=== PATIENT | female | born 1955 | race Caucasian/White ===

== ENCOUNTER 2020-04-04 22:13 | Inpatient (IN) | payer SELFPAY ==
[~2020-04-04] VITALS: Ht 167.6 cm; Wt 123.4 kg
[2020-04-04 23:45] VITALS: BP 155/82
[2020-04-05] MEDS ORDERED: ONDANSETRON PF 4 MG/2 ML VIAL. IVP PRN
[2020-04-05] MEDS ORDERED: fentaNYL PF VIAL 100 MCG/2 ML VIAL IVP PRN
[2020-04-05] MEDS ORDERED: DEXTROSE 50% 25 GM / 50ML DISP.SYRIN. IV PRN
[2020-04-05] MEDS: IV DEXTROSE 5 %-0.45 % NACL 1,000 ML IV SCH ×2 (00:34→12:57)
[2020-04-05 03:57] VITALS: BP 146/80
[2020-04-05 05:20] LABS: HEMATOCRIT 28.3 % (36.0-47.0); HEMOGLOBIN 8.6 g/dL (12.0-15.5); RED BLOOD COUNT 4.5 x10^6/uL (3.50-5.40); RED CELL DISTRIBUTION WIDTH 19.6 % (11.5-14.5); WHITE BLOOD COUNT 9.5 x10^3/uL (4.0-11.0)
[2020-04-05 05:54] LABS: ALBUMIN 2.8 g/dL (3.4-5.0); ALBUMIN/GLOBULIN RATIO 0.7 (1.0-1.7); CALCIUM 8.7 mg/dL (8.5-10.1); GFR 56.2; POTASSIUM 3.8 mmol/L (3.5-5.1); TOTAL BILIRUBIN 0.5 mg/dL (0.2-1.0); TOTAL PROTEIN 6.9 g/dL (6.4-8.2)
[2020-04-05 07:36] VITALS: BP 153/74
[2020-04-05] MEDS: INSULIN LISPRO 300 UNITS/3 ML VIAL. SQ SCH ×3 (09:18→17:49)
[2020-04-05 10:50] VITALS: BP 137/76
--- NOTE | 2020-04-05 11:27 | PN ---
DATE: 04/05/2020 SUBJECTIVE: The patient was transferred yesterday from [facility] where she was evaluated in the Emergency Room, was found to have dilated small bowel and with a stricture at the hepatic flexure suggestive of either malignant stricture or inflammatory stricture. When I kept her n.p.o., continued her on IV fluid and when I saw her this morning, she continued to complain of pain in the epigastric area, but denied any nausea or vomiting. She did pass gas, has no bowel movement. PHYSICAL EXAMINATION: GENERAL: When I examined her, she looked pale, no jaundice, cyanosis or thyromegaly. No jugular venous distention. No limb edema. VITAL SIGNS: Her heart rate was 75, blood pressure was 153/74, temperature was 98.3, respiratory rate was 16, and oxygen saturation was 96% on room air. HEAD, EYES, EARS, NOSE AND THROAT: Showed she is normocephalic, atraumatic. NECK: Supple. CARDIAC: Normal first and second heart sounds with no gallop or murmur. CHEST: Clear to auscultation. No crepitation or rhonchi. ABDOMEN: Distended, soft with tenderness mostly in the epigastric area. There is no guarding or rigidity. No organomegaly. All hernial orifice intact. Bowel sounds normal. NEUROLOGIC: She is grossly intact. Her intake and output are incompletely recorded. LABORATORY DATA: Her lab work this morning showed a white cell count 9500, hemoglobin 8.6, hematocrit 28.3, MCV 63 and platelet count 280,000. Her chemistry showed a serum sodium 136, potassium 3.8, chloride 103, bicarbonate 22, anion gap of 11, BUN 9, creatinine 1, estimated GFR was 56 mL per minute. Her glucose was 288, calcium was 8.7. Total bilirubin, AST, ALT, alkaline phosphatase were normal. Total protein was 6.9, albumin 2.8. ASSESSMENT: This is a 64-year-old female patient who presented with abdominal pain that has been going on for months now, progressively worsening. She also lost about 30 pounds since [place]. Her lab work showed that she has microcytic hypochromic anemia and a CT scan of the abdomen showed dilated fluid-filled loops of distal small bowel and colon with focal area of transition near the hepatic flexure. 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 I did consult the Gastroenterology team as well as the surgical team. She is now n.p.o., on IV fluids and insulin sliding scale. I will add Rocephin. I will send urine for culture and start her on Rocephin 1 gram IV daily. I also ordered CA 19-9 as well as serum iron, TIBC, and serum ferritin. ANNA CARNES MD DR: MIRI/chris JOB#: [id number] / [id number]
--- NOTE | 2020-04-05 11:40 | HP ---
ADMIT DATE: 04/04/2020 HISTORY OF PRESENT ILLNESS: The patient is a 64-year-old female patient, who presented to the Emergency Room of [facility] with a report of upper abdominal pain primarily in the epigastric region that has been ongoing for 3 days. She did report some nausea and vomiting. According to her, this pain has been progressively there since 4 months now, it is on and off, the pain comes once in a few weeks and then once a week and now twice a week associated with severe constipation. Once she was treated, she developed diarrhea. She also complained of weight loss; according to her, she lost about 30 pounds since [place]. She denied any hematemesis, melena, or hematochezia. She was extensively investigated in the Emergency Room of [facility]. Her lab work showed that she has microcytic hypochromic anemia. Her hemoglobin was 10, hematocrit 34, and MCV of 64 with normal white cell count and platelets. Her chemistry was generally unrevealing. She did have a CT scan of the abdomen and pelvis, which basically showed that the patient has dilated fluid filled loops of distal small bowel and colon with focal area of transition near the hepatic flexure, finding suspicious for colonic neoplasm inflammatory stricture, recommend colonoscopy for better evaluation. There are mildly enlarged lymph nodes near the area of transition, which could be related to localized metastatic lymph node spread or inflammatory process. She is status post cholecystectomy and appendectomy. There is a small nodular focus of increased density near the cecal tip, which could be postsurgical scarring. She has small amount of free pelvic fluid and therefore the patient was transferred to [facility] to consult the Gastroenterology team as well as the surgical team. PAST MEDICAL HISTORY: Significant for type 2 diabetes mellitus, hypertension, and osteoarthritis. PAST SURGICAL HISTORY: Significant for 2 , cholecystectomy, and appendectomy. ALLERGIES: She has no known drug allergies. MEDICATIONS: She is currently on following medications: She said she is on metformin. She gets her medication from [facility], we will contact that pharmacy to find out exactly what she is on. FAMILY HISTORY: She has 3 brothers and 1 sister, all younger, one of her brothers had heart attack. Her father is still alive at age of 85 and healthy. Mother is alive at age of 82 and has a cerebrovascular accident, currently in a fci. SOCIAL HISTORY: She is , has 2 sons and 2 daughters. She never smoked, does not drink alcohol or use recreational drugs. 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 Three of her granddaughters live with her as one of her daughters because of lung cancer or metastases. REVIEW OF SYSTEMS: The patient denied any blurring of vision, cataract, glaucoma, or macular degeneration. Denied any earache, tinnitus, or sensorineural deafness. Denied any nosebleeds, stuffy nose, or postnasal drip. Denied any sore throat, sore tongue, toothache, hoarseness of voice, or difficulty swallowing but did complain of nausea or vomiting. Denied any hematemesis, melena, or hematochezia. Denied any dysuria, frequency, or hematuria. Denied any chest pain, shortness of breath, orthopnea, or paroxysmal nocturnal dyspnea. Denied any cough, phlegm, or hemoptysis. Denied any dizziness, lightheadedness, or vertigo. PHYSICAL EXAMINATION: GENERAL: On arrival to the Emergency Room, she looked well and was clearly in no apparent distress, slightly pale, but no jaundice, cyanosis or thyromegaly. No jugular venous distention. No limb edema. VITAL SIGNS: Her heart rate was 95, blood pressure was 129/71, temperature was 98, respiratory rate was 20, and oxygen saturation was 98%. HEAD, EYES, EARS, NOSE AND THROAT: Normocephalic, atraumatic. NECK: Supple. HEART: Showed normal first and second sounds with no gallop or murmur. CHEST: Showed a central trachea, equal bilateral expansion, air entry, expiratory crepitation or rhonchi. ABDOMEN: Distended. Tenderness mostly in the epigastric area. There is no guarding or rigidity. No organomegaly. All hernial orifices intact. Bowel sounds are normal. NEUROLOGIC: She was grossly intact. LABORATORY DATA: Showed a white cell count 9600, hemoglobin 10, hematocrit 34, MCV 64, and platelet count 307,000. Her prothrombin time, INR, and aPTT were all normal. Her chemistry showed a serum sodium 135, potassium 4.7, chloride 98, bicarbonate 23, anion gap of 14, BUN 10, creatinine 1.1, estimated GFR was 50 mL per minute. Her glucose was 368, lactic acid was 1.8, calcium was 9.7, and magnesium was 1.7. Total bilirubin and ALT were normal. AST and alkaline phosphatase were slightly elevated. CK was normal. Total protein was 8.2, albumin 3.3, and lipase was 100. Her urinalysis showed the urine was yellow, turbid with a pH of 5.5, specific gravity of 1.020. There was small amount of protein, large amount of glucose, small amount of ketones, trace of blood, negative for nitrite and bilirubin. There was trace of leukocyte esterase, 1-2 rbc's, more than 40 wbc's, and many bacteria. Her CT scan of the abdomen and pelvis basically showed that she has dilated fluid filled loops of distal small bowel and colon with focal area of transition near the hepatic flexure. Findings are suspicious for colonic neoplasm, inflammatory stricture, recommend colonoscopy for better evaluation. There are mildly enlarged lymph nodes near the area of transition, which could be related to localized metastatic lymph nodes spread or inflammatory process. She is status post cholecystectomy and appendectomy; however, there is a small nodular focus of increased density near the cecal tip, which could be postsurgical scarring. She has also a small amount of free pelvic fluid. ASSESSMENT AND PLAN: The patient was basically admitted to [facility]. We will keep her n.p.o., continue with IV fluid, and consult the Gastroenterology as well as the surgical team. Also given her urinalysis, we will send urine for culture and start her on IV antibiotic. We will monitor her blood sugar and use insulin as insulin sliding scale. ANNA CARNES MD DR: MIRI/chris JOB#: [id number] / [id number]
--- NOTE | 2020-04-05 11:49 | PDOC2 ---
CONSULT Date of Consult Date of Consult DATE: 04/05/20 TIME: 11:43 Reason for Consult Reason for Consult: right colon obstruction Referring Physician Referring Physician: Dr Nicolas Identification/Chief Complaint Chief Complaint constipation, nausea, right sided pain Source Source: Chart review, Patient History of Present Illness Reason for Visit: Ms Parr is a 64 yo obese lady who has never had a colonoscopy and for the last few months has had issues with right sided pain, some nausea and constipation. No family hx of colon issues that she is aware of Past Surgical History Past Surgical History: Cholecystectomy (open), , Hysterectomy Current Medications Current Medications Current Medications Ondansetron HCl (Zofran) 4 mg PRN Q4HRS PRN IVP NAUSEA/VOMITING 1ST CHOICE; Start 04/05/20 at 00:00 Fentanyl Citrate (Fentanyl 2ml Vial) 50 mcg PRN Q3HRS PRN IVP SEVERE PAIN 7-10; Start 04/05/20 at 00:00 Insulin Human Lispro (HumaLOG) 0-9 UNITS TIDWMEALS SQ Last administered on 04/05/20at 09:18; Start 04/05/20 at 08:00 Dextrose (Dextrose 50%-Water Syringe) 12.5 gm PRN Q15MIN PRN IV SEE COMMENTS; Start 04/05/20 at 00:00 Dextrose/Sodium Chloride 1,000 ml @ 75 mls/hr [id number] IV Last administered on 04/05/20at 00:34; Start 04/05/20 at 00:00 Active Scripts Active Allergies Allergies: Coded Allergies: No Known Drug Allergies (Unverified , 10/26/13) ROS Gastrointestinal: Yes Nausea, Yes Abdominal Pain Physical Exam General: Alert, Oriented X3 HEENT: Atraumatic Lungs: Normal air movement Heart: Regular rate Abdomen: Soft, Other (mildly TTP on the right side) Vitals VITALS Vital Signs Date Time Temp Pulse Resp B/P (MAP) Pulse Ox O2 Delivery O2 Flow Rate FiO2 04/05/20 08:00 Room Air 04/05/20 07:36 98.3 75 16 153/74 (100) 96 98.3 Labs Labs Laboratory Tests Test 04/04/20 22:30 04/05/20 04:06 04/05/20 07:41 04/05/20 11:30 Glucose (Fingerstick) 256 mg/dL (70-99) 273 mg/dL (70-99) 277 mg/dL (70-99) White Blood Count 9.5 x10^3/uL (4.0-11.0) Red Blood Count 4.50 x10^6/uL (3.50-5.40) Hemoglobin 8.6 g/dL (12.0-15.5) Hematocrit 28.3 % (36.0-47.0) Mean Corpuscular Volume 63 fL (79-100) Mean Corpuscular Hemoglobin 19 pg (25-35) Mean Corpuscular Hemoglobin Concent 30 g/dL (31-37) Red Cell Distribution Width 19.6 % (11.5-14.5) Platelet Count 280 x10^3/uL (140-400) Sodium Level 136 mmol/L (136-145) Potassium Level 3.8 mmol/L (3.5-5.1) Chloride Level 103 mmol/L (98-107) Carbon Dioxide Level 22 mmol/L (21-32) Anion Gap 11 (6-14) Blood Urea Nitrogen 9 mg/dL (7-20) Creatinine 1.0 mg/dL (0.6-1.0) Estimated GFR (Cockcroft-Gault) 56.2 BUN/Creatinine Ratio 9 (6-20) Glucose Level 288 mg/dL (70-99) Calcium Level 8.7 mg/dL (8.5-10.1) Total Bilirubin 0.5 mg/dL (0.2-1.0) Aspartate Amino Transf (AST/SGOT) 32 U/L (15-37) Alanine Aminotransferase (ALT/SGPT) 40 U/L (14-59) Alkaline Phosphatase 110 U/L (46-116) Total Protein 6.9 g/dL (6.4-8.2) Albumin 2.8 g/dL (3.4-5.0) Albumin/Globulin Ratio 0.7 (1.0-1.7) Laboratory Tests Test 04/04/20 22:30 04/05/20 04:06 04/05/20 07:41 04/05/20 11:30 Glucose (Fingerstick) 256 mg/dL (70-99) 273 mg/dL (70-99) 277 mg/dL (70-99) White Blood Count 9.5 x10^3/uL (4.0-11.0) Red Blood Count 4.50 x10^6/uL (3.50-5.40) Hemoglobin 8.6 g/dL (12.0-15.5) Hematocrit 28.3 % (36.0-47.0) Mean Corpuscular Volume 63 fL (79-100) Mean Corpuscular Hemoglobin 19 pg (25-35) Mean Corpuscular Hemoglobin Concent 30 g/dL (31-37) Red Cell Distribution Width 19.6 % (11.5-14.5) Platelet Count 280 x10^3/uL (140-400) Sodium Level 136 mmol/L (136-145) Potassium Level 3.8 mmol/L (3.5-5.1) Chloride Level 103 mmol/L (98-107) Carbon Dioxide Level 22 mmol/L (21-32) Anion Gap 11 (6-14) Blood Urea Nitrogen 9 mg/dL (7-20) Creatinine 1.0 mg/dL (0.6-1.0) Estimated GFR (Cockcroft-Gault) 56.2 BUN/Creatinine Ratio 9 (6-20) Glucose Level 288 mg/dL (70-99) Calcium Level 8.7 mg/dL (8.5-10.1) Total Bilirubin 0.5 mg/dL (0.2-1.0) Aspartate Amino Transf (AST/SGOT) 32 U/L (15-37) Alanine Aminotransferase (ALT/SGPT) 40 U/L (14-59) Alkaline Phosphatase 110 U/L (46-116) Total Protein 6.9 g/dL (6.4-8.2) Albumin 2.8 g/dL (3.4-5.0) Albumin/Globulin Ratio 0.7 (1.0-1.7) Images Images CT done at [facility] ED is reviewed Assessment/Plan Assessment/Plan proximal colon obstruction obesity GI has been consulted will follow with you for surgical needs Thanks for consult I am out for the next week Ms Parr will be followed by Mustapha Severino and JOJO Cabrera MD April 05, 2020 11:49
[2020-04-05] MEDS ORDERED: POLYETHYLENE GLYCOL 3350 BTL 238 GM POWDER PO ONE (12:00)
--- NOTE | 2020-04-05 12:14 | PDOC2 ---
CONSULT Date of Consult Date of Consult DATE: 04/05/20 TIME: 12:08 History of Present Illness Reason for Visit: This is a 64-year-old female who presents with a several month history of intermittent abdominal pain associated with irregular bowel pattern and on some occasions nausea and dry heaves. Those symptoms recurred this weekend and she presented for evaluation. Over the last 3 months she apparently has lost about 30 pounds and has adjusted her diet to avoid meats or other foods which might precipitate the symptoms. She denies any rectal bleeding. She has had no prior colonoscopy. Initial imaging revealed a partial bowel obstruction with what appears to be a stricture or mass in the right colon associated with some localized adenopathy and then an incomplete small bowel obstruction proximal. She had some dry heaves yesterday but no vomiting since then. She has had several loose bowel movements over the weekend including this morning suggesting a partial bowel obstruction. She is not required an NG tube and has had no vomiting today. No one else is ill at home. There is no fever or chills or other symptoms. Past Medical History Cardiovascular: HTN Endocrine: Diabetes Past Surgical History Past Surgical History: Cholecystectomy (open), , Hysterectomy Family History Family History: Other (Negative for colon cancer but her mother had colon polyps) Current Medications Current Medications Current Medications Ondansetron HCl (Zofran) 4 mg PRN Q4HRS PRN IVP NAUSEA/VOMITING 1ST CHOICE; Start 04/05/20 at 00:00 Fentanyl Citrate (Fentanyl 2ml Vial) 50 mcg PRN Q3HRS PRN IVP SEVERE PAIN 7-10; Start 04/05/20 at 00:00 Insulin Human Lispro (HumaLOG) 0-9 UNITS TIDWMEALS SQ Last administered on 04/05/20at 09:18; Start 04/05/20 at 08:00 Dextrose (Dextrose 50%-Water Syringe) 12.5 gm PRN Q15MIN PRN IV SEE COMMENTS; Start 04/05/20 at 00:00 Dextrose/Sodium Chloride 1,000 ml @ 75 mls/hr [id number] IV Last administered on 04/05/20at 00:34; Start 04/05/20 at 00:00 Polyethylene Glycol (miraLAX Powder BULK BOTTLE) 238 gm 1X ONCE PO ; Start 04/05/20 at 12:00; Stop 04/05/20 at 12:01; Status DC Ondansetron HCl (Zofran) 4 mg PRN Q6HRS PRN IV NAUSEA/VOMITING; Start 04/06/20 at 07:00; Stop 04/07/20 at 06:59; Status UNV Fentanyl Citrate (Fentanyl 2ml Vial) 25 mcg PRN Q5MIN PRN IV MILD PAIN 1-3; Start 04/06/20 at 07:00; Stop 04/07/20 at 06:59; Status UNV Fentanyl Citrate (Fentanyl 2ml Vial) 50 mcg PRN Q5MIN PRN IV MODERATE TO SEVERE PAIN; Start 04/06/20 at 07:00; Stop 04/07/20 at 06:59; Status UNV Morphine Sulfate (Morphine Sulfate) 1 mg PRN Q10MIN PRN IV SEVERE PAIN 7-10; Start 04/06/20 at 07:00; Stop 04/07/20 at 06:59; Status UNV Ringer's Solution 1,000 ml @ 30 mls/hr Q24H IV ; Start 04/06/20 at 07:00; Stop 04/06/20 at 18:59; Status UNV Lidocaine HCl (Xylocaine-Mpf 1% 2ml Vial) 2 ml PRN 1X PRN ID PRIOR TO IV START; Start 04/06/20 at 07:00; Stop 04/07/20 at 06:59; Status UNV Hydromorphone HCl (Dilaudid) 0.5 mg PRN Q10MIN PRN IV SEV PAIN, Second choice; Start 04/06/20 at 07:00; Stop 04/07/20 at 06:59; Status UNV Prochlorperazine Edisylate (Compazine) 5 mg PACU PRN PRN IV NAUSEA, MRX1; Start 04/06/20 at 07:00; Stop 04/07/20 at 06:59; Status UNV Active Scripts Active Allergies Allergies: Coded Allergies: No Known Drug Allergies (Unverified , 10/26/13) Physical Exam General: Alert, Oriented X3 HEENT: PERRLA Lungs: Clear to auscultation Heart: Regular rate, Normal S1, Normal S2 Abdomen: Normal bowel sounds, Soft, No tenderness, No hepatosplenomegaly (Nearl y normal bowel sounds.) Extremities: No clubbing, No edema Psych/Mental Status: Mental status NL Vitals VITALS Vital Signs Date Time Temp Pulse Resp B/P (MAP) Pulse Ox O2 Delivery O2 Flow Rate FiO2 04/05/20 10:50 98.5 71 16 137/76 (96) 93 Room Air 98.5 Labs Labs Laboratory Tests Test 04/04/20 22:30 04/05/20 04:06 04/05/20 07:41 04/05/20 11:30 Glucose (Fingerstick) 256 mg/dL (70-99) 273 mg/dL (70-99) 277 mg/dL (70-99) White Blood Count 9.5 x10^3/uL (4.0-11.0) Red Blood Count 4.50 x10^6/uL (3.50-5.40) Hemoglobin 8.6 g/dL (12.0-15.5) Hematocrit 28.3 % (36.0-47.0) Mean Corpuscular Volume 63 fL (79-100) Mean Corpuscular Hemoglobin 19 pg (25-35) Mean Corpuscular Hemoglobin Concent 30 g/dL (31-37) Red Cell Distribution Width 19.6 % (11.5-14.5) Platelet Count 280 x10^3/uL (140-400) Sodium Level 136 mmol/L (136-145) Potassium Level 3.8 mmol/L (3.5-5.1) Chloride Level 103 mmol/L (98-107) Carbon Dioxide Level 22 mmol/L (21-32) Anion Gap 11 (6-14) Blood Urea Nitrogen 9 mg/dL (7-20) Creatinine 1.0 mg/dL (0.6-1.0) Estimated GFR (Cockcroft-Gault) 56.2 BUN/Creatinine Ratio 9 (6-20) Glucose Level 288 mg/dL (70-99) Calcium Level 8.7 mg/dL (8.5-10.1) Total Bilirubin 0.5 mg/dL (0.2-1.0) Aspartate Amino Transf (AST/SGOT) 32 U/L (15-37) Alanine Aminotransferase (ALT/SGPT) 40 U/L (14-59) Alkaline Phosphatase 110 U/L (46-116) Total Protein 6.9 g/dL (6.4-8.2) Albumin 2.8 g/dL (3.4-5.0) Albumin/Globulin Ratio 0.7 (1.0-1.7) Laboratory Tests Test 04/04/20 22:30 04/05/20 04:06 04/05/20 07:41 04/05/20 11:30 Glucose (Fingerstick) 256 mg/dL (70-99) 273 mg/dL (70-99) 277 mg/dL (70-99) White Blood Count 9.5 x10^3/uL (4.0-11.0) Red Blood Count 4.50 x10^6/uL (3.50-5.40) Hemoglobin 8.6 g/dL (12.0-15.5) Hematocrit 28.3 % (36.0-47.0) Mean Corpuscular Volume 63 fL (79-100) Mean Corpuscular Hemoglobin 19 pg (25-35) Mean Corpuscular Hemoglobin Concent 30 g/dL (31-37) Red Cell Distribution Width 19.6 % (11.5-14.5) Platelet Count 280 x10^3/uL (140-400) Sodium Level 136 mmol/L (136-145) Potassium Level 3.8 mmol/L (3.5-5.1) Chloride Level 103 mmol/L (98-107) Carbon Dioxide Level 22 mmol/L (21-32) Anion Gap 11 (6-14) Blood Urea Nitrogen 9 mg/dL (7-20) Creatinine 1.0 mg/dL (0.6-1.0) Estimated GFR (Cockcroft-Gault) 56.2 BUN/Creatinine Ratio 9 (6-20) Glucose Level 288 mg/dL (70-99) Calcium Level 8.7 mg/dL (8.5-10.1) Total Bilirubin 0.5 mg/dL (0.2-1.0) Aspartate Amino Transf (AST/SGOT) 32 U/L (15-37) Alanine Aminotransferase (ALT/SGPT) 40 U/L (14-59) Alkaline Phosphatase 110 U/L (46-116) Total Protein 6.9 g/dL (6.4-8.2) Albumin 2.8 g/dL (3.4-5.0) Albumin/Globulin Ratio 0.7 (1.0-1.7) Images Images CT scan from [facility] reveals a partial obstruction in the right colon suggestive of a stricture or mass with some associated adenopathy. There is some dilated small bowel behind it suggestive of a partial bowel obstruction. Assessment/Plan Assessment/Plan Chronic history of intermittent partial bowel obstructive symptoms with abdominal pain, irregular constipated bowel history followed by diarrhea and some dry heaves and nausea. The x-rays suggest a likely partial colonic obstruction in the right colon probably neoplastic. No prior colonoscopy has been performed. She is still having bowel movements even today although most of it was liquid. This supports a partial bowel obstruction. Plan: Since she is not vomiting and has no nausea today we will attempt some clear liquids and a modified slow bowel prep as tolerated. If she develops distention or pain we will stop the bowel prep but our goal is to provide as much bowel prep as feasible so that we can have a complete colonoscopy and even subsequent surgery. Add CEA to the labs in the morning CATERINA AHMADI MD April 05, 2020 12:14
--- NOTE | 2020-04-05 13:56 | NUR ---
SS following for discharge planning. SS reviewed pt chart and discussed with pt RN. Pt is from home and is currently on room air. Per RN, pt scheduled for colonoscopy on 04/06/2020. SS will continue to follow for discharge planning.
--- NOTE | 2020-04-05 14:26 | RAD ---
KUB History: Partial small bowel obstruction. Technique: Supine view the abdomen. Comparison: CT April 04, 2020 Findings: Decreased right colonic distention compared to prior. Suggestion of right colonic wall thickening. Mild prominent air-filled loops of small bowel within the left lower abdomen. Surgical clips right upper quadrant. Multilevel lumbar spondylosis. Bilateral hip DJD. Impression: 1. Decreased right colonic distention compared to prior. 2. Suggestion of colonic wall thickening. Electronically signed by: Herbert Kern DO (04/05/2020 2:23 PM) [id number]
[2020-04-05 15:00] VITALS: BP 134/65
--- NOTE | 2020-04-05 16:47 | NUR ---
Informed by outpatient services that COVID test result needed prior to colonoscopy, order placed per protocol. Notified Dr. Zapata and this nurse was told that colonoscopy will be moved on , bowel prep to begin tomorrow morning. Patient will be maintained on clear liquids. Fidencio Peterson notified of changes as well.
[2020-04-05 19:00] VITALS: BP 137/74
[2020-04-05 23:00] VITALS: BP 138/54
[2020-04-06] MEDS: IV DEXTROSE 5 %-0.45 % NACL 1,000 ML IV SCH ×2 (02:50→16:37)
[2020-04-06 03:00] VITALS: BP 125/64
[2020-04-06 03:46] LABS: HEMATOCRIT 26.6 % (36.0-47.0); RED BLOOD COUNT 4.16 x10^6/uL (3.50-5.40); RED CELL DISTRIBUTION WIDTH 19.4 % (11.5-14.5); WHITE BLOOD COUNT 6.5 x10^3/uL (4.0-11.0)
[2020-04-06 04:19] LABS: CALCIUM 8.2 mg/dL (8.5-10.1); CREATININE 0.9 mg/dL (0.6-1.0); GFR 63.4; POTASSIUM 3.5 mmol/L (3.5-5.1)
[2020-04-06] MEDS ORDERED: ONDANSETRON PF 4 MG/2 ML VIAL. IV PRN (07:00)
[2020-04-06] MEDS ORDERED: HYDROmorphone 2 MG/ML VIAL IV PRN (07:00)
[2020-04-06] MEDS ORDERED: LIDOCAINE 1% PF 2 ML VIAL. ID PRN (07:00)
[2020-04-06] MEDS ORDERED: PROCHLORPERAZINE 10 MG/2 ML VIAL. IV PRN (07:00)
[2020-04-06] MEDS ORDERED: MORPHINE SULFATE 2 MG/ML VIAL. IV PRN (07:00)
[2020-04-06] MEDS ORDERED: IV RINGERS,LACTATED 1000ML 1,000 ML IV SCH (07:00)
[2020-04-06] MEDS ORDERED: fentaNYL PF VIAL 100 MCG/2 ML VIAL IV PRN ×2 (07:00)
[2020-04-06 07:38] VITALS: BP 140/65
[2020-04-06] MEDS: INSULIN LISPRO 300 UNITS/3 ML VIAL. SQ SCH ×3 (08:00→17:38)
[2020-04-06] MEDS ORDERED: IRON SUCROSE COMPLEX 200 MG in IV NORMAL SALINE 100ML 100 ML IV ONE (08:30)
--- NOTE | 2020-04-06 09:09 | PDOC ---
GI PROGRESS NOTES Date Date/Time DATE: 04/06/20 TIME: 09:07 Subjective Subjective Several loose bowel movements overnight after half of the MiraLAX prep. Tolerated liquids without nausea or vomiting. Objective Vitals Vital Signs Date Time Temp Pulse Resp B/P (MAP) Pulse Ox O2 Delivery O2 Flow Rate FiO2 04/06/20 07:38 98.3 70 18 140/65 (90) 99 Room Air 98.3 04/06/20 03:00 98.6 66 18 125/64 (84) 90 Room Air 98.6 04/05/20 23:00 98.6 71 18 138/54 (82) 97 Room Air 98.6 04/05/20 20:05 Room Air 04/05/20 19:00 98.7 79 18 137/74 (95) 97 Room Air 98.7 04/05/20 15:00 98.1 77 16 134/65 (88) 94 Room Air 98.1 04/05/20 10:50 98.5 71 16 137/76 (96) 93 Room Air 98.5 Labs Labs Laboratory Tests Test 04/05/20 11:30 04/05/20 12:48 04/05/20 16:16 04/06/20 03:20 Glucose (Fingerstick) 277 mg/dL (70-99) 274 mg/dL (70-99) Iron Level 17 ug/dL (50-170) Total Iron Binding Capacity 374 ug/dL (250-450) Iron Saturation 5 % (15-34) Ferritin 10 ng/mL (8-252) White Blood Count 6.5 x10^3/uL (4.0-11.0) Red Blood Count 4.16 x10^6/uL (3.50-5.40) Hemoglobin 8.0 g/dL (12.0-15.5) Hematocrit 26.6 % (36.0-47.0) Mean Corpuscular Volume 64 fL (79-100) Mean Corpuscular Hemoglobin 19 pg (25-35) Mean Corpuscular Hemoglobin Concent 30 g/dL (31-37) Red Cell Distribution Width 19.4 % (11.5-14.5) Platelet Count 232 x10^3/uL (140-400) Sodium Level 140 mmol/L (136-145) Potassium Level 3.5 mmol/L (3.5-5.1) Chloride Level 108 mmol/L (98-107) Carbon Dioxide Level 24 mmol/L (21-32) Anion Gap 8 (6-14) Blood Urea Nitrogen 9 mg/dL (7-20) Creatinine 0.9 mg/dL (0.6-1.0) Estimated GFR (Cockcroft-Gault) 63.4 Glucose Level 222 mg/dL (70-99) Calcium Level 8.2 mg/dL (8.5-10.1) Test 04/06/20 06:32 Glucose (Fingerstick) 181 mg/dL (70-99) Physical Exam Physical Exam Chest clear Heart regular rate and rhythm Abdomen soft, bowel sounds are appreciated and normal, no masses Assessment Assessment Partial bowel obstruction (right colon) now clinically improved. Tolerating liquids and numerous bowel movements with half of her bowel prep yesterday. Abnormal CT suggesting mass or stricture in the right colon with adenopathy : Suspicious for malignancy Plan Plan Clear liquids today and then n.p.o. after midnight Continue bowel prep today Awaiting COVID testing Planning colonoscopy tomorrow afternoon CATERINA AHMADI MD April 06, 2020 09:09
--- NOTE | 2020-04-06 10:03 | PDOC ---
SURGICAL PROGRESS NOTE Subjective Pt feels better, having stools Vital Signs Vital Signs Date Time Temp Pulse Resp B/P (MAP) Pulse Ox O2 Delivery O2 Flow Rate FiO2 04/06/20 07:38 98.3 70 18 140/65 (90) 99 Room Air 98.3 I&O Intake and Output 04/06/20 07:00 Intake Total 360 ml Balance 360 ml Intake Oral 360 ml # Voids 1 General: Alert, Oriented X3, Cooperative, No acute distress Abdomen: Soft, Other (obese, min TTP) Labs Laboratory Tests Test 04/04/20 22:30 04/05/20 04:06 04/05/20 07:41 04/05/20 11:30 Glucose (Fingerstick) 256 mg/dL (70-99) 273 mg/dL (70-99) 277 mg/dL (70-99) White Blood Count 9.5 x10^3/uL (4.0-11.0) Red Blood Count 4.50 x10^6/uL (3.50-5.40) Hemoglobin 8.6 g/dL (12.0-15.5) Hematocrit 28.3 % (36.0-47.0) Mean Corpuscular Volume 63 fL (79-100) Mean Corpuscular Hemoglobin 19 pg (25-35) Mean Corpuscular Hemoglobin Concent 30 g/dL (31-37) Red Cell Distribution Width 19.6 % (11.5-14.5) Platelet Count 280 x10^3/uL (140-400) Sodium Level 136 mmol/L (136-145) Potassium Level 3.8 mmol/L (3.5-5.1) Chloride Level 103 mmol/L (98-107) Carbon Dioxide Level 22 mmol/L (21-32) Anion Gap 11 (6-14) Blood Urea Nitrogen 9 mg/dL (7-20) Creatinine 1.0 mg/dL (0.6-1.0) Estimated GFR (Cockcroft-Gault) 56.2 BUN/Creatinine Ratio 9 (6-20) Glucose Level 288 mg/dL (70-99) Calcium Level 8.7 mg/dL (8.5-10.1) Total Bilirubin 0.5 mg/dL (0.2-1.0) Aspartate Amino Transf (AST/SGOT) 32 U/L (15-37) Alanine Aminotransferase (ALT/SGPT) 40 U/L (14-59) Alkaline Phosphatase 110 U/L (46-116) Total Protein 6.9 g/dL (6.4-8.2) Albumin 2.8 g/dL (3.4-5.0) Albumin/Globulin Ratio 0.7 (1.0-1.7) Test 04/05/20 12:48 04/05/20 16:16 04/06/20 03:20 04/06/20 06:32 Iron Level 17 ug/dL (50-170) Total Iron Binding Capacity 374 ug/dL (250-450) Iron Saturation 5 % (15-34) Ferritin 10 ng/mL (8-252) Glucose (Fingerstick) 274 mg/dL (70-99) 181 mg/dL (70-99) White Blood Count 6.5 x10^3/uL (4.0-11.0) Red Blood Count 4.16 x10^6/uL (3.50-5.40) Hemoglobin 8.0 g/dL (12.0-15.5) Hematocrit 26.6 % (36.0-47.0) Mean Corpuscular Volume 64 fL (79-100) Mean Corpuscular Hemoglobin 19 pg (25-35) Mean Corpuscular Hemoglobin Concent 30 g/dL (31-37) Red Cell Distribution Width 19.4 % (11.5-14.5) Platelet Count 232 x10^3/uL (140-400) Sodium Level 140 mmol/L (136-145) Potassium Level 3.5 mmol/L (3.5-5.1) Chloride Level 108 mmol/L (98-107) Carbon Dioxide Level 24 mmol/L (21-32) Anion Gap 8 (6-14) Blood Urea Nitrogen 9 mg/dL (7-20) Creatinine 0.9 mg/dL (0.6-1.0) Estimated GFR (Cockcroft-Gault) 63.4 Glucose Level 222 mg/dL (70-99) Calcium Level 8.2 mg/dL (8.5-10.1) Laboratory Tests Test 04/05/20 11:30 04/05/20 12:48 04/05/20 16:16 04/06/20 03:20 Glucose (Fingerstick) 277 mg/dL (70-99) 274 mg/dL (70-99) Iron Level 17 ug/dL (50-170) Total Iron Binding Capacity 374 ug/dL (250-450) Iron Saturation 5 % (15-34) Ferritin 10 ng/mL (8-252) White Blood Count 6.5 x10^3/uL (4.0-11.0) Red Blood Count 4.16 x10^6/uL (3.50-5.40) Hemoglobin 8.0 g/dL (12.0-15.5) Hematocrit 26.6 % (36.0-47.0) Mean Corpuscular Volume 64 fL (79-100) Mean Corpuscular Hemoglobin 19 pg (25-35) Mean Corpuscular Hemoglobin Concent 30 g/dL (31-37) Red Cell Distribution Width 19.4 % (11.5-14.5) Platelet Count 232 x10^3/uL (140-400) Sodium Level 140 mmol/L (136-145) Potassium Level 3.5 mmol/L (3.5-5.1) Chloride Level 108 mmol/L (98-107) Carbon Dioxide Level 24 mmol/L (21-32) Anion Gap 8 (6-14) Blood Urea Nitrogen 9 mg/dL (7-20) Creatinine 0.9 mg/dL (0.6-1.0) Estimated GFR (Cockcroft-Gault) 63.4 Glucose Level 222 mg/dL (70-99) Calcium Level 8.2 mg/dL (8.5-10.1) Test 04/06/20 06:32 Glucose (Fingerstick) 181 mg/dL (70-99) Problem List colon mass agree with colonoscopy tomorrow afternoon. Tentatively consider surgery on 04/08 will obtain CEA and CT chest per protocol TOÑA THOMAS MD April 06, 2020 10:03
[2020-04-06 11:06] VITALS: BP 136/65
[2020-04-06] MEDS ORDERED: POLYETHYLENE GLYCOL 3350 BTL 238 GM POWDER PO ONE (12:00)
--- NOTE | 2020-04-06 12:02 | NUR ---
SS following up with discharge planning. SS reviewed pt chart and discussed with RN. Pt is currently on room air. Pt is COVID19 pending. Pt now scheduled for colonoscopy on 04/07/2020. SS will continue to follow for discharge planning.
[2020-04-06] MEDS ORDERED: IOHEXOL 300 MG/ML 100ML VIAL. IV ONE (12:15)
[2020-04-06] MEDS ORDERED: CONTRAST GIVEN. MC PRN (12:15)
--- NOTE | 2020-04-06 12:18 | PN ---
DATE: 04/06/2020 SUBJECTIVE: The patient is resting slightly propped up in bed, in no apparent distress. She is awake, alert. On questioning her, she states that she has multiple bowel movements. She apparently now is on a clear liquid diet and bowel preparation and states that she has had multiple loose bowel movements. Denies any nausea or vomiting. Denies any abdominal pain. Apparently, she is scheduled for colonoscopy tomorrow. PHYSICAL EXAMINATION: GENERAL: When I saw her today, she was pale. No jaundice, cyanosis or thyromegaly. No jugular venous distention. No limb edema. VITAL SIGNS: Her heart rate was 70, blood pressure was 140/65, temperature was 98.3, respiratory rate was 18, and oxygen saturation was 99% on room air. HEAD, EYES, EARS, NOSE AND THROAT: Showed normocephalic, atraumatic. NECK: Supple. HEART: Showed normal first and second heart sounds. No gallop or murmur. CHEST: Clear to auscultation. No crepitation or rhonchi. ABDOMEN: Distended, soft, nontender. NEUROLOGIC: She is awake, alert, responding appropriately. All cranial nerves intact. She moves extremities without difficulty. She ambulates without assistance or assistive devices. Intake and output are incompletely recorded. LABORATORY DATA: Her lab work this morning showed a serum sodium 136, potassium 3.8, chloride 103, bicarbonate 22, anion gap of 11, BUN 9, creatinine 1. Estimated GFR was 56 mL per minute. Her glucose was 288. Calcium was 8.7. Total bilirubin, AST, ALT, alkaline phosphatase were normal. Her total protein was 6.9, albumin 2.8. Her white cell count was 6500, hemoglobin 8, hematocrit 27, MCV was 64 and platelet count 232,000. ASSESSMENT: In summary, this is a 64-year-old female patient who presented with: 1. Abdominal pain that has been going on for months now, progressively worsening. 2. She has had weight loss about 30 pounds since [place]. Her lab work showed she has microcytic hypochromic anemia. 3. Her CT scan of the abdomen showed dilated fluid-filled loops of distal small bowel and colon with focal area of transition near the hepatic flexure. Findings are suspicious for colonic neoplasm or inflammatory stricture. 4. She has multiple other medical problems including hypertension, type 2 diabetes and generalized osteoarthritis. PLAN: The patient is scheduled for colonoscopy tomorrow. I have also consulted the surgical team, and obviously, after colonoscopy and the biopsy, a decision was made regarding further surgical intervention. ANNA CARNES MD DR: MIRI/chris JOB#: [id number] / [id number]
--- NOTE | 2020-04-06 13:32 | RAD ---
Examination: CT CHEST W/CONTRAST History: Reason: colon mass. TO DO AT 1:00PM PER RN ERIS, IRON INFUSION. / Spl. Instructions: IV OMNI 300 75 MLS. / History: Comparison/Correlation: None Findings: Axial images of chest were obtained following IV contrast. Sagittal and coronal reformatted images were provided. Lung mcdonald are clear with no infiltrate. No suspicious pulmonary nodule or mass. No enlarged thoracic lymph nodes. Main pulmonary artery diameter of 3.5 cm transverse is seen. Minimal basilar discoid atelectasis is seen. Subtle centrilobular emphysematous lung mcdonald suggested. Cholecystectomy noted. Small sliding hiatal hernia is present. Bony structures are grossly unremarkable for the patient's age. Impression: No infiltrate. No suspicious pulmonary nodule. Small hiatal hernia. Main pulmonary artery diameter is slightly above normal limits for diameter. Correlate for possibility of underlying pulmonary artery hypertension. PQRS Compliance Statement: One or more of the following individualized dose reduction techniques were utilized for this examination: 1. Automated exposure control 2. Adjustment of the mA and/or kV according to patient size 3. Use of iterative reconstruction technique Electronically signed by: Cesar العراقي MD (04/06/2020 1:29 PM) [id number]
[2020-04-06 15:06] VITALS: BP 152/65
[2020-04-06 19:00] VITALS: BP 137/72
[2020-04-06 23:00] VITALS: BP 136/65
[2020-04-07 03:00] VITALS: BP 135/51
[2020-04-07 03:45] LABS: HEMATOCRIT 26.8 % (36.0-47.0); HEMOGLOBIN 7.9 g/dL (12.0-15.5)
[2020-04-07 04:05] LABS: CREATININE 0.9 mg/dL (0.6-1.0); GFR 63.4; POTASSIUM 3.1 mmol/L (3.5-5.1)
[2020-04-07] MEDS: IV DEXTROSE 5 %-0.45 % NACL 1,000 ML IV SCH (05:20)
--- NOTE | 2020-04-07 06:56 | NUR ---
IP: Pt is COVID negative.
[2020-04-07 07:00] VITALS: BP 136/60
[2020-04-07] MEDS ORDERED: IV RINGERS,LACTATED 1000ML 1,000 ML IV SCH (07:00)
[2020-04-07] MEDS: INSULIN LISPRO 300 UNITS/3 ML VIAL. SQ SCH ×3 (07:46→17:00)
[2020-04-07] MEDS: POTASSIUM CL 40MEQ D5-0.45NACL 1,000 ML IV SCH ×2 (09:57→21:26)
--- NOTE | 2020-04-07 10:04 | PN ---
DATE: 04/07/2020 SUBJECTIVE: The patient is sitting comfortably in her recliner, in no apparent distress. Denied any pain. She is n.p.o., scheduled for colonoscopy today. PHYSICAL EXAMINATION: GENERAL: When I saw her this morning, she looked pale, no jaundice, cyanosis or thyromegaly. No jugular venous distention or limb edema. VITAL SIGNS: Her heart rate was 68, blood pressure was 136/60, temperature 98.3, respiratory rate was 17 and oxygen saturation was 96% on room air. The rest of the clinical exam is stable, has not changed. Her intake and output were incompletely recorded. LABORATORY DATA: Her lab work this morning showed a serum sodium 142, potassium 3.1, chloride 108, bicarbonate 25, anion gap of 9, BUN 5, creatinine 0.9, estimated GFR was 63 mL per minute. Her glucose was 193 and calcium was 8. Her hemoglobin was 8, hematocrit 26.8 with normal white cell count and platelets. ASSESSMENT: 1. Abdominal pain has been going on for months now, progressively worsening. 2. She has had weight loss of about 30 pounds since . 3. Her lab work showed severe microcytic hypochromic anemia and iron studies showed she has severe iron deficiency anemia. 4. CT scan of the abdomen showed dilated fluid-filled loops with dilated distal small bowel and colon with focal area of transition near the hepatic flexure. Findings are suspicious for colonic neoplasm or inflammatory stricture. 5. The patient has multiple other medical problems including: A. Hypertension. B. Type 2 diabetes mellitus disease. C. Generalized osteoarthritis. D. She has also hypokalemia. PLAN: To replenish her potassium. I changed IV fluid to D5 half normal with 40 mEq of potassium chloride. She is obviously scheduled for colonoscopy today and biopsy and the surgical team considered surgery tentatively on 04/08. ANNA CARNES MD DR: MIRI/chris JOB#: [id number] / [id number]
--- NOTE | 2020-04-07 10:35 | PDOC ---
SURGICAL PROGRESS NOTE Subjective Pt feels well, sánchez prep Vital Signs Vital Signs Date Time Temp Pulse Resp B/P (MAP) Pulse Ox O2 Delivery O2 Flow Rate FiO2 04/07/20 08:00 Room Air 04/07/20 07:00 98.3 68 17 136/60 (85) 96 98.3 I&O Intake and Output 04/07/20 07:00 Intake Total 920 ml Balance 920 ml Intake Oral 920 ml General: Alert, Oriented X3, Cooperative, No acute distress Abdomen: Soft, No tenderness Labs Laboratory Tests Test 04/05/20 11:30 04/05/20 12:48 04/05/20 15:50 04/05/20 16:16 Glucose (Fingerstick) 277 mg/dL (70-99) 274 mg/dL (70-99) Iron Level 17 ug/dL (50-170) Total Iron Binding Capacity 374 ug/dL (250-450) Iron Saturation 5 % (15-34) Ferritin 10 ng/mL (8-252) Coronavirus (COVID-19)(PCR) See separate report Test 04/06/20 03:20 04/06/20 06:32 04/06/20 11:49 04/06/20 16:38 White Blood Count 6.5 x10^3/uL (4.0-11.0) Red Blood Count 4.16 x10^6/uL (3.50-5.40) Hemoglobin 8.0 g/dL (12.0-15.5) Hematocrit 26.6 % (36.0-47.0) Mean Corpuscular Volume 64 fL (79-100) Mean Corpuscular Hemoglobin 19 pg (25-35) Mean Corpuscular Hemoglobin Concent 30 g/dL (31-37) Red Cell Distribution Width 19.4 % (11.5-14.5) Platelet Count 232 x10^3/uL (140-400) Sodium Level 140 mmol/L (136-145) Potassium Level 3.5 mmol/L (3.5-5.1) Chloride Level 108 mmol/L (98-107) Carbon Dioxide Level 24 mmol/L (21-32) Anion Gap 8 (6-14) Blood Urea Nitrogen 9 mg/dL (7-20) Creatinine 0.9 mg/dL (0.6-1.0) Estimated GFR (Cockcroft-Gault) 63.4 Glucose Level 222 mg/dL (70-99) Calcium Level 8.2 mg/dL (8.5-10.1) Glucose (Fingerstick) 181 mg/dL (70-99) 266 mg/dL (70-99) 245 mg/dL (70-99) Test 04/06/20 20:33 04/07/20 03:05 04/07/20 07:25 Glucose (Fingerstick) 207 mg/dL (70-99) 174 mg/dL (70-99) Hemoglobin 7.9 g/dL (12.0-15.5) Hematocrit 26.8 % (36.0-47.0) Sodium Level 142 mmol/L (136-145) Potassium Level 3.1 mmol/L (3.5-5.1) Chloride Level 108 mmol/L (98-107) Carbon Dioxide Level 25 mmol/L (21-32) Anion Gap 9 (6-14) Blood Urea Nitrogen 5 mg/dL (7-20) Creatinine 0.9 mg/dL (0.6-1.0) Estimated GFR (Cockcroft-Gault) 63.4 Glucose Level 193 mg/dL (70-99) Calcium Level 8.0 mg/dL (8.5-10.1) Laboratory Tests Test 04/06/20 11:49 04/06/20 16:38 04/06/20 20:33 04/07/20 03:05 Glucose (Fingerstick) 266 mg/dL (70-99) 245 mg/dL (70-99) 207 mg/dL (70-99) Hemoglobin 7.9 g/dL (12.0-15.5) Hematocrit 26.8 % (36.0-47.0) Sodium Level 142 mmol/L (136-145) Potassium Level 3.1 mmol/L (3.5-5.1) Chloride Level 108 mmol/L (98-107) Carbon Dioxide Level 25 mmol/L (21-32) Anion Gap 9 (6-14) Blood Urea Nitrogen 5 mg/dL (7-20) Creatinine 0.9 mg/dL (0.6-1.0) Estimated GFR (Cockcroft-Gault) 63.4 Glucose Level 193 mg/dL (70-99) Calcium Level 8.0 mg/dL (8.5-10.1) Test 04/07/20 07:25 Glucose (Fingerstick) 174 mg/dL (70-99) Problem List colon mass, partially obstructing Assessment/Plan agree with colonoscopy today. CT chest wnl CEA ordered tentatively plan colectomy tomorrow. R/R/B/A d/w pt. Risks, including, but not limited to: bleeding, infection, damage to surrounding structures, risk of anesthesia, risk of open. She appears to understand, her questions are answered and she elects to proceed. TOÑA THOMAS MD April 07, 2020 10:35
[2020-04-07 11:43] VITALS: BP 135/68
[2020-04-07] MEDS ORDERED: PROPOFOL 10 MG/ML (20ML) VIAL. IV ONE (12:40)
[2020-04-07] MEDS ORDERED: LIDOCAINE 2% PF 5 ML VIAL. ONE (12:40)
--- NOTE | 2020-04-07 13:45 | NUR ---
PT TAKEN TO OUTPATIENT FOR COLONOSCOPY.
--- NOTE | 2020-04-07 13:49 | NUR ---
SS following up with discharge planning. SS reviewed pt chart and discussed with pt RN. Pt is COVID19 negative. Tentative colectomy scheduled for tomorrow. SS will continue to follow for discharge planning.
[2020-04-07] MEDS ORDERED: IV NORMAL SALINE 1000ML BAG 1,000 ML IV SCH (14:15)
--- NOTE | 2020-04-07 15:39 | PDOC4 ---
PROCEDURE Procedure Colonoscopy bowel mass anesthesia- propofol Findings 2 sessile polyps in rectum- 4-5 mm- snare removed 1 pedunculated polyp in sigmoid 12 mm- snare removed obstructing mass near hepatic flexure- bx and tattooed- unable to transverse with scope Plan- check biopsies surgery plans CATERINA AHMADI MD April 07, 2020 15:39
--- NOTE | 2020-04-07 18:40 | NUR ---
PT TRANSFERRED TO ROOM 434 PER WHEELCHAIR. REPORT CALLED TO TORIBIO SMITH.
--- NOTE | 2020-04-07 18:40 | NUR ---
Pt arrived to unit by w/c from [address]. Oriented to room and controls. Side rails up x's 2 with call light in reach. No c/o at this time.
[2020-04-07 19:25] VITALS: BP 171/75
[2020-04-07 23:56] VITALS: BP 147/68
[2020-04-08 03:26] VITALS: BP 120/50
[2020-04-08 04:32] LABS: HEMATOCRIT 26.6 % (36.0-47.0); RED BLOOD COUNT 4.17 x10^6/uL (3.50-5.40); RED CELL DISTRIBUTION WIDTH 19.6 % (11.5-14.5); WHITE BLOOD COUNT 8.2 x10^3/uL (4.0-11.0)
[2020-04-08 04:48] LABS: PROTHROMBIN TIME PATIENT 14.2 SEC (11.7-14.0)
[2020-04-08 05:04] LABS: CREATININE 0.9 mg/dL (0.6-1.0); GFR 63.4; POTASSIUM 3.8 mmol/L (3.5-5.1)
[2020-04-08] MEDS: POTASSIUM CL 40MEQ D5-0.45NACL 1,000 ML IV SCH ×2 (05:45→15:45)
[2020-04-08] MEDS ORDERED: cefOXitin SODIUM IV Push 2 GM VIAL. IVP ONE (06:00)
[2020-04-08 07:00] VITALS: BP 119/62
[2020-04-08] MEDS ORDERED: PROCHLORPERAZINE 10 MG/2 ML VIAL. IV PRN (07:00)
[2020-04-08] MEDS ORDERED: IV RINGERS,LACTATED 1000ML 1,000 ML IV SCH (07:00)
[2020-04-08] MEDS ORDERED: fentaNYL PF VIAL 100 MCG/2 ML VIAL IV PRN (07:00)
[2020-04-08] MEDS ORDERED: ONDANSETRON PF 4 MG/2 ML VIAL. IV PRN (07:00)
[2020-04-08] MEDS ORDERED: HYDROmorphone 2 MG/ML VIAL IV PRN (07:00)
[2020-04-08] MEDS ORDERED: MORPHINE SULFATE 2 MG/ML VIAL. IV PRN (07:00)
[2020-04-08] MEDS: INSULIN LISPRO 300 UNITS/3 ML VIAL. SQ SCH ×3 (08:10→18:28)
[2020-04-08] MEDS ORDERED: SUCCINYLCHOLINE 200 MG/10 ML VIAL. ONE (08:20)
[2020-04-08] MEDS ORDERED: ROCURONIUM 50 MG/5 ML VIAL. ONE ×2 (08:20→11:08)
[2020-04-08] MEDS ORDERED: LIDOCAINE 2% PF 5 ML VIAL. ONE (08:21)
[2020-04-08] MEDS ORDERED: ONDANSETRON PF 4 MG/2 ML VIAL. ONE (08:21)
[2020-04-08] MEDS ORDERED: DEXAMETHASONE SOD PHOS 4 MG/ML VIAL ONE (08:21)
[2020-04-08] MEDS ORDERED: PROPOFOL 10 MG/ML (20ML) VIAL. IV ONE (08:21)
[2020-04-08] MEDS ORDERED: BUPIVACAINE-EPI 0.5%-1:200000 MPF 30 ML VIAL. ONE (08:45)
[2020-04-08] MEDS ORDERED: fentaNYL PF VIAL 100 MCG/2 ML VIAL ONE ×2 (09:30→11:11)
[2020-04-08] MEDS ORDERED: MIDAZOLAM HCL/PF 2 MG/2 ML VIAL. ONE (09:30)
--- NOTE | 2020-04-08 09:30 | NUR ---
Pt had shower prior to transferred to surgery by bed.
--- NOTE | 2020-04-08 09:48 | PDOC ---
Objective: Objective: D/w nurse - to OR later this morning. Vital Signs: Vital Signs Date Time Temp Pulse Resp B/P (MAP) Pulse Ox O2 Delivery O2 Flow Rate FiO2 04/08/20 07:00 97.8 73 18 119/62 (81) 95 Room Air 97.8 04/07/20 15:42 2 Labs: Laboratory Tests Test 04/07/20 11:18 04/07/20 16:31 04/08/20 03:50 04/08/20 07:53 Glucose (Fingerstick) 218 mg/dL 182 mg/dL 239 mg/dL White Blood Count 8.2 x10^3/uL Red Blood Count 4.17 x10^6/uL Hemoglobin 8.0 g/dL Hematocrit 26.6 % Mean Corpuscular Volume 64 fL Mean Corpuscular Hemoglobin 19 pg Mean Corpuscular Hemoglobin Concent 30 g/dL Red Cell Distribution Width 19.6 % Platelet Count 234 x10^3/uL Prothrombin Time 14.2 SEC Prothromb Time International Ratio 1.1 Sodium Level 143 mmol/L Potassium Level 3.8 mmol/L Chloride Level 109 mmol/L Carbon Dioxide Level 24 mmol/L Anion Gap 10 Blood Urea Nitrogen 4 mg/dL Creatinine 0.9 mg/dL Estimated GFR (Cockcroft-Gault) 63.4 Glucose Level 239 mg/dL Calcium Level 8.0 mg/dL Test 04/08/20 09:41 Glucose (Fingerstick) 232 mg/dL Imaging: Colonoscopy 04/07 Findings 2 sessile polyps in rectum- 4-5 mm- snare removed 1 pedunculated polyp in sigmoid 12 mm- snare removed obstructing mass near hepatic flexure- bx and tattooed- unable to transverse with scope Plan- check biopsies surgery plans PE: GEN: in the shower when I stopped by A/P: Obstructing colon mass - colonoscopy as above -- Plans for surgery today, will follow. Is NPO status required?: Yes SHANTHI FULTON April 08, 2020 09:48
--- NOTE | 2020-04-08 10:35 | PDOC ---
SURGICAL PROGRESS NOTE Subjective Pre-Op Note 64 yo F with obstructing right transverse colon mass. TO OR for laparoscopic versus open right colon resection. R/R/B/A d/w pt. Risks, including, but not limited to: bleeding, infection, damage to surrounding structures, risk of anesthesia, risk of open, risk of , risk of anastomotic leak, risk of need for additional surgery for polyps (removed by GI, if cancerous). Given obstructing nature, favor proceeding with right colon. She appears to understand, her questions are answered and she elects to proceed. Vital Signs Vital Signs Date Time Temp Pulse Resp B/P (MAP) Pulse Ox O2 Delivery O2 Flow Rate FiO2 04/08/20 10:03 97.2 72 15 140/68 95 Room Air 97.2 04/07/20 15:42 2 I&O Intake and Output 04/08/20 07:00 Intake Total 2040 ml Output Total 1500 ml Balance 540 ml Intake Oral 340 ml IV Total 1700 ml Output Urine Total 1500 ml # Voids 1 Labs Laboratory Tests Test 04/06/20 11:49 04/06/20 16:38 04/06/20 20:33 04/07/20 03:05 Glucose (Fingerstick) 266 mg/dL (70-99) 245 mg/dL (70-99) 207 mg/dL (70-99) Hemoglobin 7.9 g/dL (12.0-15.5) Hematocrit 26.8 % (36.0-47.0) Sodium Level 142 mmol/L (136-145) Potassium Level 3.1 mmol/L (3.5-5.1) Chloride Level 108 mmol/L (98-107) Carbon Dioxide Level 25 mmol/L (21-32) Anion Gap 9 (6-14) Blood Urea Nitrogen 5 mg/dL (7-20) Creatinine 0.9 mg/dL (0.6-1.0) Estimated GFR (Cockcroft-Gault) 63.4 Glucose Level 193 mg/dL (70-99) Calcium Level 8.0 mg/dL (8.5-10.1) Test 04/07/20 07:25 04/07/20 11:18 04/07/20 16:31 04/08/20 03:50 Glucose (Fingerstick) 174 mg/dL (70-99) 218 mg/dL (70-99) 182 mg/dL (70-99) White Blood Count 8.2 x10^3/uL (4.0-11.0) Red Blood Count 4.17 x10^6/uL (3.50-5.40) Hemoglobin 8.0 g/dL (12.0-15.5) Hematocrit 26.6 % (36.0-47.0) Mean Corpuscular Volume 64 fL (79-100) Mean Corpuscular Hemoglobin 19 pg (25-35) Mean Corpuscular Hemoglobin Concent 30 g/dL (31-37) Red Cell Distribution Width 19.6 % (11.5-14.5) Platelet Count 234 x10^3/uL (140-400) Prothrombin Time 14.2 SEC (11.7-14.0) Prothromb Time International Ratio 1.1 (0.8-1.1) Sodium Level 143 mmol/L (136-145) Potassium Level 3.8 mmol/L (3.5-5.1) Chloride Level 109 mmol/L (98-107) Carbon Dioxide Level 24 mmol/L (21-32) Anion Gap 10 (6-14) Blood Urea Nitrogen 4 mg/dL (7-20) Creatinine 0.9 mg/dL (0.6-1.0) Estimated GFR (Cockcroft-Gault) 63.4 Glucose Level 239 mg/dL (-99) Calcium Level 8.0 mg/dL (8.5-10.1) Test 04/08/20 07:53 04/08/20 09:41 Glucose (Fingerstick) 239 mg/dL (70-99) 232 mg/dL (70-99) Laboratory Tests Test 04/07/20 11:18 04/07/20 16:31 04/08/20 03:50 04/08/20 07:53 Glucose (Fingerstick) 218 mg/dL (70-99) 182 mg/dL (70-99) 239 mg/dL (70-99) White Blood Count 8.2 x10^3/uL (4.0-11.0) Red Blood Count 4.17 x10^6/uL (3.50-5.40) Hemoglobin 8.0 g/dL (12.0-15.5) Hematocrit 26.6 % (36.0-47.0) Mean Corpuscular Volume 64 fL (79-100) Mean Corpuscular Hemoglobin 19 pg (25-35) Mean Corpuscular Hemoglobin Concent 30 g/dL (31-37) Red Cell Distribution Width 19.6 % (11.5-14.5) Platelet Count 234 x10^3/uL (140-400) Prothrombin Time 14.2 SEC (11.7-14.0) Prothromb Time International Ratio 1.1 (0.8-1.1) Sodium Level 143 mmol/L (136-145) Potassium Level 3.8 mmol/L (3.5-5.1) Chloride Level 109 mmol/L (98-107) Carbon Dioxide Level 24 mmol/L (21-32) Anion Gap 10 (6-14) Blood Urea Nitrogen 4 mg/dL (7-20) Creatinine 0.9 mg/dL (0.6-1.0) Estimated GFR (Cockcroft-Gault) 63.4 Glucose Level 239 mg/dL (70-99) Calcium Level 8.0 mg/dL (8.5-10.1) Test 04/08/20 09:41 Glucose (Fingerstick) 232 mg/dL (70-99) TOÑA THOMAS MD April 08, 2020 10:35
--- NOTE | 2020-04-08 10:52 | PN ---
DATE: 04/08/2020 SUBJECTIVE: The patient is sitting propped up in her recliner, in no apparent distress. On questioning her, denied any complaint. She apparently has had her colonoscopy done yesterday which showed the patient was found to have 2 sessile polyps in the rectum, about 4-5 mm, snare removed. She has also 1 pedunculated polyp in the sigmoid, 12 mm, snare removed. She was found to have an obstructing mass near the hepatic flexure, which was biopsied and tattooed. Apparently, Dr. Zapata was unable to transverse with scope. She was seen by the surgical team and she is scheduled for surgery today. PHYSICAL EXAMINATION: GENERAL: When I examined her this morning, she looked well and was clearly in no apparent distress, pale, no jaundice, cyanosis or thyromegaly. No jugular venous distention. No limb edema. VITAL SIGNS: Her heart rate was 73, blood pressure was 119/62, temperature 97.8, respiratory rate was 18 and oxygen saturation was 95%. HEAD, EYES, EARS, NOSE AND THROAT: Normocephalic, atraumatic. NECK: Supple. HEART: Showed normal first and second heart sounds. No gallop, rub or murmur. CHEST: Clear to auscultation. No crepitation or rhonchi. ABDOMEN: Distended, soft, nontender. No guarding or rigidity. No organomegaly. All hernial orifice intact. Bowel sounds normal. NEUROLOGIC: She is awake, alert, responding appropriately. She moves all extremities without difficulty. She ambulates without assistance or assistive devices. Her intake was 900, no output was recorded. LABORATORY DATA: As of this morning, her white cell count was 8200, hemoglobin 8, hematocrit 27, MCV 64 and platelet count 234,000. Her prothrombin time was 14.2, INR 1.1. Her chemistry showed a serum sodium 143, potassium 3.8, chloride 109, bicarbonate 24, anion gap of 10, BUN 4, creatinine 0.9, estimated GFR was 63 mL per minute. Her glucose was 139 and calcium was 8. ASSESSMENT: 1. The patient presented with abdominal pain and weight loss of about 30 pounds. Her colonoscopy showed an obstructing mass at the hepatic flexure which could not be traversed by the colonoscope. She is scheduled for surgery today. 2. She has microcytic hypochromic anemia and iron studies showed severe iron deficiency for which she has received Venofer. 3. Other medical problems include: A. Hypertension. B. Type 2 diabetes mellitus. C. Generalized osteoarthritis. D. Hypokalemia that has resolved. PLAN: To continue with IV fluid, continue to monitor her blood sugar and adjust insulin as needed. Continue with pain management and antiemetics. I will repeat her lab work tomorrow. ANNA CARNES MD DR: MIRI/chris JOB#: [id number] / [id number]
[2020-04-08] MEDS ORDERED: SEVOFLURANE > 120 MINUTES. IH ONE (11:10)
[2020-04-08] MEDS ORDERED: GLYCOPYRROLATE 1 MG/5 ML VIAL. ONE (11:12)
[2020-04-08] MEDS ORDERED: METHYLENE BLUE 0.5% 10ml AMPULE. ONE (11:44)
--- NOTE | 2020-04-08 11:53 | NUR ---
SS following up with discharge planning. SS reviewed pt chart and discussed with pt RN. Pt having surgery for bowel resection today. Pt is currently on room air and COVID19 negative. SS will continue to follow for discharge planning.
[2020-04-08] MEDS ORDERED: MORPHINE SULFATE 10 MG/ML VIAL. ONE (11:55)
[2020-04-08] MEDS ORDERED: NEOSTIGMINE METHYLSULFATE 5 MG/5 ML SYRINGE. ONE (13:00)
[2020-04-08] MEDS ORDERED: ALBUMIN HUMAN 5% 0 ML IV ONE (13:02)
[2020-04-08] MEDS ORDERED: ONDANSETRON PF 4 MG/2 ML VIAL. IVP PRN (13:15)
[2020-04-08] MEDS ORDERED: MORPHINE SULFATE 30 ML IV PRN (13:15)
[2020-04-08] MEDS ORDERED: NALOXONE 0.4 MG/ML VIAL. IV PRN (13:15)
[2020-04-08] MEDS: IV NORMAL SALINE 1000ML BAG 1,000 ML IV SCH (13:15)
[2020-04-08] MEDS ORDERED: 0.9 % SODIUM CHLORIDE 10 ML DISP.SYRIN. IV PRN (13:15)
[2020-04-08] MEDS ORDERED: INSULIN LISPRO 100 UNIT/ML 3ML VIAL for OP,RR ONLY. SQ PRN (13:30)
[2020-04-08] MEDS ORDERED: ALBUMIN HUMAN 5% 500 ML IV ONE (13:35)
--- NOTE | 2020-04-08 14:10 | PDOC4 ---
OPERATIVE NOTE Date: Date: April 08, 2020 Pre-Op Diagnosis: Obstructing colon cancer Post-Op Diagnosis: same, left portion of transverse colon Procedure Performed: laparoscopic converted to open right colon resection Surgeon: Jabier Thomas Anesthesia Type: GETA Blood Loss: 100 Specimans Obtained: right colon Findings: morbid obesity; extensive adhesions from previous surgery; inflammation of right colon secondary to obstruction; obstructing, tight mass left portion of transverse colon; no obvious metastatic spread; normal right ovary Complications: none Operative Note: After obtaining informed consent, patient was taken to OR, induced under GETA and prepped in the usual fashion. 5 mm port placed RUQ and LUQ and RLQ, under laparoscopic guidance. Abdominal cavity was explored and noted as above. Adhesions to anterior abdominal wall taken down using ligasure. Secondary to extensive adhesions and difficulty visualizing structures secondary to obesity, open procedure indicated. Midline incision was made with cautery. Right colon fully mobilized using cautery and dividing white line of toldt. Right ovary visualized and normal. Right ureter visualized in retroperitoneum and maintained without injury. Duodenum maintained without injury. Appendix surgically absent. Gallbladder surgically absent and colon adherent to gallbladder fossa and carefully dissected out. Terminal ileum divided with BEAU 75. Transverse colon was divided distal to palpable mass and area of tattoo. Mesentery taken with ligasure. Right colon vessels taken at origin with 0 vicryl ties and ligasure. Specimen sent to pathology, which demonstrated good margins. Small bowel was normal throughout and remaining colon normal. Liver without obvious metastasis. No other pathology noted. Side to side stapled anastomosis created with terminal ileum to transverse colon. Sealed with TA 60. Mesentery defect was repaired with 2 0 chromic. Anastomosis noted to be patent, under no tension and completely viable and without evidence of leakage. Copious irrigation. No evidence of bleeding or other pathology. Fascia repaired with 0 looped PDS. Skin repaired with 0 vicryl and 4 0 monocryl. Brandenburg left in wound and secured with 3 0 nylon. Dressing placed. Patient tolerated procedure well and sent to PACU in stable condition. All counts correct. Wound class is 3. TOÑA THOMAS MD April 08, 2020 14:10
[2020-04-08] MEDS: fentaNYL PF VIAL 100 MCG/2 ML VIAL IV PRN ×2 (14:28→15:06)
--- NOTE | 2020-04-08 15:03 | RAD ---
EXAM: Supine AP view of the abdomen DATE: 04/08/2020 12:00 AM INDICATION: Reason: POST OP KUB IN OR, POST BOWEL RESECTION. COUNTS CORRECT. / Spl. Instructions: 1 DRAIN LEFT IN POST OP / History: COMPARISON: No Prior FINDINGS/ IMPRESSION: Note, this single submitted radiographic includes portions of the left hemiabdomen. The entire abdominal and pelvic cavity is not included in the [id number]. Single drain is seen along the left hemiabdomen. NG tube is partially profiled. Otherwise no unexpected retained radiopaque foreign body. Nonspecific bowel gas pattern. Electronically signed by: Yifan Pedroza MD (04/08/2020 2:59 PM) [id number]
[2020-04-08 16:30] VITALS: BP 141/63
--- NOTE | 2020-04-08 16:30 | NUR ---
Arrived to unit from PACU by bed. Drowsy but awakens. Abdomen dressing d/i. NG in right nare intact and low continuous suction. Santana intact, IVF's intact and infusing with Morphine HOTEL OPERATION MANAGER, O2 at 4l per n/c. SCD's on bilaterally. Side rails up x's 2 with call light in reach and HOTEL OPERATION MANAGER button. VS stable. Cont. monitor.
[2020-04-08 17:30] VITALS: BP 163/75
[2020-04-08] MEDS: IV RINGERS,LACTATED 1000ML 1,000 ML IV SCH ×2 (18:24→23:06)
[2020-04-08 19:25] VITALS: BP 151/73
[2020-04-08 23:27] VITALS: BP 143/69
[2020-04-09] MEDS: POTASSIUM CL 40MEQ D5-0.45NACL 1,000 ML IV SCH ×2 (01:45→11:45)
[2020-04-09 03:38] VITALS: BP 107/63
[2020-04-09 04:36] LABS: BASO % 0 % (0-3); EOS % 0 % (0-3); HEMATOCRIT 27.2 % (36.0-47.0); LYMPH # 1.8 x10^3/uL (1.0-4.8); LYMPH % 15 % (24-48); MEAN CORPUSCULAR HEMOGLOBIN 19 pg (25-35); MEAN CORPUSCULAR HGB CONC 29 g/dL (31-37); MEAN CORPUSCULAR VOLUME 65 fL (79-100); MONO # 0.8 x10^3/uL (0.0-1.1); MONO % 7 % (0-9); NEUT # 9.2 x10^3/uL (1.8-7.7); NEUT % 78 % (31-73); PLATELET COUNT 229 x10^3/uL (140-400); RED CELL DISTRIBUTION WIDTH 19.7 % (11.5-14.5); WHITE BLOOD COUNT 11.8 x10^3/uL (4.0-11.0)
[2020-04-09 05:01] LABS: ALBUMIN 2.7 g/dL (3.4-5.0); ALBUMIN/GLOBULIN RATIO 0.8 (1.0-1.7); CALCIUM 8.4 mg/dL (8.5-10.1); GFR 56.2; POTASSIUM 3.6 mmol/L (3.5-5.1); TOTAL BILIRUBIN 0.4 mg/dL (0.2-1.0); TOTAL PROTEIN 6.1 g/dL (6.4-8.2)
[2020-04-09 07:47] VITALS: BP 164/73
[2020-04-09] MEDS: INSULIN LISPRO 300 UNITS/3 ML VIAL. SQ SCH ×3 (08:00→17:00)
[2020-04-09] MEDS: IV RINGERS,LACTATED 1000ML 1,000 ML IV SCH ×2 (10:11→12:11)
[2020-04-09] MEDS: ENOXAPARIN 40 MG/0.4 ML SYRINGE. SQ SCH ×2 (10:11→21:34)
--- NOTE | 2020-04-09 11:20 | PN ---
DATE: 04/09/2020 SUBJECTIVE: The patient is resting, slightly propped up in bed, in no apparent distress, awake, alert. On questioning her, she does have some mild abdominal pain; however, she denied any nausea or vomiting. She has not had any bowel movement or passed any gas yet. Apparently, she underwent laparoscopic converted to open right colon resection. She was found to have extensive adhesions from previous surgery, inflammation of the right colon secondary to obstruction with tight mass in the left portion of the transverse colon with no obvious metastatic spread and normal right ovary. PHYSICAL EXAMINATION: GENERAL: When I examined her this morning, she looked pale, but no jaundice, cyanosis or thyromegaly. No jugular venous distention. No limb edema. VITAL SIGNS: Her heart rate was 77, blood pressure was 164/73, temperature was 97.8, respiratory rate was 18 and oxygen saturation was 95% on room air. HEAD, EYES, EARS, NOSE AND THROAT: Showed normocephalic, atraumatic with NG tube to intermittent suction. NECK: Supple. CARDIAC: Normal first and second heart sounds with no gallop or murmur. CHEST: Clear to auscultation. No crepitation or rhonchi. ABDOMEN: Distended, soft, nontender. Bowel sounds are audible. NEUROLOGIC: She was awake, alert and grossly intact. Her intake was 2040, output was 1500. LABORATORY DATA: As of this morning, her serum sodium was 143, potassium 3.6, chloride 107, bicarbonate 28, anion gap of 8, BUN 4, creatinine 1, estimated GFR was 56 mL per minute. Her glucose 190, calcium was 8.4. Total bilirubin, AST, ALT, alkaline phosphatase were normal. Total protein 6.1, albumin 2.7. Her white cell count was 11,800, hemoglobin 8, hematocrit 27, MCV 65, and platelet count 229,000. ASSESSMENT: Bowel obstruction with tight mass obstructing the left portion of the transverse colon with no obvious metastatic spread for which she underwent status post laparoscopic converted to open right colon resection with stable anastomosis created with the terminal ileum to the transverse colon. OTHER MEDICAL PROBLEMS: Include: A. Hypertension. B. Type 2 diabetes mellitus. C. Generalized osteoarthritis. D. Hypokalemia that has resolved. PLAN: To continue with IV fluid, continue with pain management. Continue with DVT prophylaxis. Continue to monitor blood sugar and adjust insulin as needed. ANNA CARNES MD DR: MIRI/chris JOB#: [id number] / [id number]
[2020-04-09 11:39] VITALS: BP 135/68
[2020-04-09] MEDS: IV NORMAL SALINE 1000ML BAG 1,000 ML IV SCH (12:15)
--- NOTE | 2020-04-09 13:21 | PDOC ---
SURGICAL PROGRESS NOTE Subjective Pt with c/o incisional pain, but improved over yesterday Vital Signs Vital Signs Date Time Temp Pulse Resp B/P (MAP) Pulse Ox O2 Delivery O2 Flow Rate FiO2 04/09/20 11:39 98.2 75 18 135/68 (90) 98 Room Air 98.2 04/09/20 08:50 5.0 I&O Intake and Output 04/09/20 07:00 Intake Total 3300 ml Output Total 3200 ml Balance 100 ml IV Total 3300 ml Output Urine Total 3100 ml Estimated Blood Loss 100 ml PATIENT HAS A MCNAMARA: Yes General: Alert, Oriented X3, Cooperative, No acute distress Abdomen: Soft, No tenderness, Other (dressing intact, NGT with bilious output) Labs Laboratory Tests Test 04/07/20 16:31 04/08/20 03:50 04/08/20 07:53 04/08/20 09:41 Glucose (Fingerstick) 182 mg/dL (70-99) 239 mg/dL (70-99) 232 mg/dL (70-99) White Blood Count 8.2 x10^3/uL (4.0-11.0) Red Blood Count 4.17 x10^6/uL (3.50-5.40) Hemoglobin 8.0 g/dL (12.0-15.5) Hematocrit 26.6 % (36.0-47.0) Mean Corpuscular Volume 64 fL (79-100) Mean Corpuscular Hemoglobin 19 pg (25-35) Mean Corpuscular Hemoglobin Concent 30 g/dL (31-37) Red Cell Distribution Width 19.6 % (11.5-14.5) Platelet Count 234 x10^3/uL (140-400) Prothrombin Time 14.2 SEC (11.7-14.0) Prothromb Time International Ratio 1.1 (0.8-1.1) Sodium Level 143 mmol/L (136-145) Potassium Level 3.8 mmol/L (3.5-5.1) Chloride Level 109 mmol/L (98-107) Carbon Dioxide Level 24 mmol/L (21-32) Anion Gap 10 (6-14) Blood Urea Nitrogen 4 mg/dL (7-20) Creatinine 0.9 mg/dL (0.6-1.0) Estimated GFR (Cockcroft-Gault) 63.4 Glucose Level 239 mg/dL (70-99) Calcium Level 8.0 mg/dL (8.5-10.1) Test 04/08/20 15:34 04/08/20 18:07 04/08/20 20:54 04/09/20 04:05 Glucose (Fingerstick) 284 mg/dL (70-99) 247 mg/dL (70-99) 229 mg/dL (70-99) White Blood Count 11.8 x10^3/uL (4.0-11.0) Red Blood Count 4.20 x10^6/uL (3.50-5.40) Hemoglobin 8.0 g/dL (12.0-15.5) Hematocrit 27.2 % (36.0-47.0) Mean Corpuscular Volume 65 fL (79-100) Mean Corpuscular Hemoglobin 19 pg (25-35) Mean Corpuscular Hemoglobin Concent 29 g/dL (31-37) Red Cell Distribution Width 19.7 % (11.5-14.5) Platelet Count 229 x10^3/uL (140-400) Neutrophils (%) (Auto) 78 % (31-73) Lymphocytes (%) (Auto) 15 % (24-48) Monocytes (%) (Auto) 7 % (0-9) Eosinophils (%) (Auto) 0 % (0-3) Basophils (%) (Auto) 0 % (0-3) Neutrophils # (Auto) 9.2 x10^3/uL (1.8-7.7) Lymphocytes # (Auto) 1.8 x10^3/uL (1.0-4.8) Monocytes # (Auto) 0.8 x10^3/uL (0.0-1.1) Eosinophils # (Auto) 0.0 x10^3/uL (0.0-0.7) Basophils # (Auto) 0.0 x10^3/uL (0.0-0.2) Sodium Level 143 mmol/L (136-145) Potassium Level 3.6 mmol/L (3.5-5.1) Chloride Level 107 mmol/L (98-107) Carbon Dioxide Level 28 mmol/L (21-32) Anion Gap 8 (6-14) Blood Urea Nitrogen 4 mg/dL (7-20) Creatinine 1.0 mg/dL (0.6-1.0) Estimated GFR (Cockcroft-Gault) 56.2 BUN/Creatinine Ratio 4 (6-20) Glucose Level 190 mg/dL (70-99) Calcium Level 8.4 mg/dL (8.5-10.1) Total Bilirubin 0.4 mg/dL (0.2-1.0) Aspartate Amino Transf (AST/SGOT) 37 U/L (15-37) Alanine Aminotransferase (ALT/SGPT) 46 U/L (14-59) Alkaline Phosphatase 90 U/L (46-116) Total Protein 6.1 g/dL (6.4-8.2) Albumin 2.7 g/dL (3.4-5.0) Albumin/Globulin Ratio 0.8 (1.0-1.7) Test 04/09/20 07:31 04/09/20 11:55 Glucose (Fingerstick) 175 mg/dL (70-99) 184 mg/dL (70-99) Laboratory Tests Test 04/08/20 15:34 04/08/20 18:07 04/08/20 20:54 04/09/20 04:05 Glucose (Fingerstick) 284 mg/dL (70-99) 247 mg/dL (70-99) 229 mg/dL (70-99) White Blood Count 11.8 x10^3/uL (4.0-11.0) Red Blood Count 4.20 x10^6/uL (3.50-5.40) Hemoglobin 8.0 g/dL (12.0-15.5) Hematocrit 27.2 % (36.0-47.0) Mean Corpuscular Volume 65 fL (79-100) Mean Corpuscular Hemoglobin 19 pg (25-35) Mean Corpuscular Hemoglobin Concent 29 g/dL (31-37) Red Cell Distribution Width 19.7 % (11.5-14.5) Platelet Count 229 x10^3/uL (140-400) Neutrophils (%) (Auto) 78 % (31-73) Lymphocytes (%) (Auto) 15 % (24-48) Monocytes (%) (Auto) 7 % (0-9) Eosinophils (%) (Auto) 0 % (0-3) Basophils (%) (Auto) 0 % (0-3) Neutrophils # (Auto) 9.2 x10^3/uL (1.8-7.7) Lymphocytes # (Auto) 1.8 x10^3/uL (1.0-4.8) Monocytes # (Auto) 0.8 x10^3/uL (0.0-1.1) Eosinophils # (Auto) 0.0 x10^3/uL (0.0-0.7) Basophils # (Auto) 0.0 x10^3/uL (0.0-0.2) Sodium Level 143 mmol/L (136-145) Potassium Level 3.6 mmol/L (3.5-5.1) Chloride Level 107 mmol/L (98-107) Carbon Dioxide Level 28 mmol/L (21-32) Anion Gap 8 (6-14) Blood Urea Nitrogen 4 mg/dL (7-20) Creatinine 1.0 mg/dL (0.6-1.0) Estimated GFR (Cockcroft-Gault) 56.2 BUN/Creatinine Ratio 4 (6-20) Glucose Level 190 mg/dL (70-99) Calcium Level 8.4 mg/dL (8.5-10.1) Total Bilirubin 0.4 mg/dL (0.2-1.0) Aspartate Amino Transf (AST/SGOT) 37 U/L (15-37) Alanine Aminotransferase (ALT/SGPT) 46 U/L (14-59) Alkaline Phosphatase 90 U/L (46-116) Total Protein 6.1 g/dL (6.4-8.2) Albumin 2.7 g/dL (3.4-5.0) Albumin/Globulin Ratio 0.8 (1.0-1.7) Test 04/09/20 07:31 04/09/20 11:55 Glucose (Fingerstick) 175 mg/dL (70-99) 184 mg/dL (70-99) Problem List s/p extended right colon cont NGT and supportive care await bowel fxn TOÑA THOMAS MD April 09, 2020 13:21
[2020-04-09 15:35] VITALS: BP 158/73
[2020-04-09] MEDS: PHENOL ORAL SPRAY 177ML BOTTLE. PO PRN (18:13)
[2020-04-09 19:00] VITALS: BP 165/71
[2020-04-09 23:00] VITALS: BP 151/70
[2020-04-10 03:00] VITALS: BP 169/79
[2020-04-10] MEDS: IV RINGERS,LACTATED 1000ML 1,000 ML IV SCH (05:15)
[2020-04-10] MEDS: POTASSIUM CL 40MEQ D5-0.45NACL 1,000 ML IV SCH ×3 (06:07→17:45)
[2020-04-10 07:00] VITALS: BP 155/71
[2020-04-10] MEDS: INSULIN LISPRO 300 UNITS/3 ML VIAL. SQ SCH ×3 (08:00→16:56)
[2020-04-10 08:32] LABS: HEMATOCRIT 27.8 % (36.0-47.0); HEMOGLOBIN 8.3 g/dL (12.0-15.5); RED BLOOD COUNT 4.28 x10^6/uL (3.50-5.40); RED CELL DISTRIBUTION WIDTH 19.5 % (11.5-14.5); WHITE BLOOD COUNT 10.4 x10^3/uL (4.0-11.0)
[2020-04-10] MEDS: ENOXAPARIN 40 MG/0.4 ML SYRINGE. SQ SCH ×2 (08:42→21:00)
[2020-04-10 08:58] LABS: ALBUMIN 2.5 g/dL (3.4-5.0); ALBUMIN/GLOBULIN RATIO 0.7 (1.0-1.7); CALCIUM 8.2 mg/dL (8.5-10.1); CREATININE 0.9 mg/dL (0.6-1.0); GFR 63.4; POTASSIUM 3.3 mmol/L (3.5-5.1); TOTAL BILIRUBIN 0.4 mg/dL (0.2-1.0)
--- NOTE | 2020-04-10 09:28 | PDOC ---
SURGICAL PROGRESS NOTE Subjective Pt with c/o right face pain and STOUT, no flatus Vital Signs Vital Signs Date Time Temp Pulse Resp B/P (MAP) Pulse Ox O2 Delivery O2 Flow Rate FiO2 04/10/20 08:05 Nasal Cannula 5.0 04/10/20 07:00 97.7 81 18 155/71 (99) 91 97.7 I&O Intake and Output 04/10/20 07:00 Output Total 1050 ml Balance -1050 ml Output Urine Total 1050 ml PATIENT HAS A MCNAMARA: Yes (d/c today) General: Alert, Oriented X3, Cooperative, mild distress Abdomen: Soft, No tenderness, Other (dressing intact) Labs Laboratory Tests Test 04/08/20 09:41 04/08/20 15:34 04/08/20 18:07 04/08/20 20:54 Glucose (Fingerstick) 232 mg/dL (70-99) 284 mg/dL (70-99) 247 mg/dL (70-99) 229 mg/dL (70-99) Test 04/09/20 04:05 04/09/20 07:31 04/09/20 11:55 04/09/20 16:57 White Blood Count 11.8 x10^3/uL (4.0-11.0) Red Blood Count 4.20 x10^6/uL (3.50-5.40) Hemoglobin 8.0 g/dL (12.0-15.5) Hematocrit 27.2 % (36.0-47.0) Mean Corpuscular Volume 65 fL (79-100) Mean Corpuscular Hemoglobin 19 pg (25-35) Mean Corpuscular Hemoglobin Concent 29 g/dL (31-37) Red Cell Distribution Width 19.7 % (11.5-14.5) Platelet Count 229 x10^3/uL (140-400) Neutrophils (%) (Auto) 78 % (31-73) Lymphocytes (%) (Auto) 15 % (24-48) Monocytes (%) (Auto) 7 % (0-9) Eosinophils (%) (Auto) 0 % (0-3) Basophils (%) (Auto) 0 % (0-3) Neutrophils # (Auto) 9.2 x10^3/uL (1.8-7.7) Lymphocytes # (Auto) 1.8 x10^3/uL (1.0-4.8) Monocytes # (Auto) 0.8 x10^3/uL (0.0-1.1) Eosinophils # (Auto) 0.0 x10^3/uL (0.0-0.7) Basophils # (Auto) 0.0 x10^3/uL (0.0-0.2) Sodium Level 143 mmol/L (136-145) Potassium Level 3.6 mmol/L (3.5-5.1) Chloride Level 107 mmol/L (98-107) Carbon Dioxide Level 28 mmol/L (21-32) Anion Gap 8 (6-14) Blood Urea Nitrogen 4 mg/dL (7-20) Creatinine 1.0 mg/dL (0.6-1.0) Estimated GFR (Cockcroft-Gault) 56.2 BUN/Creatinine Ratio 4 (6-20) Glucose Level 190 mg/dL (70-99) Calcium Level 8.4 mg/dL (8.5-10.1) Total Bilirubin 0.4 mg/dL (0.2-1.0) Aspartate Amino Transf (AST/SGOT) 37 U/L (15-37) Alanine Aminotransferase (ALT/SGPT) 46 U/L (14-59) Alkaline Phosphatase 90 U/L (46-116) Total Protein 6.1 g/dL (6.4-8.2) Albumin 2.7 g/dL (3.4-5.0) Albumin/Globulin Ratio 0.8 (1.0-1.7) Glucose (Fingerstick) 175 mg/dL (70-99) 184 mg/dL (70-99) 173 mg/dL (70-99) Test 04/09/20 19:20 04/10/20 07:35 04/10/20 08:15 Glucose (Fingerstick) 182 mg/dL (70-99) 174 mg/dL (70-99) White Blood Count 10.4 x10^3/uL (4.0-11.0) Red Blood Count 4.28 x10^6/uL (3.50-5.40) Hemoglobin 8.3 g/dL (12.0-15.5) Hematocrit 27.8 % (36.0-47.0) Mean Corpuscular Volume 65 fL (79-100) Mean Corpuscular Hemoglobin 19 pg (25-35) Mean Corpuscular Hemoglobin Concent 30 g/dL (31-37) Red Cell Distribution Width 19.5 % (11.5-14.5) Platelet Count 234 x10^3/uL (140-400) Sodium Level 139 mmol/L (136-145) Potassium Level 3.3 mmol/L (3.5-5.1) Chloride Level 103 mmol/L (98-107) Carbon Dioxide Level 28 mmol/L (21-32) Anion Gap 8 (6-14) Blood Urea Nitrogen 4 mg/dL (7-20) Creatinine 0.9 mg/dL (0.6-1.0) Estimated GFR (Cockcroft-Gault) 63.4 BUN/Creatinine Ratio 4 (6-20) Glucose Level 192 mg/dL (70-99) Calcium Level 8.2 mg/dL (8.5-10.1) Total Bilirubin 0.4 mg/dL (0.2-1.0) Aspartate Amino Transf (AST/SGOT) 21 U/L (15-37) Alanine Aminotransferase (ALT/SGPT) 30 U/L (14-59) Alkaline Phosphatase 89 U/L (46-116) Total Protein 6.0 g/dL (6.4-8.2) Albumin 2.5 g/dL (3.4-5.0) Albumin/Globulin Ratio 0.7 (1.0-1.7) Laboratory Tests Test 04/09/20 11:55 04/09/20 16:57 04/09/20 19:20 04/10/20 07:35 Glucose (Fingerstick) 184 mg/dL (70-99) 173 mg/dL (70-99) 182 mg/dL (70-99) 174 mg/dL (70-99) Test 04/10/20 08:15 White Blood Count 10.4 x10^3/uL (4.0-11.0) Red Blood Count 4.28 x10^6/uL (3.50-5.40) Hemoglobin 8.3 g/dL (12.0-15.5) Hematocrit 27.8 % (36.0-47.0) Mean Corpuscular Volume 65 fL (79-100) Mean Corpuscular Hemoglobin 19 pg (25-35) Mean Corpuscular Hemoglobin Concent 30 g/dL (31-37) Red Cell Distribution Width 19.5 % (11.5-14.5) Platelet Count 234 x10^3/uL (140-400) Sodium Level 139 mmol/L (136-145) Potassium Level 3.3 mmol/L (3.5-5.1) Chloride Level 103 mmol/L (98-107) Carbon Dioxide Level 28 mmol/L (21-32) Anion Gap 8 (6-14) Blood Urea Nitrogen 4 mg/dL (7-20) Creatinine 0.9 mg/dL (0.6-1.0) Estimated GFR (Cockcroft-Gault) 63.4 BUN/Creatinine Ratio 4 (6-20) Glucose Level 192 mg/dL (70-99) Calcium Level 8.2 mg/dL (8.5-10.1) Total Bilirubin 0.4 mg/dL (0.2-1.0) Aspartate Amino Transf (AST/SGOT) 21 U/L (15-37) Alanine Aminotransferase (ALT/SGPT) 30 U/L (14-59) Alkaline Phosphatase 89 U/L (46-116) Total Protein 6.0 g/dL (6.4-8.2) Albumin 2.5 g/dL (3.4-5.0) Albumin/Globulin Ratio 0.7 (1.0-1.7) Problem List s/p Right colon will clamp NGT (serous output), suspect source of pain TOÑA ALFORD MD April 10, 2020 09:28
[2020-04-10 11:00] VITALS: BP 150/68
[2020-04-10] MEDS ORDERED: IRON SUCROSE COMPLEX 200 MG in IV NORMAL SALINE 100ML 100 ML IV ONE (12:00)
--- NOTE | 2020-04-10 12:04 | PN ---
DATE: 04/10/2020 SUBJECTIVE: The patient is resting, slightly propped up in bed, in no apparent respiratory distress. She continued to complain of sore throat. 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 Her NG tube was clamped. PHYSICAL EXAMINATION: GENERAL: When I examined her this morning, she was pale, but no jaundice, cyanosis or thyromegaly. No jugular venous distention. No limb edema. VITAL SIGNS: Her heart rate was 81, blood pressure 155/71, temperature was 97.7, respiratory rate was 18 and oxygen saturation was 91% on 5 liters of oxygen. HEAD, EYES, EARS, NOSE AND THROAT: Showed normocephalic, atraumatic. She has NG tube to the right nostril. NECK: Supple. CARDIAC: Normal first and second heart sounds. No gallop or murmur. CHEST: Clear to auscultation. No crepitation or rhonchi. ABDOMEN: Distended, soft. No guarding or rigidity. No organomegaly. All hernial orifices are intact. Bowel sounds normal. NEUROLOGIC: She was grossly intact. Her intake was 3300, output was 200. LABORATORY DATA: As of this morning, her serum sodium was 139, potassium 3.3, chloride 103, bicarbonate 28, anion gap of 8, BUN 4, creatinine 0.9, estimated GFR was 63 mL per minute. Her glucose was 102, calcium was 8.2. Total bilirubin, AST, ALT, alkaline phosphatase were normal. Total protein 6, albumin 2.5. Her white cell count was 10,000, hemoglobin 8, hematocrit 28, MCV 65, and platelet count 254,000. She has severe iron deficiency anemia. Her serum iron was only 17, TIBC was 274. Iron saturation was 5 and serum ferritin was only 10 ng/mL. ASSESSMENT: 1. Bowel obstruction with tight mass obstructing the left portion of the transverse colon with no obvious metastatic spread for which she underwent a laparoscopic converted to open right colon resection with stapled anastomosis, created between the terminal ileum to the transverse colon. 2. The patient has multiple other medical problems including: A. Hypertension. B. Type 2 diabetes mellitus. C. Generalized osteoarthritis. D. Hypokalemia with serum potassium of 3.3. PLAN: To continue with D5 half normal with 40 mEq of potassium chloride. Continue DVT prophylaxis. Continue to monitor blood sugar and adjust insulin as needed. I will start her on Venofer, replenish her iron and will monitor her lab work again tomorrow. ANNA CARNES MD DR: MIRI/chris JOB#: [id number] / [id number]
[2020-04-10] MEDS: PHENOL ORAL SPRAY 177ML BOTTLE. PO PRN (12:57)
[2020-04-10 15:00] VITALS: BP 160/74
--- NOTE | 2020-04-10 17:59 | NUR ---
Santana removed; dressing changed; NG tube clamp.
[2020-04-10 19:00] VITALS: BP 152/57
[2020-04-10 23:00] VITALS: BP 144/67
[2020-04-11 03:00] VITALS: BP 123/61
[2020-04-11] MEDS: POTASSIUM CL 40MEQ D5-0.45NACL 1,000 ML IV SCH ×2 (03:45→18:22)
[2020-04-11 06:44] LABS: BASO % 1 % (0-3); EOS # 0.2 x10^3/uL (0.0-0.7); EOS % 2 % (0-3); HEMATOCRIT 26.4 % (36.0-47.0); LYMPH # 1.6 x10^3/uL (1.0-4.8); LYMPH % 18 % (24-48); MEAN CORPUSCULAR HEMOGLOBIN 20 pg (25-35); MEAN CORPUSCULAR HGB CONC 30 g/dL (31-37); MEAN CORPUSCULAR VOLUME 65 fL (79-100); MONO # 0.8 x10^3/uL (0.0-1.1); MONO % 8 % (0-9); NEUT # 6.4 x10^3/uL (1.8-7.7); NEUT % 71 % (31-73); PLATELET COUNT 219 x10^3/uL (140-400); RED BLOOD COUNT 4.09 x10^6/uL (3.50-5.40); RED CELL DISTRIBUTION WIDTH 20.4 % (11.5-14.5)
[2020-04-11 07:00] VITALS: BP 136/56
[2020-04-11 07:13] LABS: ALBUMIN 2.3 g/dL (3.4-5.0); ALBUMIN/GLOBULIN RATIO 0.6 (1.0-1.7); CALCIUM 8.1 mg/dL (8.5-10.1); CREATININE 0.9 mg/dL (0.6-1.0); GFR 63.4; POTASSIUM 3.4 mmol/L (3.5-5.1); TOTAL BILIRUBIN 0.4 mg/dL (0.2-1.0)
[2020-04-11] MEDS: ENOXAPARIN 40 MG/0.4 ML SYRINGE. SQ SCH ×2 (08:32→21:31)
[2020-04-11] MEDS: INSULIN LISPRO 300 UNITS/3 ML VIAL. SQ SCH ×3 (08:34→18:25)
[2020-04-11 08:35] LABS: PLT ESTIMATE ADEQUATE (ADEQUATE)
[2020-04-11 08:36] LABS: ANISOCYTOSIS MOD; POLYCHROMASIA PRESENT
--- NOTE | 2020-04-11 09:07 | NUR ---
SW following. Discussed with RN, pt from home, had an open bowel resection. 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 HCFS following for self pay status. SW will continue to follow.
--- NOTE | 2020-04-11 10:11 | PDOC ---
Subjective: Subjective: Throat hurts - biggest complaint - using TEST DESKMAN for this. Passing gas, no n/v. NG clamped and trying some clear liquids. Objective: Vital Signs: Vital Signs Date Time Temp Pulse Resp B/P (MAP) Pulse Ox O2 Delivery O2 Flow Rate FiO2 04/11/20 07:00 98.4 77 19 136/56 (82) 94 Room Air 98.4 04/10/20 20:00 5.0 Labs: Laboratory Tests Test 04/10/20 11:45 04/10/20 16:51 04/10/20 20:40 04/11/20 06:20 Glucose (Fingerstick) 193 mg/dL 198 mg/dL 199 mg/dL White Blood Count 9.0 x10^3/uL Red Blood Count 4.09 x10^6/uL Hemoglobin 8.0 g/dL Hematocrit 26.4 % Mean Corpuscular Volume 65 fL Mean Corpuscular Hemoglobin 20 pg Mean Corpuscular Hemoglobin Concent 30 g/dL Red Cell Distribution Width 20.4 % Platelet Count 219 x10^3/uL Neutrophils (%) (Auto) 71 % Lymphocytes (%) (Auto) 18 % Monocytes (%) (Auto) 8 % Eosinophils (%) (Auto) 2 % Basophils (%) (Auto) 1 % Neutrophils # (Auto) 6.4 x10^3/uL Lymphocytes # (Auto) 1.6 x10^3/uL Monocytes # (Auto) 0.8 x10^3/uL Eosinophils # (Auto) 0.2 x10^3/uL Basophils # (Auto) 0.0 x10^3/uL Platelet Estimate Adequate Polychromasia Present Basophilic Stippling Present Anisocytosis Mod Sodium Level 140 mmol/L Potassium Level 3.4 mmol/L Chloride Level 104 mmol/L Carbon Dioxide Level 27 mmol/L Anion Gap 9 Blood Urea Nitrogen 4 mg/dL Creatinine 0.9 mg/dL Estimated GFR (Cockcroft-Gault) 63.4 BUN/Creatinine Ratio 4 Glucose Level 228 mg/dL Calcium Level 8.1 mg/dL Total Bilirubin 0.4 mg/dL Aspartate Amino Transf (AST/SGOT) 15 U/L Alanine Aminotransferase (ALT/SGPT) 27 U/L Alkaline Phosphatase 81 U/L Total Protein 6.0 g/dL Albumin 2.3 g/dL Albumin/Globulin Ratio 0.6 Test 04/11/20 07:03 Glucose (Fingerstick) 227 mg/dL PE: GEN: NAD, up to chair, holding ice pack on right side of face/neck LUNGS: clear anteriorly HEART: RRR ABD: soft, quiet NEURO/PSYCH: A & O 3 A/P: Obstructing colon cancer s/p right colon resection Anemia - stable Sore throat -- Continue per surgery. Hemodynamically unstable?: No Is patient in severe pain?: Yes Is NPO status required?: No SHANTHI FULTON Apr 11, 2020 10:11
[2020-04-11 10:39] VITALS: BP 144/54
--- NOTE | 2020-04-11 10:57 | NUR ---
IP: I was faxed the urine culture report performed at [facility] indicating pt has a UTI with (R) E.coli with ESBL and Klebsiella pneumoniae requiring pt to be in contact precautions.
--- NOTE | 2020-04-11 12:18 | PN ---
DATE: 04/11/2020 SUBJECTIVE: The patient is sitting slightly propped up in her recliner, in no apparent distress. She is awake, alert, complaining of severe pain in her right side of the face and right ear and sore throat. She did say that she has passed gas, but no bowel movement yet. PHYSICAL EXAMINATION: GENERAL: When I examined her, she was pale, but no jaundice, cyanosis or thyromegaly. No jugular venous distention. No lower limb edema. VITAL SIGNS: Her heart rate was 77, blood pressure was 136/56, temperature was 98.4, respiratory rate was 19 and oxygen saturation was 94% on room air. HEAD, EYES, EARS, NOSE AND THROAT: Showed normocephalic, atraumatic. NECK: Supple. HEART: Normal first and second heart sounds. No gallop, rub or murmur. CHEST: Clear to auscultation. No crepitation or rhonchi. ABDOMEN: Distended, soft, nontender. No guarding or rigidity. No organomegaly. All hernial orifices intact. Bowel sounds normal. NEUROLOGIC: She is awake, alert, responding appropriately. All cranial nerves intact. She moves extremities without difficulty. She does have tenderness and pain in her right ear. Her intake was incompletely recorded, output was 1050. LABORATORY DATA: As of this morning showed a white cell count 9000, hemoglobin 8, hematocrit 26, MCV 65 and platelet count of 219,000. Her chemistry showed a serum sodium 140, potassium 3.4, chloride 104, bicarbonate 27, anion gap of 9, BUN 4, creatinine 0.6, estimated GFR was 63 mL per minute. Her glucose was 128, calcium was 8.1. Total bilirubin, AST, ALT, alkaline phosphatase were normal. Total protein 6, albumin 2.3. ASSESSMENT: 1. Bowel obstruction, found to be due to tight mass obstructing the left portion of the transverse colon with no obvious metastatic spread and she underwent laparoscopic converted to open right colon resection and stapled anastomosis created between the terminal ileum to the transverse colon. 2. Postoperative paralytic ileus is resolving. The patient is now passing gas. Her NG tube is clamped. 3. Severe right-sided face and ear pain and sore throat. 4. The patient has multiple other medical problems including: A. Hypertension. B. Type 2 diabetes mellitus. C. Generalized osteoarthritis. D. Hypokalemia with serum potassium continues to be low at 3.4. PLAN: To continue with IV fluid. I will continue with pain management. Continue to monitor her blood sugar and adjust insulin as needed. She did receive Venofer yesterday to replenish her severe iron deficiency anemia. Meanwhile, we will continue also with DVT prophylaxis and we will start the process of physical and occupational therapy. ANNA CARNES MD DR: MIRI/chris JOB#: [id number] / [id number]
[2020-04-11 15:00] VITALS: BP 148/58
--- NOTE | 2020-04-11 15:51 | PDOC ---
SURGICAL PROGRESS NOTE Subjective Pt feels better, NGT out snáchez clears, passing flatus and stools Vital Signs Vital Signs Date Time Temp Pulse Resp B/P (MAP) Pulse Ox O2 Delivery O2 Flow Rate FiO2 04/11/20 15:00 98.0 78 19 148/58 (88) 95 Room Air 98.0 04/10/20 20:00 5.0 I&O Intake and Output 04/11/20 07:00 Intake Total 760 ml Balance 760 ml Intake Oral 760 ml # Voids 2 General: Alert, Oriented X3, Cooperative, No acute distress Abdomen: Soft, No tenderness Labs Laboratory Tests Test 04/09/20 16:57 04/09/20 19:20 04/10/20 07:35 04/10/20 08:15 Glucose (Fingerstick) 173 mg/dL (70-99) 182 mg/dL (70-99) 174 mg/dL (70-99) White Blood Count 10.4 x10^3/uL (4.0-11.0) Red Blood Count 4.28 x10^6/uL (3.50-5.40) Hemoglobin 8.3 g/dL (12.0-15.5) Hematocrit 27.8 % (36.0-47.0) Mean Corpuscular Volume 65 fL (79-100) Mean Corpuscular Hemoglobin 19 pg (25-35) Mean Corpuscular Hemoglobin Concent 30 g/dL (31-37) Red Cell Distribution Width 19.5 % (11.5-14.5) Platelet Count 234 x10^3/uL (140-400) Sodium Level 139 mmol/L (136-145) Potassium Level 3.3 mmol/L (3.5-5.1) Chloride Level 103 mmol/L (98-107) Carbon Dioxide Level 28 mmol/L (21-32) Anion Gap 8 (6-14) Blood Urea Nitrogen 4 mg/dL (7-20) Creatinine 0.9 mg/dL (0.6-1.0) Estimated GFR (Cockcroft-Gault) 63.4 BUN/Creatinine Ratio 4 (6-20) Glucose Level 192 mg/dL (70-99) Calcium Level 8.2 mg/dL (8.5-10.1) Total Bilirubin 0.4 mg/dL (0.2-1.0) Aspartate Amino Transf (AST/SGOT) 21 U/L (15-37) Alanine Aminotransferase (ALT/SGPT) 30 U/L (14-59) Alkaline Phosphatase 89 U/L (46-116) Total Protein 6.0 g/dL (6.4-8.2) Albumin 2.5 g/dL (3.4-5.0) Albumin/Globulin Ratio 0.7 (1.0-1.7) Test 04/10/20 11:45 04/10/20 16:51 04/10/20 20:40 04/11/20 06:20 Glucose (Fingerstick) 193 mg/dL (70-99) 198 mg/dL (70-99) 199 mg/dL (70-99) White Blood Count 9.0 x10^3/uL (4.0-11.0) Red Blood Count 4.09 x10^6/uL (3.50-5.40) Hemoglobin 8.0 g/dL (12.0-15.5) Hematocrit 26.4 % (36.0-47.0) Mean Corpuscular Volume 65 fL (79-100) Mean Corpuscular Hemoglobin 20 pg (25-35) Mean Corpuscular Hemoglobin Concent 30 g/dL (31-37) Red Cell Distribution Width 20.4 % (11.5-14.5) Platelet Count 219 x10^3/uL (140-400) Neutrophils (%) (Auto) 71 % (31-73) Lymphocytes (%) (Auto) 18 % (24-48) Monocytes (%) (Auto) 8 % (0-9) Eosinophils (%) (Auto) 2 % (0-3) Basophils (%) (Auto) 1 % (0-3) Neutrophils # (Auto) 6.4 x10^3/uL (1.8-7.7) Lymphocytes # (Auto) 1.6 x10^3/uL (1.0-4.8) Monocytes # (Auto) 0.8 x10^3/uL (0.0-1.1) Eosinophils # (Auto) 0.2 x10^3/uL (0.0-0.7) Basophils # (Auto) 0.0 x10^3/uL (0.0-0.2) Platelet Estimate Adequate (ADEQUATE) Polychromasia Present Basophilic Stippling Present Anisocytosis Mod Sodium Level 140 mmol/L (136-145) Potassium Level 3.4 mmol/L (3.5-5.1) Chloride Level 104 mmol/L (98-107) Carbon Dioxide Level 27 mmol/L (21-32) Anion Gap 9 (6-14) Blood Urea Nitrogen 4 mg/dL (7-20) Creatinine 0.9 mg/dL (0.6-1.0) Estimated GFR (Cockcroft-Gault) 63.4 BUN/Creatinine Ratio 4 (6-20) Glucose Level 228 mg/dL (70-99) Calcium Level 8.1 mg/dL (8.5-10.1) Total Bilirubin 0.4 mg/dL (0.2-1.0) Aspartate Amino Transf (AST/SGOT) 15 U/L (15-37) Alanine Aminotransferase (ALT/SGPT) 27 U/L (14-59) Alkaline Phosphatase 81 U/L (46-116) Total Protein 6.0 g/dL (6.4-8.2) Albumin 2.3 g/dL (3.4-5.0) Albumin/Globulin Ratio 0.6 (1.0-1.7) Test 04/11/20 07:03 04/11/20 10:59 Glucose (Fingerstick) 227 mg/dL (70-99) 209 mg/dL (70-99) Laboratory Tests Test 04/10/20 16:51 04/10/20 20:40 04/11/20 06:20 04/11/20 07:03 Glucose (Fingerstick) 198 mg/dL (70-99) 199 mg/dL (70-99) 227 mg/dL (70-99) White Blood Count 9.0 x10^3/uL (4.0-11.0) Red Blood Count 4.09 x10^6/uL (3.50-5.40) Hemoglobin 8.0 g/dL (12.0-15.5) Hematocrit 26.4 % (36.0-47.0) Mean Corpuscular Volume 65 fL (79-100) Mean Corpuscular Hemoglobin 20 pg (25-35) Mean Corpuscular Hemoglobin Concent 30 g/dL (31-37) Red Cell Distribution Width 20.4 % (11.5-14.5) Platelet Count 219 x10^3/uL (140-400) Neutrophils (%) (Auto) 71 % (31-73) Lymphocytes (%) (Auto) 18 % (24-48) Monocytes (%) (Auto) 8 % (0-9) Eosinophils (%) (Auto) 2 % (0-3) Basophils (%) (Auto) 1 % (0-3) Neutrophils # (Auto) 6.4 x10^3/uL (1.8-7.7) Lymphocytes # (Auto) 1.6 x10^3/uL (1.0-4.8) Monocytes # (Auto) 0.8 x10^3/uL (0.0-1.1) Eosinophils # (Auto) 0.2 x10^3/uL (0.0-0.7) Basophils # (Auto) 0.0 x10^3/uL (0.0-0.2) Platelet Estimate Adequate (ADEQUATE) Polychromasia Present Basophilic Stippling Present Anisocytosis Mod Sodium Level 140 mmol/L (136-145) Potassium Level 3.4 mmol/L (3.5-5.1) Chloride Level 104 mmol/L (98-107) Carbon Dioxide Level 27 mmol/L (21-32) Anion Gap 9 (6-14) Blood Urea Nitrogen 4 mg/dL (7-20) Creatinine 0.9 mg/dL (0.6-1.0) Estimated GFR (Cockcroft-Gault) 63.4 BUN/Creatinine Ratio 4 (6-20) Glucose Level 228 mg/dL (70-99) Calcium Level 8.1 mg/dL (8.5-10.1) Total Bilirubin 0.4 mg/dL (0.2-1.0) Aspartate Amino Transf (AST/SGOT) 15 U/L (15-37) Alanine Aminotransferase (ALT/SGPT) 27 U/L (14-59) Alkaline Phosphatase 81 U/L (46-116) Total Protein 6.0 g/dL (6.4-8.2) Albumin 2.3 g/dL (3.4-5.0) Albumin/Globulin Ratio 0.6 (1.0-1.7) Test 04/11/20 10:59 Glucose (Fingerstick) 209 mg/dL (70-99) Problem List s/p right colon resection cont clears, ADAT in AM await path Justicifation of Admission Dx: Justifications for Admission: Justification of Admission Dx: Yes Sepsis: Dehydration Comments: obstructing colon cancer TOÑA THOMAS MD Apr 11, 2020 15:51
[2020-04-11] MEDS ORDERED: MORPHINE SULFATE 2 MG/ML VIAL. IV PRN ×3 (17:00)
[2020-04-11] MEDS ORDERED: MORPHINE SULFATE 4 MG/ML VIAL. IV PRN (17:00)
[2020-04-11 19:00] VITALS: BP 131/69
[2020-04-11] MEDS ORDERED: FAMOTIDINE 20 MG/2 ML VIAL IVP SCH (21:00)
[2020-04-11 23:00] VITALS: BP 115/54
[2020-04-12 03:00] VITALS: BP 124/63
[2020-04-12] MEDS: POTASSIUM CL 40MEQ D5-0.45NACL 1,000 ML IV SCH ×3 (04:50→14:54)
[2020-04-12 07:00] VITALS: BP 115/52
[2020-04-12 07:23] LABS: HEMATOCRIT 26.1 % (36.0-47.0); HEMOGLOBIN 7.9 g/dL (12.0-15.5); RED CELL DISTRIBUTION WIDTH 20.1 % (11.5-14.5)
[2020-04-12 07:44] LABS: ALBUMIN 2.2 g/dL (3.4-5.0); ALBUMIN/GLOBULIN RATIO 0.6 (1.0-1.7); GFR 56.2; POTASSIUM 3.7 mmol/L (3.5-5.1); TOTAL BILIRUBIN 0.4 mg/dL (0.2-1.0); TOTAL PROTEIN 5.9 g/dL (6.4-8.2)
[2020-04-12] MEDS: ENOXAPARIN 40 MG/0.4 ML SYRINGE. SQ SCH ×2 (08:27→21:11)
[2020-04-12] MEDS: INSULIN LISPRO 300 UNITS/3 ML VIAL. SQ SCH ×3 (08:28→16:53)
--- NOTE | 2020-04-12 09:07 | PATHOLOGY ---
[facility] [place] Accession Number: [id number] . 01 Material submitted: . PART A: hepatic flexure - HEPATIC FLEXURE POLYP PART B: sigmoid colon - SIGMOID POLYP PART C: rectum - RECTAL POLYP BX . 01 Clinical history: . Abnormal GI imaging . 02 Diagnosis: A. Colon biopsies, hepatic flexure mass: - ADENOCARCINOMA, MODERATELY-WELL DIFFERENTIATED. SEE COMMENT. . B. Colon biopsy, sigmoid polyp: - Tubular adenoma. . C. Colorectal biopsies, rectal polyps: - Tubular adenoma. - Hyperplastic polyp. [facility] 04/11/2020 1248 Local . 02 Comment: Sections of the hepatic flexure mass biopsy focally reveal malignant glands irregularly infiltrating an inflamed reactive desmoplastic stroma. There are associated segments of tubular adenoma showing high grade dysplasia. . Sections of the sigmoid colon biopsy reveal a tubular adenoma showing no evidence of high grade dysplasia or malignancy. . Sections of the rectal biopsy reveal a tubular adenoma and a hyperplastic polyp. There is no high grade dysplasia or evidence of malignancy. . The case is also examined by Dr. Rosas, who concurs with the diagnosis. (JPM/db; 04/11/2020) . 02 Electronically signed: . Vik Mccauley MD, Pathologist NPI- [id number] . 01 Gross description: . A. The specimen is received in formalin, labeled "Parr, Juany, hepatic flexure polyp" and consists of multiple fragments of pink-marrero tissue measuring 0.9 x 0.7 x 0.2 cm in aggregate which are entirely submitted in A1. . B. The specimen is received in formalin, labeled "Parr, Juany, sigmoid polyp" and consists of a polypoid segment of brown tissue measuring 0.9 x 0.8 x 0.5 cm. The margin is inked black. It is trisected and entirely submitted in B1. . C. The specimen is received in formalin, labeled "Parr, Juany, rectal polyp BX" and consists of 2 fragments of pink-marrero tissue measuring 2.4 x 0.3 cm and 0.3 x 0.2 cm which are entirely submitted in C1. (SDY; 04/08/2020) SYU/SYU 04/08/2020 1616 Local . 02 Pathologist provided ICD-10: C18.3, D12.5, D12.8, K62.1 . 02 CPT . 246177, 278518, [id number] Specimen Comment: A courtesy copy of this report has been sent to [phone] Specimen Comment: [id number], Specimen Comment: Report sent to ,DR CARNES / DR PAGE Performed at: 01 [facility] [address], [place], [place] [id number] MD Marcello Pratt MD Phone: [phone] Performed at: 02 [facility] [address] [place], [place] [id number] MD Vik Mccauley MD Phone: [phone]
--- NOTE | 2020-04-12 09:46 | PN ---
DATE: 04/12/2020 SUBJECTIVE: The patient is resting, slightly propped up in bed, no apparent distress. Her NG tube was removed. She has no more pain in her right ear and has a bowel movement. She is now on clear liquid diet and tolerating it very well. Her urine culture taken at [facility] showed growth of E. coli as well as Klebsiella pneumoniae for which I started her on IV Levaquin. PHYSICAL EXAMINATION: GENERAL: When I saw her this morning, she looked pale, but no jaundice, cyanosis or thyromegaly. No jugular venous distention. No limb edema. VITAL SIGNS: Her heart rate was 73, blood pressure was 124/63, temperature was 98.4, respiratory rate was 18 and oxygen saturation was 95% on room air. HEAD, EYES, EARS, NOSE AND THROAT: Showed she is normocephalic, atraumatic. NECK: Supple. HEART: Showed normal first and second heart sounds. No gallop, rub or murmur. CHEST: Clear to auscultation. No crepitation or rhonchi. ABDOMEN: Distended, soft, nontender with normal bowel sounds. NEUROLOGIC: She is awake, alert, responding appropriately. All cranial nerves intact. She moves extremities without difficulty. Her intake and output were incompletely recorded. LABORATORY DATA: As of this morning showed a white cell count 6000, hemoglobin 8, hematocrit 26, MCV 65, and platelet count 200,000. Her chemistry is still pending at the time of this dictation. ASSESSMENT: 1. Bowel obstruction, for which she underwent a laparoscopic converted to open, found to be due to tight mass obstructing the transverse colon with no obvious metastatic spread for which she underwent right colon resection and stable anastomosis created between the terminal ileum to transverse colon. 2. Postoperative paralytic ileus, resolved. She has now had bowel movement, passing gas, tolerating her clear liquid diet. Her NG tube was removed. 3. Severe right sided facial and ear pain that has resolved after removal of the NG tube. 4. The patient has multiple other medical problems including: A. Hypertension. B. Type 2 diabetes mellitus. C. Generalized osteoarthritis. D. Hypokalemia that has resolved. 5. Urinary tract infection with growth of extended-spetrum beta-lactamase Escherichia coli as well as Klebsiella pneumoniae, both sensitive to Levaquin. PLAN: To continue with clear liquid diet and advanced as tolerated. Continue with IV Levaquin. I will also add another replenish more of her iron deficiency with Venofer and eventually will start her on oral iron and ascorbic acid. ANNA CARNES MD DR: MIRI/chris JOB#: [id number] / [id number]
--- NOTE | 2020-04-12 09:56 | PDOC ---
Subjective: Subjective: Feels much better - says passing gas and stool, tolerating clear liquids. "Barely any" abdominal pain. Sore throat resolved w/ NGT removal. Objective: Vital Signs: Vital Signs Date Time Temp Pulse Resp B/P (MAP) Pulse Ox O2 Delivery O2 Flow Rate FiO2 04/12/20 07:53 Room Air 04/12/20 07:00 97.8 69 19 115/52 (73) 95 97.8 Labs: Laboratory Tests Test 04/11/20 10:59 04/11/20 16:14 04/11/20 21:31 04/12/20 06:50 Glucose (Fingerstick) 209 mg/dL 229 mg/dL 196 mg/dL White Blood Count 6.0 x10^3/uL Red Blood Count 4.00 x10^6/uL Hemoglobin 7.9 g/dL Hematocrit 26.1 % Mean Corpuscular Volume 65 fL Mean Corpuscular Hemoglobin 20 pg Mean Corpuscular Hemoglobin Concent 30 g/dL Red Cell Distribution Width 20.1 % Platelet Count 200 x10^3/uL Sodium Level 143 mmol/L Potassium Level 3.7 mmol/L Chloride Level 107 mmol/L Carbon Dioxide Level 27 mmol/L Anion Gap 9 Blood Urea Nitrogen 3 mg/dL Creatinine 1.0 mg/dL Estimated GFR (Cockcroft-Gault) 56.2 BUN/Creatinine Ratio 3 Glucose Level 255 mg/dL Calcium Level 8.0 mg/dL Total Bilirubin 0.4 mg/dL Aspartate Amino Transf (AST/SGOT) 15 U/L Alanine Aminotransferase (ALT/SGPT) 23 U/L Alkaline Phosphatase 76 U/L Total Protein 5.9 g/dL Albumin 2.2 g/dL Albumin/Globulin Ratio 0.6 Test 04/12/20 07:17 Glucose (Fingerstick) 247 mg/dL Imaging: Material submitted: . PART A: hepatic flexure - HEPATIC FLEXURE POLYP PART B: sigmoid colon - SIGMOID POLYP PART C: rectum - RECTAL POLYP BX Diagnosis: A. Colon biopsies, hepatic flexure mass: - ADENOCARCINOMA, MODERATELY-WELL DIFFERENTIATED. SEE COMMENT. B. Colon biopsy, sigmoid polyp: - Tubular adenoma. C. Colorectal biopsies, rectal polyps: - Tubular adenoma. - Hyperplastic polyp. Comment: Sections of the hepatic flexure mass biopsy focally reveal malignant glands irregularly infiltrating an inflamed reactive desmoplastic stroma. There are associated segments of tubular adenoma showing high grade dysplasia. Sections of the sigmoid colon biopsy reveal a tubular adenoma showing no evidence of high grade dysplasia or malignancy. Sections of the rectal biopsy reveal a tubular adenoma and a hyperplastic polyp. There is no high grade dysplasia or evidence of malignancy. PE: GEN: NAD, up to chair - looks more comfortable today LUNGS: CTAB HEART: RRR ABD: soft, quiet BS, non-tender NEURO/PSYCH: A & O 3 A/P: Obstructing colon cancer s/p right colon resection - path as above -- Improving post-op. Continue per surgery. Justicifation of Admission Dx: Justifications for Admission: Justification of Admission Dx: Yes SHANTHI FULTON Apr 12, 2020 09:56
--- NOTE | 2020-04-12 10:36 | NUR ---
SW following. Discussed with RN, pt from home, room air. NG tube out, had BM, clear liquid diet, IV abx. PT/OT ordered this morning. SW will continue to follow. HCF[facility] following for self pay status.
[2020-04-12 10:41] VITALS: BP 122/58
[2020-04-12] MEDS: MEROPENEM 500 MG in IV NORMAL SALINE 50ML 50 ML IV SCH ×2 (11:45→16:49)
[2020-04-12] MEDS ORDERED: MEROPENEM 500 MG in IV NORMAL SALINE 50ML 50 ML IV SCH (12:00)
[2020-04-12 15:00] VITALS: BP 128/54
--- NOTE | 2020-04-12 16:33 | PDOC ---
SURGICAL PROGRESS NOTE Subjective Pt reports doing well, sánchez PO and passing flatus and stools Vital Signs Vital Signs Date Time Temp Pulse Resp B/P (MAP) Pulse Ox O2 Delivery O2 Flow Rate FiO2 04/12/20 15:00 97.9 70 19 128/54 (78) 96 Room Air 97.9 I&O Intake and Output 04/12/20 07:00 Intake Total 720 ml Output Total 1025 ml Balance -305 ml Intake Oral 720 ml Output Urine Total 1025 ml # Voids 2 # Bowel Movements 2 General: Alert, Oriented X3, Cooperative, No acute distress Abdomen: Soft, No tenderness, Other (dressing intact) Labs Laboratory Tests Test 04/10/20 16:51 04/10/20 20:40 04/11/20 06:20 04/11/20 07:03 Glucose (Fingerstick) 198 mg/dL (70-99) 199 mg/dL (70-99) 227 mg/dL (70-99) White Blood Count 9.0 x10^3/uL (4.0-11.0) Red Blood Count 4.09 x10^6/uL (3.50-5.40) Hemoglobin 8.0 g/dL (12.0-15.5) Hematocrit 26.4 % (36.0-47.0) Mean Corpuscular Volume 65 fL (79-100) Mean Corpuscular Hemoglobin 20 pg (25-35) Mean Corpuscular Hemoglobin Concent 30 g/dL (31-37) Red Cell Distribution Width 20.4 % (11.5-14.5) Platelet Count 219 x10^3/uL (140-400) Neutrophils (%) (Auto) 71 % (31-73) Lymphocytes (%) (Auto) 18 % (24-48) Monocytes (%) (Auto) 8 % (0-9) Eosinophils (%) (Auto) 2 % (0-3) Basophils (%) (Auto) 1 % (0-3) Neutrophils # (Auto) 6.4 x10^3/uL (1.8-7.7) Lymphocytes # (Auto) 1.6 x10^3/uL (1.0-4.8) Monocytes # (Auto) 0.8 x10^3/uL (0.0-1.1) Eosinophils # (Auto) 0.2 x10^3/uL (0.0-0.7) Basophils # (Auto) 0.0 x10^3/uL (0.0-0.2) Platelet Estimate Adequate (ADEQUATE) Polychromasia Present Basophilic Stippling Present Anisocytosis Mod Sodium Level 140 mmol/L (136-145) Potassium Level 3.4 mmol/L (3.5-5.1) Chloride Level 104 mmol/L (98-107) Carbon Dioxide Level 27 mmol/L (21-32) Anion Gap 9 (6-14) Blood Urea Nitrogen 4 mg/dL (7-20) Creatinine 0.9 mg/dL (0.6-1.0) Estimated GFR (Cockcroft-Gault) 63.4 BUN/Creatinine Ratio 4 (6-20) Glucose Level 228 mg/dL (70-99) Calcium Level 8.1 mg/dL (8.5-10.1) Total Bilirubin 0.4 mg/dL (0.2-1.0) Aspartate Amino Transf (AST/SGOT) 15 U/L (15-37) Alanine Aminotransferase (ALT/SGPT) 27 U/L (14-59) Alkaline Phosphatase 81 U/L (46-116) Total Protein 6.0 g/dL (6.4-8.2) Albumin 2.3 g/dL (3.4-5.0) Albumin/Globulin Ratio 0.6 (1.0-1.7) Test 04/11/20 10:59 04/11/20 16:14 04/11/20 21:31 04/12/20 06:50 Glucose (Fingerstick) 209 mg/dL (70-99) 229 mg/dL (70-99) 196 mg/dL (70-99) White Blood Count 6.0 x10^3/uL (4.0-11.0) Red Blood Count 4.00 x10^6/uL (3.50-5.40) Hemoglobin 7.9 g/dL (12.0-15.5) Hematocrit 26.1 % (36.0-47.0) Mean Corpuscular Volume 65 fL (79-100) Mean Corpuscular Hemoglobin 20 pg (25-35) Mean Corpuscular Hemoglobin Concent 30 g/dL (31-37) Red Cell Distribution Width 20.1 % (11.5-14.5) Platelet Count 200 x10^3/uL (140-400) Sodium Level 143 mmol/L (136-145) Potassium Level 3.7 mmol/L (3.5-5.1) Chloride Level 107 mmol/L (98-107) Carbon Dioxide Level 27 mmol/L (21-32) Anion Gap 9 (6-14) Blood Urea Nitrogen 3 mg/dL (7-20) Creatinine 1.0 mg/dL (0.6-1.0) Estimated GFR (Cockcroft-Gault) 56.2 BUN/Creatinine Ratio 3 (6-20) Glucose Level 255 mg/dL (70-99) Calcium Level 8.0 mg/dL (8.5-10.1) Total Bilirubin 0.4 mg/dL (0.2-1.0) Aspartate Amino Transf (AST/SGOT) 15 U/L (15-37) Alanine Aminotransferase (ALT/SGPT) 23 U/L (14-59) Alkaline Phosphatase 76 U/L (46-116) Total Protein 5.9 g/dL (6.4-8.2) Albumin 2.2 g/dL (3.4-5.0) Albumin/Globulin Ratio 0.6 (1.0-1.7) Test 04/12/20 07:17 04/12/20 11:29 Glucose (Fingerstick) 247 mg/dL (70-99) 232 mg/dL (70-99) Laboratory Tests Test 04/11/20 21:31 04/12/20 06:50 04/12/20 07:17 04/12/20 11:29 Glucose (Fingerstick) 196 mg/dL (70-99) 247 mg/dL (70-99) 232 mg/dL (70-99) White Blood Count 6.0 x10^3/uL (4.0-11.0) Red Blood Count 4.00 x10^6/uL (3.50-5.40) Hemoglobin 7.9 g/dL (12.0-15.5) Hematocrit 26.1 % (36.0-47.0) Mean Corpuscular Volume 65 fL (79-100) Mean Corpuscular Hemoglobin 20 pg (25-35) Mean Corpuscular Hemoglobin Concent 30 g/dL (31-37) Red Cell Distribution Width 20.1 % (11.5-14.5) Platelet Count 200 x10^3/uL (140-400) Sodium Level 143 mmol/L (136-145) Potassium Level 3.7 mmol/L (3.5-5.1) Chloride Level 107 mmol/L (98-107) Carbon Dioxide Level 27 mmol/L (21-32) Anion Gap 9 (6-14) Blood Urea Nitrogen 3 mg/dL (7-20) Creatinine 1.0 mg/dL (0.6-1.0) Estimated GFR (Cockcroft-Gault) 56.2 BUN/Creatinine Ratio 3 (6-20) Glucose Level 255 mg/dL (70-99) Calcium Level 8.0 mg/dL (8.5-10.1) Total Bilirubin 0.4 mg/dL (0.2-1.0) Aspartate Amino Transf (AST/SGOT) 15 U/L (15-37) Alanine Aminotransferase (ALT/SGPT) 23 U/L (14-59) Alkaline Phosphatase 76 U/L (46-116) Total Protein 5.9 g/dL (6.4-8.2) Albumin 2.2 g/dL (3.4-5.0) Albumin/Globulin Ratio 0.6 (1.0-1.7) Problem List s/p right colon ADAT OK to d/c when cleared by others. Justicifation of Admission Dx: Justifications for Admission: Justification of Admission Dx: Yes TOÑA THOMAS MD Apr 12, 2020 16:33
[2020-04-12 19:33] VITALS: BP 132/64
[2020-04-12] MEDS ORDERED: FAMOTIDINE 20 MG TABLET. PO SCH (21:00)
[2020-04-12] MEDS: LACTOBACILLUS RHAMNOSUS GG 1 CAPSULE. PO SCH (21:10)
[2020-04-12 22:56] VITALS: BP 125/56
[2020-04-13] MEDS: MEROPENEM 500 MG in IV NORMAL SALINE 50ML 50 ML IV SCH ×3 (00:20→12:44)
[2020-04-13] MEDS: POTASSIUM CL 40MEQ D5-0.45NACL 1,000 ML IV SCH (03:37)
[2020-04-13 03:42] VITALS: BP 130/65
[2020-04-13 05:24] LABS: GFR 56.2; POTASSIUM 3.4 mmol/L (3.5-5.1)
[2020-04-13 07:00] VITALS: BP 124/53
[2020-04-13] MEDS: LACTOBACILLUS RHAMNOSUS GG 1 CAPSULE. PO SCH (08:15)
[2020-04-13] MEDS: ENOXAPARIN 40 MG/0.4 ML SYRINGE. SQ SCH (08:16)
[2020-04-13] MEDS: INSULIN LISPRO 300 UNITS/3 ML VIAL. SQ SCH ×2 (08:20→12:46)
--- NOTE | 2020-04-13 09:16 | NUR ---
SW following. Chart reviewed, discussed with Dr. Nicolas. Dr. Sandi cash with discharge from his standpoint. Dr. Nicolas advised he will be discharging pt home with self care today.
--- NOTE | 2020-04-13 10:24 | PDOC ---
Subjective: Subjective: Tolerating regular food and stooling. No pain. Objective: Vital Signs: Vital Signs Date Time Temp Pulse Resp B/P (MAP) Pulse Ox O2 Delivery O2 Flow Rate FiO2 04/13/20 08:00 Room Air 04/13/20 07:00 97.9 75 18 124/53 (76) 97 97.9 Labs: Laboratory Tests Test 04/12/20 11:29 04/12/20 16:31 04/12/20 20:18 04/13/20 03:50 Glucose (Fingerstick) 232 mg/dL 196 mg/dL 227 mg/dL Sodium Level 143 mmol/L Potassium Level 3.4 mmol/L Chloride Level 109 mmol/L Carbon Dioxide Level 24 mmol/L Anion Gap 10 Blood Urea Nitrogen 3 mg/dL Creatinine 1.0 mg/dL Estimated GFR (Cockcroft-Gault) 56.2 Glucose Level 209 mg/dL Calcium Level 8.0 mg/dL Test 04/13/20 07:41 Glucose (Fingerstick) 245 mg/dL PE: GEN: NAD, up to chair LUNGS: CTAB HEART: RRR ABD: soft, quiet BS, non-tender NEURO/PSYCH: A & O 3, smiling A/P: Obstructing colon cancer s/p right colon resection -- Doing well from GI standpoint. Justicifation of Admission Dx: Justifications for Admission: Justification of Admission Dx: Yes SHANTHI FULTON Apr 13, 2020 10:24
[2020-04-13 10:49] VITALS: BP 128/58
[2020-04-13] MEDS ORDERED: CIPR500T94 PO (12:32)
[2020-04-13] MEDS ORDERED: FERR325T14 PO (12:46)
[2020-04-13] MEDS ORDERED: ASCO500C PO (12:46)
--- NOTE | 2020-04-13 13:03 | DS ---
DATE OF DISCHARGE: 04/13/2020 HOSPITAL COURSE: The patient is a 64-year-old female patient, who presented with chronic constipation and abdominal pain together with weight loss of about 30 pounds since last [place]. She was extensively investigated and CT scan of the abdomen and pelvis showed that the patient has dilated fluid-filled loops of distal small bowel and colon with focal area of transition near the hepatic flexure finding suspicious colon neoplasm, neoplastic or inflammatory stricture. She underwent colonoscopy, which showed that the patient has obstructing mass near the hepatic flexure, biopsied and tattooed, unable to traverse with the scope. The patient was evaluated by this general surgeon and she underwent laparoscopic converted to open right colon resection and the patient was found to have extensive adhesions from previous surgery, inflammation of the right colon secondary to obstruction with obstructing tight mass, left portion of the transverse colon. No obvious metastatic spread. The patient did have postoperative paralytic ileus that slowly resolved. Her NG tube was removed and was started on clear liquid diet and her diet was advanced to regular diet and has had multiple bowel movements, passing gas. The patient has been up and about and a decision was made to discharge her home. She did grow Escherichia coli that is ESBL and Klebsiella pneumoniae; both of them were sensitive to ciprofloxacin. She was treated with IV meropenem while an inpatient and thus she is being discharged. She is going to be discharged home. We switched her to ciprofloxacin. PHYSICAL EXAMINATION: GENERAL: When I examined her this afternoon, she looked well and was clearly in no apparent distress. She was pale, but no jaundice, cyanosis or thyromegaly. No jugular venous distention. No lower limb edema. VITAL SIGNS: Her heart rate was 72, blood pressure was 128/58, temperature was 97.8, respiratory rate was 18 and oxygen saturation was 97%. HEAD, EYES, EARS, NOSE AND THROAT: Showed normocephalic, atraumatic. NECK: Supple. HEART: Showed normal first and second heart sounds. No gallop, rub or murmur. CHEST: Clear to auscultation. No crepitation or rhonchi. ABDOMEN: Distended, soft with a surgical incision healing nicely with no redness, tenderness or discharge. There is no guarding or rigidity. No organomegaly. All hernial orifice intact. Bowel sounds normal. NEUROLOGIC: She is grossly intact. Her intake was 720, output was 1000. LABORATORY DATA: Her lab work as of yesterday; white cell count was 6000, hemoglobin 8, hematocrit 26, MCV 65, and platelet count 200. Her chemistry this morning showed a serum sodium 143, potassium 3.4, chloride 109, bicarbonate 24, anion gap of 10, BUN 33, creatinine 1, estimated GFR was 56 mL per minute. Her glucose was 209, calcium was 8. Her COVID-19 by PCR was negative. Her urine culture and sensitivity showed growth of more than 100,000 colony-forming units per mL of Escherichia coli, that is ESBL and also Klebsiella pneumoniae; both of them are sensitive to Augmentin, ciprofloxacin, and Levaquin. DISCHARGE MEDICATIONS: The patient will be discharged home on ciprofloxacin 500 mg twice a day for 7 days. She will also be discharged on ferrous sulfate 325 mg twice a day as well as ascorbic acid 500 mg twice a day as she has severe iron deficiency anemia. FINAL DISCHARGE DIAGNOSES: 1. Obstructing adenocarcinoma of the hepatic flexure, status post resection with no evidence of metastatic spread. 2. Urinary tract infection with growth of Escherichia coli, that is extended spectrum beta-lactamase and Klebsiella pneumoniae. 3. Severe iron deficiency anemia. 4. Type 2 diabetes mellitus. 5. Hypertension. 6. Generalized osteoarthritis. The patient should be followed with and an arrangement was made for her to be followed by the Oncology team and she should follow with the primary care physician for management of her diabetes, hypertension, and iron deficiency anemia. ANNA CARNES MD DR: MIRI/chris JOB#: [id number] / [id number]
--- NOTE | 2020-04-13 13:52 | PDOC ---
SURGICAL PROGRESS NOTE Subjective Pt without c/o, sánchez diet Vital Signs Vital Signs Date Time Temp Pulse Resp B/P (MAP) Pulse Ox O2 Delivery O2 Flow Rate FiO2 04/13/20 10:49 97.8 72 18 128/58 (81) 97 Room Air 97.8 I&O Intake and Output 04/13/20 07:00 Intake Total 900 ml Balance 900 ml Intake Oral 900 ml # Voids 4 # Bowel Movements 1 General: Alert, Oriented X3, Cooperative, No acute distress Abdomen: Soft Labs Laboratory Tests Test 04/11/20 16:14 04/11/20 21:31 04/12/20 06:50 04/12/20 07:17 Glucose (Fingerstick) 229 mg/dL (70-99) 196 mg/dL (70-99) 247 mg/dL (70-99) White Blood Count 6.0 x10^3/uL (4.0-11.0) Red Blood Count 4.00 x10^6/uL (3.50-5.40) Hemoglobin 7.9 g/dL (12.0-15.5) Hematocrit 26.1 % (36.0-47.0) Mean Corpuscular Volume 65 fL (79-100) Mean Corpuscular Hemoglobin 20 pg (25-35) Mean Corpuscular Hemoglobin Concent 30 g/dL (31-37) Red Cell Distribution Width 20.1 % (11.5-14.5) Platelet Count 200 x10^3/uL (140-400) Sodium Level 143 mmol/L (136-145) Potassium Level 3.7 mmol/L (3.5-5.1) Chloride Level 107 mmol/L (98-107) Carbon Dioxide Level 27 mmol/L (21-32) Anion Gap 9 (6-14) Blood Urea Nitrogen 3 mg/dL (7-20) Creatinine 1.0 mg/dL (0.6-1.0) Estimated GFR (Cockcroft-Gault) 56.2 BUN/Creatinine Ratio 3 (6-20) Glucose Level 255 mg/dL (70-99) Calcium Level 8.0 mg/dL (8.5-10.1) Total Bilirubin 0.4 mg/dL (0.2-1.0) Aspartate Amino Transf (AST/SGOT) 15 U/L (15-37) Alanine Aminotransferase (ALT/SGPT) 23 U/L (14-59) Alkaline Phosphatase 76 U/L (46-116) Total Protein 5.9 g/dL (6.4-8.2) Albumin 2.2 g/dL (3.4-5.0) Albumin/Globulin Ratio 0.6 (1.0-1.7) Test 04/12/20 11:29 04/12/20 16:31 04/12/20 20:18 04/13/20 03:50 Glucose (Fingerstick) 232 mg/dL (70-99) 196 mg/dL (70-99) 227 mg/dL (70-99) Sodium Level 143 mmol/L (136-145) Potassium Level 3.4 mmol/L (3.5-5.1) Chloride Level 109 mmol/L (98-107) Carbon Dioxide Level 24 mmol/L (21-32) Anion Gap 10 (6-14) Blood Urea Nitrogen 3 mg/dL (7-20) Creatinine 1.0 mg/dL (0.6-1.0) Estimated GFR (Cockcroft-Gault) 56.2 Glucose Level 209 mg/dL (70-99) Calcium Level 8.0 mg/dL (8.5-10.1) Test 04/13/20 07:41 04/13/20 11:23 Glucose (Fingerstick) 245 mg/dL (70-99) 243 mg/dL (70-99) Laboratory Tests Test 04/12/20 16:31 04/12/20 20:18 04/13/20 03:50 04/13/20 07:41 Glucose (Fingerstick) 196 mg/dL (70-99) 227 mg/dL (70-99) 245 mg/dL (70-99) Sodium Level 143 mmol/L (136-145) Potassium Level 3.4 mmol/L (3.5-5.1) Chloride Level 109 mmol/L (98-107) Carbon Dioxide Level 24 mmol/L (21-32) Anion Gap 10 (6-14) Blood Urea Nitrogen 3 mg/dL (7-20) Creatinine 1.0 mg/dL (0.6-1.0) Estimated GFR (Cockcroft-Gault) 56.2 Glucose Level 209 mg/dL (70-99) Calcium Level 8.0 mg/dL (8.5-10.1) Test 04/13/20 11:23 Glucose (Fingerstick) 243 mg/dL (70-99) Problem List s/p right colon OK to d/c home Justicifation of Admission Dx: Justifications for Admission: Justification of Admission Dx: Yes TOÑA THOMAS MD Apr 13, 2020 13:52
--- NOTE | 2020-04-13 15:07 | PATHOLOGY ---
[facility] Accession Number: [id number] . 01 Material submitted: . colon - RIGHT COLON. Modifiers: right . 02 Frozen section diagnosis: . INTRAOPERATIVE CONSULTATION WITH GROSS IMPRESSION: (Lizzy Mccauley M.D.) . Distal ileum, cecum, ascending colon, and transverse colon with attached mesocolon and omentum, right colon and transverse colon resection: - CIRCUMFERENTIAL CONSTRICTING ULCERATED CARCINOMA OF TRANSVERSE COLON - MARGINS OF EXCISION FREE OF NEOPLASM. - Small sessile polyp in cecum. - Absence of appendix. . The results are displayed to Dr. Junior in the operating room. The specimen is fixed in formalin prior to additional sectioning. . Intraoperative consultation performed at [facility], [address] [place] [address], [place] [address]. . INTRAOPERATIVE CONSULTATION GROSS DESCRIPTION: The specimen is received fresh for intraoperative consultation and is designated "right colon". This consists of a short segment of distal ileum, cecum, ascending colon, and transverse colon with attached mesocolon and portion of omentum. The segment is stapled closed at both ends. The distal ileum is approximately 6.5 cm in length. The colon measures approximately 58 cm in length. The attached mesocolon measures up to 8.5 cm in depth. There is an attached portion of omentum measuring up to 28.0 x 15.0 cm. The antimesocolic serosa is pink to pale roman-marrero and glistening. The appendix is absent. Approximately 11.0 cm from the distal margin, there is a puckered area of the serosa which is marked by tattooing. This corresponds to a palpable mass within the colon. The segment is opened longitudinally along the anti-mesocolic aspect. Arising 11.0 cm from the distal margin, there is a circumferential, constricting, centrally ulcerated pink-marrero tumor mass which measures up to 4.2 cm in length. The ileal mucosa is pale yellowish-green and transversely folded. There is yellow adiposity of the ileocecal valve. There is a small, pink sessile polyp within the cecum measuring up to 1.0 cm. The mucosa of the colon proximal to the tumor is pale pink-yellow and transversely folded. There are no additional polyps. There is focal tattooing of the mucosa distal to the tumor. There are no tumor masses identified externally within the mesocolon or omentum. (JPM/db; 04/08/2020) NAWAF/ARAVIND . 02 Diagnosis: Distal ileum, cecum, ascending colon, and transverse colon with attached mesocolon and omentum, right colon and transverse colon resection: - INVASIVE COLORECTAL ADENOCARCINOMA, MODERATELY-WELL DIFFERENTIATED, FORMING A CIRCUMFERENTIAL, CONSTRICTING, CENTRALLY ULCERATED TUMOR MASS OF THE TRANSVERSE COLON MEASURING 4.2 CM IN GREATEST DIMENSION, WITH TUMOR INVASION THROUGH MUSCULARIS PROPRIA INTO MESOCOLIC/SUBSEROSAL SOFT TISSUES. - METASTATIC ADENOCARCINOMA INVOLVING 5 OF 17 MESOCOLIC LYMPH NODES. - METASTATIC ADENOCARCINOMA INVOLVING OMENTUM, FORMING A MASS MEASURING UP TO 2.6 CM IN GREATEST DIMENSION. - Proximal (distal ileum), distal (transverse colon), and mesocolic margins of resection negative for tumor. - Focal tattooing of colon distal to tumor. - Small tubular adenoma of transverse colon distal to tumor. - Few hyperplastic mucosal-associated lymphoid aggregates of cecum. - Absence of appendix. - Adiposity of ileocecal valve. (JPM/db; 04/12/2020) . Surgical Pathology Cancer Case Summary . Protocol posting date: April 2017 . COLON AND RECTUM: Resection, Including Transanal Disk Excision of Rectal Neoplasms . Procedure ___ Right colon and transverse colon resection . Tumor Site ___ Transverse colon . Tumor Size Greatest dimension: 4.2 cm . Macroscopic Tumor Perforation ___ Not identified . Histologic Type ___ Adenocarcinoma . Histologic Grade ___ G2: Moderately differentiated . Tumor Extension ___ Tumor invades through the muscularis propria into pericolorectal tissue . Margins ___ All margins are uninvolved by invasive carcinoma, high-grade dysplasia, intramucosal adenocarcinoma, and adenoma Margins examined: Proximal, distal, and mesocolic margins. Distance of invasive carcinoma from closest margin: 11.0 cm Specify closest margin: Distal margin . Lymphovascular Invasion ___ Not identified . Perineural Invasion ___ Not identified . + Type of Polyp in Which Invasive Carcinoma Arose + ___ None identified . Tumor Deposits ___ Not identified . Regional Lymph Nodes Number of Lymph Nodes Involved: 5 Number of Lymph Nodes Examined: 17 . Pathologic Stage Classification (pTNM, AJCC 8th Edition) Primary Tumor (pT) ___ pT3: Tumor invades through the muscularis propria into pericolorectal tissues. Regional Lymph nodes (pN) ___ pN2a: Four to six regional lymph nodes are positive . + Additional Pathologic Findings + ___ Adenoma(s) (JPM:pit 04/13/2020) LBQ 04/13/2020 1502 Local . 02 Electronically signed: . Vik Mccauley MD, Pathologist NPI- [id number] . 01 Gross description: . SEE INTRAOPERATIVE CONSULTATION GROSS DESCRIPTION . Sections of the mass reveals obliteration of the muscular wall with focal invasion into the mesocolic tissue. Deep to the mass are 2 tumor replaced lymph node measuring 0.4 cm and 1.0 cm. A 0.6 cm polyp is identified distal the mass. Present within the mesocolic fat are multiple lymph node candidates with a few showing possible tumor replacement. Present within the omental fat is a stellate yellow white mass measuring 2.6 x 2.1 cm. no additional mass lesions are identified. Surgery Technician sections are submitted as follows: . A1: Proximal margin A2: Distal margin A3: Mesenteric margin A4: Mass to distal A5: Mass to proximal A6: Mass to include tumor replaced lymph nodes A7-A9: Additional mass A10: Adiposity of ileocecal valve A11: Cecal possible sessile polyp A12: Polyp distal to mass A13: 1 trisected tumor replaced lymph node A14: 4 intact lymph nodes A15: 1 serially sectioned tumor replaced lymph node A16: 1 bisected suspicious lymph node for tumor replacement A17: 2 bisected lymph nodes, one inked blue A18: 5 intact lymph nodes A19: 2 bisected lymph nodes, one inked blue A20-A24: Omentum mass (SDY; 04/11/2020) SYU/LBQ 04/12/2020 1721 Local . 02 Pathologist provided ICD-10: C19, C78.6, C77.2, D12.3 . 02 CPT . 616889, 560161, [id number] Specimen Comment: A courtesy copy of this report has been sent to [phone] Specimen Comment: [phone], Specimen Comment: Report sent to ,DR CARNES / DR PAGE Performed at: [address] [facility] [address], [place] [id number] MD Marcello Pratt MD Phone: [phone] Performed at: 02 [facility] [address] [place] [address] [place], [place] [id number] MD Vik Mccauley MD Phone: [phone]
--- NOTE | 2020-04-13 15:36 | NUR ---
Pt discharged home with self care. Discharge instructions and prescriptions discussed. Pt verbalized understanding. Midline removed. [place] removed. Surgical dressing changed. Incision is closed and does not show any signs of infection. Pt belongings were packed by patient. Assisted to wheelchair and was secured in car with daughter.
--- NOTE | 2020-04-13 18:04 | PDOC2 ---
CONSULT Date of Consult Date of Consult DATE: 04/13/20 TIME: 14:25 Reason for Consult Reason for Consult: Evaluation and management of colon cancer. Referring Physician Referring Physician: STEVE Kumar Identification/Chief Complaint Chief Complaint Colon cancer Source Source: Chart review, Patient History of Present Illness Reason for Visit: Ms. Juany Parr is a 64-year-old female patient who presented with chronic constipation, abdominal pain, and ~ 30-lb weight loss since 10/2019. CT scan of the abdomen and pelvis showed that the patient had dilated fluid-filled loops of distal small bowel and colon with focal area of transition near the hepatic flexure finding suspicious colon neoplasm, neoplastic or inflammatory stricture. Dr. Jonny Zapata performed colonoscopy on 04/07/2020. It showed showed obstructing mass near the hepatic flexure. It was biopsied and tattooed, unable to traverse with the scope. Pathology showed moderately-well differentiated adenocarcinoma. On 04/08/2020, Dr. Roel Junior performed laparoscopic converted to open right colon resection and the patient was found to have extensive adhesions from previous surgery, inflammation of the right colon secondary to obstruction with obstructing tight mass, left portion of the transverse colon. No obvious metastatic spread. Pathology showed invasive moderately-well differentiated adenocarcinoma. 03/27 l/n involved. The patient did have postoperative paralytic ileus that slowly resolved. Her NG tube was removed and was started on clear liquid diet and her diet was advanced to regular diet and has had multiple bowel movements, passing gas. She did grow Escherichia coli that is ESBL and Klebsiella pneumoniae; both of them were sensitive to ciprofloxacin. She was treated with IV meropenem while inpatient. She will be discharged home on Cipro. Juany is being seen in consultation at the request of STEVE Kumar. Juany is being seen via telecommunications platform with . She reports she is recovering well since surgery. Past Medical History Cardiovascular: HTN Endocrine: Diabetes Past Surgical History Past Surgical History: Cholecystectomy (open), , Hysterectomy Family History Family History: Other (Negative for colon cancer but her mother had colon polyps) Current Medications Current Medications Current Medications Ondansetron HCl (Zofran) 4 mg PRN Q4HRS PRN IVP NAUSEA/VOMITING 1ST CHOICE; Start 04/05/20 at 00:00; Stop 04/09/20 at 12:39; Status DC Fentanyl Citrate (Fentanyl 2ml Vial) 50 mcg PRN Q3HRS PRN IVP SEVERE PAIN 7-10; Start 04/05/20 at 00:00; Stop 04/09/20 at 12:40; Status DC Insulin Human Lispro (HumaLOG) 0-9 UNITS TIDWMEALS SQ Last administered on 04/13/20at 12:46; Start 04/05/20 at 08:00; Stop 04/13/20 at 15:39; Status DC Dextrose (Dextrose 50%-Water Syringe) 12.5 gm PRN Q15MIN PRN IV SEE COMMENTS; Start 04/05/20 at 00:00; Stop 04/13/20 at 15:39; Status DC Dextrose/Sodium Chloride 1,000 ml @ 75 mls/hr [id number] IV Last administered on 04/06/20at 16:37; Start 04/05/20 at 00:00; Stop 04/07/20 at 09:39; Status DC Polyethylene Glycol (miraLAX Powder BULK BOTTLE) 238 gm 1X ONCE PO Last administered on 04/05/20at 12:40; Start 04/05/20 at 12:00; Stop 04/05/20 at 12:01; Status DC Ondansetron HCl (Zofran) 4 mg PRN Q6HRS PRN IV NAUSEA/VOMITING; Start 04/06/20 at 07:00; Stop 04/06/20 at 20:00; Status DC Fentanyl Citrate (Fentanyl 2ml Vial) 25 mcg PRN Q5MIN PRN IV MILD PAIN 1-3; Start 04/06/20 at 07:00; Stop 04/06/20 at 20:00; Status DC Fentanyl Citrate (Fentanyl 2ml Vial) 50 mcg PRN Q5MIN PRN IV MODERATE TO SEVERE PAIN; Start 04/06/20 at 07:00; Stop 04/06/20 at 20:00; Status DC Morphine Sulfate (Morphine Sulfate) 1 mg PRN Q10MIN PRN IV SEVERE PAIN 7-10; Start 04/06/20 at 07:00; Stop 04/06/20 at 20:00; Status DC Ringer's Solution 1,000 ml @ 30 mls/hr Q24H IV ; Start 04/06/20 at 07:00; Stop 04/06/20 at 18:59; Status DC Lidocaine HCl (Xylocaine-Mpf 1% 2ml Vial) 2 ml PRN 1X PRN ID PRIOR TO IV START; Start 04/06/20 at 07:00; Stop 04/06/20 at 20:00; Status DC Hydromorphone HCl (Dilaudid) 0.5 mg PRN Q10MIN PRN IV SEV PAIN, Second choice; Start 04/06/20 at 07:00; Stop 04/06/20 at 20:00; Status DC Prochlorperazine Edisylate (Compazine) 5 mg PACU PRN PRN IV NAUSEA, MRX1; Start 04/06/20 at 07:00; Stop 04/06/20 at 20:00; Status DC Polyethylene Glycol (miraLAX Powder BULK BOTTLE) 238 gm 1X ONCE PO Last administered on 04/06/20at 12:18; Start 04/06/20 at 12:00; Stop 04/06/20 at 12: 01; Status DC Iron Sucrose 200 mg/Sodium Chloride 110 ml @ 55 mls/hr 1X ONCE IV Last administered on 04/06/20at 10:14; Start 04/06/20 at 08:30; Stop 04/06/20 at 10:29; Status DC Iohexol (Omnipaque 300 Mg/ml) 75 ml 1X ONCE IV Last administered on 04/06/20at 12:15; Start 04/06/20 at 12:15; Stop 04/06/20 at 12:16; Status DC Info (CONTRAST GIVEN -- Rx MONITORING) 1 each PRN DAILY PRN MC SEE COMMENTS; Start 04/06/20 at 12:15; Stop 04/08/20 at 12:14; Status DC Ringer's Solution 1,000 ml @ 50 mls/hr Q20H IV Last administered on 04/07/20at 08:03; Start 04/07/20 at 07:00; Stop 04/07/20 at 18:59; Status DC Potassium Chloride/Dextrose/ Sod Cl 1,000 ml @ 100 mls/hr Q10H IV Last administered on 04/13/20at 03:37; Start 04/07/20 at 09:45; Stop 04/13/20 at 15:39; Status DC Cefoxitin Sodium (Mefoxin) 2 gm 1X PREOP ONCE IVP Last administered on 04/08/20at 10:35; Start 04/08/20 at 06:00; Stop 04/08/20 at 06:01; Status DC Lidocaine HCl (Lidocaine Pf 2% Vial) 5 ml STK-MED ONCE .ROUTE ; Start 04/07/20 at 12:40; Stop 04/07/20 at 12:40; Status DC Propofol (Diprivan) 200 mg STK-MED ONCE IV ; Start 04/07/20 at 12:40; Stop 04/07/20 at 12:41; Status DC Ondansetron HCl (Zofran) 4 mg PRN Q6HRS PRN IV NAUSEA/VOMITING; Start 04/08/20 at 07:00; Stop 04/09/20 at 06:59; Status DC Fentanyl Citrate (Fentanyl 2ml Vial) 25 mcg PRN Q5MIN PRN IV MILD PAIN 1-3; Start 04/08/20 at 07:00; Stop 04/09/20 at 06:59; Status DC Fentanyl Citrate (Fentanyl 2ml Vial) 50 mcg PRN Q5MIN PRN IV MODERATE TO SEVERE PAIN Last administered on 04/08/20at 15:06; Start 04/08/20 at 07:00; Stop 04/09/20 at 06:59; Status DC Morphine Sulfate (Morphine Sulfate) 1 mg PRN Q10MIN PRN IV SEVERE PAIN 7-10; Start 04/08/20 at 07:00; Stop 04/09/20 at 06:59; Status DC Ringer's Solution 1,000 ml @ 30 mls/hr Q24H IV Last administered on 04/08/20at 15:06; Start 04/08/20 at 07:00; Stop 04/08/20 at 18:59; Status DC Hydromorphone HCl (Dilaudid) 0.5 mg PRN Q10MIN PRN IV SEV PAIN, Second choice; Start 04/08/20 at 07:00; Stop 04/09/20 at 06:59; Status DC Prochlorperazine Edisylate (Compazine) 5 mg PACU PRN PRN IV NAUSEA, MRX1 Last administered on 04/08/20at 14:27; Start 04/08/20 at 07:00; Stop 04/09/20 at 06:59; Status DC Sodium Chloride 1,000 ml @ 75 mls/hr [id number] IV Last administered on 04/07/20at 14:14; Start 04/07/20 at 14:15; Stop 04/08/20 at 03:41; Status DC Rocuronium [place] (Zemuron) 50 mg STK-MED ONCE .ROUTE ; Start 04/08/20 at 08:20; Stop 04/08/20 at 08:20; Status DC Succinylcholine Chloride (Anectine) 200 mg STK-MED ONCE .ROUTE ; Start 04/08/20 at 08:20; Stop 04/08/20 at 08:20; Status DC Propofol (Diprivan) 200 mg STK-MED ONCE IV ; Start 04/08/20 at 08:21; Stop 04/08/20 at 08:22; Status DC Lidocaine HCl (Lidocaine Pf 2% Vial) 5 ml STK-MED ONCE .ROUTE ; Start 04/08/20 at 08:21; Stop 04/08/20 at 08:22; Status DC Dexamethasone Sodium Phosphate (Decadron) 4 mg STK-MED ONCE .ROUTE ; Start 04/08/20 at 08:21; Stop 04/08/20 at 08:22; Status DC Ondansetron HCl (Zofran) 4 mg STK-MED ONCE .ROUTE ; Start 04/08/20 at 08:21; Stop 04/08/20 at 08:22; Status DC Bupivacaine HCl/ Epinephrine Bitart (Sensorcain-Epi 0.5%-1:534631 Mpf) 30 ml STK-MED ONCE .ROUTE Last administered on 04/08/20at 11:08; Start 04/08/20 at 08:45; Stop 04/08/20 at 08:45; Status DC Midazolam HCl (Versed) 2 mg STK-MED ONCE .ROUTE ; Start 04/08/20 at 09:30; Stop 04/08/20 at 09:30; Status DC Fentanyl Citrate (Fentanyl 2ml Vial) 100 mcg STK-MED ONCE .ROUTE ; Start 04/08/20 at 09:30; Stop 04/08/20 at 09:31; Status DC Rocuronium [place] (Zemuron) 50 mg STK-MED ONCE .ROUTE ; Start 04/08/20 at 11:08; Stop 04/08/20 at 11:08; Status DC Sevoflurane (Ultane) 90 ml STK-MED ONCE IH ; Start 04/08/20 at 11:10; Stop 04/08/20 at 11:11; Status DC Fentanyl Citrate (Fentanyl 2ml Vial) 100 mcg STK-MED ONCE .ROUTE ; Start 04/08/20 at 11:11; Stop 04/08/20 at 11:11; Status DC Glycopyrrolate (Robinul) 1 mg STK-MED ONCE .ROUTE ; Start 04/08/20 at 11:12; Stop 04/08/20 at 11:12; Status DC Methylene Blue (Provayblue) 10 ml STK-MED ONCE .ROUTE Last administered on 04/08/20at 11:46; Start 04/08/20 at 11:44; Stop 04/08/20 at 11:44; Status DC Morphine Sulfate (Morphine Sulfate) 10 mg STK-MED ONCE .ROUTE ; Start 04/08/20 at 11:55; Stop 04/08/20 at 11:56; Status DC Neostigmine [place] (Neostigmine Methylsulfate) 5 mg STK-MED ONCE .ROUTE ; Start 04/08/20 at 13:00; Stop 04/08/20 at 13:00; Status DC Albumin Human 0 ml @ As Directed STK-MED ONCE IV ; Start 04/08/20 at 13:02; Stop 04/08/20 at 13:02; Status DC Enoxaparin Sodium (Lovenox 40mg Syringe) 40 mg Q12HR SQ Last administered on 04/13/20at 08:16; Start 04/09/20 at 09:00; Stop 04/13/20 at 15:39; Status DC Sodium Chloride (Normal Saline Flush) 3 ml QSHIFT PRN IV AFTER MEDS AND BLOOD DRAWS; Start 04/08/20 at 13:15; Stop 04/13/20 at 15:39; Status DC Ringer's Solution 1,000 ml @ 100 mls/hr Q10H IV Last administered on 04/09/20at 12:11; Start 04/08/20 at 13:15; Stop 04/10/20 at 10:26; Status DC Naloxone HCl (Narcan) 0.4 mg PRN Q2MIN PRN IV SEE INSTRUCTIONS; Start 04/08/20 at 13:15; Stop 04/13/20 at 15:39; Status DC Sodium Chloride 1,000 ml @ 25 mls/hr Q24H IV ; Start 04/08/20 at 13:15; Stop 04/10/20 at 10:26; Status DC Morphine Sulfate 30 ml @ 0 mls/hr CONT PRN PRN IV PER PROTOCOL Last administered on 04/08/20at 14:27; Start 04/08/20 at 13:15; Stop 04/11/20 at 16:57; Status DC Ondansetron HCl (Zofran) 4 mg PRN Q6HRS PRN IVP NAUESA, 1ST CHOICE; Start 04/08/20 at 13:15; Stop 04/13/20 at 15:39; Status DC Insulin Human Lispro (HumaLOG VIAL for OP,RR ONLY) 0-10 units PRN Q1HR PRN SQ PER PROTOCOL Last administered on 04/08/20at 15:47; Start 04/08/20 at 13:30; Stop 04/09/20 at 13:29; Status DC Albumin Human 500 ml @ As Directed STK-MED ONCE IV ; Start 04/08/20 at 13:35; Stop 04/08/20 at 13:36; Status DC Phenol (Chloraseptic) 1 spray PRN Q2HR PRN PO SORE THROAT Last administered on 04/10/20at 12:57; Start 04/09/20 at 16:45; Stop 04/13/20 at 15:39; Status DC Iron Sucrose 200 mg/Sodium Chloride 110 ml @ 55 mls/hr 1X ONCE IV Last administered on 04/10/20at 12:59; Start 04/10/20 at 12:00; Stop 04/10/20 at 13:59; Status DC Famotidine (Pepcid Vial) 20 mg QHS IVP Last administered on 04/11/20at 21:17; Start 04/11/20 at 21:00; Stop 04/12/20 at 09:57; Status DC Levofloxacin/ Dextrose 150 ml @ 100 mls/hr Q24H IV Last administered on 04/11/20at 15:56; Start 04/11/20 at 15:00; Stop 04/12/20 at 11:31; Status DC Morphine Sulfate (Morphine Sulfate) 1 mg PRN Q4HRS PRN IV MOD PAIN, 1ST CHOICE; Start 04/11/20 at 17:00; Stop 04/13/20 at 15:39; Status DC Morphine Sulfate (Morphine Sulfate) 2 mg PRN Q4HRS PRN IV MOD PAIN, 2ND CHOICE; Start 04/11/20 at 17:00; Stop 04/13/20 at 15:39; Status DC Morphine Sulfate (Morphine Sulfate) 3 mg PRN Q4HRS PRN IV SEVERE PAIN, 1ST CHOICE; Start 04/11/20 at 17:00; Stop 04/13/20 at 15:39; Status DC Morphine Sulfate (Morphine Sulfate) 4 mg PRN Q4HRS PRN IV SEVERE PAIN, 2ND CHOICE; Start 04/11/20 at 17:00; Stop 04/13/20 at 15:39; Status DC Famotidine (Pepcid) 20 mg QHS PO Last administered on 04/12/20at 21:10; Start 04/12/20 at 21:00; Stop 04/13/20 at 15:39; Status DC Meropenem 500 mg/ Sodium Chloride 50 ml @ 100 mls/hr Q8HRS IV ; Start 04/12/20 at 12:00; Stop 04/12/20 at 11:38; Status DC Meropenem 500 mg/ Sodium Chloride 50 ml @ 100 mls/hr Q6HRS IV Last administered on 04/13/20at 12:44; Start 04/12/20 at 12:00; Stop 04/13/20 at 15:39; Status DC Lactobacillus Rhamnosus (Culturelle) 1 cap BID PO Last administered on 04/13/20at 08:15; Start 04/12/20 at 21:00; Stop 04/13/20 at 15:39; Status DC Active Scripts Active Vitamin C (Ascorbic Acid) 500 Mg Capsule.er 1 Cap PO BID 30 Days Ferrous Sulfate 325 Mg Tablet 1 Tab PO BID 30 Days Cipro (Ciprofloxacin Hcl) 500 Mg Tablet 1 Tab PO BID 7 Days Allergies Allergies: Coded Allergies: I S O L A T I O N *CONTACT* (Verified Allergy, Unknown, 04/11/20) ESBL No Known Medication Allergies (Verified Allergy, Unknown, 04/11/20) Physical Exam General: Alert, Oriented X3, No acute distress Vitals VITALS Vital Signs Date Time Temp Pulse Resp B/P (MAP) Pulse Ox O2 Delivery O2 Flow Rate FiO2 04/13/20 10:49 97.8 72 18 128/58 (81) 97 Room Air 97.8 Labs Labs Laboratory Tests Test 04/11/20 21:31 04/12/20 06:50 04/12/20 07:17 04/12/20 11:29 Glucose (Fingerstick) 196 mg/dL (70-99) 247 mg/dL (70-99) 232 mg/dL (70-99) White Blood Count 6.0 x10^3/uL (4.0-11.0) Red Blood Count 4.00 x10^6/uL (3.50-5.40) Hemoglobin 7.9 g/dL (12.0-15.5) Hematocrit 26.1 % (36.0-47.0) Mean Corpuscular Volume 65 fL (79-100) Mean Corpuscular Hemoglobin 20 pg (25-35) Mean Corpuscular Hemoglobin Concent 30 g/dL (31-37) Red Cell Distribution Width 20.1 % (11.5-14.5) Platelet Count 200 x10^3/uL (140-400) Sodium Level 143 mmol/L (136-145) Potassium Level 3.7 mmol/L (3.5-5.1) Chloride Level 107 mmol/L (98-107) Carbon Dioxide Level 27 mmol/L (21-32) Anion Gap 9 (6-14) Blood Urea Nitrogen 3 mg/dL (7-20) Creatinine 1.0 mg/dL (0.6-1.0) Estimated GFR (Cockcroft-Gault) 56.2 BUN/Creatinine Ratio 3 (6-20) Glucose Level 255 mg/dL (70-99) Calcium Level 8.0 mg/dL (8.5-10.1) Total Bilirubin 0.4 mg/dL (0.2-1.0) Aspartate Amino Transf (AST/SGOT) 15 U/L (15-37) Alanine Aminotransferase (ALT/SGPT) 23 U/L (14-59) Alkaline Phosphatase 76 U/L (46-116) Total Protein 5.9 g/dL (6.4-8.2) Albumin 2.2 g/dL (3.4-5.0) Albumin/Globulin Ratio 0.6 (1.0-1.7) Test 04/12/20 16:31 04/12/20 20:18 6/3/20 03:50 04/13/20 07:41 Glucose (Fingerstick) 196 mg/dL (70-99) 227 mg/dL (70-99) 245 mg/dL (70-99) Sodium Level 143 mmol/L (136-145) Potassium Level 3.4 mmol/L (3.5-5.1) Chloride Level 109 mmol/L (98-107) Carbon Dioxide Level 24 mmol/L (21-32) Anion Gap 10 (6-14) Blood Urea Nitrogen 3 mg/dL (7-20) Creatinine 1.0 mg/dL (0.6-1.0) Estimated GFR (Cockcroft-Gault) 56.2 Glucose Level 209 mg/dL (70-99) Calcium Level 8.0 mg/dL (8.5-10.1) Test 04/13/20 11:23 Glucose (Fingerstick) 243 mg/dL (70-99) Laboratory Tests Test 04/12/20 20:18 04/13/20 03:50 04/13/20 07:41 04/13/20 11:23 Glucose (Fingerstick) 227 mg/dL (70-99) 245 mg/dL (70-99) 243 mg/dL (70-99) Sodium Level 143 mmol/L (136-145) Potassium Level 3.4 mmol/L (3.5-5.1) Chloride Level 109 mmol/L (98-107) Carbon Dioxide Level 24 mmol/L (21-32) Anion Gap 10 (6-14) Blood Urea Nitrogen 3 mg/dL (7-20) Creatinine 1.0 mg/dL (0.6-1.0) Estimated GFR (Cockcroft-Gault) 56.2 Glucose Level 209 mg/dL (70-99) Calcium Level 8.0 mg/dL (8.5-10.1) Images Images 04/08/2020 [facility] COMPARISON: None. IMPRESSION: Note, this single submitted radiographic includes portions of the left hemiabdomen. The entire abdominal and pelvic cavity is not included in the [id number]. Single drain is seen along the left hemiabdomen. NG tube is partially profiled. Otherwise no unexpected retained radiopaque foreign body. Nonspecific bowel gas pattern. 04/06/2020 CT CHEST W/CONTRAST History: Reason: colon mass. Comparison/Correlation: None Axial images of chest were obtained following IV contrast. Sagittal and coronal reformatted images were provided. Lung mcdonald are clear with no infiltrate. No suspicious pulmonary nodule or mass. No enlarged thoracic lymph nodes. Main pulmonary artery diameter of 3.5 cm transverse is seen. Minimal basilar discoid atelectasis is seen. Subtle centrilobular emphysematous lung mcdonald suggested. Cholecystectomy noted. Small sliding hiatal hernia is present. Bony structures are grossly unremarkable for the patient's age. Impression: No infiltrate. No suspicious pulmonary nodule. Small hiatal hernia. Main pulmonary artery diameter is slightly above normal limits for diameter. Correlate for possibility of underlying pulmonary artery hypertension. 04/05/2020 [facility] History: Partial small bowel obstruction. Technique: Supine view the abdomen. Comparison: CT April 04, 2020 Decreased right colonic distention compared to prior. Suggestion of right colonic wall thickening. Mild prominent air-filled loops of small bowel within the left lower abdomen. Surgical clips right upper quadrant. Multilevel lumbar spondylosis. Bilateral hip DJD. Impression: 1. Decreased right colonic distention compared to prior. 2. Suggestion of colonic wall thickening. 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 Due to presence of lymph node involvement, the patient will require adjuvant therapy with FOLFOX or XELOX. Would recommend obtaining PET/CT, as outpatient, to complete staging. Abstract 5232 ASCO 2017 (Georgiana et al) reported results of observational studies with 826 patients with history of stage III CRC. It showed that tree nut consumption decreased the chance of recurrence by 46%, and the chance of by 53% for those who consumed at least two ounces per week, compared to those who did not. [facility] phase 2 trial with median follow-up of 16.1 months showed that patients with metastatic CRC, randomized to HiVitD (vitamin D3 po 8,000 IU/d x 2 wks as loading dose followed by 4,000 IU/d) compared to LowVitD (standard vitamin D3 400 IU/d), experienced longer PFS (median PFS, 12.4 vs. 10.7 mos, p=0.03). After multivariate adjustment for prognostic variables, HR was 0.66 (2-sided p=0.04) (Ramon et al, JCO abstract [id number] 03/30/17). Although the above study is based on patients with metastatic disease, it could be extrapolated to earlier stage disease in adjuvant setting. PLAN: 1. CBC, BMP, LFT, LDH, CEA, iron studies, B12, MMA on next visit. 2. The patient will require adjuvant therapy with FOLFOX or XELOX. Will discuss on next visit. 3. PET/CT will be obtained as outpatient. 4. Increase intake of green vegetables in the diet. 5. Increase physical activity. 6. Start vitamin D 5,000 units daily upon discharge. 7. Start aspirin 81 mg daily in ~ 1 week. 8. Vitamin B12 5,000 mcg daily upon discharge. 9. Multivitamin once daily to be started ~ 3 days post discharge. 10. Encouraged to eat 1 handful of tree nuts daily starting ~ 1 month after surgery, or as per Dr. Junior. 11. Colonoscopy will need to be repeated 1 year post surgery (around 04/08/2021). 12. Follow-up at [facility] in 1 week. ARIANNE LIU MD Apr 13, 2020 18:04
== END 2020-04-13 15:10 | disposition home or self-care (01) | DRG 330 ==
LOC: 6 SOUTH 22:13 → 4 NORTH 04-07 18:40
PROVIDERS: ADMIT Internal Medicine; ATTEND Internal Medicine
PROC: 0DBN8ZX Excision of Sigmoid Colon, Via Natural or Artificial Opening Endoscopic, Diagnostic (ICD-10-PCS; 2020-04-07)
PROC: 0DBL8ZX Excision of Transverse Colon, Via Natural or Artificial Opening Endoscopic, Diagnostic (ICD-10-PCS; 2020-04-07)
PROC: 0DBP8ZX Excision of Rectum, Via Natural or Artificial Opening Endoscopic, Diagnostic (ICD-10-PCS; 2020-04-07 15:00)
PROC: 0DBF0ZZ Excision of Right Large Intestine, Open Approach (ICD-10-PCS; 2020-04-08)
PROC: 0WJP4ZZ Inspection of Gastrointestinal Tract, Percutaneous Endoscopic Approach (ICD-10-PCS; principal; 2020-04-08 10:30)
DX: C18.3 Malignant neoplasm of hepatic flexure (principal); Z68.41 Body mass index [BMI] 40.0-44.9, adult; N39.0 Urinary tract infection, site not specified; K56.609 Unspecified intestinal obstruction, unspecified as to partial versus complete obstruction; K56.0 Paralytic ileus; B96.20 Unspecified Escherichia coli [E. coli] as the cause of diseases classified elsewhere; D50.9 Iron deficiency anemia, unspecified; E11.9 Type 2 diabetes mellitus without complications; E66.01 Morbid (severe) obesity due to excess calories; E87.6 Hypokalemia; I10 Essential (primary) hypertension; K66.0 Peritoneal adhesions (postprocedural) (postinfection); M15.9 Polyosteoarthritis, unspecified; Z53.31 Laparoscopic surgical procedure converted to open procedure; Z82.3 Family history of stroke; Z82.49 Family history of ischemic heart disease and other diseases of the circulatory system; Z83.71 Family history of colonic polyps; Z85.038 Personal history of other malignant neoplasm of large intestine; Z90.710 Acquired absence of both cervix and uterus; Z90.49 Acquired absence of other specified parts of digestive tract; Z20.828 Contact with and (suspected) exposure to other viral communicable diseases; J02.9 Acute pharyngitis, unspecified; B96.1 Klebsiella pneumoniae [K. pneumoniae] as the cause of diseases classified elsewhere
CPT/HCPCS: 36415; 36569; 45380; 45381; 45385; 71260; 74018; 80048; 80053; 82378; 82728; 82962; 83540; 83550; 85014; 85018; 85025; 85027; 85610; 86301; 86850; 86900; 86901; 86920; 88305; 88307; 88309; A7015; J0330; J0694; J0780; J1100; J1650; J1756; J1815; J1956; J2185; J2250; J2270; J2405; J2704; J2710; J3010; J3480; J3490; J7030; J7042; J7120; P9045; Q9967; Q9968; G0378; U0003-CS

== ENCOUNTER → 2020-04-29 | Outpatient (CLI) | payer SELFPAY ==
[2020-04-13 10:49] VITALS: BP 128/58
[~2020-04-29] MED LIST: ASCO500C PO; CIPR500T94 PO; FERR325T14 PO
[2020-04-29 15:41] LABS: BASO # 0.1 x10^3/uL (0.0-0.2); BASO % 1 % (0-3); EOS # 0.2 x10^3/uL (0.0-0.7); EOS % 3 % (0-3); HEMATOCRIT 34.5 % (36.0-47.0); HEMOGLOBIN 10.5 g/dL (12.0-15.5); LYMPH % 27 % (24-48); MEAN CORPUSCULAR HEMOGLOBIN 21 pg (25-35); MEAN CORPUSCULAR HGB CONC 31 g/dL (31-37); MEAN CORPUSCULAR VOLUME 69 fL (79-100); MONO # 0.5 x10^3/uL (0.0-1.1); MONO % 7 % (0-9); NEUT # 4.8 x10^3/uL (1.8-7.7); NEUT % 62 % (31-73); PLATELET COUNT 232 x10^3/uL (140-400); RED BLOOD COUNT 4.98 x10^6/uL (3.50-5.40); RED CELL DISTRIBUTION WIDTH 25.8 % (11.5-14.5); WHITE BLOOD COUNT 7.7 x10^3/uL (4.0-11.0)
[2020-04-29 15:48] LABS: CALCIUM 8.8 mg/dL (8.5-10.1); GFR 56.2; POTASSIUM 4.5 mmol/L (3.5-5.1)
[2020-04-29 15:54] LABS: DIRECT BILIRUBIN 0.1 mg/dL (0.0-0.2); TOTAL BILIRUBIN 0.2 mg/dL (0.2-1.0); TOTAL PROTEIN 7.3 g/dL (6.4-8.2)
[2020-04-29 17:22] LABS: PLT ESTIMATE ADEQUATE (ADEQUATE)
[2020-04-29 17:24] LABS: ANISOCYTOSIS MOD; HYPOCHROMIA MOD; MICROCYTOSIS MOD; POIKILOCYTOSIS SLIGHT
[2020-04-29 17:25] LABS: OVALOCYTES FEW
== END | disposition home or self-care (01) ==
LOC: ONCLAB 08:34
PROVIDERS: ATTEND Internal Medicine Hematology & Oncology
DX: C18.4 Malignant neoplasm of transverse colon (principal)
CPT/HCPCS: 36415; 80048; 80076; 82378; 82607; 82728; 83540; 83550; 83615; 83921; 85025

== ENCOUNTER → 2020-05-10 | Outpatient (CLI) | payer SELFPAY ==
[2020-04-13 10:49] VITALS: BP 128/58
[2020-05-10 10:38] LABS: BASO # 0.1 x10^3/uL (0.0-0.2); BASO % 1 % (0-3); EOS # 0.3 x10^3/uL (0.0-0.7); EOS % 4 % (0-3); HEMATOCRIT 35.4 % (36.0-47.0); HEMOGLOBIN 10.9 g/dL (12.0-15.5); LYMPH # 1.7 x10^3/uL (1.0-4.8); LYMPH % 25 % (24-48); MEAN CORPUSCULAR HEMOGLOBIN 22 pg (25-35); MEAN CORPUSCULAR HGB CONC 31 g/dL (31-37); MEAN CORPUSCULAR VOLUME 70 fL (79-100); MONO # 0.5 x10^3/uL (0.0-1.1); MONO % 7 % (0-9); NEUT # 4.4 x10^3/uL (1.8-7.7); NEUT % 63 % (31-73); PLATELET COUNT 214 x10^3/uL (140-400); RED BLOOD COUNT 5.03 x10^6/uL (3.50-5.40); RED CELL DISTRIBUTION WIDTH 25.5 % (11.5-14.5)
[2020-05-10 10:54] LABS: CREATININE 1.2 mg/dL (0.6-1.0); GFR 45.5; POTASSIUM 4.3 mmol/L (3.5-5.1)
== END | disposition home or self-care (01) ==
LOC: ONCLAB 10:21
PROVIDERS: ATTEND Physician Assistant
DX: C18.4 Malignant neoplasm of transverse colon (principal)
CPT/HCPCS: 36415; 80048; 82306; 82378; 85025

== ENCOUNTER 2020-05-16 08:39 | Outpatient (CLI) | payer SELFPAY ==
[2020-05-16] VITALS (7 sets, daily range): BP systolic 123–160; BP diastolic 63–79
[~2020-05-16] VITALS: Ht 167.6 cm; Wt 114.8 kg
[2020-05-16] MEDS ORDERED: fentaNYL PF VIAL 100 MCG/2 ML VIAL ONE (09:20)
[2020-05-16] MEDS ORDERED: MIDAZOLAM HCL/PF 2 MG/2 ML VIAL. ONE (09:20)
[2020-05-16] MEDS ORDERED: LIDOCAINE 1%/EPI 1:100,000 20 ML VIAL. ONE (09:36)
--- NOTE | 2020-05-16 10:55 | PDOC ---
MODERATE SEDATION ASSESSMENT RISKS/ALTERNATIVES Risks/Alternatives Risks and alternatives of this type of sedation and procedure discussed with: RISK/ALTERNATIVES: Patient H & P ON CHART H & P H & P on chart and reviewed for co-morbid conditions and appropriate labs. H&P ON CHART: Yes STATUS PREG STATUS ASSESSED: Yes MEDS/ALLERGIES REVIEWED Meds/Allergies Reviewed Medications and Allergies including time and route of recently administered narcotics and sedatives. MEDS/ALLERGIES REVIEWED: Yes ASA RATING ASA RATING: II AIRWAY ASSESSMENT Airway Assessment Airway patency, oral function limitations, presence of caps, crowns, dentures, partials, and ability to extend neck assessed. AIRWAY ASSESSMENT: Yes MALLAMPATI SCORE MALLAMPATI SCORE: II PRE-SEDATION ASSESSMENT PRE-SEDATION ASSESSMENT: Yes PARISH WORKMAN MD May 16, 2020 10:55
[2020-05-16] MEDS ORDERED: fentaNYL PF VIAL 100 MCG/2 ML VIAL IV ONE (11:00)
[2020-05-16] MEDS ORDERED: MIDAZOLAM HCL/PF 2 MG/2 ML VIAL. IV ONE (11:00)
[2020-05-16] MEDS ORDERED: LIDOCAINE 1%/EPI 1:100,000 20 ML VIAL. SQ ONE (11:00)
[2020-05-16 11:31] LABS: PROTHROMBIN TIME PATIENT 12.9 SEC (11.7-14.0)
[2020-05-16 11:59] LABS: EOS % 3 % (0-3); HEMATOCRIT 36.9 % (36.0-47.0); HEMOGLOBIN 11.6 g/dL (12.0-15.5); LYMPH % 28 % (24-48); MEAN CORPUSCULAR HEMOGLOBIN 22 pg (25-35); MEAN CORPUSCULAR HGB CONC 31 g/dL (31-37); MEAN CORPUSCULAR VOLUME 71 fL (79-100); MONO % 8 % (0-9); NEUT % 60 % (31-73); PLATELET COUNT 236 x10^3/uL (140-400); RED BLOOD COUNT 5.21 x10^6/uL (3.50-5.40); RED CELL DISTRIBUTION WIDTH 25.1 % (11.5-14.5); WHITE BLOOD COUNT 8.2 x10^3/uL (4.0-11.0)
[2020-05-16 12:00] LABS: BASO # 0.1 x10^3/uL (0.0-0.2); BASO % 2 % (0-3); EOS # 0.2 x10^3/uL (0.0-0.7); LYMPH # 2.3 x10^3/uL (1.0-4.8); MONO # 0.7 x10^3/uL (0.0-1.1); NEUT # 4.9 x10^3/uL (1.8-7.7)
[2020-05-16 12:01] LABS: ANISOCYTOSIS SLIGHT; PLT ESTIMATE ADEQUATE (ADEQUATE)
[2020-05-16] MEDS ORDERED: CARV3.12 PO (12:23)
[2020-05-16] MEDS ORDERED: ONDA4TAB7 SL (12:23)
[2020-05-16] MEDS ORDERED: ASPI81TA59 PO (12:23)
[2020-05-16] MEDS ORDERED: LIDO30CR TP (12:23)
[2020-05-16] MEDS ORDERED: vitamin d3 PO (12:23)
[2020-05-16] MEDS ORDERED: GLIP10TA13 PO (12:23)
[2020-05-16] MEDS ORDERED: ONDA8TAB9 PO (12:23)
[2020-05-16] MEDS ORDERED: PROC10TA57 PO (12:23)
[2020-05-16] MEDS ORDERED: CALC-299 PO (12:23)
[2020-05-16] MEDS ORDERED: METF10007 PO (12:23)
[2020-05-16] MEDS ORDERED: PANT40TA77 PO (12:23)
[2020-05-16] MEDS ORDERED: MECO10005 PO (12:23)
[2020-05-16] MEDS ORDERED: MULT-509 PO (12:23)
[2020-05-16] MEDS ORDERED: UBID50TA PO (12:23)
--- NOTE | 2020-05-16 14:24 | NUR ---
pt A&O x4. denies pain at this time. VSS. tolerating po well. ambulated to BR w/o problem. rt chest dressing is clean and dry. no drainage. d/c instructions given and questions answered. out to vehicle per w/c- dtr to drive her home
--- NOTE | 2020-05-16 16:03 | RAD ---
Procedure: Ultrasound and fluoroscopically guided placement of right internal jugular power port.. 05/16/2020 1:59 PM Clinical Indication: Chemotherapy access, history of colorectal cancer Sedation: Conscious sedation was administered for 50 minutes. The patient was monitored by a qualified independent observer throughout the time of sedation. Please refer to the medical record for exact doses of medications utilized to achieve moderate sedation. Fluoroscopy time: 0 point minutes Dose area product: 4 Consent: The procedure was explained in its entirety to the patient or the patients designated auto claim representative by a member of the treatment team, including a discussion of the risks, benefits and commonly accepted alternatives to the procedure, as well as the expected consequences of no therapy whatsoever. Discussion of the risks included, but was not limited to, those that are most frequent and those that are rare but possibly severe or life-threatening, as well as the possibility of unforeseen complications. Technique and Findings: All elements of maximal sterile barrier technique including the use of a cap, mask, sterile gown, sterile gloves, large sterile sheet, appropriate hand hygiene, and 2% chlorhexidine for cutaneous antisepsis (or acceptable alternative antiseptic per current guidelines) were followed for this procedure.Following informed consent, and a timeout procedure, the patient was prepped and draped in the usual sterile fashion. Ultrasound interrogation of the right neck revealed patency and compressibility of the right internal jugular vein. A 21-gauge micropuncture was then used to gain access to this vein under ultrasound guidance. A hard copy ultrasound image was recorded. The needle was exchanged over a wire for a sheath. A 1 inch incision was made several centimeters inferior to the venotomy site. A catheter was tunneled from this site dermatotomy site in the neck. Catheter was advanced through peel-away sheath such that its tip was in the proximal right atrium with the patient supine. The catheter was trimmed to length and connected to the port reservoir. The port was found to flush and aspirate normally. The wound was closed in layers using 4-0 Vicryl suture. Sterile dressings were applied. Impression: Successful ultrasound and fluoroscopically guided placement of a right internal jugular PowerPort
== END 2020-05-16 13:00 | disposition home or self-care (01) ==
LOC: INTRAD 08:39
PROVIDERS: ATTEND Internal Medicine Hematology & Oncology
DX: Z45.2 Encounter for adjustment and management of vascular access device (principal); C18.9 Malignant neoplasm of colon, unspecified; Z79.01 Long term (current) use of anticoagulants
CPT/HCPCS: 36415; 36561; 76937; 77001; 85025; 85610; 99152; 99153; C1751; C1892; J0690; J2250; J3010; J3490

== ENCOUNTER → 2020-05-17 | Outpatient (CLI) | payer SELFPAY ==
[2020-05-16 12:20] VITALS: BP 160/78
[~2020-05-17] MED LIST changes: +ASPI81TA59 PO; +CALC-299 PO; +CARV3.12 PO; +GLIP10TA13 PO; +LIDO30CR TP; +MECO10005 PO; +METF10007 PO; +MULT-509 PO; +ONDA4TAB7 SL; +ONDA8TAB9 PO; +PANT40TA77 PO; +PROC10TA57 PO; +UBID50TA PO; +vitamin d3 PO
[2020-05-17 09:34] LABS: CALCIUM 9.2 mg/dL (8.5-10.1); GFR 56.2; POTASSIUM 4.2 mmol/L (3.5-5.1)
[2020-05-17 09:39] LABS: ALBUMIN 3.1 g/dL (3.4-5.0); DIRECT BILIRUBIN 0.1 mg/dL (0.0-0.2); TOTAL BILIRUBIN 0.2 mg/dL (0.2-1.0); TOTAL PROTEIN 7.6 g/dL (6.4-8.2)
== END | disposition home or self-care (01) ==
LOC: ONCLAB 08:25
PROVIDERS: ATTEND Physician Assistant
DX: C18.4 Malignant neoplasm of transverse colon (principal)
CPT/HCPCS: 36415; 80048; 80076; 83615

== ENCOUNTER → 2020-05-20 | Outpatient (CLI) | payer SELFPAY ==
[2020-05-16 12:20] VITALS: BP 160/78
--- NOTE | 2020-05-20 17:15 | RAD ---
EXAM: PET/CT SKULL BASE TO MID THIGH. HISTORY: Colon cancer staging. COMPARISON: None. TECHNIQUE: CT was performed from the skull base through the mid thighs for the purposes of attenuation correction. 14.5 mCi F-18 fluorodeoxyglucose (FDG) was administered intravenously. After an uptake period, positron emission tomography was performed from the skull base through the mid thighs. The PET and CT data were fused and interpreted in combination a dedicated workstation. Blood glucose level was 166 mg/dL at the time of FDG administration. FINDINGS: Changes of right colectomy are noted. Mild stranding adjacent to the resection site demonstrates maximum SUV 3.1 and is likely inflammatory. There is no hypermetabolism suggestive of local or distant metastatic disease elsewhere. Diffuse hypermetabolism throughout the small and large bowel most likely reflects peristalsis. Mild hypermetabolism along the midline anterior abdominal scar is likely inflammatory. Additional CT findings include a right port catheter in expected position. Hypoattenuation of the hepatic parenchyma is consistent with diffuse hepatic steatosis. There are calcified cranial almost in the liver. The gallbladder is surgically absent. The uterus is surgically absent. IMPRESSION: 1. Status post right colectomy. Mild omental stranding adjacent to the resection site is likely postinflammatory in the absence of known omental disease. Attention on further follow-up. No clear evidence of local or distant metastatic disease.
== END | disposition home or self-care (01) ==
LOC: PETSC 09:06
PROVIDERS: ATTEND Internal Medicine Hematology & Oncology
DX: C18.4 Malignant neoplasm of transverse colon (principal); K76.0 Fatty (change of) liver, not elsewhere classified; K75.3 Granulomatous hepatitis, not elsewhere classified; Z90.49 Acquired absence of other specified parts of digestive tract; Z90.710 Acquired absence of both cervix and uterus
CPT/HCPCS: 78815; A9552

== ENCOUNTER → 2020-05-24 | Outpatient (CLI) | payer SELFPAY ==
[2020-05-16 12:20] VITALS: BP 160/78
[~2020-05-24] MED LIST changes: +IOHEXOL 240 MG/ML 50ML VIAL. IV ONE; +IOHEXOL 240 MG/ML 50ML VIAL. ONE; +LIDOCAINE WITH 8.4% SOD BICARB 3 ML DISP.SYRIN. INJ ONE; +LIDOCAINE WITH 8.4% SOD BICARB 3 ML DISP.SYRIN. ONE
[2020-05-24 10:43] LABS: BASO % 0 % (0-3); EOS # 0.4 x10^3/uL (0.0-0.7); EOS % 6 % (0-3); HEMATOCRIT 32.7 % (36.0-47.0); HEMOGLOBIN 10.2 g/dL (12.0-15.5); LYMPH # 1.5 x10^3/uL (1.0-4.8); LYMPH % 24 % (24-48); MEAN CORPUSCULAR HEMOGLOBIN 22 pg (25-35); MEAN CORPUSCULAR HGB CONC 31 g/dL (31-37); MEAN CORPUSCULAR VOLUME 71 fL (79-100); MONO # 0.3 x10^3/uL (0.0-1.1); MONO % 5 % (0-9); NEUT # 4.1 x10^3/uL (1.8-7.7); NEUT % 64 % (31-73); PLATELET COUNT 180 x10^3/uL (140-400); RED CELL DISTRIBUTION WIDTH 24.1 % (11.5-14.5); WHITE BLOOD COUNT 6.3 x10^3/uL (4.0-11.0)
[2020-05-24 11:02] LABS: CALCIUM 8.6 mg/dL (8.5-10.1); GFR 56.2
--- NOTE | 2020-05-26 15:53 | RAD ---
Fluoroscopic evaluation of right internal jugular PowerPort INDICATION: Pain with first attempted use of port Discussion: Risks and benefits were discussed the patient. Informed consent was obtained. Timeout procedure was performed. The port was accessed using sterile technique. Fluoroscopic evaluation demonstrates the port be normal in position and appearance. Contrast was flushed to the port which demonstrates no extravasation or abnormal accumulation. Contrast freely flows within the port catheter. The catheter was flushed per protocol. The port was deaccessed. Sterile dressings were applied. Total fluoroscopy time 1.0 minutes Dose area product 9 Gycm2 IMPRESSION: Normal fluoroscopic evaluation of a right internal jugular PowerPort
== END | disposition home or self-care (01) ==
LOC: INTRAD 09:49
PROVIDERS: ATTEND Physician Assistant
DX: T82.9XXA Unspecified complication of cardiac and vascular prosthetic device, implant and graft, initial encounter (principal); C18.4 Malignant neoplasm of transverse colon; Y83.8 Other surgical procedures as the cause of abnormal reaction of the patient, or of later complication, without mention of misadventure at the time of the procedure; Y92.89 Other specified places as the place of occurrence of the external cause; Z79.82 Long term (current) use of aspirin; Z79.899 Other long term (current) drug therapy
CPT/HCPCS: 36415; 36598; 80048; 85025; J3490; Q9966

== ENCOUNTER → 2020-06-01 | Outpatient (CLI) | payer MEDICAID, OTHER ==
[2020-05-16 12:20] VITALS: BP 160/78
[~2020-06-01] MED LIST changes: -IOHEXOL 240 MG/ML 50ML VIAL. IV ONE; -IOHEXOL 240 MG/ML 50ML VIAL. ONE; -LIDOCAINE WITH 8.4% SOD BICARB 3 ML DISP.SYRIN. INJ ONE; -LIDOCAINE WITH 8.4% SOD BICARB 3 ML DISP.SYRIN. ONE
[2020-06-01 11:34] LABS: BASO # 0.1 x10^3/uL (0.0-0.2); BASO % 1 % (0-3); EOS # 0.4 x10^3/uL (0.0-0.7); EOS % 7 % (0-3); HEMATOCRIT 33.1 % (36.0-47.0); HEMOGLOBIN 10.6 g/dL (12.0-15.5); LYMPH # 1.7 x10^3/uL (1.0-4.8); LYMPH % 31 % (24-48); MEAN CORPUSCULAR HEMOGLOBIN 23 pg (25-35); MEAN CORPUSCULAR HGB CONC 32 g/dL (31-37); MEAN CORPUSCULAR VOLUME 72 fL (79-100); MONO # 0.5 x10^3/uL (0.0-1.1); MONO % 10 % (0-9); NEUT # 2.9 x10^3/uL (1.8-7.7); NEUT % 52 % (31-73); PLATELET COUNT 164 x10^3/uL (140-400); RED BLOOD COUNT 4.61 x10^6/uL (3.50-5.40); RED CELL DISTRIBUTION WIDTH 24.3 % (11.5-14.5); WHITE BLOOD COUNT 5.6 x10^3/uL (4.0-11.0)
[2020-06-01 11:50] LABS: CALCIUM 8.8 mg/dL (8.5-10.1); CREATININE 1.2 mg/dL (0.6-1.0); GFR 45.5; POTASSIUM 4.6 mmol/L (3.5-5.1)
[2020-06-01 11:56] LABS: ALBUMIN/GLOBULIN RATIO 0.7 (1.0-1.7); TOTAL BILIRUBIN 0.2 mg/dL (0.2-1.0); TOTAL PROTEIN 7.1 g/dL (6.4-8.2)
[2020-06-01 12:47] LABS: ANISOCYTOSIS SLIGHT; PLT ESTIMATE ADEQUATE (ADEQUATE)
== END ==
LOC: ONCLAB 11:05
PROVIDERS: ATTEND Internal Medicine Hematology & Oncology
DX: C18.4 Malignant neoplasm of transverse colon (principal)
CPT/HCPCS: 36415; 80053; 85025

== ENCOUNTER → 2020-06-15 | Outpatient (CLI) | payer MEDICAID ==
[2020-05-16 12:20] VITALS: BP 160/78
[2020-06-15 10:08] LABS: BASO # 0.1 x10^3/uL (0.0-0.2); BASO % 1 % (0-3); EOS # 0.3 x10^3/uL (0.0-0.7); EOS % 5 % (0-3); HEMATOCRIT 33.9 % (36.0-47.0); HEMOGLOBIN 10.8 g/dL (12.0-15.5); LYMPH # 1.5 x10^3/uL (1.0-4.8); LYMPH % 26 % (24-48); MEAN CORPUSCULAR HEMOGLOBIN 24 pg (25-35); MEAN CORPUSCULAR HGB CONC 32 g/dL (31-37); MEAN CORPUSCULAR VOLUME 74 fL (79-100); MONO # 0.6 x10^3/uL (0.0-1.1); MONO % 10 % (0-9); NEUT # 3.4 x10^3/uL (1.8-7.7); NEUT % 58 % (31-73); PLATELET COUNT 107 x10^3/uL (140-400); WHITE BLOOD COUNT 5.9 x10^3/uL (4.0-11.0)
[2020-06-15 10:14] LABS: CALCIUM 8.7 mg/dL (8.5-10.1); GFR 56.2; POTASSIUM 4.2 mmol/L (3.5-5.1)
[2020-06-15 10:21] LABS: ALBUMIN 2.8 g/dL (3.4-5.0); ALBUMIN/GLOBULIN RATIO 0.7 (1.0-1.7); TOTAL BILIRUBIN 0.3 mg/dL (0.2-1.0); TOTAL PROTEIN 6.9 g/dL (6.4-8.2)
[2020-06-15 11:14] LABS: BILIRUBIN,URINE NEGATIVE (NEG); CLARITY,URINE CLEAR; COLOR,URINE YELLOW; NITRITE,URINE NEGATIVE (NEG); PROTEIN,URINE NEGATIVE (NEG-TRACE); UROBILINOGEN,URINE 0.2 mg/dL (0.2 mg/dL)
[2020-06-15 11:22] LABS: SQUAMOUS EPITHELIAL CELL,UR MANY /LPF
[2020-06-15 11:23] LABS: BACTERIA,URINE MANY /HPF (0-FEW); HYALINE CASTS, URINE FEW /HPF; RBC,URINE 0 /HPF (0-2); WBC,URINE OCC /HPF (0-4)
[2020-06-15 12:04] LABS: PLT ESTIMATE DECREASED (ADEQUATE)
[2020-06-15 12:05] LABS: ANISOCYTOSIS PRESENT; MICROCYTOSIS SLIGHT; OVALOCYTES FEW; POLYCHROMASIA SLIGHT
== END | disposition home or self-care (01) ==
LOC: ONC 09:58
PROVIDERS: ATTEND Internal Medicine Hematology & Oncology
DX: C18.4 Malignant neoplasm of transverse colon (principal); Z79.82 Long term (current) use of aspirin; Z79.899 Other long term (current) drug therapy; Z90.710 Acquired absence of both cervix and uterus; Z90.49 Acquired absence of other specified parts of digestive tract; Z79.01 Long term (current) use of anticoagulants
CPT/HCPCS: 36415; 80053; 81001; 85025; 87086

== ENCOUNTER → 2020-07-04 | Outpatient (CLI) | payer MEDICAID ==
[2020-05-16 12:20] VITALS: BP 160/78
[2020-07-04 08:49] LABS: BASO % 1 % (0-3); EOS # 0.2 x10^3/uL (0.0-0.7); EOS % 4 % (0-3); HEMATOCRIT 34.5 % (36.0-47.0); LYMPH # 1.4 x10^3/uL (1.0-4.8); LYMPH % 31 % (24-48); MEAN CORPUSCULAR HEMOGLOBIN 24 pg (25-35); MEAN CORPUSCULAR HGB CONC 32 g/dL (31-37); MEAN CORPUSCULAR VOLUME 76 fL (79-100); MONO # 0.5 x10^3/uL (0.0-1.1); MONO % 12 % (0-9); NEUT # 2.3 x10^3/uL (1.8-7.7); NEUT % 52 % (31-73); PLATELET COUNT 124 x10^3/uL (140-400); RED BLOOD COUNT 4.57 x10^6/uL (3.50-5.40); RED CELL DISTRIBUTION WIDTH 22.4 % (11.5-14.5); WHITE BLOOD COUNT 4.4 x10^3/uL (4.0-11.0)
[2020-07-04 09:06] LABS: CREATININE 1.1 mg/dL (0.6-1.0); GFR 50.3; POTASSIUM 4.1 mmol/L (3.5-5.1)
[2020-07-04 09:22] LABS: ALBUMIN 2.9 g/dL (3.4-5.0); ALBUMIN/GLOBULIN RATIO 0.7 (1.0-1.7); TOTAL BILIRUBIN 0.4 mg/dL (0.2-1.0); TOTAL PROTEIN 7.3 g/dL (6.4-8.2)
[2020-07-04 12:51] LABS: ANISOCYTOSIS MOD; HYPOCHROMIA PRESENT; PLT ESTIMATE DECREASED (ADEQUATE)
== END | disposition home or self-care (01) ==
LOC: ONCLAB 08:34
PROVIDERS: ATTEND Internal Medicine Hematology & Oncology
DX: C18.4 Malignant neoplasm of transverse colon (principal)
CPT/HCPCS: 36415; 80053; 85025

== ENCOUNTER → 2020-07-19 | Outpatient (CLI) | payer MEDICAID ==
[2020-05-16 12:20] VITALS: BP 160/78
[2020-07-19 09:01] LABS: BASO # 0.1 x10^3/uL (0.0-0.2); BASO % 2 % (0-3); EOS # 0.3 x10^3/uL (0.0-0.7); EOS % 8 % (0-3); HEMATOCRIT 34.8 % (36.0-47.0); HEMOGLOBIN 11.1 g/dL (12.0-15.5); LYMPH # 1.3 x10^3/uL (1.0-4.8); LYMPH % 33 % (24-48); MEAN CORPUSCULAR HEMOGLOBIN 25 pg (25-35); MEAN CORPUSCULAR HGB CONC 32 g/dL (31-37); MEAN CORPUSCULAR VOLUME 78 fL (79-100); MONO # 0.5 x10^3/uL (0.0-1.1); MONO % 14 % (0-9); NEUT # 1.6 x10^3/uL (1.8-7.7); NEUT % 43 % (31-73); PLATELET COUNT 121 x10^3/uL (140-400); RED BLOOD COUNT 4.49 x10^6/uL (3.50-5.40); WHITE BLOOD COUNT 3.8 x10^3/uL (4.0-11.0)
[2020-07-19 09:12] LABS: CALCIUM 8.8 mg/dL (8.5-10.1); CREATININE 1.2 mg/dL (0.6-1.0); GFR 45.5; POTASSIUM 3.9 mmol/L (3.5-5.1)
[2020-07-19 09:22] LABS: ALBUMIN 2.8 g/dL (3.4-5.0); ALBUMIN/GLOBULIN RATIO 0.7 (1.0-1.7); TOTAL BILIRUBIN 0.5 mg/dL (0.2-1.0); TOTAL PROTEIN 7.1 g/dL (6.4-8.2)
[2020-07-19 10:06] LABS: ANISOCYTOSIS MOD; HYPOCHROMIA SLIGHT; PLT ESTIMATE DECREASED (ADEQUATE)
[2020-07-19 10:07] LABS: OVALOCYTES OCC
== END | disposition home or self-care (01) ==
LOC: ONCLAB 08:15
PROVIDERS: ATTEND Internal Medicine Hematology & Oncology
DX: C18.4 Malignant neoplasm of transverse colon (principal)
CPT/HCPCS: 36415; 80053; 82378; 85025

== ENCOUNTER → 2020-08-01 | Outpatient (CLI) | payer MEDICAID, OTHER ==
[2020-05-16 12:20] VITALS: BP 160/78
[2020-08-01 09:56] LABS: CALCIUM 9.2 mg/dL (8.5-10.1); CREATININE 1.2 mg/dL (0.6-1.0); GFR 45.5
[2020-08-01 10:02] LABS: ALBUMIN/GLOBULIN RATIO 0.7 (1.0-1.7); TOTAL BILIRUBIN 0.4 mg/dL (0.2-1.0); TOTAL PROTEIN 7.3 g/dL (6.4-8.2)
[2020-08-01 10:06] LABS: BASO % 1 % (0-3); EOS # 0.3 x10^3/uL (0.0-0.7); EOS % 6 % (0-3); HEMATOCRIT 34.9 % (36.0-47.0); HEMOGLOBIN 11.2 g/dL (12.0-15.5); LYMPH # 1.5 x10^3/uL (1.0-4.8); LYMPH % 30 % (24-48); MEAN CORPUSCULAR HEMOGLOBIN 25 pg (25-35); MEAN CORPUSCULAR HGB CONC 32 g/dL (31-37); MEAN CORPUSCULAR VOLUME 79 fL (79-100); MONO # 0.6 x10^3/uL (0.0-1.1); MONO % 13 % (0-9); NEUT # 2.5 x10^3/uL (1.8-7.7); NEUT % 50 % (31-73); PLATELET COUNT 95 x10^3/uL (140-400); RED BLOOD COUNT 4.43 x10^6/uL (3.50-5.40); RED CELL DISTRIBUTION WIDTH 22.6 % (11.5-14.5); WHITE BLOOD COUNT 4.9 x10^3/uL (4.0-11.0)
[2020-08-01 11:30] LABS: ANISOCYTOSIS MOD; PLT ESTIMATE DECREASED (ADEQUATE)
== END | disposition home or self-care (01) ==
LOC: ONCLAB 08:04
PROVIDERS: ATTEND Internal Medicine Hematology & Oncology
DX: C18.4 Malignant neoplasm of transverse colon (principal)
CPT/HCPCS: 36415; 80053; 85025

== ENCOUNTER → 2020-08-15 | Outpatient (CLI) | payer OTHER ==
[2020-05-16 12:20] VITALS: BP 160/78
[2020-08-15 09:11] LABS: GFR 56.2
[2020-08-15 09:16] LABS: ALBUMIN 2.9 g/dL (3.4-5.0); ALBUMIN/GLOBULIN RATIO 0.7 (1.0-1.7); TOTAL BILIRUBIN 0.4 mg/dL (0.2-1.0); TOTAL PROTEIN 7.1 g/dL (6.4-8.2)
[2020-08-15 09:17] LABS: BASO % 1 % (0-3); EOS # 0.2 x10^3/uL (0.0-0.7); EOS % 5 % (0-3); HEMATOCRIT 34.8 % (36.0-47.0); HEMOGLOBIN 11.3 g/dL (12.0-15.5); LYMPH # 1.3 x10^3/uL (1.0-4.8); LYMPH % 39 % (24-48); MEAN CORPUSCULAR HEMOGLOBIN 26 pg (25-35); MEAN CORPUSCULAR HGB CONC 33 g/dL (31-37); MEAN CORPUSCULAR VOLUME 80 fL (79-100); MONO # 0.6 x10^3/uL (0.0-1.1); MONO % 18 % (0-9); NEUT # 1.2 x10^3/uL (1.8-7.7); NEUT % 37 % (31-73); PLATELET COUNT 81 x10^3/uL (140-400); RED BLOOD COUNT 4.33 x10^6/uL (3.50-5.40); RED CELL DISTRIBUTION WIDTH 24.5 % (11.5-14.5); WHITE BLOOD COUNT 3.2 x10^3/uL (4.0-11.0)
== END ==
LOC: ONCLAB 08:00
PROVIDERS: ATTEND Internal Medicine Hematology & Oncology
DX: C18.4 Malignant neoplasm of transverse colon (principal)
CPT/HCPCS: 36415; 80053; 82378; 85025

== ENCOUNTER → 2020-08-22 | Outpatient (CLI) | payer OTHER ==
[2020-05-16 12:20] VITALS: BP 160/78
[2020-08-22 09:56] LABS: BASO % 1 % (0-3); EOS # 0.3 x10^3/uL (0.0-0.7); EOS % 8 % (0-3); HEMATOCRIT 34.6 % (36.0-47.0); HEMOGLOBIN 11.2 g/dL (12.0-15.5); LYMPH # 1.4 x10^3/uL (1.0-4.8); LYMPH % 40 % (24-48); MEAN CORPUSCULAR HEMOGLOBIN 27 pg (25-35); MEAN CORPUSCULAR HGB CONC 32 g/dL (31-37); MEAN CORPUSCULAR VOLUME 83 fL (79-100); MONO # 0.7 x10^3/uL (0.0-1.1); MONO % 20 % (0-9); NEUT # 1.1 x10^3/uL (1.8-7.7); NEUT % 31 % (31-73); PLATELET COUNT 131 x10^3/uL (140-400); RED BLOOD COUNT 4.18 x10^6/uL (3.50-5.40); WHITE BLOOD COUNT 3.5 x10^3/uL (4.0-11.0)
[2020-08-22 10:22] LABS: CREATININE 1.1 mg/dL (0.6-1.0); GFR 50.2; POTASSIUM 3.9 mmol/L (3.5-5.1)
[2020-08-22 10:28] LABS: ALBUMIN/GLOBULIN RATIO 0.8 (1.0-1.7); TOTAL BILIRUBIN 0.4 mg/dL (0.2-1.0); TOTAL PROTEIN 6.8 g/dL (6.4-8.2)
[2020-08-22 11:00] LABS: % BANDS 4 % (0-9); % BASOS 2 % (0-3); % EOS 3 % (0-5); % LYMPHS 47 % (24-48); % MONOS 13 % (0-10); % SEGS 31 % (35-66); ANISOCYTOSIS MOD; PLT ESTIMATE DECREASED (ADEQUATE)
[2020-08-22 11:01] LABS: SMUDGE CELLS PRESENT
== END ==
LOC: ONCLAB 09:23
PROVIDERS: ATTEND Internal Medicine Hematology & Oncology
DX: C18.4 Malignant neoplasm of transverse colon (principal)
CPT/HCPCS: 36415; 80053; 82378; 85007; 85025

== ENCOUNTER → 2020-09-05 | Outpatient (CLI) | payer OTHER ==
[2020-05-16 12:20] VITALS: BP 160/78
[2020-09-05 08:52] LABS: BASO % 1 % (0-3); EOS # 0.4 x10^3/uL (0.0-0.7); EOS % 10 % (0-3); LYMPH # 1.3 x10^3/uL (1.0-4.8); LYMPH % 33 % (24-48); MEAN CORPUSCULAR HEMOGLOBIN 28 pg (25-35); MEAN CORPUSCULAR HGB CONC 32 g/dL (31-37); MEAN CORPUSCULAR VOLUME 85 fL (79-100); MONO # 0.5 x10^3/uL (0.0-1.1); MONO % 13 % (0-9); NEUT # 1.7 x10^3/uL (1.8-7.7); NEUT % 44 % (31-73); PLATELET COUNT 108 x10^3/uL (140-400); RED BLOOD COUNT 3.99 x10^6/uL (3.50-5.40); RED CELL DISTRIBUTION WIDTH 25.4 % (11.5-14.5)
[2020-09-05 08:58] LABS: CALCIUM 8.9 mg/dL (8.5-10.1); POTASSIUM 4.1 mmol/L (3.5-5.1)
[2020-09-05 09:04] LABS: ALBUMIN/GLOBULIN RATIO 0.8 (1.0-1.7); TOTAL BILIRUBIN 0.4 mg/dL (0.2-1.0); TOTAL PROTEIN 6.9 g/dL (6.4-8.2)
[2020-09-05 20:09] LABS: PLT ESTIMATE DECREASED (ADEQUATE)
[2020-09-05 20:11] LABS: SCHISTOCYTES OCC
[2020-09-05 20:12] LABS: ANISOCYTOSIS MARKED; TEAR DROP CELLS OCC
== END ==
LOC: ONCLAB 08:21
PROVIDERS: ATTEND Internal Medicine Hematology & Oncology
DX: C18.4 Malignant neoplasm of transverse colon (principal)
CPT/HCPCS: 36415; 80053; 82378; 85025

== ENCOUNTER → 2020-09-19 | Outpatient (CLI) | payer OTHER ==
[2020-05-16 12:20] VITALS: BP 160/78
[2020-09-19 09:21] LABS: BASO % 1 % (0-3); EOS # 0.3 x10^3/uL (0.0-0.7); EOS % 7 % (0-3); HEMATOCRIT 34.9 % (36.0-47.0); HEMOGLOBIN 11.4 g/dL (12.0-15.5); LYMPH # 1.1 x10^3/uL (1.0-4.8); LYMPH % 30 % (24-48); MEAN CORPUSCULAR HEMOGLOBIN 29 pg (25-35); MEAN CORPUSCULAR HGB CONC 33 g/dL (31-37); MEAN CORPUSCULAR VOLUME 88 fL (79-100); MONO # 0.6 x10^3/uL (0.0-1.1); MONO % 16 % (0-9); NEUT # 1.6 x10^3/uL (1.8-7.7); NEUT % 45 % (31-73); PLATELET COUNT 87 x10^3/uL (140-400); RED BLOOD COUNT 3.98 x10^6/uL (3.50-5.40); RED CELL DISTRIBUTION WIDTH 23.9 % (11.5-14.5); WHITE BLOOD COUNT 3.5 x10^3/uL (4.0-11.0)
[2020-09-19 09:31] LABS: CREATININE 1.1 mg/dL (0.6-1.0); GFR 50.2; POTASSIUM 3.9 mmol/L (3.5-5.1)
[2020-09-19 09:37] LABS: ALBUMIN 3.1 g/dL (3.4-5.0); ALBUMIN/GLOBULIN RATIO 0.8 (1.0-1.7); TOTAL BILIRUBIN 0.4 mg/dL (0.2-1.0); TOTAL PROTEIN 7.2 g/dL (6.4-8.2)
[2020-09-19 11:19] LABS: PLT ESTIMATE DECREASED (ADEQUATE)
[2020-09-19 11:20] LABS: ANISOCYTOSIS MOD
== END ==
LOC: ONCLAB 09:05
PROVIDERS: ATTEND Internal Medicine Hematology & Oncology
DX: C18.4 Malignant neoplasm of transverse colon (principal)
CPT/HCPCS: 36415; 80053; 82378; 85025

== ENCOUNTER → 2020-09-26 | Outpatient (CLI) | payer OTHER ==
[2020-05-16 12:20] VITALS: BP 160/78
[2020-09-26 09:50] LABS: BASO # 0.1 x10^3/uL (0.0-0.2); BASO % 1 % (0-3); EOS # 0.3 x10^3/uL (0.0-0.7); EOS % 8 % (0-3); HEMATOCRIT 34.8 % (36.0-47.0); HEMOGLOBIN 11.2 g/dL (12.0-15.5); LYMPH # 1.2 x10^3/uL (1.0-4.8); LYMPH % 28 % (24-48); MEAN CORPUSCULAR HEMOGLOBIN 29 pg (25-35); MEAN CORPUSCULAR HGB CONC 32 g/dL (31-37); MEAN CORPUSCULAR VOLUME 89 fL (79-100); MONO # 0.7 x10^3/uL (0.0-1.1); MONO % 16 % (0-9); NEUT % 47 % (31-73); PLATELET COUNT 140 x10^3/uL (140-400); RED BLOOD COUNT 3.93 x10^6/uL (3.50-5.40); RED CELL DISTRIBUTION WIDTH 22.9 % (11.5-14.5); WHITE BLOOD COUNT 4.3 x10^3/uL (4.0-11.0)
[2020-09-26 10:14] LABS: CALCIUM 9.2 mg/dL (8.5-10.1); POTASSIUM 4.2 mmol/L (3.5-5.1)
[2020-09-26 10:19] LABS: ALBUMIN 3.1 g/dL (3.4-5.0); ALBUMIN/GLOBULIN RATIO 0.9 (1.0-1.7); TOTAL BILIRUBIN 0.3 mg/dL (0.2-1.0); TOTAL PROTEIN 6.6 g/dL (6.4-8.2)
== END ==
LOC: ONCLAB 09:25
PROVIDERS: ATTEND Internal Medicine Hematology & Oncology
DX: C18.4 Malignant neoplasm of transverse colon (principal)
CPT/HCPCS: 36415; 80053; 85025

== ENCOUNTER → 2020-10-04 | Outpatient (CLI) | payer OTHER ==
[2020-05-16 12:20] VITALS: BP 160/78
[2020-10-04 10:45] LABS: BASO % 1 % (0-3); EOS # 0.3 x10^3/uL (0.0-0.7); EOS % 5 % (0-3); HEMATOCRIT 35.2 % (36.0-47.0); HEMOGLOBIN 11.5 g/dL (12.0-15.5); LYMPH # 1.4 x10^3/uL (1.0-4.8); LYMPH % 22 % (24-48); MEAN CORPUSCULAR HEMOGLOBIN 29 pg (25-35); MEAN CORPUSCULAR HGB CONC 33 g/dL (31-37); MEAN CORPUSCULAR VOLUME 89 fL (79-100); MONO # 0.6 x10^3/uL (0.0-1.1); MONO % 9 % (0-9); NEUT # 3.9 x10^3/uL (1.8-7.7); NEUT % 63 % (31-73); PLATELET COUNT 104 x10^3/uL (140-400); RED BLOOD COUNT 3.95 x10^6/uL (3.50-5.40); RED CELL DISTRIBUTION WIDTH 20.8 % (11.5-14.5); WHITE BLOOD COUNT 6.3 x10^3/uL (4.0-11.0)
[2020-10-04 10:49] LABS: CALCIUM 9.4 mg/dL (8.5-10.1); CREATININE 1.1 mg/dL (0.6-1.0); GFR 50.2; POTASSIUM 4.1 mmol/L (3.5-5.1)
[2020-10-04 10:54] LABS: ALBUMIN/GLOBULIN RATIO 0.7 (1.0-1.7); TOTAL BILIRUBIN 0.5 mg/dL (0.2-1.0); TOTAL PROTEIN 7.1 g/dL (6.4-8.2)
[2020-10-04 12:17] LABS: PLT ESTIMATE DECREASED (ADEQUATE)
[2020-10-04 12:19] LABS: ANISOCYTOSIS MOD
== END ==
LOC: ONCLAB 10:24
PROVIDERS: ATTEND Internal Medicine Hematology & Oncology
DX: C18.4 Malignant neoplasm of transverse colon (principal)
CPT/HCPCS: 36415; 80053; 85025

== ENCOUNTER → 2020-10-10 | Outpatient (CLI) | payer OTHER ==
[2020-05-16 12:20] VITALS: BP 160/78
[2020-10-10 08:55] LABS: BASO % 1 % (0-3); EOS # 0.2 x10^3/uL (0.0-0.7); EOS % 5 % (0-3); HEMATOCRIT 34.6 % (36.0-47.0); HEMOGLOBIN 11.2 g/dL (12.0-15.5); LYMPH # 1.1 x10^3/uL (1.0-4.8); LYMPH % 26 % (24-48); MEAN CORPUSCULAR HEMOGLOBIN 29 pg (25-35); MEAN CORPUSCULAR HGB CONC 33 g/dL (31-37); MEAN CORPUSCULAR VOLUME 90 fL (79-100); MONO # 0.6 x10^3/uL (0.0-1.1); MONO % 15 % (0-9); NEUT # 2.3 x10^3/uL (1.8-7.7); NEUT % 54 % (31-73); PLATELET COUNT 89 x10^3/uL (140-400); RED BLOOD COUNT 3.86 x10^6/uL (3.50-5.40); RED CELL DISTRIBUTION WIDTH 20.4 % (11.5-14.5); WHITE BLOOD COUNT 4.2 x10^3/uL (4.0-11.0)
[2020-10-10 09:08] LABS: CALCIUM 9.4 mg/dL (8.5-10.1); POTASSIUM 3.9 mmol/L (3.5-5.1)
[2020-10-10 09:16] LABS: ALBUMIN 2.9 g/dL (3.4-5.0); ALBUMIN/GLOBULIN RATIO 0.7 (1.0-1.7); TOTAL BILIRUBIN 0.4 mg/dL (0.2-1.0)
[2020-10-10 10:48] LABS: PLT ESTIMATE DECREASED (ADEQUATE)
[2020-10-10 10:50] LABS: ANISOCYTOSIS PRESENT
== END ==
LOC: SPEC 08:18
PROVIDERS: ATTEND Internal Medicine Hematology & Oncology
DX: C18.4 Malignant neoplasm of transverse colon (principal)
CPT/HCPCS: 36415; 80053; 82378; 85025

== ENCOUNTER → 2020-10-24 | Outpatient (CLI) | payer OTHER ==
[2020-05-16 12:20] VITALS: BP 160/78
[2020-10-24 08:56] LABS: BASO % 1 % (0-3); EOS # 0.2 x10^3/uL (0.0-0.7); EOS % 5 % (0-3); HEMATOCRIT 36.6 % (36.0-47.0); HEMOGLOBIN 11.9 g/dL (12.0-15.5); LYMPH % 29 % (24-48); MEAN CORPUSCULAR HEMOGLOBIN 29 pg (25-35); MEAN CORPUSCULAR HGB CONC 33 g/dL (31-37); MEAN CORPUSCULAR VOLUME 90 fL (79-100); MONO # 0.4 x10^3/uL (0.0-1.1); MONO % 12 % (0-9); NEUT # 1.9 x10^3/uL (1.8-7.7); NEUT % 53 % (31-73); PLATELET COUNT 103 x10^3/uL (140-400); RED BLOOD COUNT 4.08 x10^6/uL (3.50-5.40); RED CELL DISTRIBUTION WIDTH 17.9 % (11.5-14.5); WHITE BLOOD COUNT 3.6 x10^3/uL (4.0-11.0)
[2020-10-24 09:04] LABS: CALCIUM 8.8 mg/dL (8.5-10.1); CREATININE 1.1 mg/dL (0.6-1.0); GFR 50.2; POTASSIUM 3.9 mmol/L (3.5-5.1)
[2020-10-24 09:18] LABS: ALBUMIN 3.1 g/dL (3.4-5.0); ALBUMIN/GLOBULIN RATIO 0.8 (1.0-1.7); TOTAL BILIRUBIN 0.4 mg/dL (0.2-1.0); TOTAL PROTEIN 7.2 g/dL (6.4-8.2)
== END ==
LOC: ONCLAB 08:42
PROVIDERS: ATTEND Internal Medicine Hematology & Oncology
DX: C18.4 Malignant neoplasm of transverse colon (principal)
CPT/HCPCS: 36415; 80053; 82378; 85025

== ENCOUNTER → 2020-11-07 | Outpatient (CLI) | payer OTHER ==
[2020-05-16 12:20] VITALS: BP 160/78
[~2020-11-07] MED LIST changes: -LIDO30CR TP; +LIDO30CR2 TP
[2020-11-07 10:26] LABS: BASO % 1 % (0-3); EOS # 0.2 x10^3/uL (0.0-0.7); EOS % 4 % (0-3); HEMATOCRIT 36.6 % (36.0-47.0); LYMPH % 24 % (24-48); MEAN CORPUSCULAR HEMOGLOBIN 29 pg (25-35); MEAN CORPUSCULAR HGB CONC 33 g/dL (31-37); MEAN CORPUSCULAR VOLUME 90 fL (79-100); MONO # 0.6 x10^3/uL (0.0-1.1); MONO % 13 % (0-9); NEUT # 2.5 x10^3/uL (1.8-7.7); NEUT % 59 % (31-73); PLATELET COUNT 114 x10^3/uL (140-400); RED BLOOD COUNT 4.09 x10^6/uL (3.50-5.40); RED CELL DISTRIBUTION WIDTH 17.6 % (11.5-14.5); WHITE BLOOD COUNT 4.3 x10^3/uL (4.0-11.0)
[2020-11-07 10:33] LABS: CALCIUM 9.4 mg/dL (8.5-10.1); CREATININE 1.1 mg/dL (0.6-1.0); GFR 50.2; POTASSIUM 3.9 mmol/L (3.5-5.1)
[2020-11-07 10:39] LABS: ALBUMIN 3.1 g/dL (3.4-5.0); ALBUMIN/GLOBULIN RATIO 0.8 (1.0-1.7); TOTAL BILIRUBIN 0.4 mg/dL (0.2-1.0); TOTAL PROTEIN 7.1 g/dL (6.4-8.2)
== END ==
LOC: LAB 10:15
PROVIDERS: ATTEND Internal Medicine Hematology & Oncology
DX: C18.4 Malignant neoplasm of transverse colon (principal)
CPT/HCPCS: 36415; 80053; 82378; 85025

== ENCOUNTER → 2020-11-18 | Outpatient (CLI) | payer OTHER ==
[2020-05-16 12:20] VITALS: BP 160/78
[~2020-11-18] MED LIST changes: +CONTRAST GIVEN. MC PRN; +HEPARIN PF 500 UNIT/5 ML DISP.SYRIN. IVP ONE; +IOHEXOL 240 MG/ML 50ML VIAL. PO ONE; +IOHEXOL 300 MG/ML 100ML VIAL. IV ONE
--- NOTE | 2020-11-18 11:54 | RAD ---
EXAM: Chest, abdomen and pelvis CT with intravenous contrast. HISTORY: Colon cancer. TECHNIQUE: Computed tomographic images of the chest, abdomen and pelvis were obtained following the a dministration of intravenous contrast. Multiplanar reformatting was performed. *One or more of the following individualized dose reduction techniques were utilized for this examina tion: 1. Automated exposure control. 2. Adjustment of the mA and/or kV according to patient size. 3. Use of iterative reconstruction technique. COMPARISON: 05/20/2020. FINDINGS: Chest: The heart is normal in size. The aorta is normal in caliber. There is a right chest wall port catheter with the tip in the right atrium. No pathologically enlarged mediastinal or hilar lymph node is seen. There is no pneumothorax or pleural effusion. There is basilar and posterior depe ndent atelectasis. There is no suspicious pulmonary nodule. There is no acute or suspicious osseous l esion. There is a stable small lucent lesion within T11, the appearance of which favors a tiny focus of relative demineralization or a hemangioma. Abdomen and pelvis: There is segmental biliary ductal dilatation due to reservoir effect status post cholecystectomy. No suspicious hepatic lesion is seen. The pancreas is unremarkable. The spleen is mi ldly enlarged, measuring 15.6 cm. The adrenal glands are unremarkable. There is no hydronephrosis or suspicious renal lesion. There is evidence of prior right hemicolectomy surgery. There is an enterocolic anastomosis within th e midabdomen to the right of midline. The previously demonstrated stranding in this location has decr eased. There are few sigmoid diverticula. There is no bowel projection or abnormal bowel wall thicken ing. There is no lymphadenopathy or convincing metastatic soft tissue implant. There is scarring with in the ventral abdominal wall with tiny superimposed midline fat-containing hernia. The aorta is norm al in caliber. The bladder is unremarkable. There is degenerative change involving the spine, primarily the lumbosacral junction. There is no dilma picious or acute osseous lesion. There is stable areas of lucency within T11 and T12 which are likely due to relative demineralization or hemangiomas. IMPRESSION: 1. Right hemicolectomy changes. The previously demonstrated stranding surrounding the surgical anasto mosis has decreased. There is no convincing residual or recurrent malignancy in this location or meta static disease. 2. Few sigmoid diverticula. Electronically signed by: Marina Muñoz MD (11/18/2020 11:51 AM) [id number]
== END ==
LOC: CT 09:28
PROVIDERS: ATTEND Internal Medicine Hematology & Oncology
DX: C18.4 Malignant neoplasm of transverse colon (principal); J98.11 Atelectasis; R16.1 Splenomegaly, not elsewhere classified; K57.30 Diverticulosis of large intestine without perforation or abscess without bleeding; K43.9 Ventral hernia without obstruction or gangrene; M47.817 Spondylosis without myelopathy or radiculopathy, lumbosacral region; Z90.49 Acquired absence of other specified parts of digestive tract
CPT/HCPCS: 71260; 74177; J1642; Q9966; Q9967

== ENCOUNTER → 2020-11-21 | Outpatient (CLI) | payer OTHER ==
[2020-05-16 12:20] VITALS: BP 160/78
[~2020-11-21] MED LIST changes: -CONTRAST GIVEN. MC PRN; -HEPARIN PF 500 UNIT/5 ML DISP.SYRIN. IVP ONE; -IOHEXOL 240 MG/ML 50ML VIAL. PO ONE; -IOHEXOL 300 MG/ML 100ML VIAL. IV ONE; +LIDO30CR TP; -LIDO30CR2 TP
[2020-11-21 10:38] LABS: BASO % 1 % (0-3); EOS # 0.1 x10^3/uL (0.0-0.7); EOS % 2 % (0-3); HEMATOCRIT 37.9 % (36.0-47.0); HEMOGLOBIN 12.3 g/dL (12.0-15.5); LYMPH % 22 % (24-48); MEAN CORPUSCULAR HEMOGLOBIN 29 pg (25-35); MEAN CORPUSCULAR HGB CONC 33 g/dL (31-37); MEAN CORPUSCULAR VOLUME 90 fL (79-100); MONO # 0.5 x10^3/uL (0.0-1.1); MONO % 12 % (0-9); NEUT % 64 % (31-73); PLATELET COUNT 112 x10^3/uL (140-400); RED BLOOD COUNT 4.23 x10^6/uL (3.50-5.40); RED CELL DISTRIBUTION WIDTH 17.5 % (11.5-14.5); WHITE BLOOD COUNT 4.7 x10^3/uL (4.0-11.0)
[2020-11-21 10:52] LABS: CALCIUM 9.3 mg/dL (8.5-10.1); CREATININE 1.1 mg/dL (0.6-1.0); GFR 50.2; POTASSIUM 4.1 mmol/L (3.5-5.1)
[2020-11-21 11:03] LABS: ALBUMIN 3.3 g/dL (3.4-5.0); ALBUMIN/GLOBULIN RATIO 0.9 (1.0-1.7); TOTAL BILIRUBIN 0.5 mg/dL (0.2-1.0)
== END ==
LOC: ONCLAB 10:09
PROVIDERS: ATTEND Internal Medicine Hematology & Oncology
DX: C18.4 Malignant neoplasm of transverse colon (principal)
CPT/HCPCS: 36415; 80053; 82378; 85025

== ENCOUNTER → 2021-02-20 | Outpatient (CLI) | payer OTHER ==
[2020-05-16 12:20] VITALS: BP 160/78
[2021-02-20 10:51] LABS: BASO % 1 % (0-3); EOS # 0.2 x10^3/uL (0.0-0.7); EOS % 3 % (0-3); HEMATOCRIT 39.4 % (36.0-47.0); HEMOGLOBIN 13.2 g/dL (12.0-15.5); LYMPH % 31 % (24-48); MEAN CORPUSCULAR HEMOGLOBIN 27 pg (25-35); MEAN CORPUSCULAR HGB CONC 33 g/dL (31-37); MEAN CORPUSCULAR VOLUME 82 fL (79-100); MONO # 0.5 x10^3/uL (0.0-1.1); MONO % 8 % (0-9); NEUT # 3.6 x10^3/uL (1.8-7.7); NEUT % 57 % (31-73); PLATELET COUNT 146 x10^3/uL (140-400); RED BLOOD COUNT 4.83 x10^6/uL (3.50-5.40); RED CELL DISTRIBUTION WIDTH 14.6 % (11.5-14.5); WHITE BLOOD COUNT 6.2 x10^3/uL (4.0-11.0)
[2021-02-20 11:03] LABS: CALCIUM 9.2 mg/dL (8.5-10.1); POTASSIUM 3.9 mmol/L (3.5-5.1)
[2021-02-20 11:08] LABS: ALBUMIN 3.4 g/dL (3.4-5.0); ALBUMIN/GLOBULIN RATIO 0.9 (1.0-1.7); TOTAL BILIRUBIN 0.5 mg/dL (0.2-1.0); TOTAL PROTEIN 7.4 g/dL (6.4-8.2)
== END ==
LOC: ONCLAB 09:19
PROVIDERS: ATTEND Internal Medicine Hematology & Oncology
DX: C18.4 Malignant neoplasm of transverse colon (principal)
CPT/HCPCS: 36415; 80053; 82378; 85025

== ENCOUNTER → 2021-05-01 | Outpatient (CLI) | payer OTHER ==
[2020-05-16 12:20] VITALS: BP 160/78
[~2021-05-01] MED LIST changes: +HEPARIN PF 500 UNIT/5 ML DISP.SYRIN. IVP ONE; +IOHEXOL 240 MG/ML 50ML VIAL. PO ONE; +IOHEXOL 300 MG/ML 100ML VIAL. IV ONE; -LIDO30CR TP; +LIDO30CR2 TP
[2021-05-01 10:15] LABS: CREATININE 1.1 mg/dL (0.6-1.0); GFR 50.2
--- NOTE | 2021-05-01 16:21 | RAD ---
PQRS Compliance Statement: One or more of the following individualized dose reduction techniques were utilized for this examinat ion: 1. Automated exposure control 2. Adjustment of the mA and/or kV according to patient size 3. Use of iterative reconstruction technique CT CHEST+ABD+PELVIS W Clinical Indication: Reason: COLON CA / Spl. Comparison: CT chest abdomen and pelvis with contrast November 18, 2020. Technique: Helical CT imaging of the chest, abdomen and pelvis is performed after 60 cc of Omnipaque 300 IV contrast. Oral contrast also administered. Findings: Right chest Port-A-Cath, tip in upper right atrium. Thyroid is symmetric. No adenopathy in the chest. Great vessels are stable. Cardiac size is normal, and no pericardial effusion. No pleural effusion is seen. The central airways are patent. A noncalcified pulmonary nodule is not i dentified. There is mild bilateral dependent atelectasis. Cholecystectomy. Spleen size is stable. No liver lesion is identified. Pancreas and adrenal glands ar e normal. The abdominal aorta is normal in caliber. Kidneys enhance symmetrically, no hydronephrosis. No obvious abnormality of the stomach. Redemonstrated findings of right hemicolectomy. Enterocolic an astomosis is in the midabdomen. Mild sigmoid colon diverticulosis. No colon wall thickening is identi fied. The stomach is unremarkable. Small duodenal diverticulum. There is no small bowel obstruction. No abdominal adenopathy or free fluid. There is unchanged appearance of periumbilical ventral abdomin al wall. The ovaries are symmetric. Hysterectomy. The urinary bladder is normal. No pelvic free fluid is seen. No inguinal adenopathy. Mild grade 1 anterolisthesis of L4 on L5. Stable small probable bone island of the anterior left acet abulum. There is degenerative endplate spurring of the thoracic spine. There is stable incomplete fus ion of the T1 spinous process. IMPRESSION: 1. No evidence of recurrent or metastatic colon malignancy. 2. Mild sigmoid colon diverticulosis. Electronically signed by: Luis Castillo MD (05/01/2021 4:19 PM) [facility]
== END ==
LOC: CT 09:37
PROVIDERS: ATTEND Internal Medicine Hematology & Oncology
DX: C18.4 Malignant neoplasm of transverse colon (principal); K57.30 Diverticulosis of large intestine without perforation or abscess without bleeding; K57.10 Diverticulosis of small intestine without perforation or abscess without bleeding; J98.11 Atelectasis
CPT/HCPCS: 36415; 71260; 74177; 82565; 84520; J1642; Q9966; Q9967

== ENCOUNTER → 2021-05-05 | Outpatient (CLI) | payer OTHER ==
[2020-05-16 12:20] VITALS: BP 160/78
[~2021-05-05] MED LIST changes: -HEPARIN PF 500 UNIT/5 ML DISP.SYRIN. IVP ONE; -IOHEXOL 240 MG/ML 50ML VIAL. PO ONE; -IOHEXOL 300 MG/ML 100ML VIAL. IV ONE
[2021-05-05 11:07] LABS: BASO % 1 % (0-3); EOS # 0.2 x10^3/uL (0.0-0.7); EOS % 3 % (0-3); HEMATOCRIT 39.2 % (36.0-47.0); LYMPH # 1.7 x10^3/uL (1.0-4.8); LYMPH % 29 % (24-48); MEAN CORPUSCULAR HEMOGLOBIN 27 pg (25-35); MEAN CORPUSCULAR HGB CONC 33 g/dL (31-37); MEAN CORPUSCULAR VOLUME 82 fL (79-100); MONO # 0.4 x10^3/uL (0.0-1.1); MONO % 7 % (0-9); NEUT # 3.6 x10^3/uL (1.8-7.7); NEUT % 60 % (31-73); PLATELET COUNT 146 x10^3/uL (140-400); RED BLOOD COUNT 4.76 x10^6/uL (3.50-5.40); RED CELL DISTRIBUTION WIDTH 15.6 % (11.5-14.5)
[2021-05-05 11:11] LABS: CALCIUM 8.9 mg/dL (8.5-10.1); POTASSIUM 4.2 mmol/L (3.5-5.1)
[2021-05-05 11:17] LABS: ALBUMIN 3.7 g/dL (3.4-5.0); TOTAL BILIRUBIN 0.6 mg/dL (0.2-1.0); TOTAL PROTEIN 7.4 g/dL (6.4-8.2)
[2021-05-05 23:33] LABS: HEMOGLOBIN A1C 9.8 % (4.8-5.6)
== END ==
LOC: ONCLAB 10:03
PROVIDERS: ATTEND Internal Medicine Hematology & Oncology
DX: C18.4 Malignant neoplasm of transverse colon (principal); E11.9 Type 2 diabetes mellitus without complications
CPT/HCPCS: 36415; 80053; 82378; 83036; 85025

== ENCOUNTER → 2021-07-27 | Outpatient (CLI) | payer OTHER ==
[2020-05-16 12:20] VITALS: BP 160/78
[~2021-07-27] MED LIST changes: +CONTRAST GIVEN. MC PRN; +HEPARIN PF 500 UNIT/5 ML DISP.SYRIN. IVP ONE; +IOHEXOL 240 MG/ML 50ML VIAL. PO ONE; +IOHEXOL 300 MG/ML 100ML VIAL. IV ONE
[2021-07-27 10:04] LABS: CREATININE 1.1 mg/dL (0.6-1.0); GFR 50.2
--- NOTE | 2021-07-28 08:56 | RAD ---
EXAM: CT OF THE CHEST, ABDOMEN AND PELVIS WITH CONTRAST. HISTORY: Colon cancer. TECHNIQUE: Computed tomography of the chest, abdomen and pelvis was performed after the intravenous a dministration of iodinated contrast. One or more of the following individualized dose reduction techn iques were utilized for this examination: 1. Automated exposure control. 2. Adjustment of the mA and/or kV according to patient size. 3. Use of iterative reconstruction technique. COMPARISON: 05/01/2020. FINDINGS: Bone windows reveal no suspicious lesions. A right-sided port catheter has its tip in the s uperior cavoatrial junction. There are no pathologically enlarged mediastinal or axillary lymph nodes. There is no pleural or flori cardial effusion. The heart is not enlarged. Lung windows reveal no infiltrates or suspicious nodules. There is mild basilar atelectasis. There is a small hiatal hernia. Hypoattenuation of the hepatic parenchyma indicates at least mild dif fuse hepatic steatosis. The gallbladder is surgically absent. There are calcified granulomas in the l iver. Spleen, pancreas, adrenal glands and kidneys are unremarkable. There are no pathologically enla rged lymph nodes. The uterus is surgically absent. There are changes of right hemicolectomy. There is no small bowel ob struction. IMPRESSION: 1. No evidence of metastatic disease. 2. Diffuse hepatic steatosis. 3. Small hiatal hernia. Electronically signed by: Harriett Solis MD (07/28/2021 8:53 AM) [facility]
== END ==
LOC: CT 09:55
PROVIDERS: ATTEND Internal Medicine Hematology & Oncology
DX: C18.4 Malignant neoplasm of transverse colon (principal); K76.0 Fatty (change of) liver, not elsewhere classified; K44.9 Diaphragmatic hernia without obstruction or gangrene; J98.11 Atelectasis; K75.3 Granulomatous hepatitis, not elsewhere classified
CPT/HCPCS: 36415; 71260; 74177; 82565; 84520; J1642; Q9966; Q9967

== ENCOUNTER → 2021-08-02 | Outpatient (CLI) | payer OTHER ==
[2020-05-16 12:20] VITALS: BP 160/78
[~2021-08-02] MED LIST changes: -CONTRAST GIVEN. MC PRN; -HEPARIN PF 500 UNIT/5 ML DISP.SYRIN. IVP ONE; -IOHEXOL 240 MG/ML 50ML VIAL. PO ONE; -IOHEXOL 300 MG/ML 100ML VIAL. IV ONE
[2021-08-02 09:58] LABS: BASO # 0.1 x10^3/uL (0.0-0.2); BASO % 1 % (0-3); EOS # 0.2 x10^3/uL (0.0-0.7); EOS % 3 % (0-3); HEMATOCRIT 40.1 % (36.0-47.0); HEMOGLOBIN 13.3 g/dL (12.0-15.5); LYMPH # 2.2 x10^3/uL (1.0-4.8); LYMPH % 25 % (24-48); MEAN CORPUSCULAR HEMOGLOBIN 28 pg (25-35); MEAN CORPUSCULAR HGB CONC 33 g/dL (31-37); MEAN CORPUSCULAR VOLUME 86 fL (79-100); MONO # 0.7 x10^3/uL (0.0-1.1); MONO % 8 % (0-9); NEUT # 5.6 x10^3/uL (1.8-7.7); NEUT % 63 % (31-73); PLATELET COUNT 139 x10^3/uL (140-400); RED BLOOD COUNT 4.68 x10^6/uL (3.50-5.40); RED CELL DISTRIBUTION WIDTH 15.4 % (11.5-14.5); WHITE BLOOD COUNT 8.8 x10^3/uL (4.0-11.0)
[2021-08-02 10:16] LABS: CALCIUM 9.5 mg/dL (8.5-10.1); CREATININE 1.2 mg/dL (0.6-1.0); GFR 45.4; POTASSIUM 4.5 mmol/L (3.5-5.1)
[2021-08-02 10:30] LABS: ALBUMIN 3.5 g/dL (3.4-5.0); ALBUMIN/GLOBULIN RATIO 0.9 (1.0-1.7); TOTAL BILIRUBIN 0.4 mg/dL (0.2-1.0); TOTAL PROTEIN 7.2 g/dL (6.4-8.2)
== END ==
LOC: ONCLAB 09:40
PROVIDERS: ATTEND Internal Medicine Hematology & Oncology
DX: C18.4 Malignant neoplasm of transverse colon (principal)
CPT/HCPCS: 36415; 80053; 82378; 85025

== ENCOUNTER 2021-08-03 08:27 | Outpatient (CLI) | payer OTHER ==
[~2021-08-03] VITALS: Ht 167.6 cm; Wt 116.4 kg
[2021-08-03] MEDS ORDERED: IOHEXOL 240 MG/ML 50ML VIAL. ONE (08:43)
[2021-08-03 08:58] VITALS: BP 142/75
[2021-08-03] MEDS ORDERED: LIDOCAINE WITH 8.4% SOD BICARB 3 ML DISP.SYRIN. ONE (09:09)
[2021-08-03] MEDS ORDERED: LIDOCAINE WITH 8.4% SOD BICARB 3 ML DISP.SYRIN. INJ ONE (09:30)
[2021-08-03] MEDS ORDERED: IOHEXOL 240 MG/ML 50ML VIAL. IJ ONE (09:30)
--- NOTE | 2021-08-04 09:25 | RAD ---
Fluoroscopic evaluation of right internal jugular port 08/03/2021 INDICATION: Difficulty accessing port. Discussion: The right chest was prepped and draped using sterile barrier technique. The port was acce ssed using standard techniques. Fluoroscopic evaluation of the port demonstrates no fracture or kinki ng. Contrast was administered demonstrating no extravasation. Free flow contrast from the catheter ti p noted. No abnormalities were identified. The catheter was flushed, de-accessed, and a sterile dress ing applied. Total fluoroscopy time: 0.5 minutes Dose area product 27 Sagastume centimeter squared IMPRESSION: Normal fluoroscopic evaluation of right internal jugular power port, with Gro[place]ong tip Electronically signed by: Francisco Wiseman MD (08/04/2021 9:23 AM) [id number]
== END 2021-08-03 09:45 | disposition home or self-care (01) ==
LOC: INTRAD 08:27
PROVIDERS: ATTEND Physician Assistant
DX: Z45.2 Encounter for adjustment and management of vascular access device (principal); D61.810 Antineoplastic chemotherapy induced pancytopenia; I10 Essential (primary) hypertension; E66.9 Obesity, unspecified; M19.90 Unspecified osteoarthritis, unspecified site; E11.9 Type 2 diabetes mellitus without complications; Z90.710 Acquired absence of both cervix and uterus; Z98.890 Other specified postprocedural states; Z79.82 Long term (current) use of aspirin; Z79.84 Long term (current) use of oral hypoglycemic drugs; Z79.899 Other long term (current) drug therapy; Z88.8 Allergy status to other drugs, medicaments and biological substances; Z20.822 Contact with and (suspected) exposure to COVID-19
CPT/HCPCS: 36598; 87426; J3490; Q9966; 75827

== ENCOUNTER → 2021-08-17 | Outpatient (CLI) | payer OTHER ==
[2021-08-03 08:58] VITALS: BP 142/75
== END ==
LOC: ONCLAB 14:10
PROVIDERS: ATTEND Physician Assistant
DX: C18.4 Malignant neoplasm of transverse colon (principal)
CPT/HCPCS: 36415; 82378

== ENCOUNTER → 2021-09-05 | Outpatient (CLI) | payer OTHER ==
[2021-09-05 11:50] LABS: BASO % 1 % (0-3); EOS # 0.2 x10^3/uL (0.0-0.7); EOS % 2 % (0-3); HEMATOCRIT 39.7 % (36.0-47.0); LYMPH # 1.7 x10^3/uL (1.0-4.8); LYMPH % 25 % (24-48); MEAN CORPUSCULAR HEMOGLOBIN 28 pg (25-35); MEAN CORPUSCULAR HGB CONC 33 g/dL (31-37); MEAN CORPUSCULAR VOLUME 85 fL (79-100); MONO # 0.5 x10^3/uL (0.0-1.1); MONO % 7 % (0-9); NEUT # 4.4 x10^3/uL (1.8-7.7); NEUT % 65 % (31-73); PLATELET COUNT 161 x10^3/uL (140-400); RED BLOOD COUNT 4.68 x10^6/uL (3.50-5.40); RED CELL DISTRIBUTION WIDTH 15.5 % (11.5-14.5); WHITE BLOOD COUNT 6.8 x10^3/uL (4.0-11.0)
[2021-09-05 11:59] LABS: CALCIUM 9.2 mg/dL (8.5-10.1); CREATININE 1.1 mg/dL (0.6-1.0); POTASSIUM 4.3 mmol/L (3.5-5.1)
[2021-09-05 12:05] LABS: ALBUMIN 3.5 g/dL (3.4-5.0); ALBUMIN/GLOBULIN RATIO 0.9 (1.0-1.7); TOTAL BILIRUBIN 0.5 mg/dL (0.2-1.0); TOTAL PROTEIN 7.3 g/dL (6.4-8.2)
== END ==
LOC: ONCLAB 11:25
PROVIDERS: ATTEND Physician Assistant
DX: C18.4 Malignant neoplasm of transverse colon (principal)
CPT/HCPCS: 36415; 80053; 82378; 85025

== ENCOUNTER → 2021-09-20 | Outpatient (CLI) | payer OTHER ==
[~2021-09-20] MED LIST changes: +HEPARIN PF 500 UNIT/5 ML DISP.SYRIN. IVP ONE; +IOHEXOL 240 MG/ML 50ML VIAL. PO ONE; +IOHEXOL 300 MG/ML 100ML VIAL. IV ONE
--- NOTE | 2021-09-20 15:41 | RAD ---
EXAM: CT Chest, Abdomen and Pelvis with IV contrast CLINICAL HISTORY: Reason: COLON CANCER COMPARISON: 07/27/2021 05/01/2021 TECHNIQUE: Helical CT of the chest, abdomen and pelvis was performed following the administration of intravenous contrast. Axial, coronal and sagittal reformatted images were generated. ---PQRS compliance statement - One or more of the following individualized dose reduction techniques were utilized for this study: 1. Automated exposure control 2. Adjustment of the mA and/or kV according to patient size 3. Use of iterative reconstruction technique--- FINDINGS: Chest: Heart is not enlarged. No pericardial effusion. Right port tip terminates within the distal SVC. No axillary lymphadenopathy. No mediastinal or hilar lymphadenopathy. No pleural effusion. No pneumothorax. Dependent opacities bilaterally likely atelectasis. No suspicious lung nodule or mass is seen. Abdomen and Pelvis: Hepatic hypoattenuation, fatty liver. Cholecystectomy clips are seen. No biliary dilatation. Pancreas , spleen and adrenal glands are remarkable. Symmetric nephrograms. No focal renal lesion. No hydronephrosis. Bladder is unremarkable. Mild to mod erate colonic stool content is seen. No small or large bowel dilatation. No bowel obstruction. Change s of partial right colectomy. Appendix is not seen. No abdominal pelvic ascites. No abdominal pelvic lymphadenopathy. Symphysis uterus degenerative changes are seen. Small fat-containing periumbilical h ernia. No aggressive osseous lesion is seen. Symphysis pubis and SI joint and lower lumbar spine degenerativ e changes are seen. IMPRESSION: 1. Changes of partial right colectomy without evidence for local recurrence. 2. No thoracic, abdominal or pelvic lymphadenopathy. 3. No CT evidence for metastatic disease. Electronically signed by: Yifan Pedroza MD (09/20/2021 3:39 PM) [facility]
== END ==
LOC: CT 10:44
PROVIDERS: ATTEND Internal Medicine Hematology & Oncology
DX: K76.0 Fatty (change of) liver, not elsewhere classified (principal); Z90.49 Acquired absence of other specified parts of digestive tract; K42.9 Umbilical hernia without obstruction or gangrene; N85.8 Other specified noninflammatory disorders of uterus; M53.3 Sacrococcygeal disorders, not elsewhere classified; M47.819 Spondylosis without myelopathy or radiculopathy, site unspecified
CPT/HCPCS: 71260; 74177; Q9966; Q9967

== ENCOUNTER 2021-11-29 15:05 | Inpatient (IN) | payer OTHER ==
[~2021-11-29] VITALS: Ht 167.6 cm; Wt 127.2 kg
[~2021-11-29 15:05] MED LIST changes: -HEPARIN PF 500 UNIT/5 ML DISP.SYRIN. IVP ONE; -IOHEXOL 240 MG/ML 50ML VIAL. PO ONE; -IOHEXOL 300 MG/ML 100ML VIAL. IV ONE
[2021-11-29] MEDS ORDERED: FAMOTIDINE 20 MG/2 ML VIAL IVP ONE (15:30)
[2021-11-29] MEDS ORDERED: fentaNYL PF VIAL 100 MCG/2 ML VIAL IV PRN (15:30)
[2021-11-29] MEDS ORDERED: IV NORMAL SALINE 1000ML BAG 1,000 ML IV ONE (15:30)
[2021-11-29] MEDS ORDERED: ONDANSETRON PF 4 MG/2 ML VIAL. IVP ONE (15:30)
[2021-11-29 16:57] LABS: BASO % 0 % (0-3); EOS % 0 % (0-3); HEMATOCRIT 40.7 % (36.0-47.0); HEMOGLOBIN 13.3 g/dL (12.0-15.5); LYMPH # 1.1 x10^3/uL (1.0-4.8); LYMPH % 16 % (24-48); MEAN CORPUSCULAR HEMOGLOBIN 28 pg (25-35); MEAN CORPUSCULAR HGB CONC 33 g/dL (31-37); MEAN CORPUSCULAR VOLUME 85 fL (79-100); MONO # 0.7 x10^3/uL (0.0-1.1); MONO % 10 % (0-9); NEUT # 5.1 x10^3/uL (1.8-7.7); NEUT % 74 % (31-73); PLATELET COUNT 108 x10^3/uL (140-400); RED BLOOD COUNT 4.81 x10^6/uL (3.50-5.40); RED CELL DISTRIBUTION WIDTH 14.7 % (11.5-14.5); WHITE BLOOD COUNT 6.9 x10^3/uL (4.0-11.0)
[2021-11-29 17:02] LABS: INFLUENZA A PATIENT NEGATIVE (NEGATIVE); INFLUENZA B PATIENT NEGATIVE (NEGATIVE)
[2021-11-29 17:10] LABS: PROTHROMBIN TIME PATIENT 14.1 SEC (11.7-14.0)
[2021-11-29 17:19] LABS: CALCIUM 8.1 mg/dL (8.5-10.1); CREATININE 1.6 mg/dL (0.6-1.0); GFR 32.5; POTASSIUM 4.7 mmol/L (3.5-5.1)
[2021-11-29 17:23] LABS: ALBUMIN 2.9 g/dL (3.4-5.0); ALBUMIN/GLOBULIN RATIO 0.7 (1.0-1.7); MAGNESIUM 2.4 mg/dL (1.8-2.4); TOTAL BILIRUBIN 0.4 mg/dL (0.2-1.0); TOTAL PROTEIN 7.1 g/dL (6.4-8.2)
--- NOTE | 2021-11-29 17:29 | PHYS DOC ---
Past Medical History Past Medical History: Cancer (colon cancer), Diabetes-Type II, Hypertension Additional Past Medical Histor: COLON CANCER Past Surgical History: Other Smoking Status: Never Smoker Alcohol Use: None General Adult EDM: Chief Complaint: WEAKNESS/GENERALIZED HPI: HPI: Patient is a 66 year old female with history of diabetes type 2, hypertension, colon cancer with a right hemicolectomy, who presents to the ED today complaining of a cough for 1 week, dark stools for 3 days, and generalized weakness with shaking for 1 month. Patient denies any abdominal pain. Denies any nausea, vomiting. Denies any fever, chest pain, shortness of breath, patient is slightly poor historian. Would not give answers to questions unless really pushed Review of Systems: Review of Systems: Constitutional: Reports generalized weakness. Denies fever or chills. [] Eyes: Denies change in visual acuity. [] HENT: Denies nasal congestion or sore throat. [] Respiratory: Reports cough Cardiovascular: Denies chest pain or edema. [] GI: Reports dark stools. Denies abdominal pain, nausea, vomiting, diarrhea. [] : Denies dysuria. [] Musculoskeletal: Denies back pain or joint pain. [] Integument: Denies rash. [] Neurologic: Reports shakiness. Denies headache, focal weakness or sensory changes. [] Psychiatric: Denies depression or anxiety. [] Heart Score: C/O Chest Pain: N/A Risk Factors: Risk Factors: DM, Current or recent (<one month) smoker, HTN, HLP, family history of CAD, obesity. Risk Scores: Score 0 - 3: 2.5% MACE over next 6 weeks - Discharge Home Score 4 - 6: 20.3% MACE over next 6 weeks - Admit for Clinical Observation Score 7 - 10: 72.7% MACE over next 6 weeks - Early Invasive Strategies Current Medications: Current Medications Medications (Trade) Dose Ordered Sig/Andre Start Time Stop Time Status Last Admin Dose Admin Famotidine (Pepcid Vial) 20 mg 1X ONCE 11/29/21 15:30 11/29/21 15:38 DC 11/29/21 16:24 20 MG Fentanyl Citrate (Fentanyl 2ml Vial) 50 mcg PRN Q15MIN PRN 11/29/21 15:30 11/30/21 15:29 Ondansetron HCl (Zofran) 4 mg 1X ONCE 11/29/21 15:30 11/29/21 15:38 DC 11/29/21 16:23 4 MG Sodium Chloride 1,000 ml @ 1,000 mls/hr 1X ONCE 11/29/21 15:30 11/29/21 16:29 DC 11/29/21 16:22 1,000 MLS/HR Allergies: Allergies: Allergies Coded Allergies Type Severity Reaction Last Updated Verified I S O L A T I O N *CONTACT* Allergy Unknown 11/29/21 Yes No Known Medication Allergies Allergy Unknown 11/29/21 Yes Physical Exam: PE: Constitutional: Well developed, well nourished, no acute distress, non-toxic appearance. [] HENT: Normocephalic, atraumatic, bilateral external ears normal, oropharynx moist, no oral exudates, nose normal. [] Eyes: PERRLA, EOMI, conjunctiva normal, no discharge. [] Neck: Normal range of motion, no tenderness, supple, no stridor. [] Cardiovascular:Heart rate regular rhythm, Lungs & Thorax: Bilateral breath sounds clear to auscultation [] Abdomen: Old healed surgical incision noted midline abdomenBowel sounds normal, soft, no tenderness, no masses, no pulsatile masses. [] Skin: Warm, dry, no erythema, no rash. [] Back: No tenderness, no CVA tenderness. [] Extremities: No tenderness, no cyanosis, no clubbing, ROM intact, no edema. [] Neurologic: Alert and oriented X 3, normal motor function, normal sensory function, no focal deficits noted. Cranial nerves II through XII intact Psychologic: Flat affect Current Patient Data: Labs: Laboratory Tests Test 11/29/21 16:10 11/29/21 16:20 11/29/21 16:21 Prothrombin Time 14.1 SEC (11.7-14.0) H Prothrombin Time INR 1.1 (0.8-1.1) Activated Partial Thromboplast Time 26 SEC (24-38) Sodium Level 134 mmol/L (136-145) L Potassium Level 4.7 mmol/L (3.5-5.1) Chloride Level 99 mmol/L (98-107) Carbon Dioxide Level 19 mmol/L (21-32) L Anion Gap 16 (6-14) H Blood Urea Nitrogen 38 mg/dL (7-20) H Creatinine 1.6 mg/dL (0.6-1.0) H Estimated GFR (Cockcroft-Gault) 32.5 BUN/Creatinine Ratio 24 (6-20) H Glucose Level 445 mg/dL (70-99) H Calcium Level 8.1 mg/dL (8.5-10.1) L Magnesium Level 2.4 mg/dL (1.8-2.4) Total Bilirubin 0.4 mg/dL (0.2-1.0) Aspartate Amino Transferase (AST) 46 U/L (15-37) H Alanine Aminotransferase (ALT) 50 U/L (14-59) Alkaline Phosphatase 93 U/L (46-116) Total Protein 7.1 g/dL (6.4-8.2) Albumin 2.9 g/dL (3.4-5.0) L Albumin/Globulin Ratio 0.7 (1.0-1.7) L Lipase 226 U/L (73-393) White Blood Count 6.9 x10^3/uL (4.0-11.0) Red Blood Count 4.81 x10^6/uL (3.50-5.40) Hemoglobin 13.3 g/dL (12.0-15.5) Hematocrit 40.7 % (36.0-47.0) Mean Corpuscular Volume 85 fL (79-100) Mean Corpuscular Hemoglobin 28 pg (25-35) Mean Corpuscular Hemoglobin Concent 33 g/dL (31-37) Red Cell Distribution Width 14.7 % (11.5-14.5) H Platelet Count 108 x10^3/uL (140-400) L Neutrophils (%) (Auto) 74 % (31-73) H Lymphocytes (%) (Auto) 16 % (24-48) L Monocytes (%) (Auto) 10 % (0-9) H Eosinophils (%) (Auto) 0 % (0-3) Basophils (%) (Auto) 0 % (0-3) Neutrophils # (Auto) 5.1 x10^3/uL (1.8-7.7) Lymphocytes # (Auto) 1.1 x10^3/uL (1.0-4.8) Monocytes # (Auto) 0.7 x10^3/uL (0.0-1.1) Eosinophils # (Auto) 0.0 x10^3/uL (0.0-0.7) Basophils # (Auto) 0.0 x10^3/uL (0.0-0.2) Platelet Estimate Pending Troponin I High Sensitivity 16 ng/L (4-50) Influenza Type A Antigen Negative (NEGATIVE) Influenza Type B Antigen Negative (NEGATIVE) SARS-CoV-2 Antigen (Rapid) Positive (NEGATIVE) *A Laboratory Tests 11/29/21 16:20 Laboratory Tests 11/29/21 16:10 Vital Signs: Vital Signs Date Time Temp Pulse Resp B/P (MAP) Pulse Ox O2 Delivery O2 Flow Rate FiO2 11/29/21 15:05 99.6 80 16 153/68 (96) 86 Room Air 99.6 EKG: EK interpreted by Dr. Issa sinus rhythm heart rate 71 no STEMI Radiology/Procedures: Radiology/Procedures: []PROCEDURE: CHEST AP ONLY EXAMINATION: Chest radiograph. VIEWS: 1 COMPARISON: Chest dated 09/20/2021 INDICATION:66 years, Female, cough. FINDINGS: Low lung volume, may accentuate cardiac silhouette and pulmonary vascularity. Normal cardiomediastinal silhouette. Patchy airspace opacities in the right perihilar and basilar lung. No pleural effusion or pneumothorax. No acute osseous process. Right Mediport catheter terminates in the right atrium IMPRESSION: Right perihilar and basilar pulmonary infiltrates, differential includes pneumonia versus asymmetric pulmonary edema. Electronically signed by: Peter Larson MD (11/29/2021 6:17 PM) [facility] DICTATED and SIGNED BY: PETER LARSON MD DATE: 11/29/21 [id number] 0 PROCEDURE: CT ABDOMEN PELVIS WO CONTRAST Exam: CT abdomen/pelvis without intravenous contrast Indication: Weakness, rectal bleeding, Covid positive Comparison: CT chest abdomen and pelvis 09/20/2021 Technique: Helical CT imaging performed of the abdomen and pelvis without the use of intravenous contrast. Sagittal and coronal reformats were obtained. One or more of the following individualized dose reduction techniques were utilized for this examination: 1. Automated exposure control 2. Adjustment of the mA and/or kV according to patient size 3. Use of iterative reconstruction technique. Findings: Inherently limited evaluation without intravenous contrast. Lower chest: There are patchy opacities in the lung bases. Heart is normal in size Liver: There is hepatic steatosis. There is a 3 cm hyperdense mass in segment 6 (image 34, series 2). There are few calcified granulomas. Gallbladder/Biliary Tree: The gallbladder is absent. Bile ducts are normal. Pancreas: Normal. Spleen: Normal. Adrenal Glands: Normal. Kidneys/Ureters/Bladder: Kidneys are normal in size. No hydronephrosis or nephrolithiasis. Ureters and bladder are normal. Reproductive Organs: Uterus is surgically absent. No adnexal mass. Stomach, small bowel, and colon: Small hiatal hernia. No small bowel obstruction. There are surgical changes of right hemicolectomy. Vasculature: Abdominal aorta is normal in caliber. No significant callus atherosclerosis. Lymph Nodes: No lymphadenopathy. Peritoneum and retroperitoneum: No free fluid or free air. Bones: No acute osseous abnormality. Miscellaneous: Small fat-containing umbilical hernia. IMPRESSION: 1. No acute abnormality in the abdomen and pelvis. 2. Patchy opacities in the lung bases consistent with Covid pneumonia. 3. Hepatic steatosis. 4. 3 cm hyperdense mass in the right hepatic lobe, indeterminate. Recommend CT or MRI with liver mass protocol to further evaluate. 5. Surgical changes of right hemicolectomy. Electronically signed by: Matilda Payton MD (11/29/2021 6:17 PM) [id number] DICTATED and SIGNED BY: MATILDA PAYTON MD DATE: 11/29/21 [id number] 0 Course & Med Decision Making: Course & Med Decision Making Pertinent Labs and Imaging studies reviewed. (See chart for details) This is a 66-year-old female patient presented to the ED today with a cough for 1 week, dark stools for 3 days, weakness and shakiness for 1 month. Vitals on arrival to the ED temperature 99.6, heart rate 80, respirations 16 on room air, O2 sats were 96% on room air and patient was placed on oxygen 2 L and went up above 94%. Blood pressure 153/68. CBC with no acute findings, CMP with BUN of 38, creatinine 1.6, glucose 445 with anion gap of 16, CO2 is normal. Hemoccult negative. Positive for COVID-19. Right perihilar and basilar pulmonary infiltrates, differential includes pneumonia versus asymmetric pulmonary edema. CT of the abdomen and pelvis is negative for any acute findings, Spoke with Dr. Lyle who accepted patient for admission. Dragon Disclaimer: Dragon Disclaimer: This electronic medical record was generated, in whole or in part, using a voice recognition dictation system. Departure Departure Impression: Primary Impression: Generalized weakness Additional Impressions: Lab test positive for detection of COVID-19 virus Acute kidney injury Hyperglycemia Disposition: 09 ADMITTED INPATIENT Condition: STABLE Referrals: TRACY PAGE MD (PCP) SWETA SERRANO [employer] Nov 29, 2021 17:29
[2021-11-29 17:46] LABS: CREATINE KINASE 106 U/L (26-192)
[2021-11-29 17:53] LABS: FECAL OB PT NEGATIVE (NEG)
[2021-11-29] MEDS ORDERED: INSULIN REGULAR 100 UNIT/ML 3ML VIAL. IV ONE (18:00)
--- NOTE | 2021-11-29 18:20 | RAD ---
Exam: CT abdomen/pelvis without intravenous contrast Indication: Weakness, rectal bleeding, Covid positive Comparison: CT chest abdomen and pelvis 09/20/2021 Technique: Helical CT imaging performed of the abdomen and pelvis without the use of intravenous cont rast. Sagittal and coronal reformats were obtained. One or more of the following individualized dose reduction techniques were utilized for this examinat ion: 1. Automated exposure control 2. Adjustment of the mA and/or kV according to patient size 3. Use of iterative reconstruction technique. Findings: Inherently limited evaluation without intravenous contrast. Lower chest: There are patchy opacities in the lung bases. Heart is normal in size Liver: There is hepatic steatosis. There is a 3 cm hyperdense mass in segment 6 (image 34, series 2). There are few calcified granulomas. Gallbladder/Biliary Tree: The gallbladder is absent. Bile ducts are normal. Pancreas: Normal. Spleen: Normal. Adrenal Glands: Normal. Kidneys/Ureters/Bladder: Kidneys are normal in size. No hydronephrosis or nephrolithiasis. Ureters an d bladder are normal. Reproductive Organs: Uterus is surgically absent. No adnexal mass. Stomach, small bowel, and colon: Small hiatal hernia. No small bowel obstruction. There are surgical changes of right hemicolectomy. Vasculature: Abdominal aorta is normal in caliber. No significant callus atherosclerosis. Lymph Nodes: No lymphadenopathy. Peritoneum and retroperitoneum: No free fluid or free air. Bones: No acute osseous abnormality. Miscellaneous: Small fat-containing umbilical hernia. IMPRESSION: 1. No acute abnormality in the abdomen and pelvis. 2. Patchy opacities in the lung bases consistent with Covid pneumonia. 3. Hepatic steatosis. 4. 3 cm hyperdense mass in the right hepatic lobe, indeterminate. Recommend CT or MRI with liver mas s protocol to further evaluate. 5. Surgical changes of right hemicolectomy. Electronically signed by: Matilda Payton MD (11/29/2021 6:17 PM) [id number]
--- NOTE | 2021-11-29 18:20 | RAD ---
EXAMINATION: Chest radiograph. VIEWS: 1 COMPARISON: Chest dated 09/20/2021 INDICATION:66 years, Female, cough. FINDINGS: Low lung volume, may accentuate cardiac silhouette and pulmonary vascularity. Normal cardiomediastina l silhouette. Patchy airspace opacities in the right perihilar and basilar lung. No pleural effusion or pneumothorax. No acute osseous process. Right Mediport catheter terminates in the right atrium IMPRESSION: Right perihilar and basilar pulmonary infiltrates, differential includes pneumonia versus asymmetric pulmonary edema. Electronically signed by: Elisabeth Larson MD (11/29/2021 6:17 PM) [facility]
[2021-11-29 18:55] LABS: PLT ESTIMATE DECREASED (ADEQUATE)
[2021-11-29] MEDS ORDERED: ACETAMINOPHEN 325 MG TABLET. PO PRN ×2 (20:45→22:30)
[2021-11-29] MEDS ORDERED: ONDANSETRON PF 4 MG/2 ML VIAL. IVP PRN ×2 (20:45→22:30)
[2021-11-29 20:55] LABS: BILIRUBIN,URINE NEGATIVE (NEG); CLARITY,URINE CLOUDY; COLOR,URINE YELLOW; NITRITE,URINE NEGATIVE (NEG); PROTEIN,URINE 100 mg/dL (NEG-TRACE); UROBILINOGEN,URINE 0.2 mg/dL (0.2 mg/dL)
[2021-11-29 21:11] LABS: BACTERIA,URINE MANY /HPF (0-FEW)
[2021-11-29 21:12] LABS: GRANULAR CASTS,URINE FEW /HPF; HYALINE CASTS, URINE FEW /HPF
[2021-11-29] MEDS ORDERED: DEXTROSE 50% 25 GM / 50ML DISP.SYRIN. IV PRN (21:15)
[2021-11-29] MEDS ORDERED: REMDESIVIR LOAD in IV NORMAL SALINE 250ML TV IV ONE (22:00)
[2021-11-29] MEDS: cefTRIAXone IV Push 1 GM VIAL. IVP SCH (23:48)
[2021-11-29] MEDS: DOXYCYCLINE HYCLATE 100 MG TABLET PO SCH (23:48)
[2021-11-29] MEDS: DEXAMETHASONE SOD PHOS 4 MG/ML VIAL IVP SCH (23:48)
[2021-11-30] VITALS (7 sets, daily range): BP systolic 115–140; BP diastolic 58–91
[2021-11-30] MEDS: IV NORMAL SALINE 1000ML BAG 1,000 ML IV SCH ×2 (01:52→13:53)
[2021-11-30] MEDS: HEPARIN for SUB-Q USE 5,000 UNIT/ML VIAL. SQ SCH ×3 (06:13→22:54)
--- NOTE | 2021-11-30 06:49 | EKG ---
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
[2021-11-30] MEDS: INSULIN LISPRO 300 UNITS/3 ML VIAL. SQ SCH ×3 (08:00→16:54)
[2021-11-30 08:24] LABS: BASO % 0 % (0-3); EOS % 0 % (0-3); HEMATOCRIT 37.9 % (36.0-47.0); HEMOGLOBIN 12.2 g/dL (12.0-15.5); LYMPH # 0.7 x10^3/uL (1.0-4.8); LYMPH % 17 % (24-48); MEAN CORPUSCULAR HEMOGLOBIN 27 pg (25-35); MEAN CORPUSCULAR HGB CONC 32 g/dL (31-37); MEAN CORPUSCULAR VOLUME 84 fL (79-100); MONO # 0.2 x10^3/uL (0.0-1.1); MONO % 5 % (0-9); NEUT # 3.2 x10^3/uL (1.8-7.7); NEUT % 78 % (31-73); PLATELET COUNT 111 x10^3/uL (140-400); RED CELL DISTRIBUTION WIDTH 14.7 % (11.5-14.5); WHITE BLOOD COUNT 4.1 x10^3/uL (4.0-11.0)
--- NOTE | 2021-11-30 08:34 | PDOC1 ---
History and Physical Date of Admission Date of Admission DATE: 11/30/21 TIME: 08:29 Identification/Chief Complaint Chief Complaint Shortness of breath Source Source: Patient History of Present Illness History of Present Illness Ms Parr is a 66 year old female with history of diabetes type 2, hypertension, colon cancer s/p right hemicolectomy, chemo, who presents to the ED 11/29/2021 c/o a cough for 1 week, dark stools for 3 days, and generalized weakness with shaking for 1 month she notes this is baseline ever since her chemotherapy for colon cancer. Patient denies any abdominal pain. Denies any nausea, vomiting. Denies any fever, chest pain, shortness of breath, patient is slightly poor historian. She does note some blood in her stools. Labs with WBC 6.9, Hb 13.3, platelets 108, NA 134, K4.7, BUN 30, CR 1.6, glucose 445, calcium 8.4 mag 2.4, bilirubin 0.43 AST 46, ALT 50, alk phos 93, sensitivity troponin is 16, NT proBNP 81, albumin 2.9, TSH 0.597, procalcitonin 0.32, lactic acid 1.3, INR 1.1, urinalysis small leuk esterase and blood, fecal occult negative, rapid influenza negative, rapid COVID-19 positive. Chest radiograph with right greater than left pulmonary infiltrates right Port-A-Cath noted. CT abdomen pelvis with no acute abnormality patchy bibasilar opacities noted as well as hepatic steatosis and 3 cm mass in the right hepatic lobe. Admitted for further A/P: Past Medical History Cardiovascular: HTN Endocrine: Diabetes Past Surgical History Past Surgical History: Cholecystectomy, , Hysterectomy Family History Family History: Other Social History Smoke: No ALCOHOL: none Drugs: None Current Problem List Problem List Problems Medical Problems: (1) Acute kidney injury Status: Acute (2) Generalized weakness Status: Acute (3) Lab test positive for detection of COVID-19 virus Status: Acute Current Medications Current Medications Current Medications Fentanyl Citrate (Fentanyl 2ml Vial) 50 mcg PRN Q15MIN PRN IV PAIN GREATER THAN 3/10; Start 11/29/21 at 15:30; Stop 11/30/21 at 15:29 Famotidine (Pepcid Vial) 20 mg 1X ONCE IVP Last administered on 11/29/21at 16:24; Start 11/29/21 at 15:30; Stop 11/29/21 at 15:38; Status DC Sodium Chloride 1,000 ml @ 1,000 mls/hr 1X ONCE IV Last administered on 11/29/21at 16:22; Start 11/29/21 at 15:30; Stop 11/29/21 at 16:29; Status DC Ondansetron HCl (Zofran) 4 mg 1X ONCE IVP Last administered on 11/29/21at 16:23; Start 11/29/21 at 15:30; Stop 11/29/21 at 15:38; Status DC Insulin Human Regular (HumuLIN R VIAL) 6 unit 1X ONCE IV Last administered on 11/29/21at 18:30; Start 11/29/21 at 18:00; Stop 11/29/21 at 18:01; Status DC Ceftriaxone Sodium (Rocephin) 1 gm DAILY IVP Last administered on 11/29/21at 23:48; Start 11/29/21 at 20:45 Doxycycline Hyclate (Vibra-Tab) 100 mg BID PO Last administered on 11/29/21at 23:48; Start 11/29/21 at 21:00 Ondansetron HCl (Zofran) 4 mg PRN Q4HRS PRN IVP NAUSEA/VOMITING; Start 11/29/21 at 20:45 Acetaminophen (Tylenol) 650 mg PRN Q6HRS PRN PO MILD PAIN / TEMP > 100.3'F; Start 11/29/21 at 20:45 Dexamethasone Sodium Phosphate (Decadron) 6 mg DAILY IVP Last administered on 11/29/21at 23:48; Start 11/29/21 at 21:30 Insulin Human Lispro (HumaLOG) 0-9 UNITS TIDWMEALS SQ ; Start 11/30/21 at 08:00 Dextrose (Dextrose 50%-Water Syringe) 12.5 gm PRN Q15MIN PRN IV SEE COMMENTS; Start 11/29/21 at 21:15 Guaifenesin (Robitussin Dm) 10 ml PRN Q6HRS PRN PO COUGH; Start 11/29/21 at 21:15 Heparin Sodium (Porcine) (Heparin Sodium) 5,000 unit Q8HRS SQ Last administered on 11/30/21at 06:13; Start 11/30/21 at 06:00 Remdesivir 200 mg/ Sodium Chloride 210 ml @ 210 mls/hr 1X ONCE IV Last administered on 11/29/21at 23:48; Start 11/29/21 at 22:00; Stop 11/29/21 at 22:59; Status DC Remdesivir 100 mg/ Sodium Chloride 230 ml @ 460 mls/hr Q24H IV ; Start 11/30/21 at 21:00; Stop 12/03/21 at 21:29 Ondansetron HCl (Zofran) 4 mg PRN Q8HRS PRN IVP NAUSEA/VOMITING; Start 11/29/21 at 22:30; Stop 11/30/21 at 22:29 Acetaminophen (Tylenol) 650 mg PRN Q4HRS PRN PO FEVER > 100.3'F; Start 11/29/21 at 22:30; Stop 11/30/21 at 22:29 Sodium Chloride 1,000 ml @ 75 mls/hr [id number] IV Last administered on 11/30/21at 01:52; Start 11/30/21 at 00:15; Stop 12/02/21 at 05:34 Aspirin (Aspirin Chewable) 81 mg DAILY08 PO ; Start 11/30/21 at 08:00 Carvedilol (Coreg) 3.125 mg BIDWMEALS PO ; Start 11/30/21 at 08:00 Pantoprazole Sodium (Protonix) 40 mg DAILYAC PO ; Start 11/30/21 at 07:30 Ascorbic Acid (Vitamin C) 500 mg BID PO ; Start 11/30/21 at 09:00 Calcium/Vitamin D (Oscal D 500mg/ 200uts) 1 tab DAILY PO ; Start 11/30/21 at 09:00 Cyanocobalamin (Vitamin B-12) 5,000 mcg DAILY PO ; Start 11/30/21 at 09:00 Non-Formulary Medication (Ubidecarenone (Coq10)) 100 mg DAILY PO ; Start 11/30/21 at 09:00; Status UNV Vitamin D (Vitamin D3) 5,000 unit DAILY PO ; Start 11/30/21 at 09:00 Zinc Sulfate (Orazinc) 220 mg DAILY PO ; Start 11/30/21 at 09:00 Ascorbic Acid (Vitamin C) 500 mg DAILY PO ; Start 11/30/21 at 09:00; Stop 11/30/21 at 00:21; Status DC Active Scripts Active Vitamin C (Ascorbic Acid) 500 Mg Capsule.er 1 Cap PO BID 30 Days Reported Lidocaine-Prilocaine Cream (Lidocaine/Prilocaine) 30 Gm Cream..g. 1 Sylvester TP UD apply small pea size amount to skin surface over tom cath 30 minutes before appointment Compazine (Prochlorperazine Maleate) 10 Mg Tablet 1 Tab PO Q4HRS 30 Days for use when chemo starts Zofran (Ondansetron Hcl) 8 Mg Tablet 1 Tab PO Q8HRS Zofran (Ondansetron Hcl) 4 Mg Tablet 1 Tab SL Q8HRS to start use when chemo starts Pantoprazole Sodium (Pantoprazole Sodium) 40 Mg Tablet.dr 40 Mg PO DAILYAC Glipizide 10 Mg Tablet 10 Mg PO DAILY Children's Aspirin (Aspirin) 81 Mg Tab.chew 1 Tab PO DAILY 30 Days Complete Multivitamin (Multivits,Th W-Fe,Other Min) 1 Each Tablet 1 Tab PO DAILY 30 Days Coq10 (Ubidecarenone) 50 Mg Tab.chew 100 Mg PO DAILY B12 Active (Mecobalamin) 1,000 Mcg Tab.chew 5,000 Mcg PO DAILY Calcium Magnesium + D Tablet (Calcium Carb/Mag Oxide/Vit D3) 1 Each Tablet 1 Each PO DAILY Coreg (Carvedilol) 3.125 Mg Tablet 3.125 Mg PO BIDWMEALS Metformin Hcl 1,000 Mg Tablet 1,000 Mg PO BIDWMEALS [vitamin d3] 5,000 Units PO DAILY Allergies Allergies: Coded Allergies: I S O L A T I O N *CONTACT* (Verified Allergy, Unknown, 11/29/21) ESBL No Known Medication Allergies (Verified Allergy, Unknown, 11/29/21) ROS General: YES: Fatigue, Malaise; No: Chills, Night Sweats, Appetite, Other PSYCHOLOGICAL ROS: No: Anxiety, Behavioral Disorder, Concentration difficultie, Decreased libido, Depression, Disorientation, Hallucinations, Hostility, Irritablity, Memory difficulties, Mood Swings, Obsessive thoughts, Physical abuse, Sexual abuse, Sleep disturbances, Suicidal ideation, Other Eyes: No Blurry vision, No Decreased vision, No Double vision, No Dry eyes, No Excessive tearing, No Eye Pain, No Itchy Eyes, No Loss of vision, No Photophobia, No Scotomata, No Uses contacts, No Uses glasses, No Other HEENT: No: Heacaches, Visual Changes, Hearing change, Nasal congestion, Nasal discharge, Oral lesions, Sinus pain, Sore Throat, Epistaxis, Sneezing, Snoring, Tinnitus, Vertigo, Vocal changes, Other ALLERGY AND IMMUNOLOGY: No: Hives, Insect Bite Sensitivity, Itchy/Watery Eyes, Nasal Congestion, Post Nasal Drip, Seasonal Allergies, Other Hematological and Lymphatic: No: Bleeding Problems, Blood Clots, Blood Transfusions, Brusing, Night Sweats, Pallor, Swollen Lymph Nodes, Other ENDOCRINE: No: Breast Changes, Galactorrhea, Hair Pattern Changes, Hot Flashes, Malaise/lethargy, Mood Swings, Palpitations, Polydipsia/polyuria, Skin Changes, Temperature Intolerance, Unexpected Weight Changes, Other Breast: No New/Changing Breast Lumps, No Nipple changes, No Nipple discharge, No Other Respiratory: YES: Cough, Shortness of breath, SOB with excertion; No: Hemoptysis, Orthopnea, Pleuritic Pain, Sputum Changes, Stridor, Tachypnea , Wheezing, Other Cardiovascular: No Chest Pain, No Palpitations, No Orthopnea, No Paroxysmal Noc. Dyspnea, No Edema, No Lt Headedness, No Other Gastrointestinal: Yes Nausea, Yes Diarrhea; No Vomiting, No Abdominal Pain, No Constipation, No Melena, No Hematochezia, No Other Genitourinary: No Dysuria, No Frequency, No Incontinence, No Hematuria, No Retention, No Discharge, No Urgency, No Pain, No Flank Pain, No Other, No , No , No , No , No , No , No Musculoskeletal: No Gait Disturbance, No Joint Pain, No Joint Stiffness, No Joint Swelling, No Muscle Pain, No Muscular Weakness, No Pain In:, No Swelling In:, No Other Neurological: No Behavorial Changes, No Bowel/Bladder ControlChng, No Confusion, No Dizziness, No Gait Disturbance, No Headaches, No Impaired Coord/balance, No Memory Loss, No Numbness/Tingling, No Seizures, No Speech Problems, No Tremors, No Visual Changes, No Weakness, No Other Skin: No Dry Skin, No Eczema, No Hair Changes, No Lumps, No Mole Changes, No Mottling, No Nail Changes, No Pruritus, No Rash, No Skin Lesion Changes, No Other, No Acne Physical Exam General: Alert, Oriented X3, Cooperative, moderate distress HEENT: Atraumatic, PERRLA, EOMI, Mucous membr. moist/pink Lungs: Other (bibasilar decreased breath sounds) Heart: S1S2, RRR, no thrills, no rubs, no gallops, no murmurs Abdomen: Normal bowel sounds, Soft, No tenderness, No hepatosplenomegaly, No masses Rectal Exam: not examined Extremities: No clubbing, No cyanosis, No edema, Normal pulses, No tenderness/swelling Skin: No rashes, No breakdown, No significant lesion Neuro: Normal gait, Normal speech, Strength at 5/5 X4 ext, Normal tone, Sensation intact, Cranial nerves 3-12 NL, Reflexes 2+ Psych/Mental Status: Mental status NL, Mood NL Vitals Vitals Vital Signs Date Time Temp Pulse Resp B/P (MAP) Pulse Ox O2 Delivery O2 Flow Rate FiO2 11/30/21 03:00 98.7 74 20 115/58 (77) 93 Nasal Cannula 2.0 98.7 Labs Labs Laboratory Tests Test 11/29/21 16:10 11/29/21 16:20 11/29/21 16:21 11/29/21 17:31 Prothrombin Time 14.1 SEC (11.7-14.0) Prothromb Time International Ratio 1.1 (0.8-1.1) Activated Partial Thromboplast Time 26 SEC (24-38) Sodium Level 134 mmol/L (136-145) Potassium Level 4.7 mmol/L (3.5-5.1) Chloride Level 99 mmol/L (98-107) Carbon Dioxide Level 19 mmol/L (21-32) Anion Gap 16 (6-14) Blood Urea Nitrogen 38 mg/dL (7-20) Creatinine 1.6 mg/dL (0.6-1.0) Estimated GFR (Cockcroft-Gault) 32.5 BUN/Creatinine Ratio 24 (6-20) Glucose Level 445 mg/dL (70-99) Calcium Level 8.1 mg/dL (8.5-10.1) Magnesium Level 2.4 mg/dL (1.8-2.4) Total Bilirubin 0.4 mg/dL (0.2-1.0) Aspartate Amino Transf (AST/SGOT) 46 U/L (15-37) Alanine Aminotransferase (ALT/SGPT) 50 U/L (14-59) Alkaline Phosphatase 93 U/L (46-116) Total Protein 7.1 g/dL (6.4-8.2) Albumin 2.9 g/dL (3.4-5.0) Albumin/Globulin Ratio 0.7 (1.0-1.7) Lipase 226 U/L (73-393) Thyroid Stimulating Hormone (TSH) 0.597 uIU/mL (0.358-3.74) White Blood Count 6.9 x10^3/uL (4.0-11.0) Red Blood Count 4.81 x10^6/uL (3.50-5.40) Hemoglobin 13.3 g/dL (12.0-15.5) Hematocrit 40.7 % (36.0-47.0) Mean Corpuscular Volume 85 fL (79-100) Mean Corpuscular Hemoglobin 28 pg (25-35) Mean Corpuscular Hemoglobin Concent 33 g/dL (31-37) Red Cell Distribution Width 14.7 % (11.5-14.5) Platelet Count 108 x10^3/uL (140-400) Neutrophils (%) (Auto) 74 % (31-73) Lymphocytes (%) (Auto) 16 % (24-48) Monocytes (%) (Auto) 10 % (0-9) Eosinophils (%) (Auto) 0 % (0-3) Basophils (%) (Auto) 0 % (0-3) Neutrophils # (Auto) 5.1 x10^3/uL (1.8-7.7) Lymphocytes # (Auto) 1.1 x10^3/uL (1.0-4.8) Monocytes # (Auto) 0.7 x10^3/uL (0.0-1.1) Eosinophils # (Auto) 0.0 x10^3/uL (0.0-0.7) Basophils # (Auto) 0.0 x10^3/uL (0.0-0.2) Platelet Estimate Decreased (ADEQUATE) Creatine Kinase 106 U/L (26-192) Creatine Kinase MB (Mass) < 0.5 ng/mL (0.0-3.6) Creatine Kinase MB Relative Index % (0-4) Troponin I High Sensitivity 16 ng/L (4-50) [id number]-Type Natriuretic Peptide 80 pg/mL (0-124) Procalcitonin 0.32 ng/mL (0.00-0.10) Influenza Type A Antigen Negative (NEGATIVE) Influenza Type B Antigen Negative (NEGATIVE) SARS-CoV-2 Antigen (Rapid) Positive (NEGATIVE) Stool Occult Blood Negative (NEG) Test 11/29/21 19:40 11/29/21 20:05 11/29/21 20:41 11/29/21 22:40 Troponin I High Sensitivity 17 ng/L (4-50) 18 ng/L (4-50) Glucose (Fingerstick) 310 mg/dL (70-99) Urine Collection Type Unknown Urine Color Yellow Urine Clarity Cloudy Urine pH 5.0 (<5.0-8.0) Urine Specific Wellborn >=1.030 (1.000-1.030) Urine Protein 100 mg/dL (NEG-TRACE) Urine Glucose (UA) >=1000 mg/dL (NEG) Urine Ketones (Stick) Negative mg/dL (NEG) Urine Blood Large (NEG) Urine Nitrite Negative (NEG) Urine Bilirubin Negative (NEG) Urine Urobilinogen Dipstick 0.2 mg/dL (0.2 mg/dL) Urine Leukocyte Esterase Small (NEG) Urine RBC 1-2 /HPF (0-2) Urine WBC 1-4 /HPF (0-4) Urine Squamous Epithelial Cells Mod /LPF Urine Bacteria Many /HPF (0-FEW) Urine Hyaline Casts Few /HPF Urine Granular Casts Few /HPF Urine Mucus Mod /LPF Lactic Acid Level 1.3 mmol/L (0.4-2.0) Laboratory Tests Test 11/29/21 16:10 11/29/21 16:20 11/29/21 16:21 11/29/21 17:31 Prothrombin Time 14.1 SEC (11.7-14.0) Prothromb Time International Ratio 1.1 (0.8-1.1) Activated Partial Thromboplast Time 26 SEC (24-38) Sodium Level 134 mmol/L (136-145) Potassium Level 4.7 mmol/L (3.5-5.1) Chloride Level 99 mmol/L (98-107) Carbon Dioxide Level 19 mmol/L (21-32) Anion Gap 16 (6-14) Blood Urea Nitrogen 38 mg/dL (7-20) Creatinine 1.6 mg/dL (0.6-1.0) Estimated GFR (Cockcroft-Gault) 32.5 BUN/Creatinine Ratio 24 (6-20) Glucose Level 445 mg/dL (70-99) Calcium Level 8.1 mg/dL (8.5-10.1) Magnesium Level 2.4 mg/dL (1.8-2.4) Total Bilirubin 0.4 mg/dL (0.2-1.0) Aspartate Amino Transf (AST/SGOT) 46 U/L (15-37) Alanine Aminotransferase (ALT/SGPT) 50 U/L (14-59) Alkaline Phosphatase 93 U/L (46-116) Total Protein 7.1 g/dL (6.4-8.2) Albumin 2.9 g/dL (3.4-5.0) Albumin/Globulin Ratio 0.7 (1.0-1.7) Lipase 226 U/L (73-393) Thyroid Stimulating Hormone (TSH) 0.597 uIU/mL (0.358-3.74) White Blood Count 6.9 x10^3/uL (4.0-11.0) Red Blood Count 4.81 x10^6/uL (3.50-5.40) Hemoglobin 13.3 g/dL (12.0-15.5) Hematocrit 40.7 % (36.0-47.0) Mean Corpuscular Volume 85 fL (79-100) Mean Corpuscular Hemoglobin 28 pg (25-35) Mean Corpuscular Hemoglobin Concent 33 g/dL (31-37) Red Cell Distribution Width 14.7 % (11.5-14.5) Platelet Count 108 x10^3/uL (140-400) Neutrophils (%) (Auto) 74 % (31-73) Lymphocytes (%) (Auto) 16 % (24-48) Monocytes (%) (Auto) 10 % (0-9) Eosinophils (%) (Auto) 0 % (0-3) Basophils (%) (Auto) 0 % (0-3) Neutrophils # (Auto) 5.1 x10^3/uL (1.8-7.7) Lymphocytes # (Auto) 1.1 x10^3/uL (1.0-4.8) Monocytes # (Auto) 0.7 x10^3/uL (0.0-1.1) Eosinophils # (Auto) 0.0 x10^3/uL (0.0-0.7) Basophils # (Auto) 0.0 x10^3/uL (0.0-0.2) Platelet Estimate Decreased (ADEQUATE) Creatine Kinase 106 U/L (26-192) Creatine Kinase MB (Mass) < 0.5 ng/mL (0.0-3.6) Creatine Kinase MB Relative Index % (0-4) Troponin I High Sensitivity 16 ng/L (4-50) [id number]-[id number]-Type Natriuretic Peptide 80 pg/mL (0-124) Procalcitonin 0.32 ng/mL (0.00-0.10) Influenza Type A Antigen Negative (NEGATIVE) Influenza Type B Antigen Negative (NEGATIVE) SARS-CoV-2 Antigen (Rapid) Positive (NEGATIVE) Stool Occult Blood Negative (NEG) Test 11/29/21 19:40 11/29/21 20:05 11/29/21 20:41 11/29/21 22:40 Troponin I High Sensitivity 17 ng/L (4-50) 18 ng/L (4-50) Glucose (Fingerstick) 310 mg/dL (70-99) Urine Collection Type Unknown Urine Color Yellow Urine Clarity Cloudy Urine pH 5.0 (<5.0-8.0) Urine Specific Wellborn >=1.030 (1.000-1.030) Urine Protein 100 mg/dL (NEG-TRACE) Urine Glucose (UA) >=1000 mg/dL (NEG) Urine Ketones (Stick) Negative mg/dL (NEG) Urine Blood Large (NEG) Urine Nitrite Negative (NEG) Urine Bilirubin Negative (NEG) Urine Urobilinogen Dipstick 0.2 mg/dL (0.2 mg/dL) Urine Leukocyte Esterase Small (NEG) Urine RBC 1-2 /HPF (0-2) Urine WBC 1-4 /HPF (0-4) Urine Squamous Epithelial Cells Mod /LPF Urine Bacteria Many /HPF (0-FEW) Urine Hyaline Casts Few /HPF Urine Granular Casts Few /HPF Urine Mucus Mod /LPF Lactic Acid Level 1.3 mmol/L (0.4-2.0) Images Images CHEST AP ONLY Low lung volume, may accentuate cardiac silhouette and pulmonary vascularity. Normal cardiomediastinal silhouette. Patchy airspace opacities in the right perihilar and basilar lung. No pleural effusion or pneumothorax. No acute osseous process. Right Mediport catheter terminates in the right atrium IMPRESSION: Right perihilar and basilar pulmonary infiltrates, differential includes pneumonia versus asymmetric pulmonary edema. CT abdomen/pelvis without intravenous contrast Inherently limited evaluation without intravenous contrast. Lower chest: There are patchy opacities in the lung bases. Heart is normal in size Liver: There is hepatic steatosis. There is a 3 cm hyperdense mass in segment 6 (image 34, series 2). There are few calcified granulomas. Gallbladder/Biliary Tree: The gallbladder is absent. Bile ducts are normal. Pancreas: Normal. Spleen: Normal. Adrenal Glands: Normal. Kidneys/Ureters/Bladder: Kidneys are normal in size. No hydronephrosis or nephrolithiasis. Ureters and bladder are normal. Reproductive Organs: Uterus is surgically absent. No adnexal mass. Stomach, small bowel, and colon: Small hiatal hernia. No small bowel obstruction. There are surgical changes of right hemicolectomy. Vasculature: Abdominal aorta is normal in caliber. No significant callus atherosclerosis. Lymph Nodes: No lymphadenopathy. Peritoneum and retroperitoneum: No free fluid or free air. Bones: No acute osseous abnormality. Miscellaneous: Small fat-containing umbilical hernia. IMPRESSION: 1. No acute abnormality in the abdomen and pelvis. 2. Patchy opacities in the lung bases consistent with Covid pneumonia. 3. Hepatic steatosis. 4. 3 cm hyperdense mass in the right hepatic lobe, indeterminate. Recommend CT or MRI with liver mass protocol to further evaluate. 5. Surgical changes of right hemicolectomy. VTE Prophylaxis Ordered VTE Prophylaxis Devices: Yes VTE Pharmacological Prophylaxi: Yes Assessment/Plan Assessment/Plan A/P: Acute respiratory failure with hypoxia -likely due to COVID-19. She is unvaccinated. We will initiate standard therapy with remdesivir and Decadron. Will check CRP consider baricitinib or tocilizumab COVID 19 - signs of pneumonia, will treat for secondary bacterial pneumonia likely gram negative given chronic immunosupressed state Diabetes type 2 - with hyperglycemia - not on insulin therapy at home, does not check her blood glucose. Will place on high sliding scale + 13 units 3 times daily with meals and 45 units Lantus nightly based daily need Blood in stool - could be due to diverticular bleed, but concerning with colon ca history. GI to evaluate Liver lesion on CT - will need f/u considering her colon ca history Hypertension - cont home meds Colon cancer s/p right hemicolectomy - s/p chemo, says she is remission, doesn't remember her last follow up but does have port care Thrombocytopenia - will monitor while on lovenox EILAS - Likely vasomotor nephropathy from hyperglycemia, will monitor renal function Severe protein calorie malnutrition - due to COVID 19, will get nutrition FEN - ADA diet PPX - lovenox FULL CODE Dispo - inpatient Justifications for Admission Other Justification ARIA YOUNG MD Nov 30, 2021 08:34
--- NOTE | 2021-11-30 08:56 | NUR ---
non-administered morning dose of sliding scale, due to blood sugar being 477, dr hopkins notified, received one time verbal order of 9 plus 13, a total of 22 units of humalog
[2021-11-30 08:57] LABS: ALBUMIN 2.4 g/dL (3.4-5.0); ALBUMIN/GLOBULIN RATIO 0.5 (1.0-1.7); CREATININE 1.4 mg/dL (0.6-1.0); GFR 37.9; POTASSIUM 5.1 mmol/L (3.5-5.1); TOTAL BILIRUBIN 0.4 mg/dL (0.2-1.0); TOTAL PROTEIN 7.3 g/dL (6.4-8.2)
[2021-11-30] MEDS: CHOLECALCIFEROL (VITAMIN D3) 5,000 UNIT CAPSULE PO SCH (09:00)
[2021-11-30] MEDS: ASPIRIN CHEWABLE 81 MG TABLET. PO SCH (09:00)
[2021-11-30] MEDS ORDERED: ASCORBIC ACID 500 MG TABLET PO SCH (09:00)
[2021-11-30] MEDS: ZINC SULFATE 220 MG CAPSULE. PO SCH (09:00)
[2021-11-30] MEDS: cefTRIAXone IV Push 1 GM VIAL. IVP SCH (09:00)
[2021-11-30] MEDS ORDERED: INSULIN LISPRO 300 UNITS/3 ML VIAL. SQ ONE ×4 (09:00→21:00)
[2021-11-30] MEDS: DOXYCYCLINE HYCLATE 100 MG TABLET PO SCH ×2 (09:00→22:07)
[2021-11-30] MEDS: CALCIUM CARB/VIT D3 500/200 TABLET. PO SCH (09:00)
[2021-11-30] MEDS ORDERED: NON FORMULARY ITEM (Ubidecarenone (Coq10) 100 MG) PO SCH (09:00)
[2021-11-30] MEDS: CYANOCOBALAMIN (VITAMIN B-12) 1,000 MCG TABLET. PO SCH (09:00)
[2021-11-30] MEDS: ASCORBIC ACID 500 MG TABLET PO SCH ×2 (09:01→22:07)
[2021-11-30] MEDS: CARVEDILOL 3.125 MG TABLET. PO SCH ×2 (09:01→17:02)
[2021-11-30] MEDS: PANTOPRAZOLE 40 MG TABLET.DR. PO SCH (09:01)
[2021-11-30] MEDS: DEXAMETHASONE SOD PHOS 4 MG/ML VIAL IVP SCH (09:02)
--- NOTE | 2021-11-30 11:49 | NUR ---
patient blood sugar 587, dr hopkins notified, sliding scale not administered, order received for 20 units of lantus x1 dose, and 27 units of humalog x1 dose
[2021-11-30] MEDS ORDERED: INSULIN GLARGINE SYRINGE. SQ ONE (12:00)
--- NOTE | 2021-11-30 12:10 | NUR ---
SW following. Discussed with RN, pt from home, 2L (does not use oxygen at home), renal diet, COVID-19 positive. RN advised no SW needs at this time. SW will continue to follow.
--- NOTE | 2021-11-30 16:55 | NUR ---
patient's blood sugar 456, order received from dr hopkins to administer 37 units humalog x 1 dose, sliding scale not administered
[2021-11-30] MEDS ORDERED: INSULIN GLARGINE SYRINGE. SQ SCH (21:00)
[2021-11-30] MEDS: REMDESIVIR 100mg in NORMAL SALINE 250ML X 4 DAYS IV SCH (22:08)
[2021-12-01 03:09] VITALS: BP 133/67
[2021-12-01 07:00] VITALS: BP 116/58
[2021-12-01 08:17] LABS: BASO % 0 % (0-3); EOS % 0 % (0-3); HEMATOCRIT 36.4 % (36.0-47.0); HEMOGLOBIN 12.1 g/dL (12.0-15.5); LYMPH # 0.7 x10^3/uL (1.0-4.8); LYMPH % 14 % (24-48); MEAN CORPUSCULAR HEMOGLOBIN 28 pg (25-35); MEAN CORPUSCULAR HGB CONC 33 g/dL (31-37); MEAN CORPUSCULAR VOLUME 84 fL (79-100); MONO # 0.4 x10^3/uL (0.0-1.1); MONO % 9 % (0-9); NEUT % 77 % (31-73); PLATELET COUNT 126 x10^3/uL (140-400); RED BLOOD COUNT 4.32 x10^6/uL (3.50-5.40); RED CELL DISTRIBUTION WIDTH 14.7 % (11.5-14.5); WHITE BLOOD COUNT 5.1 x10^3/uL (4.0-11.0)
[2021-12-01 08:44] LABS: ALBUMIN 2.3 g/dL (3.4-5.0); ALBUMIN/GLOBULIN RATIO 0.5 (1.0-1.7); CALCIUM 8.4 mg/dL (8.5-10.1); CREATININE 1.3 mg/dL (0.6-1.0); GFR 41.2; TOTAL BILIRUBIN 0.2 mg/dL (0.2-1.0)
[2021-12-01] MEDS: ASPIRIN CHEWABLE 81 MG TABLET. PO SCH (08:53)
[2021-12-01] MEDS: CYANOCOBALAMIN (VITAMIN B-12) 1,000 MCG TABLET. PO SCH (08:53)
[2021-12-01] MEDS: ZINC SULFATE 220 MG CAPSULE. PO SCH (08:53)
[2021-12-01] MEDS: DOXYCYCLINE HYCLATE 100 MG TABLET PO SCH ×2 (08:54→20:34)
[2021-12-01] MEDS: ASCORBIC ACID 500 MG TABLET PO SCH ×2 (08:54→20:34)
[2021-12-01] MEDS: CARVEDILOL 3.125 MG TABLET. PO SCH ×2 (08:55→17:32)
[2021-12-01] MEDS: CALCIUM CARB/VIT D3 500/200 TABLET. PO SCH (08:55)
[2021-12-01] MEDS: PANTOPRAZOLE 40 MG TABLET.DR. PO SCH (08:55)
[2021-12-01] MEDS: DEXAMETHASONE SOD PHOS 4 MG/ML VIAL IVP SCH (08:55)
[2021-12-01] MEDS: INSULIN LISPRO 300 UNITS/3 ML VIAL. SQ SCH ×6 (08:58→17:30)
[2021-12-01] MEDS: IV NORMAL SALINE 1000ML BAG 1,000 ML IV SCH (10:02)
[2021-12-01] MEDS: CHOLECALCIFEROL (VITAMIN D3) 5,000 UNIT CAPSULE PO SCH (10:08)
[2021-12-01] MEDS: cefTRIAXone IV Push 1 GM VIAL. IVP SCH (10:09)
--- NOTE | 2021-12-01 10:29 | PDOC2 ---
GI CONSULT Date of Service: DATE: 12/01/21 TIME: 10:29 Reason For Consult: blood in stool, liver lesion, h/o colon cancer HPI: HPI: 66 y/o female w/ h/o colon cancer s/p right hemicolectomy in 04/2020 - had inpatient pre-op colonoscopy by Dr. Zapata w/ obstructing hepatic flexure mass. Says she finished chemotherapy "a year ago" but still sees a female oncologist through [facility] for x-rays. Admitted through ER w/ COVID on 11/29/21. Reports three days of loose stools prior to admission that looked dark reddish. Since admission had a loose stool that looked yellow-brown. Hgb was 13.3 on admission and has drifted to 12.1. Hemoccult was negative. Denies reflux/heartburn, dysphagia, n/v/hematemesis, abd pain, constipation, melena, change in appetite, or weight loss. No previous EGD. S/p cholecystectomy. Hepatic steatosis on past imaging. No pancreas history. Used to take ASA 81mg but no longer. Also denies NSAIDs. Didn't get COVID vaccine - doesn't trust it, feels it's dangerous. Not overly forthcoming w/ information. Tolerating regular diet. PMH: PMH: HTN, DM, colon cancer cholecystectomy, , hysterectomy, right hemicolectomy and chemo FH: Family History: Other ( colon polyps) Social History: Smoke: No ALCOHOL: none Drugs: None ROS: GEN: Denies fevers, chills, sweats HEENT: Denies blurred vision, sore throat CV: Denies chest pain RESP: +SOA GI: Per HPI : Denies hematuria, dysuria ENDO: Denies weight changes NEURO: Denies confusion, dizziness MSK: Denies weakness, joint pain/swelling SKIN: Denies jaundice, pruritus Vitals: Vitals: Vital Signs Date Time Temp Pulse Resp B/P (MAP) Pulse Ox O2 Delivery O2 Flow Rate FiO2 12/01/21 08:55 58 116/58 12/01/21 07:00 98.3 24 90 Nasal Cannula 2.0 98.3 Labs: Labs: Laboratory Tests Test 11/30/21 11:35 11/30/21 16:29 11/30/21 20:19 12/01/21 04:00 Glucose (Fingerstick) 587 mg/dL (70-99) 456 mg/dL (70-99) 390 mg/dL (70-99) White Blood Count 5.1 x10^3/uL (4.0-11.0) Red Blood Count 4.32 x10^6/uL (3.50-5.40) Hemoglobin 12.1 g/dL (12.0-15.5) Hematocrit 36.4 % (36.0-47.0) Mean Corpuscular Volume 84 fL (79-100) Mean Corpuscular Hemoglobin 28 pg (25-35) Mean Corpuscular Hemoglobin Concent 33 g/dL (31-37) Red Cell Distribution Width 14.7 % (11.5-14.5) Platelet Count 126 x10^3/uL (140-400) Neutrophils (%) (Auto) 77 % (31-73) Lymphocytes (%) (Auto) 14 % (24-48) Monocytes (%) (Auto) 9 % (0-9) Eosinophils (%) (Auto) 0 % (0-3) Basophils (%) (Auto) 0 % (0-3) Neutrophils # (Auto) 4.0 x10^3/uL (1.8-7.7) Lymphocytes # (Auto) 0.7 x10^3/uL (1.0-4.8) Monocytes # (Auto) 0.4 x10^3/uL (0.0-1.1) Eosinophils # (Auto) 0.0 x10^3/uL (0.0-0.7) Basophils # (Auto) 0.0 x10^3/uL (0.0-0.2) Sodium Level 144 mmol/L (136-145) Potassium Level 4.0 mmol/L (3.5-5.1) Chloride Level 110 mmol/L (98-107) Carbon Dioxide Level 20 mmol/L (21-32) Anion Gap 14 (6-14) Blood Urea Nitrogen 35 mg/dL (7-20) Creatinine 1.3 mg/dL (0.6-1.0) Estimated GFR (Cockcroft-Gault) 41.2 BUN/Creatinine Ratio 27 (6-20) Glucose Level 295 mg/dL (70-99) Calcium Level 8.4 mg/dL (8.5-10.1) Total Bilirubin 0.2 mg/dL (0.2-1.0) Aspartate Amino Transf (AST/SGOT) 34 U/L (15-37) Alanine Aminotransferase (ALT/SGPT) 38 U/L (14-59) Alkaline Phosphatase 81 U/L (46-116) C-Reactive Protein, Quantitative 92.3 mg/L (0-3.3) Total Protein 7.0 g/dL (6.4-8.2) Albumin 2.3 g/dL (3.4-5.0) Albumin/Globulin Ratio 0.5 (1.0-1.7) Allergies: Coded Allergies: I S O L A T I O N *CONTACT* (Verified Allergy, Unknown, 11/29/21) ESBL No Known Medication Allergies (Verified Allergy, Unknown, 11/29/21) Medications: Current Medications Medications (Trade) Dose Ordered Sig/Andre Route PRN Reason Start Time Stop Time Status Last Admin Dose Admin Remdesivir 100 mg/ Sodium Chloride 230 ml @ 460 mls/hr Q24H IV 11/30/21 21:00 12/03/21 21:29 11/30/21 22:08 Insulin Human Lispro (HumaLOG) 27 units 1X ONCE SQ 11/30/21 12:00 11/30/21 12:01 DC 11/30/21 12:09 Insulin Glargine (Lantus Syringe) 20 unit 1X ONCE SQ 11/30/21 12:00 11/30/21 12:01 DC 11/30/21 12:08 Insulin Human Lispro (HumaLOG) 37 units 1X ONCE SQ 11/30/21 17:00 11/30/21 17:01 DC 11/30/21 17:05 Insulin Human Lispro (HumaLOG) 13 units TIDWMEALS SQ 12/01/21 08:00 12/01/21 08:59 Insulin Glargine (Lantus Syringe) 45 unit QHS SQ 11/30/21 21:00 11/30/21 22:54 Insulin Human Lispro (HumaLOG) 15 units 1X ONCE SQ 11/30/21 21:00 11/30/21 21:01 DC 11/30/21 22:53 Imaging: Imaging: CT A/P Findings: Inherently limited evaluation without intravenous contrast. Lower chest: There are patchy opacities in the lung bases. Heart is normal in size Liver: There is hepatic steatosis. There is a 3 cm hyperdense mass in segment 6 (image 34, series 2). There are few calcified granulomas. Gallbladder/Biliary Tree: The gallbladder is absent. Bile ducts are normal. Pancreas: Normal. Spleen: Normal. Adrenal Glands: Normal. Kidneys/Ureters/Bladder: Kidneys are normal in size. No hydronephrosis or nephrolithiasis. Ureters and bladder are normal. Reproductive Organs: Uterus is surgically absent. No adnexal mass. Stomach, small bowel, and colon: Small hiatal hernia. No small bowel obstruction. There are surgical changes of right hemicolectomy. Vasculature: Abdominal aorta is normal in caliber. No significant callus atherosclerosis. Lymph Nodes: No lymphadenopathy. Peritoneum and retroperitoneum: No free fluid or free air. Bones: No acute osseous abnormality. Miscellaneous: Small fat-containing umbilical hernia. IMPRESSION: 1. No acute abnormality in the abdomen and pelvis. 2. Patchy opacities in the lung bases consistent with Covid pneumonia. 3. Hepatic steatosis. 4. 3 cm hyperdense mass in the right hepatic lobe, indeterminate. Recommend CT or MRI with liver mass protocol to further evaluate. 5. Surgical changes of right hemicolectomy. CXR IMPRESSION: Right perihilar and basilar pulmonary infiltrates, differential includes pneumonia versus asymmetric pulmonary edema. PE: GEN: NAD HEENT: Atraumatic, PERRL LUNGS: diminished anteriorly, NC 2L HEART: RRR ABD: NABS, S/NT, obese EXTREMITY: No edema SKIN: No rashes, no jaundice NEURO/PSYCH: A & O 3, very flat affect A/P: A/P: COVID pneumonia Loose stools/blood in stools - resolving Abnormal CT - 3 cm hyperdense mass in the right hepatic lobe, indeterminate - no mention of this on past CTs CRC screen - colonoscopy 04/2020 Diverticulosis S/p cholecystectomy Hepatic steatosis -- No bleeding since admission w/ normal Hgb and negative hemoccult. Continue supportive care for COVID and observe from GI standpoint. Needs follow-up re: liver finding on CT - she can't remember who her oncologist is - suspect sees Dr. Pearson based on past CT ordering. Should have colonoscopy as outpt considering cancer history and no interval scope - our office can call to arrange when recovered from COVID. Agree w/ PPI. Still having loose stools? Could consider stool studies. Update - later reviewed CEA levels - 24 in 03/2020 and then decreased to normal in 11/2020 and 02/2021 - rising since, last in 08/2021 was 39. Also note surgery path w/ +lymph nodes and omentum. SHANTHI FULTON Dec 01, 2021 10:29
--- NOTE | 2021-12-01 10:57 | NUR ---
SW following. Discussed with RN, pt from home, 2L (does not use oxygen at home), renal diet, COVID-19 positive. GI following. Pt will need a 6 minute walk prior to discharge. Pt will discharge home when medically stable. SW will continue to follow.
[2021-12-01 11:00] VITALS: BP 112/52
[2021-12-01] MEDS: HEPARIN for SUB-Q USE 5,000 UNIT/ML VIAL. SQ SCH ×2 (14:07→21:58)
[2021-12-01 15:00] VITALS: BP 118/60
--- NOTE | 2021-12-01 15:06 | PDOC ---
[employer] PROGRESS NOTE Date of Service DOS: DATE: 12/01/21 TIME: 14:59 Chief Complaint Chief Complaint Assessment/Plan Acute respiratory failure with hypoxia -likely due to COVID-19. She is unvaccinated. We will initiate standard therapy with remdesivir and Decadron. Will check CRP consider baricitinib or tocilizumab COVID 19 - signs of pneumonia, will treat for secondary bacterial pneumonia likely gram negative given chronic immunosupressed state Diabetes type 2 - with hyperglycemia - not on insulin therapy at home, does not check her blood glucose. Will place on high sliding scale + 13 units 3 times daily with meals and 45 units Lantus nightly based daily need Blood in stool - could be due to diverticular bleed, but concerning with colon ca history. GI to evaluate Liver lesion on CT - will need f/u considering her colon ca history Hypertension - cont home meds Colon cancer s/p right hemicolectomy - s/p chemo, says she is remission, doesn't remember her last follow up but does have port care Thrombocytopenia - will monitor while on lovenox ELIAS - Likely vasomotor nephropathy from hyperglycemia, will monitor renal function Severe protein calorie malnutrition - due to COVID 19, will get nutrition FEN - ADA diet PPX - lovenox FULL CODE Dispo - inpatient History of Present Illness History of Present Illness 66 year old female with history of diabetes type 2, hypertension, colon cancer s/p right hemicolectomy, chemo, who presents to the ED 11/29/2021 c/o a cough for 1 week, dark stools for 3 days, and generalized weakness with shaking for 1 month she notes this is baseline ever since her chemotherapy for colon cancer. Patient denies any abdominal pain. Denies any nausea, vomiting. Denies any fever, chest pain, shortness of breath, patient is slightly poor historian. She does note some blood in her stools. Labs with WBC 6.9, Hb 13.3, platelets 108, NA 134, K4.7, BUN 30, CR 1.6, glucose 445, calcium 8.4 mag 2.4, bilirubin 0.43 AST 46, ALT 50, alk phos 93, sensitivity troponin is 16, NT proBNP 81, albumin 2.9, TSH 0.597, procalcitonin 0.32, lactic acid 1.3, INR 1.1, urinalysis small leuk esterase and blood, fecal occult negative, rapid influenza negative, rapid COVID-19 positive. Chest radiograph with right greater than left pulmonary infiltrates right Port-A-Cath noted. CT abdomen pelvis with no acute abnormality patchy bibasilar opacities noted as well as hepatic steatosis and 3 cm mass in the right hepatic lobe. Admitted for further care. 12/01/2021 No acute events overnight. Patient seen examined bedside. Saturating 90% on 2 L nasal cannula. Blood sugars still in the high 300s to 400s. I will adjust her long-acting Lantus to 30 twice daily with sliding scale and lispro Premeal's at 13 units. Vitals/I&O Vitals/I&O: Vital Signs Date Time Temp Pulse Resp B/P (MAP) Pulse Ox O2 Delivery O2 Flow Rate FiO2 12/01/21 11:00 98.1 63 22 112/52 (72) 93 Nasal Cannula 2.0 98.1 I & O 11/30/21 11/30/21 12/01/21 15:00 23:00 07:00 Intake Total 480 ml 480 ml Balance 480 ml 480 ml Physical Exam General: Alert, Oriented X3, Cooperative, moderate distress Abdomen: Normal bowel sounds, Soft, No tenderness, No hepatosplenomegaly, No masses Extremities: No clubbing, No cyanosis, No edema, Normal pulses, No tenderness/swelling Skin: No rashes, No breakdown, No significant lesion Labs Labs: Laboratory Tests Test 11/30/21 16:29 11/30/21 20:19 12/01/21 04:00 12/01/21 11:34 Glucose (Fingerstick) 456 mg/dL (70-99) 390 mg/dL (70-99) 383 mg/dL (70-99) White Blood Count 5.1 x10^3/uL (4.0-11.0) Red Blood Count 4.32 x10^6/uL (3.50-5.40) Hemoglobin 12.1 g/dL (12.0-15.5) Hematocrit 36.4 % (36.0-47.0) Mean Corpuscular Volume 84 fL (79-100) Mean Corpuscular Hemoglobin 28 pg (25-35) Mean Corpuscular Hemoglobin Concent 33 g/dL (31-37) Red Cell Distribution Width 14.7 % (11.5-14.5) Platelet Count 126 x10^3/uL (140-400) Neutrophils (%) (Auto) 77 % (31-73) Lymphocytes (%) (Auto) 14 % (24-48) Monocytes (%) (Auto) 9 % (0-9) Eosinophils (%) (Auto) 0 % (0-3) Basophils (%) (Auto) 0 % (0-3) Neutrophils # (Auto) 4.0 x10^3/uL (1.8-7.7) Lymphocytes # (Auto) 0.7 x10^3/uL (1.0-4.8) Monocytes # (Auto) 0.4 x10^3/uL (0.0-1.1) Eosinophils # (Auto) 0.0 x10^3/uL (0.0-0.7) Basophils # (Auto) 0.0 x10^3/uL (0.0-0.2) Sodium Level 144 mmol/L (136-145) Potassium Level 4.0 mmol/L (3.5-5.1) Chloride Level 110 mmol/L (98-107) Carbon Dioxide Level 20 mmol/L (21-32) Anion Gap 14 (6-14) Blood Urea Nitrogen 35 mg/dL (7-20) Creatinine 1.3 mg/dL (0.6-1.0) Estimated GFR (Cockcroft-Gault) 41.2 BUN/Creatinine Ratio 27 (6-20) Glucose Level 295 mg/dL (70-99) Calcium Level 8.4 mg/dL (8.5-10.1) Total Bilirubin 0.2 mg/dL (0.2-1.0) Aspartate Amino Transf (AST/SGOT) 34 U/L (15-37) Alanine Aminotransferase (ALT/SGPT) 38 U/L (14-59) Alkaline Phosphatase 81 U/L (46-116) C-Reactive Protein, Quantitative 92.3 mg/L (0-3.3) Total Protein 7.0 g/dL (6.4-8.2) Albumin 2.3 g/dL (3.4-5.0) Albumin/Globulin Ratio 0.5 (1.0-1.7) Assessment and Plan Assessmemt and Plan Problems Medical Problems: (1) Acute kidney injury Status: Acute (2) Generalized weakness Status: Acute (3) Lab test positive for detection of COVID-19 virus Status: Acute Comment Review of Relevant I have reviewed the following items casey (where applicable) has been applied. Medications: Current Medications Medications (Trade) Dose Ordered Sig/Andre Route PRN Reason Start Time Stop Time Status Last Admin Dose Admin Remdesivir 100 mg/ Sodium Chloride 230 ml @ 460 mls/hr Q24H IV 11/30/21 21:00 12/03/21 21:29 11/30/21 22:08 Insulin Human Lispro (HumaLOG) 37 units 1X ONCE SQ 11/30/21 17:00 11/30/21 17:01 DC 11/30/21 17:05 Insulin Human Lispro (HumaLOG) 13 units TIDWMEALS SQ 12/01/21 08:00 12/01/21 12:21 Insulin Glargine (Lantus Syringe) 45 unit QHS SQ 11/30/21 21:00 11/30/21 22:54 Insulin Human Lispro (HumaLOG) 15 units 1X ONCE SQ 11/30/21 21:00 11/30/21 21:01 DC 11/30/21 22:53 Justifications for Admission Other Justification NIKKI LONDONO MD Dec 01, 2021 15:06
[2021-12-01] MEDS: INSULIN GLARGINE SYRINGE. SQ SCH ×2 (17:27→20:32)
[2021-12-01 19:00] VITALS: BP 143/80
[2021-12-01] MEDS: REMDESIVIR 100mg in NORMAL SALINE 250ML X 4 DAYS IV SCH (20:34)
[2021-12-01 23:00] VITALS: BP 129/59
[2021-12-02 00:12] LABS: HEMOGLOBIN A1C 13.3 % (4.8-5.6)
[2021-12-02] MEDS: guaiFENesin DM 200MG/20MG 10 ML SYRUP PO PRN ×2 (02:35→22:16)
[2021-12-02 03:00] VITALS: BP 139/70
[2021-12-02] MEDS: HEPARIN for SUB-Q USE 5,000 UNIT/ML VIAL. SQ SCH ×3 (06:23→22:10)
[2021-12-02] MEDS: PANTOPRAZOLE 40 MG TABLET.DR. PO SCH (06:23)
[2021-12-02 07:00] VITALS: BP 124/64
[2021-12-02] MEDS: INSULIN LISPRO 300 UNITS/3 ML VIAL. SQ SCH ×6 (08:17→17:37)
[2021-12-02] MEDS: ASPIRIN CHEWABLE 81 MG TABLET. PO SCH (08:18)
[2021-12-02] MEDS: CARVEDILOL 3.125 MG TABLET. PO SCH ×2 (08:19→17:27)
[2021-12-02] MEDS: ASCORBIC ACID 500 MG TABLET PO SCH ×2 (10:09→21:49)
[2021-12-02] MEDS: CHOLECALCIFEROL (VITAMIN D3) 5,000 UNIT CAPSULE PO SCH (10:09)
[2021-12-02] MEDS: ZINC SULFATE 220 MG CAPSULE. PO SCH (10:09)
[2021-12-02] MEDS: CALCIUM CARB/VIT D3 500/200 TABLET. PO SCH (10:09)
[2021-12-02] MEDS: DEXAMETHASONE SOD PHOS 4 MG/ML VIAL IVP SCH (10:11)
[2021-12-02] MEDS: DOXYCYCLINE HYCLATE 100 MG TABLET PO SCH ×2 (10:11→21:49)
[2021-12-02] MEDS: cefTRIAXone IV Push 1 GM VIAL. IVP SCH (10:12)
[2021-12-02] MEDS: INSULIN GLARGINE SYRINGE. SQ SCH ×2 (10:17→22:08)
[2021-12-02] MEDS: CYANOCOBALAMIN (VITAMIN B-12) 1,000 MCG TABLET. PO SCH (10:29)
[2021-12-02 11:00] VITALS: BP 120/63
--- NOTE | 2021-12-02 11:46 | PDOC ---
[employer] PROGRESS NOTE Date of Service DOS: DATE: 12/02/21 TIME: 11:43 Chief Complaint Chief Complaint Assessment/Plan Acute respiratory failure with hypoxia -likely due to COVID-19. She is unvaccinated. We will initiate standard therapy with remdesivir and Decadron. Will check CRP consider baricitinib or tocilizumab COVID 19 - signs of pneumonia, will treat for secondary bacterial pneumonia likely gram negative given chronic immunosupressed state Diabetes type 2 - with hyperglycemia - not on insulin therapy at home, does not check her blood glucose. Will place on high sliding scale + 13 units 3 times daily with meals and 45 units Lantus nightly based daily need Blood in stool - could be due to diverticular bleed, but concerning with colon ca history. GI to evaluate Liver lesion on CT - will need f/u considering her colon ca history Hypertension - cont home meds Colon cancer s/p right hemicolectomy - s/p chemo, says she is remission, doesn't remember her last follow up but does have port care Thrombocytopenia - will monitor while on lovenox ELIAS - Likely vasomotor nephropathy from hyperglycemia, will monitor renal function Severe protein calorie malnutrition - due to COVID 19, will get nutrition Morbid obesity Major depressive disorderdoes not want to take any antidepressants FEN - ADA diet PPX - lovenox FULL CODE Dispo - inpatient History of Present Illness History of Present Illness 66 year old female with history of diabetes type 2, hypertension, colon cancer s/p right hemicolectomy, chemo, who presents to the ED 11/29/2021 c/o a cough for 1 week, dark stools for 3 days, and generalized weakness with shaking for 1 month she notes this is baseline ever since her chemotherapy for colon cancer. Patient denies any abdominal pain. Denies any nausea, vomiting. Denies any fever, chest pain, shortness of breath, patient is slightly poor historian. She does note some blood in her stools. Labs with WBC 6.9, Hb 13.3, platelets 108, NA 134, K4.7, BUN 30, CR 1.6, glucose 445, calcium 8.4 mag 2.4, bilirubin 0.43 AST 46, ALT 50, alk phos 93, sensitivity troponin is 16, NT proBNP 81, albumin 2.9, TSH 0.597, procalcitonin 0.32, lactic acid 1.3, INR 1.1, urinalysis small leuk esterase and blood, fecal occult negative, rapid influenza negative, rapid COVID-19 positive. Chest radiograph with right greater than left pulmonary infiltrates right Port-A-Cath noted. CT abdomen pelvis with no acute abnormality patchy bibasilar opacities noted as well as hepatic steatosis and 3 cm mass in the right hepatic lobe. Admitted for further care. 12/01/2021 No acute events overnight. Patient seen examined bedside. Saturating 90% on 2 L nasal cannula. Blood sugars still in the high 300s to 400s. I will adjust her long-acting Lantus to 30 twice daily with sliding scale and lispro Premeal's at 13 units. 12/02/2021 No acute events overnight. Patient seen and examined bedside. Saturating 92% on 2 L nasal cannula. Not dyspneic during my encounter. Patient requires assistance with feeding and taking her pills. Patient states that if she is depressed. This is the main reason why she is unable to fulfill her medications very likely. When asked which she like to start any antidepressants she says no. She is not having any suicidal thoughts. Patient has not gotten up out of bed on her own as she states that she feels wobbly. Pending PT/OT evaluation. Glucose checks in the last 24 hours are downtrending from 300s to the mid 100s. We will continue with current insulin regimen. Likely will need SNF placement. Patient's chart, labs, images were reviewed and discussed with RN Vitals/I&O Vitals/I&O: Vital Signs Date Time Temp Pulse Resp B/P (MAP) Pulse Ox O2 Delivery O2 Flow Rate FiO2 12/02/21 11:00 97.8 65 20 120/63 (82) 95 Nasal Cannula 2.0 97.8 l I & O 12/01/21 12/01/21 12/02/21 15:00 23:00 07:00 Intake Total 300 ml 590 ml 1000 ml Output Total 1 ml Balance 300 ml 589 ml 1000 ml Physical Exam General: Alert, Oriented X3, Cooperative, moderate distress Abdomen: Normal bowel sounds, Soft, No tenderness, No hepatosplenomegaly, No masses Extremities: No clubbing, No cyanosis, No edema, Normal pulses, No tenderness/swelling Skin: No rashes, No breakdown, No significant lesion Labs Labs: Laboratory Tests Test 12/01/21 16:26 12/01/21 20:04 12/02/21 07:44 12/02/21 10:58 Glucose (Fingerstick) 313 mg/dL (70-99) 274 mg/dL (70-99) 173 mg/dL (70-99) 132 mg/dL (70-99) Assessment and Plan Assessmemt and Plan Problems Medical Problems: (1) Acute kidney injury Status: Acute (2) Generalized weakness Status: Acute (3) Lab test positive for detection of COVID-19 virus Status: Acute Comment Review of Relevant I have reviewed the following items casey (where applicable) has been applied. Medications: Current Medications Medications (Trade) Dose Ordered Sig/Andre Route PRN Reason Start Time Stop Time Status Last Admin Dose Admin Insulin Glargine (Lantus Syringe) 30 unit BID SQ 12/01/21 15:00 12/02/21 10:17 Justifications for Admission Other Justification NIKKI LONDONO MD Dec 02, 2021 11:46
[2021-12-02 12:54] LABS: BASO # 0.1 x10^3/uL (0.0-0.2); BASO % 1 % (0-3); EOS % 0 % (0-3); HEMATOCRIT 38.7 % (36.0-47.0); HEMOGLOBIN 12.7 g/dL (12.0-15.5); LYMPH # 0.9 x10^3/uL (1.0-4.8); LYMPH % 11 % (24-48); MEAN CORPUSCULAR HEMOGLOBIN 27 pg (25-35); MEAN CORPUSCULAR HGB CONC 33 g/dL (31-37); MEAN CORPUSCULAR VOLUME 84 fL (79-100); MONO # 0.5 x10^3/uL (0.0-1.1); MONO % 6 % (0-9); NEUT # 6.7 x10^3/uL (1.8-7.7); NEUT % 83 % (31-73); PLATELET COUNT 127 x10^3/uL (140-400); RED BLOOD COUNT 4.63 x10^6/uL (3.50-5.40); RED CELL DISTRIBUTION WIDTH 15.1 % (11.5-14.5); WHITE BLOOD COUNT 8.1 x10^3/uL (4.0-11.0)
[2021-12-02 13:14] LABS: ALBUMIN 2.4 g/dL (3.4-5.0); ALBUMIN/GLOBULIN RATIO 0.6 (1.0-1.7); CALCIUM 7.8 mg/dL (8.5-10.1); CREATININE 1.1 mg/dL (0.6-1.0); POTASSIUM 3.7 mmol/L (3.5-5.1); TOTAL BILIRUBIN 0.2 mg/dL (0.2-1.0); TOTAL PROTEIN 6.3 g/dL (6.4-8.2)
[2021-12-02 15:00] VITALS: BP 146/75
--- NOTE | 2021-12-02 15:04 | NUR ---
Assumed pt care at this time. Pt in chair assisted with BSC and back to bed. Water pitcher filled. Call light within reach. Pt denied any other needs at this time.
[2021-12-02] MEDS: IV NORMAL SALINE 1000ML BAG 1,000 ML IV SCH (17:29)
[2021-12-02 19:00] VITALS: BP 112/50
[2021-12-02] MEDS: REMDESIVIR 100mg in NORMAL SALINE 250ML X 4 DAYS IV SCH (21:48)
[2021-12-02 23:00] VITALS: BP 155/62
[2021-12-03 03:00] VITALS: BP 134/66
[2021-12-03 05:02] LABS: BASO % 0 % (0-3); EOS % 0 % (0-3); HEMATOCRIT 36.3 % (36.0-47.0); HEMOGLOBIN 11.8 g/dL (12.0-15.5); LYMPH # 0.9 x10^3/uL (1.0-4.8); LYMPH % 19 % (24-48); MEAN CORPUSCULAR HEMOGLOBIN 28 pg (25-35); MEAN CORPUSCULAR HGB CONC 33 g/dL (31-37); MEAN CORPUSCULAR VOLUME 84 fL (79-100); MONO # 0.4 x10^3/uL (0.0-1.1); MONO % 7 % (0-9); NEUT # 3.6 x10^3/uL (1.8-7.7); NEUT % 74 % (31-73); PLATELET COUNT 130 x10^3/uL (140-400); RED BLOOD COUNT 4.32 x10^6/uL (3.50-5.40); RED CELL DISTRIBUTION WIDTH 15.2 % (11.5-14.5); WHITE BLOOD COUNT 4.9 x10^3/uL (4.0-11.0)
[2021-12-03 05:42] LABS: ALBUMIN/GLOBULIN RATIO 0.5 (1.0-1.7); CALCIUM 7.7 mg/dL (8.5-10.1); CREATININE 0.9 mg/dL (0.6-1.0); POTASSIUM 3.5 mmol/L (3.5-5.1); TOTAL BILIRUBIN 0.3 mg/dL (0.2-1.0); TOTAL PROTEIN 6.1 g/dL (6.4-8.2)
[2021-12-03 07:00] VITALS: BP 141/62
[2021-12-03] MEDS: PANTOPRAZOLE 40 MG TABLET.DR. PO SCH (07:07)
[2021-12-03] MEDS: HEPARIN for SUB-Q USE 5,000 UNIT/ML VIAL. SQ SCH ×3 (07:07→22:04)
[2021-12-03] MEDS: INSULIN LISPRO 300 UNITS/3 ML VIAL. SQ SCH ×6 (09:04→16:47)
[2021-12-03] MEDS: DEXAMETHASONE SOD PHOS 4 MG/ML VIAL IVP SCH (09:06)
[2021-12-03] MEDS: DOXYCYCLINE HYCLATE 100 MG TABLET PO SCH ×2 (09:09→22:02)
[2021-12-03] MEDS: CARVEDILOL 3.125 MG TABLET. PO SCH ×2 (09:09→16:46)
[2021-12-03] MEDS: ZINC SULFATE 220 MG CAPSULE. PO SCH (09:10)
[2021-12-03] MEDS: CHOLECALCIFEROL (VITAMIN D3) 5,000 UNIT CAPSULE PO SCH (09:10)
[2021-12-03] MEDS: CALCIUM CARB/VIT D3 500/200 TABLET. PO SCH (09:10)
[2021-12-03] MEDS: ASCORBIC ACID 500 MG TABLET PO SCH ×2 (09:10→22:02)
[2021-12-03] MEDS: ASPIRIN CHEWABLE 81 MG TABLET. PO SCH (09:10)
[2021-12-03] MEDS: cefTRIAXone IV Push 1 GM VIAL. IVP SCH (09:10)
[2021-12-03] MEDS: CYANOCOBALAMIN (VITAMIN B-12) 1,000 MCG TABLET. PO SCH (09:10)
[2021-12-03] MEDS: metFORMIN 500 MG TABLET PO SCH ×2 (09:16→16:46)
[2021-12-03] MEDS: INSULIN GLARGINE SYRINGE. SQ SCH ×2 (09:16→22:04)
[2021-12-03 11:00] VITALS: BP 144/60
--- NOTE | 2021-12-03 12:14 | PDOC ---
[employer] PROGRESS NOTE Date of Service DOS: DATE: 12/03/21 TIME: 12:12 Chief Complaint Chief Complaint Assessment/Plan Acute respiratory failure with hypoxia -likely due to COVID-19. She is unvaccinated. We will initiate standard therapy with remdesivir and Decadron. Will check CRP consider baricitinib or tocilizumab COVID 19 - signs of pneumonia, will treat for secondary bacterial pneumonia likely gram negative given chronic immunosupressed state Diabetes type 2 - with hyperglycemia - not on insulin therapy at home, does not check her blood glucose. Will place on high sliding scale + 13 units 3 times daily with meals and 45 units Lantus nightly based daily need Blood in stool - could be due to diverticular bleed, but concerning with colon ca history. GI to evaluate Liver lesion on CT - will need f/u considering her colon ca history Hypertension - cont home meds Colon cancer s/p right hemicolectomy - s/p chemo, says she is remission, doesn't remember her last follow up but does have port care Thrombocytopenia - will monitor while on lovenox ELIAS - Likely vasomotor nephropathy from hyperglycemia, will monitor renal function Severe protein calorie malnutrition - due to COVID 19, will get nutrition Morbid obesity Major depressive disorderdoes not want to take any antidepressants FEN - ADA diet PPX - lovenox FULL CODE Dispo - inpatient History of Present Illness History of Present Illness 66 year old female with history of diabetes type 2, hypertension, colon cancer s/p right hemicolectomy, chemo, who presents to the ED 11/29/2021 c/o a cough for 1 week, dark stools for 3 days, and generalized weakness with shaking for 1 month she notes this is baseline ever since her chemotherapy for colon cancer. Patient denies any abdominal pain. Denies any nausea, vomiting. Denies any fever, chest pain, shortness of breath, patient is slightly poor historian. She does note some blood in her stools. Labs with WBC 6.9, Hb 13.3, platelets 108, NA 134, K4.7, BUN 30, CR 1.6, glucose 445, calcium 8.4 mag 2.4, bilirubin 0.43 AST 46, ALT 50, alk phos 93, sensitivity troponin is 16, NT proBNP 81, albumin 2.9, TSH 0.597, procalcitonin 0.32, lactic acid 1.3, INR 1.1, urinalysis small leuk esterase and blood, fecal occult negative, rapid influenza negative, rapid COVID-19 positive. Chest radiograph with right greater than left pulmonary infiltrates right Port-A-Cath noted. CT abdomen pelvis with no acute abnormality patchy bibasilar opacities noted as well as hepatic steatosis and 3 cm mass in the right hepatic lobe. Admitted for further care. 12/01/2021 No acute events overnight. Patient seen examined bedside. Saturating 90% on 2 L nasal cannula. Blood sugars still in the high 300s to 400s. I will adjust her long-acting Lantus to 30 twice daily with sliding scale and lispro Premeal's at 13 units. 12/02/2021 No acute events overnight. Patient seen and examined bedside. Saturating 92% on 2 L nasal cannula. Not dyspneic during my encounter. Patient requires assistance with feeding and taking her pills. Patient states that if she is depressed. This is the main reason why she is unable to fulfill her medications very likely. When asked which she like to start any antidepressants she says no. She is not having any suicidal thoughts. Patient has not gotten up out of bed on her own as she states that she feels wobbly. Pending PT/OT evaluation. Glucose checks in the last 24 hours are downtrending from 300s to the mid 100s. We will continue with current insulin regimen. Likely will need SNF placement. Patient's chart, labs, images were reviewed and discussed with RN 12/03/2021 No acute events overnight. Patient seen examined bedside. Still requiring 2 L nasal cannula to saturate 91%. Not dyspneic upon my encounter. PT OT recommending SNF placement. Social work consult for coordinating that. Patient definitely needs a lot of motivation and redirection for both her rehabilitation and diabetes medication regimen. Vitals/I&O Vitals/I&O: Vital Signs Date Time Temp Pulse Resp B/P (MAP) Pulse Ox O2 Delivery O2 Flow Rate FiO2 12/03/21 09:09 62 141/62 12/03/21 08:30 Nasal Cannula 2.0 12/03/21 07:00 97.5 21 85 97.5 I & O 12/02/21 12/02/21 12/03/21 15:00 23:00 07:00 Intake Total 200 ml 60 ml 120 ml Output Total 200 ml Balance 200 ml 60 ml -80 ml Physical Exam General: Alert, Oriented X3, Cooperative, moderate distress Abdomen: Normal bowel sounds, Soft, No tenderness, No hepatosplenomegaly, No masses Extremities: No clubbing, No cyanosis, No edema, Normal pulses, No tenderness/swelling Skin: No rashes, No breakdown, No significant lesion Labs Labs: Laboratory Tests Test 12/02/21 12:50 12/02/21 16:56 12/02/21 20:26 12/03/21 04:30 White Blood Count 8.1 x10^3/uL (4.0-11.0) 4.9 x10^3/uL (4.0-11.0) Red Blood Count 4.63 x10^6/uL (3.50-5.40) 4.32 x10^6/uL (3.50-5.40) Hemoglobin 12.7 g/dL (12.0-15.5) 11.8 g/dL (12.0-15.5) Hematocrit 38.7 % (36.0-47.0) 36.3 % (36.0-47.0) Mean Corpuscular Volume 84 fL (79-100) 84 fL (79-100) Mean Corpuscular Hemoglobin 27 pg (25-35) 28 pg (25-35) Mean Corpuscular Hemoglobin Concent 33 g/dL (31-37) 33 g/dL (31-37) Red Cell Distribution Width 15.1 % (11.5-14.5) 15.2 % (11.5-14.5) Platelet Count 127 x10^3/uL (140-400) 130 x10^3/uL (140-400) Neutrophils (%) (Auto) 83 % (31-73) 74 % (31-73) Lymphocytes (%) (Auto) 11 % (24-48) 19 % (24-48) Monocytes (%) (Auto) 6 % (0-9) 7 % (0-9) Eosinophils (%) (Auto) 0 % (0-3) 0 % (0-3) Basophils (%) (Auto) 1 % (0-3) 0 % (0-3) Neutrophils # (Auto) 6.7 x10^3/uL (1.8-7.7) 3.6 x10^3/uL (1.8-7.7) Lymphocytes # (Auto) 0.9 x10^3/uL (1.0-4.8) 0.9 x10^3/uL (1.0-4.8) Monocytes # (Auto) 0.5 x10^3/uL (0.0-1.1) 0.4 x10^3/uL (0.0-1.1) Eosinophils # (Auto) 0.0 x10^3/uL (0.0-0.7) 0.0 x10^3/uL (0.0-0.7) Basophils # (Auto) 0.1 x10^3/uL (0.0-0.2) 0.0 x10^3/uL (0.0-0.2) Sodium Level 142 mmol/L (136-145) 141 mmol/L (136-145) Potassium Level 3.7 mmol/L (3.5-5.1) 3.5 mmol/L (3.5-5.1) Chloride Level 112 mmol/L (98-107) 111 mmol/L (98-107) Carbon Dioxide Level 20 mmol/L (21-32) 20 mmol/L (21-32) Anion Gap 10 (6-14) 10 (6-14) Blood Urea Nitrogen 26 mg/dL (7-20) 19 mg/dL (7-20) Creatinine 1.1 mg/dL (0.6-1.0) 0.9 mg/dL (0.6-1.0) Estimated GFR (Cockcroft-Gault) 50.0 63.0 BUN/Creatinine Ratio 24 (6-20) 21 (6-20) Glucose Level 163 mg/dL (70-99) 190 mg/dL (70-99) Calcium Level 7.8 mg/dL (8.5-10.1) 7.7 mg/dL (8.5-10.1) Total Bilirubin 0.2 mg/dL (0.2-1.0) 0.3 mg/dL (0.2-1.0) Aspartate Amino Transf (AST/SGOT) 36 U/L (15-37) 29 U/L (15-37) Alanine Aminotransferase (ALT/SGPT) 34 U/L (14-59) 29 U/L (14-59) Alkaline Phosphatase 83 U/L (46-116) 69 U/L (46-116) Total Protein 6.3 g/dL (6.4-8.2) 6.1 g/dL (6.4-8.2) Albumin 2.4 g/dL (3.4-5.0) 2.0 g/dL (3.4-5.0) Albumin/Globulin Ratio 0.6 (1.0-1.7) 0.5 (1.0-1.7) Glucose (Fingerstick) 190 mg/dL (70-99) 225 mg/dL (70-99) Test 12/03/21 07:44 12/03/21 11:16 Glucose (Fingerstick) 161 mg/dL (70-99) 185 mg/dL (70-99) Assessment and Plan Assessmemt and Plan Problems Medical Problems: (1) Acute kidney injury Status: Acute (2) Generalized weakness Status: Acute (3) Lab test positive for detection of COVID-19 virus Status: Acute Comment Review of Relevant I have reviewed the following items casey (where applicable) has been applied. Medications: Current Medications Medications (Trade) Dose Ordered Sig/Andre Route PRN Reason Start Time Stop Time Status Last Admin Dose Admin Insulin Glargine (Lantus Syringe) 10 unit BID SQ 12/03/21 09:30 12/03/21 09:16 Metformin HCl (Glucophage) 500 mg BIDWMEALS PO 12/03/21 09:30 12/03/21 09:16 Justifications for Admission Other Justification NIKKI LONDONO MD Dec 03, 2021 12:14
[2021-12-03 15:00] VITALS: BP 130/61
[2021-12-03 19:00] VITALS: BP 130/65
[2021-12-03] MEDS: REMDESIVIR 100mg in NORMAL SALINE 250ML X 4 DAYS IV SCH (22:02)
[2021-12-03 23:00] VITALS: BP 173/69
[2021-12-04 03:00] VITALS: BP 170/72
[2021-12-04] MEDS: HEPARIN for SUB-Q USE 5,000 UNIT/ML VIAL. SQ SCH ×3 (06:00→21:54)
[2021-12-04 07:00] VITALS: BP 152/70
[2021-12-04 07:53] LABS: BASO % 0 % (0-3); EOS % 0 % (0-3); HEMATOCRIT 39.2 % (36.0-47.0); HEMOGLOBIN 12.7 g/dL (12.0-15.5); LYMPH % 14 % (24-48); MEAN CORPUSCULAR HEMOGLOBIN 27 pg (25-35); MEAN CORPUSCULAR HGB CONC 32 g/dL (31-37); MEAN CORPUSCULAR VOLUME 84 fL (79-100); MONO # 0.5 x10^3/uL (0.0-1.1); MONO % 7 % (0-9); NEUT # 5.9 x10^3/uL (1.8-7.7); NEUT % 79 % (31-73); PLATELET COUNT 130 x10^3/uL (140-400); RED BLOOD COUNT 4.66 x10^6/uL (3.50-5.40); RED CELL DISTRIBUTION WIDTH 15.1 % (11.5-14.5); WHITE BLOOD COUNT 7.4 x10^3/uL (4.0-11.0)
[2021-12-04] MEDS: INSULIN LISPRO 300 UNITS/3 ML VIAL. SQ SCH ×6 (08:00→17:49)
[2021-12-04] MEDS: CARVEDILOL 3.125 MG TABLET. PO SCH ×2 (08:00→17:46)
[2021-12-04 08:28] LABS: ALBUMIN/GLOBULIN RATIO 0.5 (1.0-1.7); CALCIUM 8.4 mg/dL (8.5-10.1); CREATININE 0.9 mg/dL (0.6-1.0); POTASSIUM 3.2 mmol/L (3.5-5.1); TOTAL BILIRUBIN 0.4 mg/dL (0.2-1.0); TOTAL PROTEIN 6.4 g/dL (6.4-8.2)
[2021-12-04] MEDS: ASPIRIN CHEWABLE 81 MG TABLET. PO SCH (09:09)
[2021-12-04] MEDS: CHOLECALCIFEROL (VITAMIN D3) 5,000 UNIT CAPSULE PO SCH (09:10)
[2021-12-04] MEDS: CALCIUM CARB/VIT D3 500/200 TABLET. PO SCH (09:10)
[2021-12-04] MEDS: ZINC SULFATE 220 MG CAPSULE. PO SCH (09:11)
[2021-12-04] MEDS: DOXYCYCLINE HYCLATE 100 MG TABLET PO SCH ×2 (09:11→20:23)
[2021-12-04] MEDS: guaiFENesin DM 200MG/20MG 10 ML SYRUP PO PRN (09:12)
[2021-12-04] MEDS: metFORMIN 500 MG TABLET PO SCH ×2 (09:12→17:00)
[2021-12-04] MEDS: CYANOCOBALAMIN (VITAMIN B-12) 1,000 MCG TABLET. PO SCH (09:13)
[2021-12-04] MEDS: PANTOPRAZOLE 40 MG TABLET.DR. PO SCH (09:13)
[2021-12-04] MEDS: ASCORBIC ACID 500 MG TABLET PO SCH ×2 (09:13→20:23)
[2021-12-04] MEDS: DEXAMETHASONE SOD PHOS 4 MG/ML VIAL IVP SCH (09:14)
[2021-12-04] MEDS: cefTRIAXone IV Push 1 GM VIAL. IVP SCH (09:20)
[2021-12-04] MEDS: INSULIN GLARGINE SYRINGE. SQ SCH ×2 (09:23→21:53)
--- NOTE | 2021-12-04 10:41 | PDOC ---
Date of Service: DATE: 12/04/21 TIME: 10:28 Subjective: Subjective: Doesn't like the smell of breakfast so doesn't want to eat it and wants me to get it away from her - I moved the tray from bedside table to windowsill. Denies bleeding, diarrhea, constipation, abdominal pain, nausea, vomiting, dysphagia, early satiety, and reflux. Does not know what would sound good to eat but does seem frustrated with "toast and eggs every day." Objective: Objective: No GI concerns per nurse, says no bleeding and no stools - repeat Hemoccult ordered per primary and uncollected. Reviewed notes - needs assistance w/ eating and taking pills, depression but declines medication for this. Vital Signs: Vital Signs Date Time Temp Pulse Resp B/P (MAP) Pulse Ox O2 Delivery O2 Flow Rate FiO2 12/04/21 08:00 66 152/70 12/04/21 07:00 98.6 18 91 Nasal Cannula 2.0 98.6 Labs: Laboratory Tests Test 12/03/21 11:16 12/03/21 16:40 12/03/21 19:45 12/04/21 06:50 Glucose (Fingerstick) 185 mg/dL 136 mg/dL 131 mg/dL White Blood Count 7.4 x10^3/uL Red Blood Count 4.66 x10^6/uL Hemoglobin 12.7 g/dL Hematocrit 39.2 % Mean Corpuscular Volume 84 fL Mean Corpuscular Hemoglobin 27 pg Mean Corpuscular Hemoglobin Concent 32 g/dL Red Cell Distribution Width 15.1 % Platelet Count 130 x10^3/uL Neutrophils (%) (Auto) 79 % Lymphocytes (%) (Auto) 14 % Monocytes (%) (Auto) 7 % Eosinophils (%) (Auto) 0 % Basophils (%) (Auto) 0 % Neutrophils # (Auto) 5.9 x10^3/uL Lymphocytes # (Auto) 1.0 x10^3/uL Monocytes # (Auto) 0.5 x10^3/uL Eosinophils # (Auto) 0.0 x10^3/uL Basophils # (Auto) 0.0 x10^3/uL Sodium Level 139 mmol/L Potassium Level 3.2 mmol/L Chloride Level 108 mmol/L Carbon Dioxide Level 21 mmol/L Anion Gap 10 Blood Urea Nitrogen 17 mg/dL Creatinine 0.9 mg/dL Estimated GFR (Cockcroft-Gault) 63.0 BUN/Creatinine Ratio 19 Glucose Level 112 mg/dL Calcium Level 8.4 mg/dL Total Bilirubin 0.4 mg/dL Aspartate Amino Transf (AST/SGOT) 29 U/L Alanine Aminotransferase (ALT/SGPT) 22 U/L Alkaline Phosphatase 74 U/L Total Protein 6.4 g/dL Albumin 2.0 g/dL Albumin/Globulin Ratio 0.5 Test 12/04/21 08:00 Glucose (Fingerstick) 116 mg/dL BLOOD CULTURE Preliminary NO GROWTH AFTER 4 DAYS Imaging: ORTHOPAEDIC TECHNOLOGIST 12/03 ORTHOPAEDIC TECHNOLOGIST Bedside Swallow Eval: Pt demo's functional oropharyngeal swallow. Risk for aspiration w/ PO intake appears low. Unlikely that dysphagia is source of decreased PO intake. Pt also denies swallow difficulty currently. See full report in Interventions. Recommendations: Continue regular diet w/ thin/regular liquids. No add'l ORTHOPAEDIC TECHNOLOGIST f/u indicated at this time. Pls reconsult if needs change. PE: GEN: in COVID isolation - visual exam done - breakfast tray untouched LUNGS: NC 2L, sat 91% HEART: RRR ABD: large, stable in appearance/non-distended NEURO/PSYCH: very flat affect, not forthcoming, no eye contact, doesn't say much A/P: COVID pneumonia, depression, ?weakness ?anorexia - tells me breakfast doesn't smell good, ORTHOPAEDIC TECHNOLOGIST eval noted as above H/o colon cancer s/p resection and chemo, current imaging w/ 3cm right hepatic lobe mass - unclear details from her re: oncology follow-up Loose stools/blood in stools - resolved, hemoccult negative on 11/29, normal Hgb DM, A1c 13.3 Thrombocytopenia, hypoalbuminemia -- She's not interested in talking today. Encouraged PO - could try small frequent meals - encouarged her to let us know what might sound appetizing. Needs interval colonoscopy as outpt w/ Dr. Zapata when recovered from COVID - our office will call to arrange. Follow-up w/ oncology re: hepatic mass - ?additional imaging ?biopsy Need better diabetic control. Justicifation of Admission Dx: Justifications for Admission: Justification of Admission Dx: Yes SHANTHI FULTON Dec 04, 2021 10:41
[2021-12-04 11:00] VITALS: BP 149/73
--- NOTE | 2021-12-04 11:04 | NUR ---
SW following. Discussed with RN, pt from home, now requiring 12L oxygen with a simple mask, COVID-19 positive. Pt not ready for discharge. SW will continue to follow.
[2021-12-04 15:00] VITALS: BP 131/80
--- NOTE | 2021-12-04 15:21 | PDOC ---
[employer] PROGRESS NOTE Date of Service DOS: DATE: 12/04/21 TIME: 15:19 Chief Complaint Chief Complaint Assessment/Plan Acute respiratory failure with hypoxia -likely due to COVID-19. She is unvaccinated. We will initiate standard therapy with remdesivir and Decadron. Will check CRP consider baricitinib or tocilizumab COVID 19 - signs of pneumonia, will treat for secondary bacterial pneumonia likely gram negative given chronic immunosupressed state Diabetes type 2 - with hyperglycemia - not on insulin therapy at home, does not check her blood glucose. Will place on high sliding scale + 13 units 3 times daily with meals and 45 units Lantus nightly based daily need Blood in stool - could be due to diverticular bleed, but concerning with colon ca history. GI to evaluate Liver lesion on CT -right hepatic lobe mass will need f/u with oncology considering her colon ca history Hypertension - cont home meds Colon cancer s/p right hemicolectomy - s/p chemo, says she is remission, doesn't remember her last follow up but does have port care Thrombocytopenia - will monitor while on lovenox ELIAS - Likely vasomotor nephropathy from hyperglycemia, will monitor renal function Severe protein calorie malnutrition - due to COVID 19, will get nutrition Morbid obesity Major depressive disorderdoes not want to take any antidepressants FEN - ADA diet PPX - lovenox FULL CODE Dispo - inpatient History of Present Illness History of Present Illness Was the patient's66 year old female with history of diabetes type 2, hypertension, colon cancer s/p right hemicolectomy, chemo, who presents to the ED 11/29/2021 c/o a cough for 1 week, dark stools for 3 days, and generalized weakness with shaking for 1 month she notes this is baseline ever since her chemotherapy for colon cancer. Patient denies any abdominal pain. Denies any nausea, vomiting. Denies any fever, chest pain, shortness of breath, patient is slightly poor historian. She does note some blood in her stools. Labs with WBC 6.9, Hb 13.3, platelets 108, NA 134, K4.7, BUN 30, CR 1.6, glucose 445, calcium 8.4 mag 2.4, bilirubin 0.43 AST 46, ALT 50, alk phos 93, sensitivity troponin is 16, NT proBNP 81, albumin 2.9, TSH 0.597, procalcitonin 0.32, lactic acid 1.3, INR 1.1, urinalysis small leuk esterase and blood, fecal occult negative, rapid influenza negative, rapid COVID-19 positive. Chest radiograph with right greater than left pulmonary infiltrates right Port-A-Cath noted. CT abdomen pelvis with no acute abnormality patchy bibasilar opacities noted as well as hepatic steatosis and 3 cm mass in the right hepatic lobe. Admitted for further care. 12/01/2021 No acute events overnight. Patient seen examined bedside. Saturating 90% on 2 L nasal cannula. Blood sugars still in the high 300s to 400s. I will adjust her long-acting Lantus to 30 twice daily with sliding scale and lispro Premeal's at 13 units. 12/02/2021 No acute events overnight. Patient seen and examined bedside. Saturating 92% on 2 L nasal cannula. Not dyspneic during my encounter. Patient requires assistance with feeding and taking her pills. Patient states that if she is depressed. This is the main reason why she is unable to fulfill her medications very likely. When asked which she like to start any antidepressants she says no. She is not having any suicidal thoughts. Patient has not gotten up out of bed on her own as she states that she feels wobbly. Pending PT/OT evaluation. Glucose checks in the last 24 hours are downtrending from 300s to the mid 100s. We will continue with current insulin regimen. Likely will need SNF placement. Patient's chart, labs, images were reviewed and discussed with RN 12/03/2021 No acute events overnight. Patient seen examined bedside. Still requiring 2 L nasal cannula to saturate 91%. Not dyspneic upon my encounter. PT OT recommending SNF placement. Social work consult for coordinating that. Patient definitely needs a lot of motivation and redirection for both her rehabilitation and diabetes medication regimen. 12/04/2021 No acute events overnight. Patient seen examined bedside. Patient having increasing O2 requirements to 12 L nasal cannula saturating 91%. Depressive mood is affecting her motivation to ambulate. Patient's chart, labs, images were reviewed and discussed with RN Vitals/I&O Vitals/I&O: Vital Signs Date Time Temp Pulse Resp B/P (MAP) Pulse Ox O2 Delivery O2 Flow Rate FiO2 12/04/21 11:00 98.3 72 22 149/73 (98) 92 NonRebreather Mask 12.0 98.3 I & O 12/03/21 12/03/21 12/04/21 15:00 23:00 07:00 Intake Total 400 ml 200 ml Balance 400 ml 200 ml Physical Exam General: Alert, Oriented X3, Cooperative, moderate distress Abdomen: Normal bowel sounds, Soft, No tenderness, No hepatosplenomegaly, No masses Extremities: No clubbing, No cyanosis, No edema, Normal pulses, No tenderness/swelling Skin: No rashes, No breakdown, No significant lesion Labs Labs: Laboratory Tests Test 12/03/21 16:40 12/03/21 19:45 12/04/21 06:50 12/04/21 08:00 Glucose (Fingerstick) 136 mg/dL (70-99) 131 mg/dL (70-99) 116 mg/dL (70-99) White Blood Count 7.4 x10^3/uL (4.0-11.0) Red Blood Count 4.66 x10^6/uL (3.50-5.40) Hemoglobin 12.7 g/dL (12.0-15.5) Hematocrit 39.2 % (36.0-47.0) Mean Corpuscular Volume 84 fL (79-100) Mean Corpuscular Hemoglobin 27 pg (25-35) Mean Corpuscular Hemoglobin Concent 32 g/dL (31-37) Red Cell Distribution Width 15.1 % (11.5-14.5) Platelet Count 130 x10^3/uL (140-400) Neutrophils (%) (Auto) 79 % (31-73) Lymphocytes (%) (Auto) 14 % (24-48) Monocytes (%) (Auto) 7 % (0-9) Eosinophils (%) (Auto) 0 % (0-3) Basophils (%) (Auto) 0 % (0-3) Neutrophils # (Auto) 5.9 x10^3/uL (1.8-7.7) Lymphocytes # (Auto) 1.0 x10^3/uL (1.0-4.8) Monocytes # (Auto) 0.5 x10^3/uL (0.0-1.1) Eosinophils # (Auto) 0.0 x10^3/uL (0.0-0.7) Basophils # (Auto) 0.0 x10^3/uL (0.0-0.2) Sodium Level 139 mmol/L (136-145) Potassium Level 3.2 mmol/L (3.5-5.1) Chloride Level 108 mmol/L (98-107) Carbon Dioxide Level 21 mmol/L (21-32) Anion Gap 10 (6-14) Blood Urea Nitrogen 17 mg/dL (7-20) Creatinine 0.9 mg/dL (0.6-1.0) Estimated GFR (Cockcroft-Gault) 63.0 BUN/Creatinine Ratio 19 (6-20) Glucose Level 112 mg/dL (70-99) Calcium Level 8.4 mg/dL (8.5-10.1) Total Bilirubin 0.4 mg/dL (0.2-1.0) Aspartate Amino Transf (AST/SGOT) 29 U/L (15-37) Alanine Aminotransferase (ALT/SGPT) 22 U/L (14-59) Alkaline Phosphatase 74 U/L (46-116) Total Protein 6.4 g/dL (6.4-8.2) Albumin 2.0 g/dL (3.4-5.0) Albumin/Globulin Ratio 0.5 (1.0-1.7) Test 12/04/21 12:03 Glucose (Fingerstick) 226 mg/dL (70-99) Assessment and Plan Assessmemt and Plan Problems Medical Problems: (1) Acute kidney injury Status: Acute (2) Generalized weakness Status: Acute (3) Lab test positive for detection of COVID-19 virus Status: Acute Comment Review of Relevant I have reviewed the following items casey (where applicable) has been applied. Justifications for Admission Other Justification NIKKI LONDONO MD Dec 04, 2021 15:21
[2021-12-04 19:00] VITALS: BP 131/64
[2021-12-04] MEDS ORDERED: POTASSIUM CHLORIDE 20 MEQ TABLET.ER. PO ONE (19:00)
[2021-12-04 23:18] VITALS: BP 143/78
[2021-12-05 03:13] VITALS: BP 144/76
[2021-12-05] MEDS: HEPARIN for SUB-Q USE 5,000 UNIT/ML VIAL. SQ SCH ×3 (05:31→21:56)
[2021-12-05 06:24] LABS: CALCIUM 8.1 mg/dL (8.5-10.1); GFR 55.8; POTASSIUM 3.8 mmol/L (3.5-5.1)
[2021-12-05 06:37] LABS: BASO % 0 % (0-3); EOS % 0 % (0-3); HEMATOCRIT 37.9 % (36.0-47.0); HEMOGLOBIN 12.3 g/dL (12.0-15.5); LYMPH % 15 % (24-48); MEAN CORPUSCULAR HEMOGLOBIN 27 pg (25-35); MEAN CORPUSCULAR HGB CONC 32 g/dL (31-37); MEAN CORPUSCULAR VOLUME 84 fL (79-100); MONO # 0.6 x10^3/uL (0.0-1.1); MONO % 8 % (0-9); NEUT # 5.3 x10^3/uL (1.8-7.7); NEUT % 76 % (31-73); PLATELET COUNT 151 x10^3/uL (140-400); RED BLOOD COUNT 4.53 x10^6/uL (3.50-5.40); RED CELL DISTRIBUTION WIDTH 14.9 % (11.5-14.5)
[2021-12-05 07:00] VITALS: BP 141/65
[2021-12-05] MEDS: metFORMIN 500 MG TABLET PO SCH ×2 (07:25→17:07)
[2021-12-05] MEDS ORDERED: POTASSIUM CHLORIDE 20 MEQ TABLET.ER. PO ONE (08:00)
[2021-12-05] MEDS: INSULIN LISPRO 300 UNITS/3 ML VIAL. SQ SCH ×6 (08:00→17:10)
[2021-12-05] MEDS: INSULIN GLARGINE SYRINGE. SQ SCH ×2 (09:02→20:32)
[2021-12-05] MEDS: CHOLECALCIFEROL (VITAMIN D3) 5,000 UNIT CAPSULE PO SCH (09:03)
[2021-12-05] MEDS: ASPIRIN CHEWABLE 81 MG TABLET. PO SCH (09:03)
[2021-12-05] MEDS: CYANOCOBALAMIN (VITAMIN B-12) 1,000 MCG TABLET. PO SCH (09:03)
[2021-12-05] MEDS: DOXYCYCLINE HYCLATE 100 MG TABLET PO SCH ×2 (09:03→20:30)
[2021-12-05] MEDS: CARVEDILOL 3.125 MG TABLET. PO SCH ×2 (09:04→17:07)
[2021-12-05] MEDS: ZINC SULFATE 220 MG CAPSULE. PO SCH (09:04)
[2021-12-05] MEDS: PANTOPRAZOLE 40 MG TABLET.DR. PO SCH (09:04)
[2021-12-05] MEDS: guaiFENesin DM 200MG/20MG 10 ML SYRUP PO PRN (09:04)
[2021-12-05] MEDS: ASCORBIC ACID 500 MG TABLET PO SCH ×2 (09:04→20:31)
[2021-12-05] MEDS: CALCIUM CARB/VIT D3 500/200 TABLET. PO SCH (09:05)
[2021-12-05] MEDS: cefTRIAXone IV Push 1 GM VIAL. IVP SCH (09:06)
[2021-12-05] MEDS: DEXAMETHASONE SOD PHOS 4 MG/ML VIAL IVP SCH (09:07)
--- NOTE | 2021-12-05 09:39 | PDOC ---
Date of Service: DATE: 12/05/21 TIME: 09:35 Subjective: Subjective: Feels okay. Tried to eat more breakfast today but still doesn't really like it - pancakes and sausage today instead of toast and eggs. No diarrhea, no bleeding. Objective: Vital Signs: Vital Signs Date Time Temp Pulse Resp B/P (MAP) Pulse Ox O2 Delivery O2 Flow Rate FiO2 12/05/21 09:04 62 141/65 12/05/21 07:00 97.8 20 90 NonRebreather Mask 97.8 12/04/21 20:15 15.0 Labs: Laboratory Tests Test 12/04/21 12:03 12/04/21 17:36 12/04/21 19:46 12/05/21 07:44 Glucose (Fingerstick) 226 mg/dL (70-99) 227 mg/dL (70-99) 190 mg/dL (70-99) 111 mg/dL (70-99) PE: GEN: visual exam done in COVID isolation - up in chair today LUNGS: non-rebreather HEART: RR per chart ABD: non-distended NEURO/PSYCH: A & O 3 - seems less frustrated today A/P: COVID pneumonia - increasing O2 requirements H/o colon cancer s/p resection and chemo, current imaging w/ 3cm right hepatic lobe mass Loose stools/blood in stools - resolved, hemoccult negative, Hgb normal Uncontrolled DM -- Supportive care from GI standpoint. Outpt colonoscopy when recovered, along w/ oncology follow-up. Justicifation of Admission Dx: Justifications for Admission: Justification of Admission Dx: Yes SHANTHI FULTON Dec 05, 2021 09:38
[2021-12-05 11:00] VITALS: BP 110/47
--- NOTE | 2021-12-05 14:48 | PDOC ---
[employer] PROGRESS NOTE Date of Service DOS: DATE: 12/05/21 TIME: 14:42 Chief Complaint Chief Complaint Assessment/Plan Acute respiratory failure with hypoxia -likely due to COVID-19. She is unvaccinated. We will initiate standard therapy with remdesivir and Decadron. Will check CRP consider baricitinib or tocilizumab COVID 19 - signs of pneumonia, will treat for secondary bacterial pneumonia likely gram negative given chronic immunosupressed state Diabetes type 2 - with hyperglycemia - not on insulin therapy at home, does not check her blood glucose. Will place on high sliding scale + 13 units 3 times daily with meals and 45 units Lantus nightly based daily need Blood in stool - could be due to diverticular bleed, but concerning with colon ca history. GI to evaluate Liver lesion on CT -right hepatic lobe mass will need f/u with oncology considering her colon ca history Hypertension - cont home meds Colon cancer s/p right hemicolectomy - s/p chemo, says she is remission, doesn't remember her last follow up but does have port care Thrombocytopenia - will monitor while on lovenox ELIAS - Likely vasomotor nephropathy from hyperglycemia, will monitor renal function Severe protein calorie malnutrition - due to COVID 19, will get nutrition Morbid obesity Major depressive disorderdoes not want to take any antidepressants FEN - ADA diet PPX - lovenox FULL CODE Dispo - inpatient History of Present Illness History of Present Illness 66 year old female with history of diabetes type 2, hypertension, colon cancer s/p right hemicolectomy, chemo, who presents to the ED 11/29/2021 c/o a cough for 1 week, dark stools for 3 days, and generalized weakness with shaking for 1 month she notes this is baseline ever since her chemotherapy for colon cancer. Patient denies any abdominal pain. Denies any nausea, vomiting. Denies any fever, chest pain, shortness of breath, patient is slightly poor historian. She does note some blood in her stools. Labs with WBC 6.9, Hb 13.3, platelets 108, NA 134, K4.7, BUN 30, CR 1.6, glucose 445, calcium 8.4 mag 2.4, bilirubin 0.43 AST 46, ALT 50, alk phos 93, sensitivity troponin is 16, NT proBNP 81, albumin 2.9, TSH 0.597, procalcitonin 0.32, lactic acid 1.3, INR 1.1, urinalysis small leuk esterase and blood, fecal occult negative, rapid influenza negative, rapid COVID-19 positive. Chest radiograph with right greater than left pulmonary infiltrates right Port-A-Cath noted. CT abdomen pelvis with no acute abnormality patchy bibasilar opacities noted as well as hepatic steatosis and 3 cm mass in the right hepatic lobe. Admitted for further care. 12/01/2021 No acute events overnight. Patient seen examined bedside. Saturating 90% on 2 L nasal cannula. Blood sugars still in the high 300s to 400s. I will adjust her long-acting Lantus to 30 twice daily with sliding scale and lispro Premeal's at 13 units. 12/02/2021 No acute events overnight. Patient seen and examined bedside. Saturating 92% on 2 L nasal cannula. Not dyspneic during my encounter. Patient requires assistance with feeding and taking her pills. Patient states that if she is depressed. This is the main reason why she is unable to fulfill her medications very likely. When asked which she like to start any antidepressants she says no. She is not having any suicidal thoughts. Patient has not gotten up out of bed on her own as she states that she feels wobbly. Pending PT/OT evaluation. Glucose checks in the last 24 hours are downtrending from 300s to the mid 100s. We will continue with current insulin regimen. Likely will need SNF placement. Patient's chart, labs, images were reviewed and discussed with RN 12/03/2021 No acute events overnight. Patient seen examined bedside. Still requiring 2 L nasal cannula to saturate 91%. Not dyspneic upon my encounter. PT OT recommending SNF placement. Social work consult for coordinating that. Patient definitely needs a lot of motivation and redirection for both her rehabilitation and diabetes medication regimen. 12/04/2021 No acute events overnight. Patient seen examined bedside. Patient having incre asing O2 requirements to 12 L nasal cannula saturating 91%. Depressive mood is affecting her motivation to ambulate. Patient's chart, labs, images were reviewed and discussed with RN 12/05/2021 No acute events overnight. Patient saturating 90% on 15 L nonrebreather and 8 L nasal cannula. Still having major depressive episode which I believe requires pharmacotherapy. I have started her on Ativan and nighttime sertraline. Patient's chart, labs, images were reviewed and discussed with RN Vitals/I&O Vitals/I&O: Vital Signs Date Time Temp Pulse Resp B/P (MAP) Pulse Ox O2 Delivery O2 Flow Rate FiO2 12/05/21 11:00 98.2 70 18 110/47 (68) 90 NonRebreather Mask 98.2 12/05/21 08:00 15.0 I & O 12/04/21 12/04/21 12/05/21 15:00 23:00 07:00 Intake Total 150 ml 0 ml Balance 150 ml 0 ml Physical Exam General: Alert, Oriented X3, Cooperative, moderate distress Abdomen: Normal bowel sounds, Soft, No tenderness, No hepatosplenomegaly, No masses Extremities: No clubbing, No cyanosis, No edema, Normal pulses, No tenderness/swelling Skin: No rashes, No breakdown, No significant lesion Labs Labs: Laboratory Tests Test 12/04/21 17:36 12/04/21 19:46 12/05/21 06:00 12/05/21 07:44 Glucose (Fingerstick) 227 mg/dL (70-99) 190 mg/dL (70-99) 111 mg/dL (70-99) White Blood Count 7.0 x10^3/uL (4.0-11.0) Red Blood Count 4.53 x10^6/uL (3.50-5.40) Hemoglobin 12.3 g/dL (12.0-15.5) Hematocrit 37.9 % (36.0-47.0) Mean Corpuscular Volume 84 fL (79-100) Mean Corpuscular Hemoglobin 27 pg (25-35) Mean Corpuscular Hemoglobin Concent 32 g/dL (31-37) Red Cell Distribution Width 14.9 % (11.5-14.5) Platelet Count 151 x10^3/uL (140-400) Neutrophils (%) (Auto) 76 % (31-73) Lymphocytes (%) (Auto) 15 % (24-48) Monocytes (%) (Auto) 8 % (0-9) Eosinophils (%) (Auto) 0 % (0-3) Basophils (%) (Auto) 0 % (0-3) Neutrophils # (Auto) 5.3 x10^3/uL (1.8-7.7) Lymphocytes # (Auto) 1.0 x10^3/uL (1.0-4.8) Monocytes # (Auto) 0.6 x10^3/uL (0.0-1.1) Eosinophils # (Auto) 0.0 x10^3/uL (0.0-0.7) Basophils # (Auto) 0.0 x10^3/uL (0.0-0.2) Sodium Level 142 mmol/L (136-145) Potassium Level 3.8 mmol/L (3.5-5.1) Chloride Level 110 mmol/L (98-107) Carbon Dioxide Level 24 mmol/L (21-32) Anion Gap 8 (6-14) Blood Urea Nitrogen 19 mg/dL (7-20) Creatinine 1.0 mg/dL (0.6-1.0) Estimated GFR (Cockcroft-Gault) 55.8 Glucose Level 105 mg/dL (70-99) Calcium Level 8.1 mg/dL (8.5-10.1) Test 12/05/21 11:04 Glucose (Fingerstick) 265 mg/dL (70-99) Assessment and Plan Assessmemt and Plan Problems Medical Problems: (1) Acute kidney injury Status: Acute (2) Generalized weakness Status: Acute (3) Lab test positive for detection of COVID-19 virus Status: Acute Comment Review of Relevant I have reviewed the following items casey (where applicable) has been applied. Medications: Current Medications Medications (Trade) Dose Ordered Sig/Andre Route PRN Reason Start Time Stop Time Status Last Admin Dose Admin Potassium Chloride (Klor-Con) 40 meq 1X ONCE PO 12/04/21 19:00 12/04/21 19:01 DC 12/04/21 20:23 Potassium Chloride (Klor-Con) 40 meq 1X ONCE PO 12/05/21 08:00 12/05/21 08:01 DC 12/05/21 09:05 Justifications for Admission Other Justification NIKKI LONDONO MD Dec 05, 2021 14:48
[2021-12-05 15:00] VITALS: BP 139/71
[2021-12-05] MEDS: LORazepam 0.5 MG TABLET PO SCH (15:32)
--- NOTE | 2021-12-05 15:41 | NUR ---
Received patient from room 565 into room 514 at approximately 1430. Patient has flat affect, alert and oriented x 4, oxygen saturation on 15L NRB and 8L NC was 96% and I titrated patient's O2 from 8L NC to 6L NC. Patient had increased respirations. No complaints of pain, decreased room temperature to make patient more comfortable. Patient call light within reach and telephone at bedside. Will continue to monitor.
[2021-12-05 19:00] VITALS: BP 152/72
[2021-12-05] MEDS: SERTRALINE 50 MG TABLET. PO SCH (20:30)
[2021-12-05 23:00] VITALS: BP 147/71
[2021-12-06] MEDS: LORazepam 0.5 MG TABLET PO SCH ×6 (00:11→22:41)
[2021-12-06 03:00] VITALS: BP 154/73
[2021-12-06] MEDS: PANTOPRAZOLE 40 MG TABLET.DR. PO SCH (06:01)
[2021-12-06] MEDS: HEPARIN for SUB-Q USE 5,000 UNIT/ML VIAL. SQ SCH ×3 (06:02→21:35)
[2021-12-06 07:00] VITALS: BP 143/70
[2021-12-06] MEDS: INSULIN LISPRO 300 UNITS/3 ML VIAL. SQ SCH ×6 (08:00→17:07)
[2021-12-06] MEDS: metFORMIN 500 MG TABLET PO SCH ×2 (09:20→17:05)
[2021-12-06] MEDS: DOXYCYCLINE HYCLATE 100 MG TABLET PO SCH (09:20)
[2021-12-06] MEDS: CALCIUM CARB/VIT D3 500/200 TABLET. PO SCH (09:20)
[2021-12-06] MEDS: ASPIRIN CHEWABLE 81 MG TABLET. PO SCH (09:20)
[2021-12-06] MEDS: CHOLECALCIFEROL (VITAMIN D3) 5,000 UNIT CAPSULE PO SCH (09:20)
[2021-12-06] MEDS: ASCORBIC ACID 500 MG TABLET PO SCH ×2 (09:20→20:46)
[2021-12-06] MEDS: ZINC SULFATE 220 MG CAPSULE. PO SCH (09:20)
[2021-12-06] MEDS: CARVEDILOL 3.125 MG TABLET. PO SCH ×2 (09:21→17:05)
[2021-12-06] MEDS: CYANOCOBALAMIN (VITAMIN B-12) 1,000 MCG TABLET. PO SCH (09:21)
[2021-12-06] MEDS: DEXAMETHASONE SOD PHOS 4 MG/ML VIAL IVP SCH (09:21)
[2021-12-06] MEDS: INSULIN GLARGINE SYRINGE. SQ SCH ×2 (09:23→21:35)
--- NOTE | 2021-12-06 10:13 | NUR ---
SW following. Discussed with RN, pt still requiring high levels of oxygen, COVID-19 positive. Not yet ready for discharge. SW will continue to follow.
[2021-12-06 11:00] VITALS: BP 145/68
[2021-12-06 15:00] VITALS: BP 129/68
--- NOTE | 2021-12-06 15:05 | PDOC ---
[employer] [facility] PROGRESS NOTE Date of Service DOS: DATE: 12/06/21 TIME: 15:04 Chief Complaint Chief Complaint Assessment/Plan Acute respiratory failure with hypoxia -likely due to COVID-19. She is unvaccinated. We will initiate standard therapy with remdesivir and Decadron. Will check CRP consider baricitinib or tocilizumab COVID 19 - signs of pneumonia, will treat for secondary bacterial pneumonia likely gram negative given chronic immunosupressed state Diabetes type 2 - with hyperglycemia - not on insulin therapy at home, does not check her blood glucose. Will place on high sliding scale + 13 units 3 times daily with meals and 45 units Lantus nightly based daily need Blood in stool - could be due to diverticular bleed, but concerning with colon ca history. GI to evaluate Liver lesion on CT -right hepatic lobe mass will need f/u with oncology considering her colon ca history Hypertension - cont home meds Colon cancer s/p right hemicolectomy - s/p chemo, says she is remission, doesn't remember her last follow up but does have port care Thrombocytopenia - will monitor while on lovenox ELIAS - Likely vasomotor nephropathy from hyperglycemia, will monitor renal function Severe protein calorie malnutrition - due to COVID 19, will get nutrition Morbid obesity Major depressive disorderdoes not want to take any antidepressants FEN - ADA diet PPX - lovenox FULL CODE Dispo - inpatient History of Present Illness History of Present Illness 66 year old female with history of diabetes type 2, hypertension, colon cancer s/p right hemicolectomy, chemo, who presents to the ED 11/29/2021 c/o a cough for 1 week, dark stools for 3 days, and generalized weakness with shaking for 1 month she notes this is baseline ever since her chemotherapy for colon cancer. Patient denies any abdominal pain. Denies any nausea, vomiting. Denies any fever, chest pain, shortness of breath, patient is slightly poor historian. She does note some blood in her stools. Labs with WBC 6.9, Hb 13.3, platelets 108, NA 134, K4.7, BUN 30, CR 1.6, glucose 445, calcium 8.4 mag 2.4, bilirubin 0.43 AST 46, ALT 50, alk phos 93, sensitivity troponin is 16, NT proBNP 81, albumin 2.9, TSH 0.597, procalcitonin 0.32, lactic acid 1.3, INR 1.1, urinalysis small leuk esterase and blood, fecal occult negative, rapid influenza negative, rapid COVID-19 positive. Chest radiograph with right greater than left pulmonary infiltrates right Port-A-Cath noted. CT abdomen pelvis with no acute abnormality patchy bibasilar opacities noted as well as hepatic steatosis and 3 cm mass in the right hepatic lobe. Admitted for further care. 12/01/2021 No acute events overnight. Patient seen examined bedside. Saturating 90% on 2 L nasal cannula. Blood sugars still in the high 300s to 400s. I will adjust her long-acting Lantus to 30 twice daily with sliding scale and lispro Premeal's at 13 units. 12/02/2021 No acute events overnight. Patient seen and examined bedside. Saturating 92% on 2 L nasal cannula. Not dyspneic during my encounter. Patient requires assistance with feeding and taking her pills. Patient states that if she is depressed. This is the main reason why she is unable to fulfill her medications very likely. When asked which she like to start any antidepressants she says no. She is not having any suicidal thoughts. Patient has not gotten up out of bed on her own as she states that she feels wobbly. Pending PT/OT evaluation. Glucose checks in the last 24 hours are downtrending from 300s to the mid 100s. We will continue with current insulin regimen. Likely will need SNF placement. Patient's chart, labs, images were reviewed and discussed with RN 12/03/2021 No acute events overnight. Patient seen examined bedside. Still requiring 2 L nasal cannula to saturate 91%. Not dyspneic upon my encounter. PT OT recommending SNF placement. Social work consult for coordinating that. Patient definitely needs a lot of motivation and redirection for both her rehabilitation and diabetes medication regimen. 12/04/2021 No acute events overnight. Patient seen examined bedside. Patient having incre asing O2 requirements to 12 L nasal cannula saturating 91%. Depressive mood is affecting her motivation to ambulate. Patient's chart, labs, images were reviewed and discussed with RN 12/05/2021 No acute events overnight. Patient saturating 90% on 15 L nonrebreather and 8 L nasal cannula. Still having major depressive episode which I believe requires pharmacotherapy. I have started her on Ativan and nighttime sertraline. Patient's chart, labs, images were reviewed and discussed with RN 12/06/2021 No acute events overnight. Patient is seen examined bedside. Patient saturating 95% on 10 L nonrebreather. Not dyspneic upon my encounter. Patient's chart, labs, images were reviewed and discussed with RN Vitals/I&O Vitals/I&O: Vital Signs Date Time Temp Pulse Resp B/P (MAP) Pulse Ox O2 Delivery O2 Flow Rate FiO2 12/06/21 11:00 98.2 65 19 145/68 (93) 93 NonRebreather Mask 10.0 98.2 I & O 12/05/21 12/05/21 12/06/21 15:00 23:00 07:00 Intake Total 240 ml 0 ml Balance 240 ml 0 ml Physical Exam General: Alert, Oriented X3, Cooperative, moderate distress Abdomen: Normal bowel sounds, Soft, No tenderness, No hepatosplenomegaly, No masses Extremities: No clubbing, No cyanosis, No edema, Normal pulses, No tenderness/swelling Skin: No rashes, No breakdown, No significant lesion Labs Labs: Laboratory Tests Test 12/05/21 16:46 12/05/21 20:03 12/06/21 08:24 12/06/21 11:38 Glucose (Fingerstick) 224 mg/dL (70-99) 198 mg/dL (70-99) 142 mg/dL (70-99) 269 mg/dL (70-99) Assessment and Plan Assessmemt and Plan Problems Medical Problems: (1) Acute kidney injury Status: Acute (2) Generalized weakness Status: Acute (3) Lab test positive for detection of COVID-19 virus Status: Acute Comment Review of Relevant I have reviewed the following items casey (where applicable) has been applied. Medications: Current Medications Medications (Trade) Dose Ordered Sig/Andre Route PRN Reason Start Time Stop Time Status Last Admin Dose Admin Sertraline HCl (Zoloft) 50 mg QHS PO 12/05/21 21:00 12/05/21 20:30 Justifications for Admission Other Justification NIKKI LONDONO MD Dec 06, 2021 15:05
[2021-12-06 19:00] VITALS: BP 142/86
[2021-12-06] MEDS: SERTRALINE 50 MG TABLET. PO SCH (20:46)
[2021-12-06 23:05] VITALS: BP 143/64
[2021-12-07 03:14] VITALS: BP 165/70
[2021-12-07] MEDS: LORazepam 0.5 MG TABLET PO SCH ×3 (05:10→17:14)
[2021-12-07] MEDS: HEPARIN for SUB-Q USE 5,000 UNIT/ML VIAL. SQ SCH ×3 (05:13→22:12)
[2021-12-07 07:00] VITALS: BP 138/67
[2021-12-07] MEDS: INSULIN LISPRO 300 UNITS/3 ML VIAL. SQ SCH ×6 (08:00→17:18)
--- NOTE | 2021-12-07 08:29 | RAD ---
EXAM: Chest, single view. HISTORY: Hypoxia. COMPARISON: 11/29/2021 FINDINGS: A frontal view of the chest is obtained. There has been interval increase in partially cons olidated right lower lobe infiltrate superimposed on diffuse interstitial and alveolar infiltrate. Th e heart is normal in size. There is a port catheter with the tip in the superior vena cava. There is no pleural effusion or pneumothorax. IMPRESSION: Increase in partially consolidated right lower lobe infiltrate superimposed on stable dif fuse interstitial and alveolar infiltrate. Electronically signed by: Marina Muñoz MD (12/07/2021 8:26 AM) [id number]
[2021-12-07] MEDS: PANTOPRAZOLE 40 MG TABLET.DR. PO SCH (08:48)
[2021-12-07] MEDS: ASPIRIN CHEWABLE 81 MG TABLET. PO SCH (08:48)
[2021-12-07] MEDS: CHOLECALCIFEROL (VITAMIN D3) 5,000 UNIT CAPSULE PO SCH (08:48)
[2021-12-07] MEDS: DEXAMETHASONE SOD PHOS 4 MG/ML VIAL IVP SCH (08:48)
[2021-12-07] MEDS: ASCORBIC ACID 500 MG TABLET PO SCH ×2 (08:48→21:00)
[2021-12-07] MEDS: ZINC SULFATE 220 MG CAPSULE. PO SCH (08:48)
[2021-12-07] MEDS: metFORMIN 500 MG TABLET PO SCH ×2 (08:48→17:14)
[2021-12-07] MEDS: CALCIUM CARB/VIT D3 500/200 TABLET. PO SCH (08:48)
[2021-12-07] MEDS: CYANOCOBALAMIN (VITAMIN B-12) 1,000 MCG TABLET. PO SCH (08:48)
[2021-12-07] MEDS: CARVEDILOL 3.125 MG TABLET. PO SCH ×2 (08:49→17:16)
[2021-12-07] MEDS: INSULIN GLARGINE SYRINGE. SQ SCH ×2 (08:49→21:01)
[2021-12-07 11:00] VITALS: BP 159/74
--- NOTE | 2021-12-07 13:25 | PDOC ---
[employer] [facility] PROGRESS NOTE Date of Service DOS: DATE: 12/07/21 TIME: 13:23 Chief Complaint Chief Complaint Assessment/Plan Acute respiratory failure with hypoxia -likely due to COVID-19. She is unvaccinated. We will initiate standard therapy with remdesivir and Decadron. Will check CRP consider baricitinib or tocilizumab COVID 19 - signs of pneumonia, will treat for secondary bacterial pneumonia likely gram negative given chronic immunosupressed state Diabetes type 2 - with hyperglycemia - not on insulin therapy at home, does not check her blood glucose. Will place on high sliding scale + 13 units 3 times daily with meals and 45 units Lantus nightly based daily need Blood in stool - could be due to diverticular bleed, but concerning with colon ca history. GI to evaluate Liver lesion on CT -right hepatic lobe mass will need f/u with oncology considering her colon ca history Hypertension - cont home meds Colon cancer s/p right hemicolectomy - s/p chemo, says she is remission, doesn't remember her last follow up but does have port care Thrombocytopenia - will monitor while on lovenox ELIAS - Likely vasomotor nephropathy from hyperglycemia, will monitor renal function Severe protein calorie malnutrition - due to COVID 19, will get nutrition Morbid obesity Major depressive disorderdoes not want to take any antidepressants FEN - ADA diet PPX - lovenox FULL CODE Dispo - inpatient History of Present Illness History of Present Illness 66 year old female with history of diabetes type 2, hypertension, colon cancer s/p right hemicolectomy, chemo, who presents to the ED 11/29/2021 c/o a cough for 1 week, dark stools for 3 days, and generalized weakness with shaking for 1 month she notes this is baseline ever since her chemotherapy for colon cancer. Patient denies any abdominal pain. Denies any nausea, vomiting. Denies any fever, chest pain, shortness of breath, patient is slightly poor historian. She does note some blood in her stools. Labs with WBC 6.9, Hb 13.3, platelets 108, NA 134, K4.7, BUN 30, CR 1.6, glucose 445, calcium 8.4 mag 2.4, bilirubin 0.43 AST 46, ALT 50, alk phos 93, sensitivity troponin is 16, NT proBNP 81, albumin 2.9, TSH 0.597, procalcitonin 0.32, lactic acid 1.3, INR 1.1, urinalysis small leuk esterase and blood, fecal occult negative, rapid influenza negative, rapid COVID-19 positive. Chest radiograph with right greater than left pulmonary infiltrates right Port-A-Cath noted. CT abdomen pelvis with no acute abnormality patchy bibasilar opacities noted as well as hepatic steatosis and 3 cm mass in the right hepatic lobe. Admitted for further care. 12/01/2021 No acute events overnight. Patient seen examined bedside. Saturating 90% on 2 L nasal cannula. Blood sugars still in the high 300s to 400s. I will adjust her long-acting Lantus to 30 twice daily with sliding scale and lispro Premeal's at 13 units. 12/02/2021 No acute events overnight. Patient seen and examined bedside. Saturating 92% on 2 L nasal cannula. Not dyspneic during my encounter. Patient requires assistance with feeding and taking her pills. Patient states that if she is depressed. This is the main reason why she is unable to fulfill her medications very likely. When asked which she like to start any antidepressants she says no. She is not having any suicidal thoughts. Patient has not gotten up out of bed on her own as she states that she feels wobbly. Pending PT/OT evaluation. Glucose checks in the last 24 hours are downtrending from 300s to the mid 100s. We will continue with current insulin regimen. Likely will need SNF placement. Patient's chart, labs, images were reviewed and discussed with RN 12/03/2021 No acute events overnight. Patient seen examined bedside. Still requiring 2 L nasal cannula to saturate 91%. Not dyspneic upon my encounter. PT OT recommending SNF placement. Social work consult for coordinating that. Patient definitely needs a lot of motivation and redirection for both her rehabilitation and diabetes medication regimen. 12/04/2021 No acute events overnight. Patient seen examined bedside. Patient having incre asing O2 requirements to 12 L nasal cannula saturating 91%. Depressive mood is affecting her motivation to ambulate. Patient's chart, labs, images were reviewed and discussed with RN 12/05/2021 No acute events overnight. Patient saturating 90% on 15 L nonrebreather and 8 L nasal cannula. Still having major depressive episode which I believe requires pharmacotherapy. I have started her on Ativan and nighttime sertraline. Patient's chart, labs, images were reviewed and discussed with RN 12/06/2021 No acute events overnight. Patient is seen examined bedside. Patient saturating 95% on 10 L nonrebreather. Not dyspneic upon my encounter. Patient's chart, labs, images were reviewed and discussed with RN 12/07/2021 No acute events overnight. Patient seen and examined bedside. Mood improved. Saturating well on 93% 10 L nasal cannula. Not dyspneic upon my encounter. Patient's chart, labs, images were reviewed and discussed with RN Vitals/I&O Vitals/I&O: Vital Signs Date Time Temp Pulse Resp B/P (MAP) Pulse Ox O2 Delivery O2 Flow Rate FiO2 12/07/21 11:00 98.0 66 20 159/74 (102) 94 Nasal Cannula 13.0 98.0 I & O 12/06/21 12/06/21 12/07/21 15:00 23:00 07:00 Intake Total 660 ml Output Total 0 ml Balance 660 ml 0 ml Physical Exam General: Alert, Oriented X3, Cooperative, moderate distress Abdomen: Normal bowel sounds, Soft, No tenderness, No hepatosplenomegaly, No masses Extremities: No clubbing, No cyanosis, No edema, Normal pulses, No tenderness/swelling Skin: No rashes, No breakdown, No significant lesion Labs Labs: Laboratory Tests Test 12/06/21 16:56 12/06/21 20:44 12/07/21 08:36 12/07/21 11:50 Glucose (Fingerstick) 196 mg/dL (70-99) 185 mg/dL (70-99) 98 mg/dL (70-99) 250 mg/dL (70-99) Assessment and Plan Assessmemt and Plan Problems Medical Problems: (1) Acute kidney injury Status: Acute (2) Generalized weakness Status: Acute (3) Lab test positive for detection of COVID-19 virus Status: Acute Comment Review of Relevant I have reviewed the following items casey (where applicable) has been applied. Justifications for Admission Other Justification NIKKI LONDONO MD Dec 07, 2021 13:25
[2021-12-07 15:00] VITALS: BP 118/58
[2021-12-07 19:00] VITALS: BP 147/73
[2021-12-07] MEDS: SERTRALINE 50 MG TABLET. PO SCH (21:00)
[2021-12-07 23:09] VITALS: BP 134/66
[2021-12-08 03:32] VITALS: BP 145/70
[2021-12-08] MEDS: LORazepam 0.5 MG TABLET PO SCH ×4 (05:50→17:49)
[2021-12-08] MEDS: HEPARIN for SUB-Q USE 5,000 UNIT/ML VIAL. SQ SCH ×3 (05:52→21:05)
[2021-12-08 07:00] VITALS: BP 165/75
[2021-12-08] MEDS: INSULIN LISPRO 300 UNITS/3 ML VIAL. SQ SCH ×6 (08:00→17:49)
[2021-12-08] MEDS: CYANOCOBALAMIN (VITAMIN B-12) 1,000 MCG TABLET. PO SCH (09:22)
[2021-12-08] MEDS: PANTOPRAZOLE 40 MG TABLET.DR. PO SCH (09:22)
[2021-12-08] MEDS: CALCIUM CARB/VIT D3 500/200 TABLET. PO SCH (09:22)
[2021-12-08] MEDS: ASCORBIC ACID 500 MG TABLET PO SCH ×2 (09:22→21:03)
[2021-12-08] MEDS: ZINC SULFATE 220 MG CAPSULE. PO SCH (09:22)
[2021-12-08] MEDS: CARVEDILOL 3.125 MG TABLET. PO SCH ×2 (09:22→17:50)
[2021-12-08] MEDS: CHOLECALCIFEROL (VITAMIN D3) 5,000 UNIT CAPSULE PO SCH (09:22)
[2021-12-08] MEDS: ASPIRIN CHEWABLE 81 MG TABLET. PO SCH (09:22)
[2021-12-08] MEDS: metFORMIN 500 MG TABLET PO SCH ×2 (09:22→17:49)
[2021-12-08] MEDS: DEXAMETHASONE SOD PHOS 4 MG/ML VIAL IVP SCH (09:23)
[2021-12-08] MEDS: INSULIN GLARGINE SYRINGE. SQ SCH ×2 (09:24→21:04)
[2021-12-08 11:00] VITALS: BP 132/55
--- NOTE | 2021-12-08 11:17 | PDOC ---
[facility] PROGRESS NOTE Date of Service DOS: DATE: 12/08/21 TIME: 11:17 Chief Complaint Chief Complaint Assessment/Plan Acute respiratory failure with hypoxia -likely due to COVID-19. She is unvaccinated. We will initiate standard therapy with remdesivir and Decadron. Will check CRP consider baricitinib or tocilizumab COVID 19 - signs of pneumonia, will treat for secondary bacterial pneumonia likely gram negative given chronic immunosupressed state Diabetes type 2 - with hyperglycemia - not on insulin therapy at home, does not check her blood glucose. Will place on high sliding scale + 13 units 3 times daily with meals and 45 units Lantus nightly based daily need Blood in stool - could be due to diverticular bleed, but concerning with colon ca history. GI to evaluate Liver lesion on CT -right hepatic lobe mass will need f/u with oncology considering her colon ca history Hypertension - cont home meds Colon cancer s/p right hemicolectomy - s/p chemo, says she is remission, doesn't remember her last follow up but does have port care Thrombocytopenia - will monitor while on lovenox ELIAS - Likely vasomotor nephropathy from hyperglycemia, will monitor renal function Severe protein calorie malnutrition - due to COVID 19, will get nutrition Morbid obesity Major depressive disorderdoes not want to take any antidepressants FEN - ADA diet PPX - lovenox FULL CODE Dispo - inpatient History of Present Illness History of Present Illness 66 year old female with history of diabetes type 2, hypertension, colon cancer s/p right hemicolectomy, chemo, who presents to the ED 11/29/2021 c/o a cough for 1 week, dark stools for 3 days, and generalized weakness with shaking for 1 month she notes this is baseline ever since her chemotherapy for colon cancer. Patient denies any abdominal pain. Denies any nausea, vomiting. Denies any fever, chest pain, shortness of breath, patient is slightly poor historian. She does note some blood in her stools. Labs with WBC 6.9, Hb 13.3, platelets 108, NA 134, K4.7, BUN 30, CR 1.6, glucose 445, calcium 8.4 mag 2.4, bilirubin 0.43 AST 46, ALT 50, alk phos 93, sensitivity troponin is 16, NT proBNP 81, albumin 2.9, TSH 0.597, procalcitonin 0.32, lactic acid 1.3, INR 1.1, urinalysis small leuk esterase and blood, fecal occult negative, rapid influenza negative, rapid COVID-19 positive. Chest radiograph with right greater than left pulmonary infiltrates right Port-A-Cath noted. CT abdomen pelvis with no acute abnormality patchy bibasilar opacities noted as well as hepatic steatosis and 3 cm mass in the right hepatic lobe. Admitted for further care. 12/01/2021 No acute events overnight. Patient seen examined bedside. Saturating 90% on 2 L nasal cannula. Blood sugars still in the high 300s to 400s. I will adjust her long-acting Lantus to 30 twice daily with sliding scale and lispro Premeal's at 13 units. 12/02/2021 No acute events overnight. Patient seen and examined bedside. Saturating 92% on 2 L nasal cannula. Not dyspneic during my encounter. Patient requires assistance with feeding and taking her pills. Patient states that if she is depressed. This is the main reason why she is unable to fulfill her medications very likely. When asked which she like to start any antidepressants she says no. She is not having any suicidal thoughts. Patient has not gotten up out of bed on her own as she states that she feels wobbly. Pending PT/OT evaluation. Glucose checks in the last 24 hours are downtrending from 300s to the mid 100s. We will continue with current insulin regimen. Likely will need SNF placement. Patient's chart, labs, images were reviewed and discussed with RN 12/03/2021 No acute events overnight. Patient seen examined bedside. Still requiring 2 L nasal cannula to saturate 91%. Not dyspneic upon my encounter. PT OT recommending SNF placement. Social work consult for coordinating that. Patient definitely needs a lot of motivation and redirection for both her rehabilitation and diabetes medication regimen. 12/04/2021 No acute events overnight. Patient seen examined bedside. Patient having incre asing O2 requirements to 12 L nasal cannula saturating 91%. Depressive mood is affecting her motivation to ambulate. Patient's chart, labs, images were reviewed and discussed with RN 12/05/2021 No acute events overnight. Patient saturating 90% on 15 L nonrebreather and 8 L nasal cannula. Still having major depressive episode which I believe requires pharmacotherapy. I have started her on Ativan and nighttime sertraline. Patient's chart, labs, images were reviewed and discussed with RN 12/06/2021 No acute events overnight. Patient is seen examined bedside. Patient saturating 95% on 10 L nonrebreather. Not dyspneic upon my encounter. Patient's chart, labs, images were reviewed and discussed with RN 12/07/2021 No acute events overnight. Patient seen and examined bedside. Mood improved. Saturating well on 93% 10 L nasal cannula. Not dyspneic upon my encounter. Patient's chart, labs, images were reviewed and discussed with RN 12/08/2021 No acute events overnight. Patient seen and examined bedside. Saturating 91 % on 10 L nasal cannula. Not dyspneic upon my encounter. Patient's chart, labs, images were reviewed and discussed with RN Vitals/I&O Vitals/I&O: Vital Signs Date Time Temp Pulse Resp B/P (MAP) Pulse Ox O2 Delivery O2 Flow Rate FiO2 12/08/21 09:22 65 165/75 12/08/21 08:00 Nasal Cannula 10.0 12/08/21 07:00 97.9 18 90 97.9 I & O 12/07/21 12/07/21 12/08/21 15:00 23:00 07:00 Intake Total 360 ml Output Total 0 ml 0 ml Balance 360 ml 0 ml Physical Exam General: Alert, Oriented X3, Cooperative, moderate distress Abdomen: Normal bowel sounds, Soft, No tenderness, No hepatosplenomegaly, No masses Extremities: No clubbing, No cyanosis, No edema, Normal pulses, No tenderness/swelling Skin: No rashes, No breakdown, No significant lesion Labs Labs: Laboratory Tests Test 12/07/21 11:50 12/07/21 17:03 12/07/21 20:25 12/08/21 07:53 Glucose (Fingerstick) 250 mg/dL (70-99) 277 mg/dL (70-99) 213 mg/dL (70-99) 123 mg/dL (70-99) Assessment and Plan Assessmemt and Plan Problems Medical Problems: (1) Acute kidney injury Status: Acute (2) Generalized weakness Status: Acute (3) Lab test positive for detection of COVID-19 virus Status: Acute Comment Review of Relevant I have reviewed the following items casey (where applicable) has been applied. Justifications for Admission Other Justification NIKKI LONDONO MD Dec 08, 2021 11:17
--- NOTE | 2021-12-08 12:38 | NUR ---
SW following. Discussed with RN, pt from home with daughter, 8L, COVID-19 positive. Pt will need a 6 minute walk prior to discharge. SW will continue to follow.
[2021-12-08 15:00] VITALS: BP 128/69
[2021-12-08 19:00] VITALS: BP 143/56
[2021-12-08] MEDS: SERTRALINE 50 MG TABLET. PO SCH (21:03)
[2021-12-08 23:05] VITALS: BP 150/71
[2021-12-09 03:18] VITALS: BP 136/67
[2021-12-09] MEDS: LORazepam 0.5 MG TABLET PO SCH ×4 (06:00→17:32)
[2021-12-09] MEDS: HEPARIN for SUB-Q USE 5,000 UNIT/ML VIAL. SQ SCH ×3 (06:03→22:15)
[2021-12-09 07:00] VITALS: BP 118/59
[2021-12-09] MEDS: PANTOPRAZOLE 40 MG TABLET.DR. PO SCH (07:04)
[2021-12-09] MEDS: INSULIN LISPRO 300 UNITS/3 ML VIAL. SQ SCH ×6 (08:00→17:29)
[2021-12-09] MEDS: CYANOCOBALAMIN (VITAMIN B-12) 1,000 MCG TABLET. PO SCH (09:16)
[2021-12-09] MEDS: ASCORBIC ACID 500 MG TABLET PO SCH ×2 (09:16→22:12)
[2021-12-09] MEDS: metFORMIN 500 MG TABLET PO SCH ×2 (09:16→17:22)
[2021-12-09] MEDS: ZINC SULFATE 220 MG CAPSULE. PO SCH (09:16)
[2021-12-09] MEDS: CARVEDILOL 3.125 MG TABLET. PO SCH ×2 (09:17→17:22)
[2021-12-09] MEDS: CALCIUM CARB/VIT D3 500/200 TABLET. PO SCH (09:17)
[2021-12-09] MEDS: ASPIRIN CHEWABLE 81 MG TABLET. PO SCH (09:17)
[2021-12-09] MEDS: CHOLECALCIFEROL (VITAMIN D3) 5,000 UNIT CAPSULE PO SCH (09:18)
[2021-12-09] MEDS: INSULIN GLARGINE SYRINGE. SQ SCH ×2 (09:21→22:14)
[2021-12-09 11:00] VITALS: BP 117/59
--- NOTE | 2021-12-09 11:00 | PDOC ---
[facility] PROGRESS NOTE Date of Service DOS: DATE: 12/09/21 TIME: 10:57 Chief Complaint Chief Complaint Assessment/Plan Acute respiratory failure with hypoxia -likely due to COVID-19. She is unvaccinated. We will initiate standard therapy with remdesivir and Decadron. Will check CRP consider baricitinib or tocilizumab COVID 19 - signs of pneumonia, will treat for secondary bacterial pneumonia likely gram negative given chronic immunosupressed state Diabetes type 2 - with hyperglycemia - not on insulin therapy at home, does not check her blood glucose. Will place on high sliding scale + 13 units 3 times daily with meals and 45 units Lantus nightly based daily need Blood in stool - could be due to diverticular bleed, but concerning with colon ca history. GI to evaluate Liver lesion on CT -right hepatic lobe mass will need f/u with oncology considering her colon ca history Hypertension - cont home meds Colon cancer s/p right hemicolectomy - s/p chemo, says she is remission, doesn't remember her last follow up but does have port care Thrombocytopenia - will monitor while on lovenox ELIAS - Likely vasomotor nephropathy from hyperglycemia, will monitor renal function Severe protein calorie malnutrition - due to COVID 19, will get nutrition Morbid obesity Major depressive disorderdoes not want to take any antidepressants FEN - ADA diet PPX - lovenox FULL CODE Dispo - inpatient History of Present Illness History of Present Illness 66 year old female with history of diabetes type 2, hypertension, colon cancer s/p right hemicolectomy, chemo, who presents to the ED 11/29/2021 c/o a cough for 1 week, dark stools for 3 days, and generalized weakness with shaking for 1 month she notes this is baseline ever since her chemotherapy for colon cancer. Patient denies any abdominal pain. Denies any nausea, vomiting. Denies any fever, chest pain, shortness of breath, patient is slightly poor historian. She does note some blood in her stools. Labs with WBC 6.9, Hb 13.3, platelets 108, NA 134, K4.7, BUN 30, CR 1.6, glucose 445, calcium 8.4 mag 2.4, bilirubin 0.43 AST 46, ALT 50, alk phos 93, sensitivity troponin is 16, NT proBNP 81, albumin 2.9, TSH 0.597, procalcitonin 0.32, lactic acid 1.3, INR 1.1, urinalysis small leuk esterase and blood, fecal occult negative, rapid influenza negative, rapid COVID-19 positive. Chest radiograph with right greater than left pulmonary infiltrates right Port-A-Cath noted. CT abdomen pelvis with no acute abnormality patchy bibasilar opacities noted as well as hepatic steatosis and 3 cm mass in the right hepatic lobe. Admitted for further care. 12/01/2021 No acute events overnight. Patient seen examined bedside. Saturating 90% on 2 L nasal cannula. Blood sugars still in the high 300s to 400s. I will adjust her long-acting Lantus to 30 twice daily with sliding scale and lispro Premeal's at 13 units. 12/02/2021 No acute events overnight. Patient seen and examined bedside. Saturating 92% on 2 L nasal cannula. Not dyspneic during my encounter. Patient requires assistance with feeding and taking her pills. Patient states that if she is depressed. This is the main reason why she is unable to fulfill her medications very likely. When asked which she like to start any antidepressants she says no. She is not having any suicidal thoughts. Patient has not gotten up out of bed on her own as she states that she feels wobbly. Pending PT/OT evaluation. Glucose checks in the last 24 hours are downtrending from 300s to the mid 100s. We will continue with current insulin regimen. Likely will need SNF placement. Patient's chart, labs, images were reviewed and discussed with RN 12/03/2021 No acute events overnight. Patient seen examined bedside. Still requiring 2 L nasal cannula to saturate 91%. Not dyspneic upon my encounter. PT OT recommending SNF placement. Social work consult for coordinating that. Patient definitely needs a lot of motivation and redirection for both her rehabilitation and diabetes medication regimen. 12/04/2021 No acute events overnight. Patient seen examined bedside. Patient having incre asing O2 requirements to 12 L nasal cannula saturating 91%. Depressive mood is affecting her motivation to ambulate. Patient's chart, labs, images were reviewed and discussed with RN 12/05/2021 No acute events overnight. Patient saturating 90% on 15 L nonrebreather and 8 L nasal cannula. Still having major depressive episode which I believe requires pharmacotherapy. I have started her on Ativan and nighttime sertraline. Patient's chart, labs, images were reviewed and discussed with RN 12/06/2021 No acute events overnight. Patient is seen examined bedside. Patient saturating 95% on 10 L nonrebreather. Not dyspneic upon my encounter. Patient's chart, labs, images were reviewed and discussed with RN 12/07/2021 No acute events overnight. Patient seen and examined bedside. Mood improved. Saturating well on 93% 10 L nasal cannula. Not dyspneic upon my encounter. Patient's chart, labs, images were reviewed and discussed with RN 12/08/2021 No acute events overnight. Patient seen and examined bedside. Saturating 91 % on 10 L nasal cannula. Not dyspneic upon my encounter. Patient's chart, labs, images were reviewed and discussed with RN 12/09/2021 No acute events overnight. Patient seen examined bedside. AF and VSS. Saturating 91% on 8 L nasal cannula. Not dyspneic at this time. Anticipate discharge in the next 24 to 40 hours if there is marked improvement. Patient's chart, labs, images were reviewed and discussed with RN Vitals/I&O Vitals/I&O: Vital Signs Date Time Temp Pulse Resp B/P (MAP) Pulse Ox O2 Delivery O2 Flow Rate FiO2 12/09/21 09:17 64 118/59 12/09/21 08:12 Nasal Cannula 8.0 12/09/21 07:00 98.0 19 91 98.0 I & O 12/08/21 12/08/21 12/09/21 15:00 23:00 07:00 Intake Total 360 ml Output Total 0 ml Balance 360 ml 0 ml Physical Exam General: Alert, Oriented X3, Cooperative, moderate distress Abdomen: Normal bowel sounds, Soft, No tenderness, No hepatosplenomegaly, No masses Extremities: No clubbing, No cyanosis, No edema, Normal pulses, No tenderness/swelling Skin: No rashes, No breakdown, No significant lesion Labs Labs: Laboratory Tests Test 12/08/21 12:51 12/08/21 17:29 12/08/21 20:15 12/09/21 08:04 Glucose (Fingerstick) 224 mg/dL (70-99) 223 mg/dL (70-99) 188 mg/dL (70-99) 118 mg/dL (70-99) Assessment and Plan Assessmemt and Plan Problems Medical Problems: (1) Acute kidney injury Status: Acute (2) Generalized weakness Status: Acute (3) Lab test positive for detection of COVID-19 virus Status: Acute Comment Review of Relevant I have reviewed the following items casey (where applicable) has been applied. Justifications for Admission Other Justification NIKKI LONDONO MD Dec 09, 2021 11:00
[2021-12-09 15:00] VITALS: BP 119/54
[2021-12-09 19:00] VITALS: BP 138/57
[2021-12-09] MEDS: SERTRALINE 50 MG TABLET. PO SCH (22:13)
[2021-12-09 23:00] VITALS: BP 111/58
[2021-12-10] MEDS: LORazepam 0.5 MG TABLET PO SCH ×4 (00:26→17:10)
[2021-12-10 03:00] VITALS: BP 124/60
[2021-12-10] MEDS: HEPARIN for SUB-Q USE 5,000 UNIT/ML VIAL. SQ SCH ×3 (06:14→21:50)
[2021-12-10 07:00] VITALS: BP 112/61
[2021-12-10] MEDS: ASPIRIN CHEWABLE 81 MG TABLET. PO SCH (08:31)
[2021-12-10] MEDS: CHOLECALCIFEROL (VITAMIN D3) 5,000 UNIT CAPSULE PO SCH (08:31)
[2021-12-10] MEDS: CYANOCOBALAMIN (VITAMIN B-12) 1,000 MCG TABLET. PO SCH (08:31)
[2021-12-10] MEDS: metFORMIN 500 MG TABLET PO SCH ×2 (08:31→17:00)
[2021-12-10] MEDS: CALCIUM CARB/VIT D3 500/200 TABLET. PO SCH (08:31)
[2021-12-10] MEDS: ZINC SULFATE 220 MG CAPSULE. PO SCH (08:31)
[2021-12-10] MEDS: ASCORBIC ACID 500 MG TABLET PO SCH ×2 (08:32→21:52)
[2021-12-10] MEDS: PANTOPRAZOLE 40 MG TABLET.DR. PO SCH (08:32)
[2021-12-10] MEDS: INSULIN GLARGINE SYRINGE. SQ SCH ×2 (08:33→21:51)
[2021-12-10] MEDS: INSULIN LISPRO 300 UNITS/3 ML VIAL. SQ SCH ×6 (08:34→17:00)
[2021-12-10] MEDS: CARVEDILOL 3.125 MG TABLET. PO SCH ×2 (08:35→17:14)
[2021-12-10 11:00] VITALS: BP 142/67
--- NOTE | 2021-12-10 12:26 | PDOC ---
[facility] [facility] PROGRESS NOTE Date of Service DOS: DATE: 12/10/21 TIME: 12:23 Chief Complaint Chief Complaint Assessment/Plan Acute respiratory failure with hypoxia -likely due to COVID-19. She is unvaccinated. We will initiate standard therapy with remdesivir and Decadron. Will check CRP consider baricitinib or tocilizumab COVID 19 - signs of pneumonia, will treat for secondary bacterial pneumonia likely gram negative given chronic immunosupressed state Diabetes type 2 - with hyperglycemia - not on insulin therapy at home, does not check her blood glucose. Will place on high sliding scale + 13 units 3 times daily with meals and 45 units Lantus nightly based daily need Blood in stool - could be due to diverticular bleed, but concerning with colon ca history. GI to evaluate Liver lesion on CT -right hepatic lobe mass will need f/u with oncology considering her colon ca history Hypertension - cont home meds Colon cancer s/p right hemicolectomy - s/p chemo, says she is remission, doesn't remember her last follow up but does have port care Thrombocytopenia - will monitor while on lovenox ELIAS - Likely vasomotor nephropathy from hyperglycemia, will monitor renal function Severe protein calorie malnutrition - due to COVID 19, will get nutrition Morbid obesity Major depressive disorderdoes not want to take any antidepressants FEN - ADA diet PPX - lovenox FULL CODE Dispo - inpatient History of Present Illness History of Present Illness 66 year old female with history of diabetes type 2, hypertension, colon cancer s/p right hemicolectomy, chemo, who presents to the ED 11/29/2021 c/o a cough for 1 week, dark stools for 3 days, and generalized weakness with shaking for 1 month she notes this is baseline ever since her chemotherapy for colon cancer. Patient denies any abdominal pain. Denies any nausea, vomiting. Denies any fever, chest pain, shortness of breath, patient is slightly poor historian. She does note some blood in her stools. Labs with WBC 6.9, Hb 13.3, platelets 108, NA 134, K4.7, BUN 30, CR 1.6, glucose 445, calcium 8.4 mag 2.4, bilirubin 0.43 AST 46, ALT 50, alk phos 93, sensitivity troponin is 16, NT proBNP 81, albumin 2.9, TSH 0.597, procalcitonin 0.32, lactic acid 1.3, INR 1.1, urinalysis small leuk esterase and blood, fecal occult negative, rapid influenza negative, rapid COVID-19 positive. Chest radiograph with right greater than left pulmonary infiltrates right Port-A-Cath noted. CT abdomen pelvis with no acute abnormality patchy bibasilar opacities noted as well as hepatic steatosis and 3 cm mass in the right hepatic lobe. Admitted for further care. 12/01/2021 No acute events overnight. Patient seen examined bedside. Saturating 90% on 2 L nasal cannula. Blood sugars still in the high 300s to 400s. I will adjust her long-acting Lantus to 30 twice daily with sliding scale and lispro Premeal's at 13 units. 12/02/2021 No acute events overnight. Patient seen and examined bedside. Saturating 92% on 2 L nasal cannula. Not dyspneic during my encounter. Patient requires assistance with feeding and taking her pills. Patient states that if she is depressed. This is the main reason why she is unable to fulfill her medications very likely. When asked which she like to start any antidepressants she says no. She is not having any suicidal thoughts. Patient has not gotten up out of bed on her own as she states that she feels wobbly. Pending PT/OT evaluation. Glucose checks in the last 24 hours are downtrending from 300s to the mid 100s. We will continue with current insulin regimen. Likely will need SNF placement. Patient's chart, labs, images were reviewed and discussed with RN 12/03/2021 No acute events overnight. Patient seen examined bedside. Still requiring 2 L nasal cannula to saturate 91%. Not dyspneic upon my encounter. PT OT recommending SNF placement. Social work consult for coordinating that. Patient definitely needs a lot of motivation and redirection for both her rehabilitation and diabetes medication regimen. 12/04/2021 No acute events overnight. Patient seen examined bedside. Patient having incre asing O2 requirements to 12 L nasal cannula saturating 91%. Depressive mood is affecting her motivation to ambulate. Patient's chart, labs, images were reviewed and discussed with RN 12/05/2021 No acute events overnight. Patient saturating 90% on 15 L nonrebreather and 8 L nasal cannula. Still having major depressive episode which I believe requires pharmacotherapy. I have started her on Ativan and nighttime sertraline. Patient's chart, labs, images were reviewed and discussed with RN 12/06/2021 No acute events overnight. Patient is seen examined bedside. Patient saturating 95% on 10 L nonrebreather. Not dyspneic upon my encounter. Patient's chart, labs, images were reviewed and discussed with RN 12/07/2021 No acute events overnight. Patient seen and examined bedside. Mood improved. Saturating well on 93% 10 L nasal cannula. Not dyspneic upon my encounter. Patient's chart, labs, images were reviewed and discussed with RN 12/08/2021 No acute events overnight. Patient seen and examined bedside. Saturating 91 % on 10 L nasal cannula. Not dyspneic upon my encounter. Patient's chart, labs, images were reviewed and discussed with RN 12/09/2021 No acute events overnight. Patient seen examined bedside. AF and VSS. Saturating 91% on 8 L nasal cannula. Not dyspneic at this time. Anticipate discharge in the next 24 to 40 hours if there is marked improvement. Patient's chart, labs, images were reviewed and discussed with RN AF and VSS. 12/10/2021 No acute events overnight. Patient saturating 95% on 4 L nasal cannula. Patient will need SNF placement. Patient's chart, labs, images were reviewed and discussed with RN Vitals/I&O Vitals/I&O: Vital Signs Date Time Temp Pulse Resp B/P (MAP) Pulse Ox O2 Delivery O2 Flow Rate FiO2 12/10/21 11:00 98.2 68 17 142/67 (92) 94 Nasal Cannula 8.0 98.2 I & O 12/09/21 12/09/21 12/10/21 15:00 23:00 07:00 Output Total 400 ml Balance -400 ml Physical Exam General: Alert, Oriented X3, Cooperative, moderate distress Abdomen: Normal bowel sounds, Soft, No tenderness, No hepatosplenomegaly, No masses Extremities: No clubbing, No cyanosis, No edema, Normal pulses, No tenderness/swelling Skin: No rashes, No breakdown, No significant lesion Labs Labs: Laboratory Tests Test 12/09/21 16:45 12/09/21 20:39 12/10/21 08:15 Glucose (Fingerstick) 155 mg/dL (70-99) 161 mg/dL (70-99) 168 mg/dL (70-99) Assessment and Plan Assessmemt and Plan Problems Medical Problems: (1) Acute kidney injury Status: Acute (2) Generalized weakness Status: Acute (3) Lab test positive for detection of COVID-19 virus Status: Acute Comment Review of Relevant I have reviewed the following items casey (where applicable) has been applied. Justifications for Admission Other Justification NIKKI LONDONO MD Dec 10, 2021 12:26
[2021-12-10 14:56] VITALS: BP 134/79
[2021-12-10 19:00] VITALS: BP 117/56
[2021-12-10] MEDS: SERTRALINE 50 MG TABLET. PO SCH (21:52)
[2021-12-10 23:00] VITALS: BP 124/61
[2021-12-11] MEDS: LORazepam 0.5 MG TABLET PO SCH ×4 (00:04→16:49)
[2021-12-11 03:00] VITALS: BP 126/60
[2021-12-11] MEDS: HEPARIN for SUB-Q USE 5,000 UNIT/ML VIAL. SQ SCH ×3 (06:38→21:38)
[2021-12-11 07:14] VITALS: BP 113/55
[2021-12-11] MEDS: CALCIUM CARB/VIT D3 500/200 TABLET. PO SCH (08:39)
[2021-12-11] MEDS: ZINC SULFATE 220 MG CAPSULE. PO SCH (08:39)
[2021-12-11] MEDS: metFORMIN 500 MG TABLET PO SCH ×2 (08:39→16:48)
[2021-12-11] MEDS: PANTOPRAZOLE 40 MG TABLET.DR. PO SCH (08:39)
[2021-12-11] MEDS: CARVEDILOL 3.125 MG TABLET. PO SCH ×2 (08:39→16:49)
[2021-12-11] MEDS: CHOLECALCIFEROL (VITAMIN D3) 5,000 UNIT CAPSULE PO SCH (08:39)
[2021-12-11] MEDS: CYANOCOBALAMIN (VITAMIN B-12) 1,000 MCG TABLET. PO SCH (08:40)
[2021-12-11] MEDS: ASPIRIN CHEWABLE 81 MG TABLET. PO SCH (08:40)
[2021-12-11] MEDS: ASCORBIC ACID 500 MG TABLET PO SCH ×2 (08:40→20:59)
[2021-12-11] MEDS: INSULIN LISPRO 300 UNITS/3 ML VIAL. SQ SCH ×6 (08:57→16:49)
[2021-12-11] MEDS: INSULIN GLARGINE SYRINGE. SQ SCH ×2 (09:31→21:00)
[2021-12-11 11:01] VITALS: BP 135/62
--- NOTE | 2021-12-11 12:03 | PDOC ---
[facility] PROGRESS NOTE Date of Service DOS: DATE: 12/11/21 TIME: 12:02 Chief Complaint Chief Complaint Assessment/Plan Acute respiratory failure with hypoxia -likely due to COVID-19. She is unvaccinated. We will initiate standard therapy with remdesivir and Decadron. Will check CRP consider baricitinib or tocilizumab COVID 19 - signs of pneumonia, will treat for secondary bacterial pneumonia likely gram negative given chronic immunosupressed state Diabetes type 2 - with hyperglycemia - not on insulin therapy at home, does not check her blood glucose. Will place on high sliding scale + 13 units 3 times daily with meals and 45 units Lantus nightly based daily need Blood in stool - could be due to diverticular bleed, but concerning with colon ca history. GI to evaluate Liver lesion on CT -right hepatic lobe mass will need f/u with oncology considering her colon ca history Hypertension - cont home meds Colon cancer s/p right hemicolectomy - s/p chemo, says she is remission, doesn't remember her last follow up but does have port care Thrombocytopenia - will monitor while on lovenox ELIAS - Likely vasomotor nephropathy from hyperglycemia, will monitor renal function Severe protein calorie malnutrition - due to COVID 19, will get nutrition Morbid obesity Major depressive disorderdoes not want to take any antidepressants FEN - ADA diet PPX - lovenox FULL CODE Dispo - inpatient History of Present Illness History of Present Illness 66 year old female with history of diabetes type 2, hypertension, colon cancer s/p right hemicolectomy, chemo, who presents to the ED 11/29/2021 c/o a cough for 1 week, dark stools for 3 days, and generalized weakness with shaking for 1 month she notes this is baseline ever since her chemotherapy for colon cancer. Patient denies any abdominal pain. Denies any nausea, vomiting. Denies any fever, chest pain, shortness of breath, patient is slightly poor historian. She does note some blood in her stools. Labs with WBC 6.9, Hb 13.3, platelets 108, NA 134, K4.7, BUN 30, CR 1.6, glucose 445, calcium 8.4 mag 2.4, bilirubin 0.43 AST 46, ALT 50, alk phos 93, sensitivity troponin is 16, NT proBNP 81, albumin 2.9, TSH 0.597, procalcitonin 0.32, lactic acid 1.3, INR 1.1, urinalysis small leuk esterase and blood, fecal occult negative, rapid influenza negative, rapid COVID-19 positive. Chest radiograph with right greater than left pulmonary infiltrates right Port-A-Cath noted. CT abdomen pelvis with no acute abnormality patchy bibasilar opacities noted as well as hepatic steatosis and 3 cm mass in the right hepatic lobe. Admitted for further care. 12/01/2021 No acute events overnight. Patient seen examined bedside. Saturating 90% on 2 L nasal cannula. Blood sugars still in the high 300s to 400s. I will adjust her long-acting Lantus to 30 twice daily with sliding scale and lispro Premeal's at 13 units. 12/02/2021 No acute events overnight. Patient seen and examined bedside. Saturating 92% on 2 L nasal cannula. Not dyspneic during my encounter. Patient requires assistance with feeding and taking her pills. Patient states that if she is depressed. This is the main reason why she is unable to fulfill her medications very likely. When asked which she like to start any antidepressants she says no. She is not having any suicidal thoughts. Patient has not gotten up out of bed on her own as she states that she feels wobbly. Pending PT/OT evaluation. Glucose checks in the last 24 hours are downtrending from 300s to the mid 100s. We will continue with current insulin regimen. Likely will need SNF placement. Patient's chart, labs, images were reviewed and discussed with RN 12/03/2021 No acute events overnight. Patient seen examined bedside. Still requiring 2 L nasal cannula to saturate 91%. Not dyspneic upon my encounter. PT OT recommending SNF placement. Social work consult for coordinating that. Patient definitely needs a lot of motivation and redirection for both her rehabilitation and diabetes medication regimen. 12/04/2021 No acute events overnight. Patient seen examined bedside. Patient having incre asing O2 requirements to 12 L nasal cannula saturating 91%. Depressive mood is affecting her motivation to ambulate. Patient's chart, labs, images were reviewed and discussed with RN 12/05/2021 No acute events overnight. Patient saturating 90% on 15 L nonrebreather and 8 L nasal cannula. Still having major depressive episode which I believe requires pharmacotherapy. I have started her on Ativan and nighttime sertraline. Patient's chart, labs, images were reviewed and discussed with RN 12/06/2021 No acute events overnight. Patient is seen examined bedside. Patient saturating 95% on 10 L nonrebreather. Not dyspneic upon my encounter. Patient's chart, labs, images were reviewed and discussed with RN 12/07/2021 No acute events overnight. Patient seen and examined bedside. Mood improved. Saturating well on 93% 10 L nasal cannula. Not dyspneic upon my encounter. Patient's chart, labs, images were reviewed and discussed with RN 12/08/2021 No acute events overnight. Patient seen and examined bedside. Saturating 91 % on 10 L nasal cannula. Not dyspneic upon my encounter. Patient's chart, labs, images were reviewed and discussed with RN 12/09/2021 No acute events overnight. Patient seen examined bedside. AF and VSS. Saturating 91% on 8 L nasal cannula. Not dyspneic at this time. Anticipate discharge in the next 24 to 40 hours if there is marked improvement. Patient's chart, labs, images were reviewed and discussed with RN AF and VSS. 12/10/2021 No acute events overnight. Patient saturating 95% on 4 L nasal cannula. Patient will need SNF placement. Patient's chart, labs, images were reviewed and discussed with RN 12/11/2021 No acute events overnight. Patient seen examined bedside. Saturating 97% on 4 L nasal cannula. Unable to tolerate 6-minute walk test as patient is falling down with respiratory therapist on full assist during ambulation. Unsafe for discharge to home or even home health at this time. Continue working with PT OT. Patient's chart, labs, images were reviewed and discussed with RN Vitals/I&O Vitals/I&O: Vital Signs Date Time Temp Pulse Resp B/P (MAP) Pulse Ox O2 Delivery O2 Flow Rate FiO2 12/11/21 11:01 97.8 65 17 135/62 (86) 95 Nasal Cannula 2.0 97.8 I & O 12/10/21 12/10/21 12/11/21 15:00 23:00 07:00 Intake Total 240 ml 120 ml Output Total 400 ml Balance 240 ml -280 ml Physical Exam General: Alert, Oriented X3, Cooperative, moderate distress Abdomen: Normal bowel sounds, Soft, No tenderness, No hepatosplenomegaly, No masses Extremities: No clubbing, No cyanosis, No edema, Normal pulses, No tenderness/swelling Skin: No rashes, No breakdown, No significant lesion Labs Labs: Laboratory Tests Test 12/10/21 12:19 12/10/21 16:48 12/10/21 20:54 12/11/21 07:57 Glucose (Fingerstick) 155 mg/dL (70-99) 78 mg/dL (70-99) 110 mg/dL (70-99) 165 mg/dL (70-99) Test 12/11/21 11:30 Glucose (Fingerstick) 223 mg/dL (70-99) Assessment and Plan Assessmemt and Plan Problems Medical Problems: (1) Acute kidney injury Status: Acute (2) Generalized weakness Status: Acute (3) Lab test positive for detection of COVID-19 virus Status: Acute Comment Review of Relevant I have reviewed the following items casey (where applicable) has been applied. Justifications for Admission Other Justification NIKKI LONDONO MD Dec 11, 2021 12:02
[2021-12-11 15:13] VITALS: BP 121/67
--- NOTE | 2021-12-11 15:18 | NUR ---
SW following. Discussed with RN, pt from home with granddaughters, needing 6 minute walk prior to discharge. Family able to move pt's sleeping arrangement so pt can be on one level and only use stairs once a day. Per therapy note, pt feels like she can manage the stairs once a day at home. SW will continue to follow.
[2021-12-11 19:56] VITALS: BP 120/59
[2021-12-11] MEDS: SERTRALINE 50 MG TABLET. PO SCH (20:59)
[2021-12-11 23:07] VITALS: BP 111/56
[2021-12-12 03:13] VITALS: BP 103/55
[2021-12-12] MEDS: LORazepam 0.5 MG TABLET PO SCH ×3 (06:00→12:37)
[2021-12-12] MEDS: HEPARIN for SUB-Q USE 5,000 UNIT/ML VIAL. SQ SCH (06:17)
[2021-12-12] MEDS: PANTOPRAZOLE 40 MG TABLET.DR. PO SCH (06:18)
[2021-12-12 07:00] VITALS: BP 111/54
[2021-12-12] MEDS: metFORMIN 500 MG TABLET PO SCH (08:29)
[2021-12-12] MEDS: ZINC SULFATE 220 MG CAPSULE. PO SCH (08:29)
[2021-12-12] MEDS: CALCIUM CARB/VIT D3 500/200 TABLET. PO SCH (08:29)
[2021-12-12] MEDS: CYANOCOBALAMIN (VITAMIN B-12) 1,000 MCG TABLET. PO SCH (08:30)
[2021-12-12] MEDS: CARVEDILOL 3.125 MG TABLET. PO SCH (08:30)
[2021-12-12] MEDS: ASCORBIC ACID 500 MG TABLET PO SCH (08:30)
[2021-12-12] MEDS: ASPIRIN CHEWABLE 81 MG TABLET. PO SCH (08:30)
[2021-12-12] MEDS: CHOLECALCIFEROL (VITAMIN D3) 5,000 UNIT CAPSULE PO SCH (08:30)
[2021-12-12] MEDS: INSULIN LISPRO 300 UNITS/3 ML VIAL. SQ SCH ×4 (08:39→12:35)
[2021-12-12] MEDS: INSULIN GLARGINE SYRINGE. SQ SCH (09:49)
[2021-12-12 11:00] VITALS: BP 124/58
[2021-12-12] MEDS ORDERED: SERT-267 PO (12:57)
--- NOTE | 2021-12-12 12:59 | SNU/HH DC ---
DISCHARGE WITH HOME HEALTH DISCHARGE INFORMATION: Discharge Date: Dec 12, 2021 Final Diagnosis: Problems Medical Problems: (1) Acute kidney injury Status: Acute (2) Generalized weakness Status: Acute (3) Lab test positive for detection of COVID-19 virus Status: Acute Condition on Discharge: Stable HOME HEALTH: Face to Face: I certify this patient is under my care and that I, or a nurse practitioner or physician's pet care assistant working with me, had a face to face encounter that meets the physician face to face encounter requirements with this patient on []. Medical Complications: Falls, Pneumonia Prison For: Assess & Educate Safety, Assess/Skilled Observatio, Medication Management, Pain Management RN For Eval/Treatment: Yes Physical Therapy For: Evalulation/Treatment Occupational Therapy For: Evaluation/Treatment Home Health Aide For: Self-care Pt Meets Homebound Status: Poor coordination w/ amb., Extreme weakness w/ amb., Limited distance walking, Unable to negotiate home POST DISCHARGE ORDERS: Activity Instructions for Disc: Activity as tolerated Weight Bearing Status after Di: No restrictions Bathing Instructions: No Tub Bath until see Wound/Incision Care: Keep wound/cast CDI CHECKS AFTER DISCHARGE: Checks after discharge: Check blood sugar, ac/hs FOLLOW-UP: Follow up with: PCP within 2 weeks of discharge TREATMENT/EQUIPMENT ORDERS: Adaptive Equipment Issued: Front wheeled walker CERTIFICATION STATEMENT: Certification Statement: Certification Statement: Based on the above finding, I certify that this patient is confined to the home and needs intermittent retirement care, physical therapy and/or speech therapy, or continues to need occupational therapy.~ This patient is under my care, and I have initiated the establishment of the plan of care.~ This patient will be followed by myself or a community physician who will periodically review the plan of care. Home Meds Active Scripts Sertraline Hcl (SERTRALINE HCL) 50 Mg Tablet, 50 MG PO QHS for depression for 30 Days, #30 TAB 2 Refills Prov:NIKKI LONDONO MD 12/12/21 Ascorbic Acid (VITAMIN C) 500 Mg Capsule.er, 1 CAP PO BID for 30 for 30 Days, #60 CAP 5 Refills Prov:ANNA CARNES MD 04/13/20 Reported Medications Lidocaine/Prilocaine (LIDOCAINE-PRILOCAINE CREAM) 30 Gm Cream..g., 1 KETTY TP UD for rx, #30 GM 1 Refill apply small pea size amount to skin surface over tom cath 30 minutes before appointment 05/16/20 Prochlorperazine Maleate (Compazine) 10 Mg Tablet, 1 TAB PO Q4HRS for rx for 30 Days, #180 TAB 0 Refills for use when chemo starts 05/16/20 Ondansetron Hcl (ZOFRAN) 8 Mg Tablet, 1 TAB PO Q8HRS for n&v, #30 TAB 1 Refill 05/16/20 Ondansetron Hcl (ZOFRAN) 4 Mg Tablet, 1 TAB SL Q8HRS for rx, #30 TAB to start use when chemo starts 05/16/20 Pantoprazole Sodium (PANTOPRAZOLE SODIUM ) 40 Mg Tablet.dr, 40 MG PO DAILYAC for GERD, TAB 05/16/20 Glipizide (GLIPIZIDE) 10 Mg Tablet, 10 MG PO DAILY for rx, TAB 05/16/20 Aspirin (Children's Aspirin) 81 Mg Tab.chew, 1 TAB PO DAILY for rx for 30 Days, #30 TAB 0 Refills 05/16/20 Multivits,-, Min (COMPLETE MULTIVITAMIN) 1 Each Tablet, 1 TAB PO DAILY for rx for 30 Days, #30 TAB 0 Refills 05/16/20 Ubidecarenone (COQ10) 50 Mg Tab.chew, 100 MG PO DAILY for rx, TAB.CHEW 05/16/20 Mecobalamin (B12 Active) 1,000 Mcg Tab.chew, 5000 MCG PO DAILY for rx, TAB.CHEW 05/16/20 Calcium Carb/Mag Oxide/Vit D3 (CALCIUM MAGNESIUM + D TABLET) 1 Each Tablet, 1 EACH PO DAILY for rx, TAB 05/16/20 Carvedilol (COREG ) 3.125 Mg Tablet, 3.125 MG PO BIDWMEALS for CARDIAC, TAB 05/16/20 Metformin Hcl (METFORMIN HCL) 1,000 Mg Tablet, 1000 MG PO BIDWMEALS for rx, TAB 05/16/20 [vitamin d3] No Conflict Check, 5000 UNITS PO DAILY 05/16/20 NIKKI LONDONO MD Dec 12, 2021 12:58
--- NOTE | 2021-12-12 13:58 | NUR ---
SW following. Discussed with RN, awaiting 6 minute walk for discharge. Clinicals faxed to [facility], awaiting acceptance decision. MANAN will continue to follow. Addendum: 12/12/21 at 1605 by JUAN HINKLE 6 minute walk complete - pt needing 4L rest 6L exertion. Referral faxed to [facility], approval given, tank provided to pt. Pt accepted with [facility]. RN notified.
[2021-12-12 15:00] VITALS: BP 120/63
[2021-12-12] MEDS ORDERED: HEPARIN PF 500 UNIT/5 ML DISP.SYRIN. IVP ONE (15:30)
--- NOTE | 2021-12-12 18:07 | NUR ---
Discharge Note: CARMELITA KAUR Discharge instructions and discharge home medications reviewed with the patient and a copy given. All questions have been answered and understanding verbalized. The following instructions and handouts were given: Home meds as directed Home oxygen at home. Follow up with PCP in a week COVID Precautions-hand hygiene, wear mask, and social distancing Discontinued lines and drains: chest port deaccessed, no complications noted home with HH via wheelchair on oxygen at 1720.
--- NOTE | 2021-12-12 18:13 | NUR ---
Home `oxygen at 4 liters at rest 6 liters with exertion Discussed precautions when on oxygen therapy.
--- NOTE | 2021-12-13 11:20 | PDOC3 ---
[facility]-Discharge Summary Date of Admission: Date of Admission: Nov 30, 2021 Date of Discharge: Date of Discharge: Dec 12, 2021 Discharge Diagnosis: Discharge Diagnosis: Acute respiratory failure with hypoxia -likely due to COVID-19. She is unvaccinated. We will initiate standard therapy with remdesivir and Decadron. Will check CRP consider baricitinib or tocilizumab COVID 19 - signs of pneumonia, will treat for secondary bacterial pneumonia likely gram negative given chronic immunosupressed state Diabetes type 2 - with hyperglycemia - not on insulin therapy at home, does not check her blood glucose. Will place on high sliding scale + 13 units 3 times daily with meals and 45 units Lantus nightly based daily need Blood in stool - could be due to diverticular bleed, but concerning with colon ca history. GI to evaluate Liver lesion on CT -right hepatic lobe mass will need f/u with oncology consid ering her colon ca history Hypertension - cont home meds Colon cancer s/p right hemicolectomy - s/p chemo, says she is remission, doesn't remember her last follow up but does have port care Thrombocytopenia - will monitor while on lovenox ELIAS - Likely vasomotor nephropathy from hyperglycemia, will monitor renal function Severe protein calorie malnutrition - due to COVID 19, will get nutrition Morbid obesity Major depressive disorderStarted on SSRI during this hospitalization Hospital Course: Hospital Course: 66 year old female with history of diabetes type 2, hypertension, colon cancer s/p right hemicolectomy, chemo, who presents to the ED 11/29/2021 c/o a cough for 1 week, dark stools for 3 days, and generalized weakness with shaking for 1 month she notes this is baseline ever since her chemotherapy for colon cancer. Patient denies any abdominal pain. Denies any nausea, vomiting. Denies any fever, chest pain, shortness of breath, patient is slightly poor historian. She does note some blood in her stools. Labs with WBC 6.9, Hb 13.3, platelets 108, NA 134, K4.7, BUN 30, CR 1.6, glucose 445, calcium 8.4 mag 2.4, bilirubin 0.43 AST 46, ALT 50, alk phos 93, sensitivity troponin is 16, NT proBNP 81, albumin 2.9, TSH 0.597, procalcitonin 0.32, lactic acid 1.3, INR 1.1, urinalysis small leuk esterase and blood, fecal occult negative, rapid influenza negative, rapid COVID-19 positive. Chest radiograph with right greater than left pulmonary infiltrates right Port-A-Cath noted. CT abdomen pelvis with no acute abnormality patchy bibasilar opacities noted as well as hepatic steatosis and 3 cm mass in the right hepatic lobe. Admitted for further care. 12/01/2021 No acute events overnight. Patient seen examined bedside. Saturating 90% on 2 L nasal cannula. Blood sugars still in the high 300s to 400s. I will adjust her long-acting Lantus to 30 twice daily with sliding scale and lispro Premeal's at 13 units. 12/02/2021 No acute events overnight. Patient seen and examined bedside. Saturating 92% on 2 L nasal cannula. Not dyspneic during my encounter. Patient requires assistance with feeding and taking her pills. Patient states that if she is depressed. This is the main reason why she is unable to fulfill her medications very likely. When asked which she like to start any antidepressants she says no. She is not having any suicidal thoughts. Patient has not gotten up out of bed on her own as she states that she feels wobbly. Pending PT/OT evaluation. Glucose checks in the last 24 hours are downtrending from 300s to the mid 100s. We will continue with current insulin regimen. Likely will need SNF placement. Patient's chart, labs, images were reviewed and discussed with RN 12/03/2021 No acute events overnight. Patient seen examined bedside. Still requiring 2 L nasal cannula to saturate 91%. Not dyspneic upon my encounter. PT OT recommending SNF placement. Social work consult for coordinating that. Patient definitely needs a lot of motivation and redirection for both her rehabilitation and diabetes medication regimen. 12/04/2021 No acute events overnight. Patient seen examined bedside. Patient having increasing O2 requirements to 12 L nasal cannula saturating 91%. Depressive mood is affecting her motivation to ambulate. Patient's chart, labs, images were reviewed and discussed with RN 12/05/2021 No acute events overnight. Patient saturating 90% on 15 L nonrebreather and 8 L nasal cannula. Still having major depressive episode which I believe requires pharmacotherapy. I have started her on Ativan and nighttime sertraline. Patient's chart, labs, images were reviewed and discussed with RN 12/06/2021 No acute events overnight. Patient is seen examined bedside. Patient saturating 95% on 10 L nonrebreather. Not dyspneic upon my encounter. Patient's chart, labs, images were reviewed and discussed with RN 12/07/2021 No acute events overnight. Patient seen and examined bedside. Mood improved. Saturating well on 93% 10 L nasal cannula. Not dyspneic upon my encounter. Patient's chart, labs, images were reviewed and discussed with RN 12/08/2021 No acute events overnight. Patient seen and examined bedside. Saturating 91 % on 10 L nasal cannula. Not dyspneic upon my encounter. Patient's chart, labs, images were reviewed and discussed with RN 12/09/2021 No acute events overnight. Patient seen examined bedside. AF and VSS. Saturating 91% on 8 L nasal cannula. Not dyspneic at this time. Anticipate discharge in the next 24 to 40 hours if there is marked improvement. Patient's chart, labs, images were reviewed and discussed with RN AF and VSS. 12/10/2021 No acute events overnight. Patient saturating 95% on 4 L nasal cannula. Patient will need SNF placement. Patient's chart, labs, images were reviewed and discussed with RN By day of discharge, pt was clinically stable and ready for discharge. She was able to walk at least 80ft with PT. She was able to complete her 6 min walk test and she will need home O2 at time of discharge. She will need to continue her SSRI until seen by her PCP and adjust as necessary. Rest of hospital course was uneventful Disposition: Disposition/Orders: D/C to Home w/ HH Activity: Activity: Resume previous activity Diet: Diet: Consistent Carbohydrate Medications: Home Meds Active Scripts Sertraline Hcl (SERTRALINE HCL) 50 Mg Tablet, 50 MG PO QHS for depression for 30 Days, #30 TAB 2 Refills Prov:NIKKI LONDONO MD 12/12/21 Ascorbic Acid (VITAMIN C) 500 Mg Capsule.er, 1 CAP PO BID for 30 for 30 Days, #60 CAP 5 Refills Prov:ANNA CARNES MD 04/13/20 Reported Medications Lidocaine/Prilocaine (LIDOCAINE-PRILOCAINE CREAM) 30 Gm Cream..g., 1 KETTY TP UD for rx, #30 GM 1 Refill apply small pea size amount to skin surface over tom cath 30 minutes before appointment 05/16/20 Prochlorperazine Maleate (Compazine) 10 Mg Tablet, 1 TAB PO Q4HRS for rx for 30 Days, #180 TAB 0 Refills for use when chemo starts 05/16/20 Ondansetron Hcl (ZOFRAN) 8 Mg Tablet, 1 TAB PO Q8HRS for n&v, #30 TAB 1 Refill 05/16/20 Ondansetron Hcl (ZOFRAN) 4 Mg Tablet, 1 TAB SL Q8HRS for rx, #30 TAB to start use when chemo starts 05/16/20 Pantoprazole Sodium (PANTOPRAZOLE SODIUM ) 40 Mg Tablet.dr, 40 MG PO DAILYAC for GERD, TAB 05/16/20 Glipizide (GLIPIZIDE) 10 Mg Tablet, 10 MG PO DAILY for rx, TAB 05/16/20 Aspirin (Children's Aspirin) 81 Mg Tab.chew, 1 TAB PO DAILY for rx for 30 Days, #30 TAB 0 Refills 05/16/20 Multivits,Th W-Fe,Other Min (COMPLETE MULTIVITAMIN) 1 Each Tablet, 1 TAB PO DAILY for rx for 30 Days, #30 TAB 0 Refills 05/16/20 Ubidecarenone (COQ10) 50 Mg Tab.chew, 100 MG PO DAILY for rx, TAB.CHEW 05/16/20 Mecobalamin (B12 Active) 1,000 Mcg Tab.chew, 5000 MCG PO DAILY for rx, TAB.CHEW 05/16/20 Calcium Carb/Mag Oxide/Vit D3 (CALCIUM MAGNESIUM + D TABLET) 1 Each Tablet, 1 EACH PO DAILY for rx, TAB 05/16/20 Carvedilol (COREG ) 3.125 Mg Tablet, 3.125 MG PO BIDWMEALS for CARDIAC, TAB 05/16/20 Metformin Hcl (METFORMIN HCL) 1,000 Mg Tablet, 1000 MG PO BIDWMEALS for rx, TAB 05/16/20 [vitamin d3] No Conflict Check, 5000 UNITS PO DAILY 05/16/20 Scheduled Ascorbic Acid (Vitamin C), 1 CAP PO BID Aspirin (Children's Aspirin), 1 TAB PO DAILY, (Reported) Calcium Carb/Mag Oxide/Vit D3 (Calcium Magnesium + D Tablet), 1 EACH PO DAILY, (Reported) Carvedilol (Coreg ), 3.125 MG PO BIDWMEALS, (Reported) Glipizide (Glipizide), 10 MG PO DAILY, (Reported) Lidocaine/Prilocaine (Lidocaine-Prilocaine Cream), 1 KETTY TP UD, (Reported) Mecobalamin (B12 Active), 5,000 MCG PO DAILY, (Reported) Metformin Hcl (Metformin Hcl), 1,000 MG PO BIDWMEALS, (Reported) Multivits, W-Fe,Other Min (Complete Multivitamin), 1 TAB PO DAILY, (Reported) Ondansetron Hcl (Zofran), 1 TAB SL Q8HRS, (Reported) Ondansetron Hcl (Zofran), 1 TAB PO Q8HRS, (Reported) Pantoprazole Sodium (Pantoprazole Sodium ), 40 MG PO DAILYAC, (Reported) Prochlorperazine Maleate (Compazine), 1 TAB PO Q4HRS, (Reported) Sertraline Hcl (Sertraline Hcl), 50 MG PO QHS Ubidecarenone (Coq10), 100 MG PO DAILY, (Reported) [vitamin d3], 5,000 UNITS PO DAILY, (Reported) Total Time: Total Time: Total time spent was 35 minutes in preparing scripts and discharge planning with SW and RN. Patient seen and examined on day of Discharge. Justicifation of Admission Dx: Justifications for Admission: Justification of Admission Dx: Yes NIKKI LONDONO MD Dec 13, 2021 11:20
== END 2021-12-12 17:20 | disposition home health service (06) | DRG 177 ==
LOC: ER 15:05 → 5 SOUTH 22:07 → 5 NORTH 12-05 14:24
PROVIDERS: ADMIT Internal Medicine; ATTEND Internal Medicine
PROC: XW033E5 Introduction of Remdesivir Anti-infective into Peripheral Vein, Percutaneous Approach, New Technology Group 5 (ICD-10-PCS; principal; 2021-11-29)
DX: U07.1 COVID-19 (principal); J12.82 Pneumonia due to coronavirus disease 2019; N17.0 Acute kidney failure with tubular necrosis; E43 Unspecified severe protein-calorie malnutrition; J15.9 Unspecified bacterial pneumonia; J96.01 Acute respiratory failure with hypoxia; K57.31 Diverticulosis of large intestine without perforation or abscess with bleeding; C18.9 Malignant neoplasm of colon, unspecified; Z68.42 Body mass index [BMI] 45.0-49.9, adult; D69.6 Thrombocytopenia, unspecified; E11.65 Type 2 diabetes mellitus with hyperglycemia; E66.01 Morbid (severe) obesity due to excess calories; E88.09 Other disorders of plasma-protein metabolism, not elsewhere classified; F32.9 Major depressive disorder, single episode, unspecified; I10 Essential (primary) hypertension; K42.9 Umbilical hernia without obstruction or gangrene; K44.9 Diaphragmatic hernia without obstruction or gangrene; K76.0 Fatty (change of) liver, not elsewhere classified; Z83.71 Family history of colonic polyps; Z85.038 Personal history of other malignant neoplasm of large intestine; Z90.49 Acquired absence of other specified parts of digestive tract; Z90.710 Acquired absence of both cervix and uterus; Z92.21 Personal history of antineoplastic chemotherapy; Z28.3 Underimmunization status; Z79.899 Other long term (current) drug therapy
CPT/HCPCS: 36415; 71045; 74176; 80048; 80053; 81001; 82274; 82553; 82962; 83036; 83605; 83690; 83735; 83880; 84145; 84443; 84484; 85025; 85610; 85730; 86140; 87040; 87086; 87428; 93005; 94618; 96361; 96374; 96375; J0696; J1100; J1642; J1644; J1815; J2405; J3490; J7030; J7050; 92610-GN; 97110-GP; 97116-GP; 97530-GO; 97530-GP; 97535-GO; 99285-25; G0378

== ENCOUNTER → 2022-03-20 | Outpatient (CLI) | payer OTHER ==
[~2022-03-20] MED LIST changes: +HEPARIN PF 500 UNIT/5 ML DISP.SYRIN. IVP ONE; +IOHEXOL 240 MG/ML 50ML VIAL. PO ONE; +IOHEXOL 300 MG/ML 100ML VIAL. IV ONE; +SERT-267 PO
--- NOTE | 2022-03-20 12:49 | RAD ---
EXAM: CT OF THE CHEST, ABDOMEN AND PELVIS WITH CONTRAST. HISTORY: Colon cancer restaging. TECHNIQUE: Computed tomography of the chest, abdomen and pelvis was performed after the intravenous a dministration of iodinated contrast. One or more of the following individualized dose reduction techn iques were utilized for this examination: 1. Automated exposure control. 2. Adjustment of the mA and/or kV according to patient size. 3. Use of iterative reconstruction technique. COMPARISON: 11/29/2021. FINDINGS: Bone windows reveal no suspicious lesions. A sclerotic focus within the left superior pubic ramus is likely a benign bone island. There are no pathologically enlarged mediastinal or axillary lymph nodes. There is no pleural or flori cardial effusion. The heart is not enlarged. A right-sided port catheter has its tip in the superior cavoatrial junction. Peripheral infiltrates throughout all lobes have improved but not completely resolved since the prior study. Hypoattenuation of the hepatic parenchyma is consistent with diffuse hepatic steatosis. A mildly hype rattenuating lesion within hepatic segment 6 measures 4.0 x 3.2 cm, increased from 2.8 cm previously. The gallbladder is surgically absent. The pancreas, adrenal glands, spleen and kidneys are unremarkab le. There are no pathologically enlarged lymph nodes. The uterus is surgically absent. There are changes of right colectomy with ileocolonic anastomosis. T here is no small bowel obstruction. A small umbilical hernia contains only fat. IMPRESSION: 1. A 4.0 cm lesion within hepatic segment 6 has increased in size. This is ill-defined and not well c haracterized by CT. MRI could further differentiate metastatic disease from focal fatty sparing if th e diagnosis is not already known. 2. Multifocal pulmonary opacities status post pneumonia have improved but not completely resolved. Electronically signed by: Harriett Solis MD (03/20/2022 12:46 PM) [id number]
== END ==
LOC: CT 09:13
PROVIDERS: ATTEND Internal Medicine Hematology & Oncology
DX: K76.89 Other specified diseases of liver (principal); R91.8 Other nonspecific abnormal finding of lung field; K42.9 Umbilical hernia without obstruction or gangrene; Z90.49 Acquired absence of other specified parts of digestive tract; Z95.9 Presence of cardiac and vascular implant and graft, unspecified; Z90.710 Acquired absence of both cervix and uterus
CPT/HCPCS: 71260; 74177; J1642; Q9966; Q9967

== ENCOUNTER → 2022-03-28 | Outpatient (CLI) | payer OTHER ==
[~2022-03-28] MED LIST changes: -HEPARIN PF 500 UNIT/5 ML DISP.SYRIN. IVP ONE; -IOHEXOL 240 MG/ML 50ML VIAL. PO ONE; -IOHEXOL 300 MG/ML 100ML VIAL. IV ONE
[2022-03-28 12:44] LABS: BASO # 0.1 x10^3/uL (0.0-0.2); BASO % 1 % (0-3); EOS # 0.2 x10^3/uL (0.0-0.7); EOS % 4 % (0-3); HEMATOCRIT 39.8 % (36.0-47.0); HEMOGLOBIN 13.4 g/dL (12.0-15.5); LYMPH # 1.6 x10^3/uL (1.0-4.8); LYMPH % 25 % (24-48); MEAN CORPUSCULAR HEMOGLOBIN 28 pg (25-35); MEAN CORPUSCULAR HGB CONC 34 g/dL (31-37); MEAN CORPUSCULAR VOLUME 84 fL (79-100); MONO # 0.4 x10^3/uL (0.0-1.1); MONO % 7 % (0-9); NEUT % 64 % (31-73); PLATELET COUNT 148 x10^3/uL (140-400); RED BLOOD COUNT 4.72 x10^6/uL (3.50-5.40); RED CELL DISTRIBUTION WIDTH 14.2 % (11.5-14.5); WHITE BLOOD COUNT 6.3 x10^3/uL (4.0-11.0)
[2022-03-28 13:03] LABS: CALCIUM 9.7 mg/dL (8.5-10.1); CREATININE 1.4 mg/dL (0.6-1.0); GFR 37.9; POTASSIUM 4.5 mmol/L (3.5-5.1)
[2022-03-28 13:08] LABS: ALBUMIN 3.4 g/dL (3.4-5.0); ALBUMIN/GLOBULIN RATIO 0.8 (1.0-1.7); TOTAL BILIRUBIN 0.3 mg/dL (0.2-1.0); TOTAL PROTEIN 7.6 g/dL (6.4-8.2)
== END ==
LOC: ONCLAB 12:08
PROVIDERS: ATTEND Internal Medicine Hematology & Oncology
DX: C18.4 Malignant neoplasm of transverse colon (principal)
CPT/HCPCS: 36415; 80053; 82378; 85025